=== PATIENT | female | born 1945 | race Caucasian/White ===

== ENCOUNTER 2017-07-17 14:36 | Emergency (ER) | payer OTHER ==
[~2017-07-17] VITALS: Ht 147.3 cm; Wt 61.0 kg
[2017-07-17 14:36] VITALS: BP 136/74; PULSE 96; RESP 18; TEMP 98.5; O2SAT 96
[2017-07-17] MEDS ORDERED: ASPI-146 PO (14:51)
[2017-07-17] MEDS ORDERED: ZEGE20CA4 PO (14:51)
[2017-07-17] MEDS ORDERED: VERA120T3 PO (14:51)
[2017-07-17] MEDS ORDERED: ATOR40TA16 PO (14:51)
[2017-07-17] MEDS ORDERED: GLIP1TAB49 PO (14:51)
[2017-07-17] MEDS ORDERED: LISI-515 PO (14:51)
[2017-07-17] MEDS ORDERED: CANA1TAB2 PO (14:51)
--- NOTE | 2017-07-17 15:15 | PD ---
HPI Chief Complaint: Fall Time Seen by Provider: 14:54 Travel History International Travel<30 days: No Contact w/Intl Traveler<30days: No Traveled to known affect area: No History of Present Illness HPI This is a 72-year-old female here with bilateral knee pain after she had a mechanical trip and fall from a standing position prior to arrival. She reports while walking out of a grocery store she tripped on a curb falling forward onto both knees. She denies head injury or loss of consciousness. Not anticoagulated. She has pain with weightbearing and range of motion of the knees. Symptom severity is moderate. PFSH Past Medical History Cardiovascular Problems: Yes Diabetes: Yes Patient Takes Glucophage: No Diminished Hearing: No Hypertension: Yes Immunizations Current: Yes Tetanus Vaccination: Unknown Influenza Vaccination: Yes ?: Not Past Surgical History Hysterectomy: Yes Tonsillectomy: Yes Other Surgery: Yes (RT LEG LIGAMENT BREAST BX) Social History Alcohol Use: Yes Tobacco Use: Yes Substance Use: No Allergies-Medications (Allergen,Severity, Reaction): Coded Allergies: No Known Allergies (Verified Allergy, Unknown, 07/17/17) Reported Meds & Prescriptions Reported Meds & Active Scripts Active Reported Zegerid (Omeprazole-Sodium Bicarbonate) 20-1,100 Mg Cap 1 Cap PO DAILY Ecotrin Regular Strength (Aspirin) 325 Mg Tabdr 325 Mg PO DAILY Atorvastatin (Atorvastatin Calcium) 40 Mg Tab 40 Mg PO HS Verapamil (Verapamil HCl) 120 Mg Tab 120 Mg PO DAILY Lisinopril 20 Mg Tab 20 Mg PO DAILY Glipizide ER (Glipizide) 5 Mg Ramona 5 Mg PO DAILY Take with breakfast or first main meal of the day. Invokamet (Canagliflozin-Metformin) 50-1,000 Mg Tab 1 Tab PO BID Take with meals. Avoid ethanol. Review of Systems Except as stated in HPI: all other systems reviewed are Neg General / Constitutional: No: Fever Eyes: No: Visual changes HENT: No: Headaches Cardiovascular: No: Chest Pain or Discomfort Respiratory: No: Shortness of Breath Gastrointestinal: No: Abdominal Pain Genitourinary: No: Dysuria Physical Exam Narrative GENERAL: Alert and well-appearing 9-year-old female SKIN: Warm and dry. HEAD: Normocephalic. Atraumatic EYES: No injection or drainage. NECK: Supple, no midline spine tenderness MUSCULOSKELETAL: No cyanosis. + Tenderness to bilateral knees. Superficial abrasions noted to left knee. No deformity. No joint effusion. Patient has pain with flexion. 2+ distal pulses. Normal Sensation. Brisk cap refill. BACK: Nontender without obvious deformity. No CVA tenderness. Data Data Last Documented VS Vital Signs Date Time Temp Pulse Resp B/P (MAP) Pulse Ox O2 Delivery O2 Flow Rate FiO2 07/17/17 14:36 98.5 96 18 136/74 (94) 96 Orders Orders Knee, Complete (4vws) (07/17/17 ) Knee, Complete (4vws) (07/17/17 ) MDM Medical Decision Making Medical Screen Exam Complete: Yes Emergency Medical Condition: Yes Differential Diagnosis Patellar fracture, contusion, knee sprain Narrative Course 72-year-old female here with bilateral knee pain after mechanical trip and fall. No head injury or possible consciousness. Extremities are neurovascularly intact X-ray bilateral knees: Negative for fracture Patient will be treated for bilateral knee contusion. Nick wrap supplied. She is ambulatory with steady gait Diagnosis Primary Impression: Knee contusion Qualified Codes: S80.00XA - Contusion of unspecified knee, initial encounter Referrals: Primary Care Physician Additional Instructions: Ice and elevate the extremities Nick wrap for support. Tylenol and ibuprofen as needed for pain. Follow-up the primary doctor or orthopedist if he have continued pain Disposition: 01 DISCHARGE HOME Condition: Stable Hannah Cartwright Jul 17, 2017 15:15
--- NOTE | 2017-07-17 15:33 | RADRPT ---
EXAM DATE/TIME: 07/17/2017 15:05 [facility] COMPARISON: No previous studies available for comparison. INDICATIONS : Fell on knees, has abrasions to anterior knee and pain MEDICAL HISTORY : None. SURGICAL HISTORY : None. ENCOUNTER: Initial ACUITY: 1 day PAIN SCORE: 4/10 LOCATION: Left knee FINDINGS: No definite fractures, or dislocations are identified. No definite lytic or sclerotic lesion is seen . Slight osteopenia is seen. There is mild narrowing of the medial compartment. CONCLUSION: Slight osteopenia and mild osteoarthritis medial compartment. Gagandeep Da Silva MD on July 17, 2017 at 15:30 Board Certified Radiologist. This report was verified electronically.
--- NOTE | 2017-07-17 15:35 | RADRPT ---
EXAM DATE/TIME: 07/17/2017 15:12 [facility] COMPARISON: No previous studies available for comparison. INDICATIONS : Fell on knees, has abrasions and pain anterior knee MEDICAL HISTORY : None. SURGICAL HISTORY : None. ENCOUNTER: Initial ACUITY: 1 day PAIN SCORE: 4/10 LOCATION: Right knee FINDINGS: Significant osteoarthritis is seen within the medial compartment and to lesser degree the other gabo rtments. No definite fractures, dislocations, lytic, or sclerotic lesions are seen. there is mild ost eopenia. CONCLUSION: Osteoarthritis. Gagandeep Da Silva MD on July 17, 2017 at 15:32 Board Certified Radiologist. This report was verified electronically.
== END 2017-07-17 15:59 | disposition home or self-care (01) ==
LOC: PHEFT 14:36
DX: S80.02XA Contusion of left knee, initial encounter (principal); S80.01XA Contusion of right knee, initial encounter; M17.11 Unilateral primary osteoarthritis, right knee; E11.9 Type 2 diabetes mellitus without complications; I10 Essential (primary) hypertension; W10.1XXA Fall (on)(from) sidewalk curb, initial encounter; Y92.512 Supermarket, store or market as the place of occurrence of the external cause; Z72.0 Tobacco use; Z79.899 Other long term (current) drug therapy
CPT/HCPCS: 73564; 99283

== ENCOUNTER 2017-09-20 23:44 | Inpatient (IN) | payer OTHER, MEDICARE ==
[~2017-09-20] VITALS: Ht 160 cm; Wt 62.0 kg
[~2017-09-20 23:44] MED LIST: ASPI-146 PO; ATOR40TA16 PO; CANA1TAB2 PO; GLIP1TAB49 PO; LISI-515 PO; VERA120T3 PO; ZEGE20CA4 PO
[2017-09-20 23:46] VITALS: O2SAT 100
[2017-09-20 23:47] VITALS: BP 110/61; PULSE 127; RESP 20; O2SAT 100
[2017-09-21] VITALS (30 sets, daily range): BP systolic 99–153; BP diastolic 60–103; PULSE 98–127; RESP 12–16; TEMP 97–99.2; O2SAT 94–100
[2017-09-21] MEDS ORDERED: SODIUM CHLORIDE 0.9% FLUSH 10 ML FLUSH IVF PRN
--- NOTE | 2017-09-21 00:14 | PD ---
HPI Chief Complaint: Respiratory Distress Time Seen by Provider: 00:00 Travel History International Travel<30 days: No Contact w/Intl Traveler<30days: No Traveled to known affect area: No History of Present Illness HPI 77-year-old female presents to the emergency department by EMS transport from local fire department where she went into respiratory failure and then into respiratory arrest. Patient presented to the fire department with marked shortness of breath fire department personnel attempted CPAP and then patient went into respiratory arrest and was intubated with 7.0 endotracheal tube by EMS. Patient had received Lasix 70 mg IV push 1 dose and sublingual nitroglycerin and aspirin prior to respiratory arrest by firefighters. Paramedics identified patient to have a left bundle branch block of indeterminate age. [facility] Past Medical History Medical History: Unable to Obtain Cardiovascular Problems: Yes Diabetes: Yes Patient Takes Glucophage: No Diminished Hearing: No Hypertension: Yes Respiratory: Yes (CHF) Immunizations Current: Yes Past Surgical History Surgical History: Unable to Obtain Hysterectomy: Yes Tonsillectomy: Yes Other Surgery: Yes (RT LEG LIGAMENT BREAST BX) Social History Alcohol Use: Yes Tobacco Use: Yes Substance Use: No Allergies-Medications (Allergen,Severity, Reaction): Coded Allergies: No Known Allergies (Verified Allergy, Unknown, 07/17/17) Reported Meds & Prescriptions Reported Meds & Active Scripts Active Reported Zegerid (Omeprazole-Sodium Bicarbonate) 20-1,100 Mg Cap 1 Cap PO DAILY Ecotrin Regular Strength (Aspirin) 325 Mg Tabdr 325 Mg PO DAILY Atorvastatin (Atorvastatin Calcium) 40 Mg Tab 40 Mg PO HS Verapamil (Verapamil HCl) 120 Mg Tab 120 Mg PO DAILY Lisinopril 20 Mg Tab 20 Mg PO DAILY Glipizide ER (Glipizide) 5 Mg Ramona 5 Mg PO DAILY Take with breakfast or first main meal of the day. Invokamet (Canagliflozin-Metformin) 50-1,000 Mg Tab 1 Tab PO BID Take with meals. Avoid ethanol. Review of Systems ROS Limitations: Clinical Condition, Intubated, Other: Respiratory: Positive: Cough (Per patient's ), Shortness of Breath (Per patient's ) Physical Exam Narrative GENERAL: Well-developed well-nourished female, intubated GCS 3 SKIN: Warm and dry. HEAD: Normocephalic. EYES: No scleral icterus. No injection or drainage. Pupils equal round reactive to light. NECK: Supple, trachea midline. No JVD or lymphadenopathy. CARDIOVASCULAR: Increased regular rate and rhythm without murmurs, gallops, or rubs. RESPIRATORY: Breath sounds equal bilaterally diminished with basilar rales. Auscultated with ambit assisted ventilation. GASTROINTESTINAL: Abdomen soft, non-tender, nondistended. MUSCULOSKELETAL: No cyanosis, or edema. Radial dorsalis pedis pulses 2+ to palpation per BACK: Nontender without obvious deformity. No CVA tenderness. Data Data Last Documented VS Vital Signs Date Time Temp Pulse Resp B/P (MAP) Pulse Ox O2 Delivery O2 Flow Rate FiO2 09/21/17 02:01 120 14 99/60 (73) 98 Ventilator 50 09/21/17 00:02 97.0 Orders Orders Complete Blood Count With Diff (09/21/17 00:00) Comprehensive Metabolic Panel (09/21/17 00:00) B-Type Natriuretic Peptide (09/21/17 00:00) Act Partial Throm Time (Ptt) (09/21/17 00:00) Prothrombin Time / Inr (Pt) (09/21/17 00:00) Magnesium (Mg) (09/21/17 00:00) Ckmb (Isoenzyme) Profile (09/21/17 00:00) Troponin I (09/21/17 00:00) Iv Access Insert/Monitor (09/21/17 00:00) Electrocardiogram (09/21/17 00:00) Ecg Monitoring (09/21/17 00:00) Oximetry (09/21/17 00:00) Oxygen Administration (09/21/17 00:00) Chest, Single Ap (09/21/17 00:00) Sodium Chloride 0.9% Flush (Ns Flush) (09/21/17 00:00) Blood Culture (09/21/17 00:11) Lactic Acid (09/21/17 00:11) Nitroglycerin 2% Oint (Nitroglycerin 2% (09/21/17:15) Propofol 1000 Mg/100 Ml Inj (Diprivan 10 (09/21/17 00:15) Urinary Catheter Insert/Apply (09/21/17 00:14) Matilda-Gastric Tube Insert/Mon (09/21/17 00:14) Place Ng Tube To Low Intermit (09/21/17:14) Resp Ventilation- Volume (09/21/17 ) Piperacil-Tazo 4.5 Gm Premix (Zosyn 4.5 (09/21/17 00:30) Vancomycin Inj (Vancomycin Inj) (09/21/17 00:30) Sodium Bicarbonate 8.4% Inj (Sodium Bica (09/21/17 00:45) Arterial Blood Gas (Abg) (09/21/17 00:20) Ct Brain W/O Iv Contrast(Rout) (09/21/17 ) (Hub Use Only)Inp Phy Cons/Ref (09/21/17 ) Admit Order (Ed Use Only) (09/21/17 ) Lock Installer / Telemetry [id number] (09/21/17 02:10) Activity Oob With Assistance (09/21/17 02:10) Notify Dr: Other (09/21/17 02:10) Labs Laboratory Tests Test 09/21/17 00:15 09/21/17 00:20 09/21/17 00:30 White Blood Count 20.9 TH/MM3 Red Blood Count 4.59 MIL/MM3 Hemoglobin 11.9 GM/DL Hematocrit 38.5 % Mean Corpuscular Volume 83.9 FL Mean Corpuscular Hemoglobin 26.0 PG Mean Corpuscular Hemoglobin Concent 31.0 % Red Cell Distribution Width 16.8 % Platelet Count 558 TH/MM3 Mean Platelet Volume 8.5 FL Neutrophils (%) (Auto) 46.1 % Lymphocytes (%) (Auto) 43.9 % Monocytes (%) (Auto) 4.8 % Eosinophils (%) (Auto) 3.9 % Basophils (%) (Auto) 1.3 % Neutrophils # (Auto) 9.6 TH/MM3 Lymphocytes # (Auto) 9.2 TH/MM3 Monocytes # (Auto) 1.0 TH/MM3 Eosinophils # (Auto) 0.8 TH/MM3 Basophils # (Auto) 0.3 TH/MM3 CBC Comment AUTO DIFF Differential Total Cells Counted 100 Neutrophils % (Manual) 46 % Band Neutrophils % 6 % Lymphocytes % 35 % Monocytes % 2 % Eosinophils % 8 % Basophils % 2 % Neutrophils # (Manual) 11.1 TH/MM3 Myelocytes 1 % Differential Comment FINAL DIFF MANUAL Toxic Granulation 1+ Platelet Estimate HIGH Platelet Morphology Comment NORMAL Acanthocytes OCC Prothrombin Time 10.0 SEC Prothromb Time International Ratio 1.0 RATIO Activated Partial Thromboplast Time 22.8 SEC Blood Urea Nitrogen 15 MG/DL Creatinine 1.23 MG/DL Random Glucose 304 MG/DL Total Protein 7.5 GM/DL Albumin 3.2 GM/DL Calcium Level 8.6 MG/DL Magnesium Level 1.5 MG/DL Alkaline Phosphatase 120 U/L Aspartate Amino Transf (AST/SGOT) 47 U/L Alanine Aminotransferase (ALT/SGPT) 38 U/L Total Bilirubin 0.1 MG/DL Sodium Level 141 MEQ/L Potassium Level 3.8 MEQ/L Chloride Level 105 MEQ/L Carbon Dioxide Level 16.2 MEQ/L Anion Gap 20 MEQ/L Estimat Glomerular Filtration Rate 43 ML/MIN Total Creatine Kinase 98 U/L Troponin I 0.08 NG/ML B-Type Natriuretic Peptide 165 PG/ML Blood Gas Puncture Site RT RADIAL Blood Gas Patient Temperature 98.6 Blood Gas HCO3 15 mmol/L Blood Gas Base Excess -11.9 mmol/L Blood Gas Oxygen Saturation 95 % Arterial Blood pH 7.19 Arterial Blood Partial Pressure CO2 40 mmHg Arterial Blood Partial Pressure O2 387 mmHG Arterial Blood Oxygen Content 17.1 Vol % Arterial Blood Carboxyhemoglobin 2.9 % Arterial Blood Methemoglobin 1.1 % Blood Gas Hemoglobin 12.0 G/DL Oxygen Delivery Device VENTILATOR Blood Gas Ventilator Setting Blood Gas Inspired Oxygen 100 % Lactic Acid Level 9.4 mmol/L MDM Medical Decision Making Medical Screen Exam Complete: Yes Emergency Medical Condition: Yes Medical Record Reviewed: Yes Interpretation(s) Last Impressions Chest X-Ray 09/21/17 0000 Signed Impressions: Service Date/Time: Thursday, September 21, 2017 00:05 - CONCLUSION: 1. Adequate placement of endotracheal tube. 2. Perihilar airspace disease likely edema greater on the left. Jones Hart MD CBC & BMP Diagram 09/21/17 00:15 Total Protein 7.5, Albumin 3.2 L, Calcium Level 8.6, Magnesium Level 1.5, Alkaline Phosphatase 120 H, Aspartate Amino Transf (AST/SGOT) 47 H, Alanine Aminotransferase (ALT/SGPT) 38, Total Bilirubin 0.1 L Vital Signs Date Time Temp Pulse Resp B/P (MAP) Pulse Ox O2 Delivery O2 Flow Rate FiO2 09/21/17 02:01 120 14 99/60 (73) 98 Ventilator 50 09/21/17 01:56 120 14 128/71 (90) 100 Ventilator 50 09/21/17 01:32 120 14 119/78 (92) 100 Ventilator 100 09/21/17 00:10 124 14 143/91 (108) 100 Ventilator 100 09/21/17 00:08 14 100 Ventilator 100 09/21/17 00:07 100 Ventilator 09/21/17 00:02 97.0 127 14 153/103 (120) 100 Ventilator 100 09/20/17 23:56 100 09/20/17 23:52 126 20 100 Room Air 09/20/17 23:47 127 20 110/61 (77) 100 09/20/17 23:46 100 100 09/20/17 23:46 100 100 ABG: fio2 100% 7.19/40/387/95%/15/-12 on AC 500 14 100%5 CT BRAIN W/O: CONCLUSION: No acute intracranial disease. Jones Hart MD on September 21, 2017 at 3:28 Board Certified Radiologist. This report was verified electronically. Differential Diagnosis Dyspnea, CHF, respiratory arrest, ACS, myocardial infarction, PE, pneumonia, sepsis Narrative Course Intubated 72-year-old female placed on equipment monitor phototypesetting with continuous pulse oximetry breath sounds confirmed prior to transfer from EMS stretcher to ED stretcher with good breath sounds with ambit assisted ventilations EKG performed shows right bundle branch block age-indeterminate QRS septally age- indeterminate this was repeated and EKG was sinus tach with left bundle branch block and no acute ST elevation in view of patient's presentation and unknown complaint of chest pain or bundle branch block history stat call was placed to on-call cardiology for st elevation mi coverage and EKGs were reviewed by press washer Dr. Appiah who feels this patient does not meet emergent cardiac catheterization intervention as it is unknown if she was experiencing chest pain and as patient cannot convey this information as she is presently sedated and intubated. Does recommend managing her as acute coronary syndrome. Patient administered nitroglycerin and had received prior to arrival aspirin will initiate heparin. Patient identified to have marked metabolic acidosis and administration of bicarb initiated. Family now at bedside and reports recent upper respiratory infection with antibiotic prescription unknown antibiotic at this time as well as sudden onset shortness of breath this evening just prior to arrival without complaint of chest pain. Sister and also note the patient has had a fall in the last week to 2 weeks was reportedly seen at local hospital unknown if she had imaging of her head but patient did have head injury with her fall. Therefore in view of recent head injury patient unable to relay history and history provided by family of head injury and otherwise fairly poor historians regarding patient's past medical history and medications prior to initiating heparinization will obtain CT brain noncontrast. Patient's case has been discussed with on-call senior sales operations manager for admission Patient has returned from CT without evidence of acute intracranial process will start heparinization. Procedures Procedure Narrative Aggregate critical care time was 35 minutes. Time to perform other separately billable procedures was not included in the critical care time. My time did not include minutes spent treating any other patients simultaneously or on activities that did not directly contribute to the patient's treatment. The services I provided to this patient were to treat and/or prevent clinically significant deterioration that could result in: Myocardial infarction, septic shock, I provided critical care services requiring my management, as noted below: Chart data review, documentation time, medication orders and management, vital sign assessments/reviewing monitor data, ordering and reviewing lab tests, ordering and interpreting/reviewing x-rays and diagnostic studies, care of the patient and discussion of the patient with the admitting physicians. Sepsis Criteria SIRS Criteria (2 or more): Heart rate over 90, WBC > 58852, < 4000 or > 10% bands Sepsis Criteria (SIRS+source): Infect source susp/known (pulmonary) Severe Sepsis (+one): Lactate >2 Septic Shock Criteria: Lactic acid >=4 Physician Communication Physician Communication discussed with Dr Appiah -- ACS; no stemi laborer rags ; discussed with Dr Sprague Diagnosis Primary Impression: Respiratory arrest Additional Impressions: CHF (congestive heart failure) Qualified Codes: I50.9 - Heart failure, unspecified ACS (acute coronary syndrome) Sepsis Qualified Codes: A41.9 - Sepsis, unspecified organism Lactic acidosis Admitting Information Admitting Physician Requests: Admit Janina Kennedy MD Sep 21, 2017 00:14
[2017-09-21] MEDS ORDERED: NITROGLYCERIN 2% OINT 1 GM PACKET TOPICAL ONE (00:15)
[2017-09-21] MEDS: PROPOFOL 1000 MG/100 ML INJ 100 ML IV PRN ×5 (00:20→12:08)
--- NOTE | 2017-09-21 00:26 | RADRPT ---
EXAM DATE/TIME: 09/21/2017 00:05 [facility] COMPARISON: No previous studies available for comparison. INDICATIONS : Post intubation. MEDICAL HISTORY : Hypertension. Congestive heart failure. SURGICAL HISTORY : None. ENCOUNTER: Initial ACUITY: 1 day PAIN SCORE: Non-responsive. LOCATION: Bilateral chest FINDINGS: A single view of the chest demonstrates endotracheal tube 5.5 cm above the avis. Nasogastric tube b elow the inferior margin of the image. There is some perihilar airspace disease greater on the left. Heart borderline enlarged. Osseous structures are intact. CONCLUSION: 1. Adequate placement of endotracheal tube. 2. Perihilar airspace disease likely edema greater on the left. Jones Hart MD on September 21, 2017 at 0:23 Board Certified Radiologist. This report was verified electronically.
[2017-09-21 00:29] LABS: AUTOMATED NEUTROPHIL # 9.6 TH/MM3 (1.8-7.7); BASOPHIL # 0.3 TH/MM3 (0-0.2); BASOPHIL % 1.3 % (0.0-2.0); EOSINOPHIL # 0.8 TH/MM3 (0-0.4); EOSINOPHIL % 3.9 % (0.0-4.0); HEMATOCRIT 38.5 % (35.0-46.0); HEMOGLOBIN 11.9 GM/DL (11.6-15.3); LYMPH % 43.9 % (9.0-44.0); LYMPHOCYTE # 9.2 TH/MM3 (1.0-4.8); MEAN CELL VOLUME 83.9 FL (80.0-100.0); MEAN PLATELET VOLUME 8.5 FL (7.0-11.0); MONO % 4.8 % (0.0-8.0); NEUT % 46.1 % (16.0-70.0); PLATELET COUNT 558 TH/MM3 (150-450); RED BLOOD COUNT 4.59 MIL/MM3 (4.00-5.30); RED CELL DISTRIBUTION WIDTH 16.8 % (11.6-17.2); WHITE BLOOD COUNT 20.9 TH/MM3 (4.0-11.0)
[2017-09-21] MEDS ORDERED: PIPERACIL-TAZO 4.5 GM PREMIX 100 ML IV ONE (00:30)
[2017-09-21] MEDS ORDERED: VANCOMYCIN INJ 1,000 MG in SODIUM CHLOR 0.9% 250 ML INJ 250 ML IV ONE (00:30)
[2017-09-21] MEDS ORDERED: SODIUM BICARBONATE 8.4% INJ 50 MEQ/50 ML SYR IV PUSH ONE (00:45)
[2017-09-21 00:57] LABS: ALBUMIN 3.2 GM/DL (3.4-5.0); ALT (GPT) 38 U/L (10-53); AST (GOT) 47 U/L (15-37); BICARBONATE 16.2 MEQ/L (21.0-32.0); BLOOD UREA NITROGEN 15 MG/DL (7-18); CALCIUM 8.6 MG/DL (8.5-10.1); CHLORIDE 105 MEQ/L (98-107); CREATININE 1.23 MG/DL (0.50-1.00); GLOMERULAR FILTRATION RATE 43 ML/MIN (>89); GLUCOSE,RANDOM 304 MG/DL (74-106); MAGNESIUM 1.5 MG/DL (1.5-2.5); SODIUM (NA) 141 MEQ/L (136-145); TROPONIN I 0.08 NG/ML (0.02-0.05)
[2017-09-21 01:18] LABS: ALKALINE PHOSPHATASE 120 U/L (45-117); TOTAL BILIRUBIN ADULT 0.1 MG/DL (0.2-1.0); TOTAL PROTEIN 7.5 GM/DL (6.4-8.2)
[2017-09-21 02:14] LABS: BANDS 6 % (0-6); BASOPHILS 2 % (0-2); LYMPHOCYTES 35 % (9-44); MONOCYTES 2 % (0-8); MYELOCYTES 1 % (0-0); NEUTROPHIL # MANUAL DIFF 11.1 TH/MM3 (1.8-7.7); POLYS (SEG NEUTROPHILS) 46 % (16-70)
[2017-09-21 02:15] LABS: ACANTHOCYTES OCC (NORMAL); TOXIC GRANULATION 1+ (NORMAL)
[2017-09-21] MEDS ORDERED: LACTULOSE SYRUP 20 GM/30 ML CUP PO PRN (03:00)
[2017-09-21] MEDS ORDERED: CHLORHEXIDINE GLUCONATE 2 % 1 PACK (2 CLOTHS) TOP PRN (03:00)
[2017-09-21] MEDS ORDERED: GLUCAGON 1 MG/ML VIAL OTHER PRN (03:00)
[2017-09-21] MEDS ORDERED: MISCELLANEOUS NURSING INFORMATION XX SCH (03:00)
[2017-09-21] MEDS ORDERED: SENNOSIDES 8.6 MG TAB PO PRN (03:00)
[2017-09-21] MEDS ORDERED: RESP: ALBUTEROL 2.5 MG/IPRATROPIUM 0.5 MG NEB (PRN) INH (03:00)
[2017-09-21] MEDS ORDERED: ACETAMINOPHEN 325 MG TAB PO PRN (03:00)
[2017-09-21] MEDS ORDERED: MORPHINE SULFATE 4 MG/ML INJ IV PUSH PRN (03:00)
[2017-09-21] MEDS ORDERED: MIDAZOLAM HCL 2 MG/2 ML VIAL IV PUSH PRN (03:00)
[2017-09-21] MEDS ORDERED: BISACODYL 10 MG SUPP RECTAL PRN (03:00)
[2017-09-21] MEDS ORDERED: MAGNESIUM HYDROXIDE SUSP 30 ML CUP PO PRN (03:00)
[2017-09-21] MEDS ORDERED: ONDANSETRON HCL 4 MG/2 ML VIAL IV PUSH PRN (03:00)
[2017-09-21] MEDS ORDERED: DEXTROSE 50% IN WATER 50 ML VIAL(D50) IV PUSH PRN (03:00)
--- NOTE | 2017-09-21 03:11 | HHI.HP ---
HPI Service Critical Care Medicine Primary Care Physician Joel Begum M.D. Admission Diagnosis CHF; sepsis; lactic acidosis; elevated troponin I Diagnosis: Travel History International Travel<30 Days: No Contact w/Intl Traveler <30 Da: No Traveled to Known Affected Are: No History of Present Illness 77-year-old female presents by EMS transport from local fire department where she went into respiratory failure and then into respiratory arrest. Patient presented to the fire department with marked shortness of breath fire department personnel attempted CPAP and then patient went into respiratory arrest and was intubated with 7.0 endotracheal tube by EMS. Patient had received Lasix 30 mg IV push 1 dose and sublingual nitroglycerin and aspirin prior to respiratory arrest by firefighters. Paramedics identified patient to have a left bundle branch block of indeterminate age. These EKG findings were discussed with Dr. Huffman wood engraver on-call by ED attending and recommendation was not to proceed with a cardiac catheterization emergently. Review of Systems ROS Unable to obtain patient sedated and intubated Past Family Social History Allergies: Coded Allergies: No Known Allergies (Verified Allergy, Unknown, 07/17/17) Past Medical History Cardiovascular Problems: Yes Diabetes: Yes Hypertension: Yes Congestive heart failure: Yes Past Surgical History Hysterectomy: Yes Tonsillectomy: Yes Other Surgery: Yes (RT LEG LIGAMENT BREAST BX) Reported Medications Reported Meds & Active Scripts Active Reported Zegerid (Omeprazole-Sodium Bicarbonate) 20-1,100 Mg Cap 1 Cap PO DAILY Ecotrin Regular Strength (Aspirin) 325 Mg Tabdr 325 Mg PO DAILY Atorvastatin (Atorvastatin Calcium) 40 Mg Tab 40 Mg PO HS Verapamil (Verapamil HCl) 120 Mg Tab 120 Mg PO DAILY Lisinopril 20 Mg Tab 20 Mg PO DAILY Glipizide ER (Glipizide) 5 Mg Ramona 5 Mg PO DAILY Take with breakfast or first main meal of the day. Invokamet (Canagliflozin-Metformin) 50-1,000 Mg Tab 1 Tab PO BID Take with meals. Avoid ethanol. Active Ordered Medications Current Medications Medications (Trade) Dose Ordered Sig/Jack Route PRN Reason Start Time Stop Time Status Last Admin Dose Admin Sodium Chloride (NS Flush) 2 ml UNSCH PRN IVF FLUSH AFTER USING IV ACCESS 09/21/17 00:00 Aspirin (Ecotrin Ec) 325 mg DAILY PO 09/21/17 09:00 Atorvastatin Calcium (Lipitor) 40 mg HS PO 09/21/17 21:00 Dextrose (D50w (Vial) Inj) 50 ml UNSCH PRN IV PUSH HYPOGLYCEMIA-SEE COMMENTS 09/21/17 03:00 Glucagon (Glucagon Inj) 1 mg UNSCH PRN OTHER HYPOGLYCEMIA-SEE COMMENTS 09/21/17 03:00 Insulin Aspart (NovoLOG SUPPLEMENTAL SCALE) 1 ACHS SLIDING SCALE SQ 09/21/17 08:00 Sodium Chloride (NS Flush) 2 ml UNSCH PRN IV FLUSH FLUSH AFTER USING IV ACCESS 09/21/17 03:00 Sodium Chloride (NS Flush) 2 ml BID IV FLUSH 09/21/17 09:00 Acetaminophen (Tylenol) 650 mg Q6H PRN PO PAIN 1-5 AND/OR FEVER >101F 09/21/17 03:00 Morphine Sulfate (Morphine Inj) 2 mg Q2H PRN IV PUSH PAIN SCALE 6 TO 10 09/21/17 03:00 Famotidine (Pepcid Inj) 20 mg Q12HR IV PUSH 09/21/17 09:00 Midazolam HCl (Versed Inj) 2 mg Q1H PRN IV PUSH SEDATION 09/21/17 03:00 Artificial Tears (Tears Naturale Opth Soln) 1 drop TID EACH EYE 09/21/17 09:00 Ondansetron HCl (Zofran Inj) 4 mg Q6H PRN IV PUSH NAUSEA OR VOMITING 09/21/17 03:00 Albuterol/ Ipratropium (Duoneb Neb) 1 ampule Q4HR NEB INH 09/21/17 04:00 09/21/17 03:16 Albuterol/ Ipratropium (Duoneb Neb) 1 ampule Q2HR NEB PRN INH WHEEZING 09/21/17 03:00 Miscellaneous Information 1 Q361D XX 09/21/17 03:00 Chlorhexidine Gluconate (Chlorhexidine 2% Cloth) 3 pack Taper DAILY@04 TOP 09/21/17 04:00 09/17/18 03:59 Chlorhexidine Gluconate (Chlorhexidine 2% Cloth) 3 pack UNSCH PRN TOP HYGIENIC CARE 09/21/17 03:00 Senna/Docusate Sodium (Alysa-Colace) 1 tab BID PO 09/21/17 09:00 Magnesium Hydroxide (Milk Of Magnesia Liq) 30 ml Q12H PRN PO Mild constipation 09/21/17 03:00 Sennosides (Senokot) 17.2 mg Q12H PRN PO Moderate constipation 09/21/17 03:00 Bisacodyl (Dulcolax Supp) 10 mg DAILY PRN RECTAL SEVERE CONSITIPATION 09/21/17 03:00 Lactulose (Lactulose Liq) 30 ml DAILY PRN PO SEVERE CONSITIPATION 09/21/17 03:00 Chlorhexidine Gluconate (Peridex 0.12% Liq) 15 ml BID@08,20 MT 09/21/17 08:00 Propofol 100 ml @ 2.25 mls/hr TITRATE PRN IV SEDATION 09/21/17 03:00 09/21/17 03:18 Heparin Sodium (Porcine) (Heparin Inj) 5,000 units UNSCH PRN IV PUSH APTT LESS THAN 25 09/21/17 09:15 Heparin Sodium (Porcine) (Heparin Inj) 2,500 units UNSCH PRN IV PUSH APTT 25 TO 39 09/21/17 09:15 Heparin Sodium/ Dextrose 250 ml @ 9 mls/hr TITRATE PRN IV Coagulation Management 09/21/17 03:15 09/21/17 03:35 Family History Unobtainable Social History Alcohol Use: Yes Tobacco Use: Yes Substance Use: No Physical Exam Vital Signs Vital Signs Date Time Temp Pulse Resp B/P (MAP) Pulse Ox O2 Delivery O2 Flow Rate FiO2 09/21/17 02:01 120 14 99/60 (73) 98 Ventilator 50 09/21/17 01:56 120 14 128/71 (90) 100 Ventilator 50 09/21/17 01:32 120 14 119/78 (92) 100 Ventilator 100 09/21/17 00:10 124 14 143/91 (108) 100 Ventilator 100 09/21/17 00:08 14 100 Ventilator 100 09/21/17 00:07 100 Ventilator 09/21/17 00:02 97.0 127 14 153/103 (120) 100 Ventilator 100 09/20/17 23:56 100 09/20/17 23:52 126 20 100 Room Air 09/20/17 23:47 127 20 110/61 (77) 100 09/20/17 23:46 100 100 09/20/17 23:46 100 100 Physical Exam GENERAL: Well-nourished, well-developed patient. Sedated and intubated SKIN: Warm and dry. HEAD: Normocephalic. EYES: No scleral icterus. No injection or drainage. NECK: Supple, trachea midline. No JVD or lymphadenopathy. CARDIOVASCULAR: Regular rate and rhythm without murmurs, gallops, or rubs. RESPIRATORY: Breath sounds equal bilaterally. No accessory muscle use. GASTROINTESTINAL: Abdomen soft, non-tender, nondistended. MUSCULOSKELETAL: No cyanosis, or edema. BACK: Nontender without obvious deformity. NEURO EXAM: Sedated and intubated female Laboratory Laboratory Tests Test 09/21/17 00:15 09/21/17 00:20 09/21/17 00:30 White Blood Count 20.9 Red Blood Count 4.59 Hemoglobin 11.9 Hematocrit 38.5 Mean Corpuscular Volume 83.9 Mean Corpuscular Hemoglobin 26.0 Mean Corpuscular Hemoglobin Concent 31.0 Red Cell Distribution Width 16.8 Platelet Count 558 Mean Platelet Volume 8.5 Neutrophils (%) (Auto) 46.1 Lymphocytes (%) (Auto) 43.9 Monocytes (%) (Auto) 4.8 Eosinophils (%) (Auto) 3.9 Basophils (%) (Auto) 1.3 Neutrophils # (Auto) 9.6 Lymphocytes # (Auto) 9.2 Monocytes # (Auto) 1.0 Eosinophils # (Auto) 0.8 Basophils # (Auto) 0.3 CBC Comment AUTO DIFF Differential Total Cells Counted 100 Neutrophils % (Manual) 46 Band Neutrophils % 6 Lymphocytes % 35 Monocytes % 2 Eosinophils % 8 Basophils % 2 Neutrophils # (Manual) 11.1 Myelocytes 1 Differential Comment FINAL DIFF MANUAL Toxic Granulation 1+ Platelet Estimate HIGH Platelet Morphology Comment NORMAL Acanthocytes OCC Prothrombin Time 10.0 Prothromb Time International Ratio 1.0 Activated Partial Thromboplast Time 22.8 Blood Urea Nitrogen 15 Creatinine 1.23 Random Glucose 304 Total Protein 7.5 Albumin 3.2 Calcium Level 8.6 Magnesium Level 1.5 Alkaline Phosphatase 120 Aspartate Amino Transf (AST/SGOT) 47 Alanine Aminotransferase (ALT/SGPT) 38 Total Bilirubin 0.1 Sodium Level 141 Potassium Level 3.8 Chloride Level 105 Carbon Dioxide Level 16.2 Anion Gap 20 Estimat Glomerular Filtration Rate 43 Total Creatine Kinase 98 Troponin I 0.08 B-Type Natriuretic Peptide 165 Blood Gas Puncture Site RT RADIAL Blood Gas Patient Temperature 98.6 Blood Gas HCO3 15 Blood Gas Base Excess -11.9 Blood Gas Oxygen Saturation 95 Arterial Blood pH 7.19 Arterial Blood Partial Pressure CO2 40 Arterial Blood Partial Pressure O2 387 Arterial Blood Oxygen Content 17.1 Arterial Blood Carboxyhemoglobin 2.9 Arterial Blood Methemoglobin 1.1 Blood Gas Hemoglobin 12.0 Oxygen Delivery Device VENTILATOR Blood Gas Ventilator Setting Blood Gas Inspired Oxygen 100 Lactic Acid Level 9.4 Date/Time Source Procedure Growth Status 09/21/17 00:30 Blood Peripheral Aerobic Blood Culture Pending Received 09/21/17 00:30 Blood Peripheral Anaerobic Blood Culture Pending Received Result Diagram: 09/21/17 0015 09/21/17 0015 Imaging Last [address] 09/21/17 0000 Signed Impressions: Service Date/Time: Thursday, September 21, 2017 02:59 - CONCLUSION: No acute intracranial disease. Jones Hart MD Chest X-Ray 09/21/17 0000 Signed Impressions: Service Date/Time: Thursday, September 21, 2017 00:05 - CONCLUSION: 1. Adequate placement of endotracheal tube. 2. Perihilar airspace disease likely edema greater on the left. Jones Hart MD Capemil VTE Risk Assessment Caprini VTE Risk Assessment: Mod/High Risk (score >= 2) Caprini Risk Assessment Model Point Value = 1 Point Value = 2 Point Value = 3 Point Value = 5 Age 41-60 Minor surgery BMI > 25 kg/m2 Swollen legs Varicose veins or History of unexplained or recurrent spontaneous Oral contraceptives or hormone replacement Sepsis (< 1 month) Serious lung disease, including pneumonia (< 1 month) Abnormal pulmonary function Acute myocardial infarction Congestive heart failure (< 1 month) History of inflammatory bowel disease Medical patient at bed rest Age 61-74 Arthroscopic surgery Major open surgery (> 45 min) Laparoscopic surgery (> 45 min) Malignancy Confined to bed (> 72 hours) Immobilizing plaster cast Central venous access Age >= 75 History of VTE Family history of VTE Factor V Leiden Prothrombin [id number] Lupus anticoagulant Anticardiolipin antibodies Elevated serum homocysteine Heparin-induced thrombocytopenia Other congenital or acquired thrombophilia Stroke (< 1 month) Elective arthroplasty Hip, pelvis, or leg fracture Acute spinal cord injury (< 1 month) Prophylaxis Regimen Total Risk Factor Score Risk Level Prophylaxis Regimen 0-1 Low Early ambulation 2 Moderate Order ONE of the following: *Sequential Compression Device (SCD) *Heparin 5000 units SQ BID 3-4 Higher Order ONE of the following medications: *Heparin 5000 units SQ TID *Enoxaparin/Lovenox 40 mg SQ daily (WT < 150 kg, CrCl > 30 mL/min) *Enoxaparin/Lovenox 30 mg SQ daily (WT < 150 kg, CrCl > 10-29 mL/min) *Enoxaparin/Lovenox 30 mg SQ BID (WT < 150 kg, CrCl > 30 mL/min) AND/OR *Sequential Compression Device (SCD) 5 or more Highest Order ONE of the following medications: *Heparin 5000 units SQ TID (Preferred with Epidurals) *Enoxaparin/Lovenox 40 mg SQ daily (WT < 150 kg, CrCl > 30 mL/min) *Enoxaparin/Lovenox 30 mg SQ daily (WT < 150 kg, CrCl > 10-29 mL/min) *Enoxaparin/Lovenox 30 mg SQ BID (WT < 150 kg, CrCl > 30 mL/min) AND *Sequential Compression Device (SCD) Assessment and Plan Assessment and Plan Respiratory failure -Pulmonary edema -Gentle diuresis -Continue mechanical ventilation -CXR and ABG daily -Vent bundle -DuoNeb's as needed -Recently in the emergency department with knee contusion, will check Dopplers to rule out DVTs Acute congestive heart failure -Series of troponin -Series of EKGs -No emergent cardiac cath per cardiology -Heparin drip Acute kidney injury -Unknown baseline -Strict I's and O -Monitor electrolytes and creatinine level Leukocytosis -No other signs of infection -No antibiotics indicated -Monitor trend -Likely reactive DVT GI prophylaxis -Dayo's and SCDs -Heparin drip -Pepcid Critical Care: The total critical care time was 35 minutes. Time to perform other separately billable procedures was not included in the critical care time. Misael Sprague MD Sep 21, 2017 3:11 am
[2017-09-21] MEDS ORDERED: HEPARIN SODIUM - IV 10,000 UNITS/10 ML VIAL IV PUSH ONE (03:15)
[2017-09-21] MEDS: RESP: ALBUTEROL 2.5 MG/IPRATROPIUM 0.5 MG NEB (SCH) INH ×6 (03:16→23:05)
--- NOTE | 2017-09-21 03:30 | RADRPT ---
EXAM DATE/TIME: 09/21/2017 02:59 [facility] COMPARISON: No previous studies available for comparison. INDICATIONS : Post code. RADIATION DOSE: 56.35 CTDIvol (mGy) MEDICAL HISTORY : Hypertension. Congestive heart failure. SURGICAL HISTORY : None. ENCOUNTER: Initial ACUITY: 1 day PAIN SCALE: Non-responsive LOCATION: cranial TECHNIQUE: Multiple contiguous axial images were obtained of the head. Using automated exposure control and adj ustment of the mA and/or kV according to patient size, radiation dose was kept as low as reasonably a chievable to obtain optimal diagnostic quality images. DICOM format image data is available electro nically for review and comparison. FINDINGS: CEREBRUM: The ventricles are normal for age. No evidence of midline shift, mass lesion, hemorrhage or acute in farction. No extra-axial fluid collections are seen. POSTERIOR FOSSA: The cerebellum and brainstem are intact. The 4th ventricle is midline. The cerebellopontine angle i s unremarkable. EXTRACRANIAL: The visualized portion of the orbits is intact. Minimal disease in both maxillary sinuses. SKULL: The calvaria is intact. No evidence of skull fracture. CONCLUSION: No acute intracranial disease. Jones Hart MD on September 21, 2017 at 3:28 Board Certified Radiologist. This report was verified electronically.
[2017-09-21] MEDS: HEPARIN-D5W 25,000 U/250 ML 250 ML IV PRN (03:35)
[2017-09-21] MEDS: CHLORHEXIDINE GLUCONATE 2 % 1 PACK (2 CLOTHS) TOP SCH (04:00)
[2017-09-21] MEDS ORDERED: SODIUM BICARBONATE 8.4% INJ 150 MEQ in DEXTROSE 5% IN WATE 1000ML INJ 1,000 ML IV SCH ×2 (04:15)
[2017-09-21 04:34] LABS: LACTIC ACID SEPSIS PROTOCOL 3.9 mmol/L (0.4-2.0)
--- NOTE | 2017-09-21 05:05 | RADRPT ---
EXAM DATE/TIME: 09/21/2017 04:22 [facility] COMPARISON: No previous studies available for comparison. INDICATIONS : Bilateral leg swelling. MEDICAL HISTORY : Congestive heart failure. Hypertension. Diabetes. SURGICAL HISTORY : Hysterectomy.Tonsillectomy. Right knee surgery. Breast biopsy. ENCOUNTER: Initial ACUITY: 1 day PAIN SCORE: Non-responsive LOCATION: Bilateral legs. TECHNIQUE: Venous ultrasound of the left and right leg was performed from the inguinal ligament to the proximal calf. Real-time, color Doppler and spectral tracing, compression and augmentation techniques were us ed. FINDINGS: RIGHT LEG: There is normal compressibility of the deep venous system from the inguinal region to the proximal ca lf. No echogenic clot is seen in the lumen of the common femoral, femoral, popliteal, and posterior tibial veins. There is a normal response of the venous system to proximal and distal augmentation an d respiration. LEFT LEG: There is normal compressibility of the deep venous system from the inguinal region to the proximal ca lf. No echogenic clot is seen in the lumen of the common femoral, femoral, popliteal, and posterior tibial veins. There is a normal response of the venous system to proximal and distal augmentation an d respiration. CONCLUSION: No DVT in either leg. Jones Hart MD on September 21, 2017 at 5:03 Board Certified Radiologist. This report was verified electronically.
[2017-09-21 06:41] LABS: HEMATOCRIT 32.5 % (35.0-46.0); HEMOGLOBIN 10.4 GM/DL (11.6-15.3); MEAN CELL VOLUME 80.6 FL (80.0-100.0); MEAN CORPUSCULAR HEMOGLOBIN 25.9 PG (27.0-34.0); MEAN CORPUSCULAR HGB CONC 32.1 % (32.0-36.0); MEAN PLATELET VOLUME 8.2 FL (7.0-11.0); PLATELET COUNT 418 TH/MM3 (150-450); RED BLOOD COUNT 4.03 MIL/MM3 (4.00-5.30); RED CELL DISTRIBUTION WIDTH 16.6 % (11.6-17.2); WHITE BLOOD COUNT 15.1 TH/MM3 (4.0-11.0)
[2017-09-21 06:47] LABS: PROTHROMBIN TIME - PATIENT 10.6 SEC (9.8-11.6)
[2017-09-21] MEDS ORDERED: INSULIN ASPART SUPPLEMENTAL SCALE SQ SCH (08:00)
[2017-09-21] MEDS ORDERED: POTASSIUM CHLORIDE 20 MEQ PWD PACKET PO ONE (08:45)
[2017-09-21] MEDS: ASPIRIN EC 325 MG TABEC PO SCH (08:56)
[2017-09-21] MEDS: DOCUSATE SODIUM 50 MG/SENNA 8.6 MG TAB PO SCH ×2 (08:56→20:47)
[2017-09-21] MEDS: MAGNESIUM SULFATE 1 GM PREMIX 100 ML IV SCH ×4 (08:56→13:35)
[2017-09-21] MEDS: SODIUM CHLORIDE 0.9% FLUSH 10 ML FLUSH IV FLUSH SCH ×2 (08:57→20:47)
[2017-09-21] MEDS: SODIUM CHLORIDE 0.9% FLUSH 10 ML FLUSH IV FLUSH PRN (08:57)
[2017-09-21] MEDS: FAMOTIDINE 20 MG/2 ML VIAL IV PUSH SCH ×2 (08:57→20:47)
[2017-09-21] MEDS: ARTIFICIAL TEARS OPTH SOLN 15 ML BTL EACH EYE SCH ×2 (09:00→13:00)
[2017-09-21] MEDS ORDERED: HEPARIN SODIUM - IV 10,000 UNITS/10 ML VIAL IV PUSH PRN (09:15)
[2017-09-21] MEDS: CHLORHEXIDINE 0.12% (ORAL KIT) 15 ML CUP MT SCH ×2 (09:30→20:00)
[2017-09-21] MEDS ORDERED: RESP: ALBUTEROL 2.5 MG/3 ML NEB (PRN) NEB (10:00)
[2017-09-21 10:45] LABS: MAGNESIUM 1.9 MG/DL (1.5-2.5)
[2017-09-21] MEDS ORDERED: IOHEXOL 350 MG/ML 10 ML VIAL (for RAD DIAG) IVCONTRAST ONE (11:29)
--- NOTE | 2017-09-21 11:56 | RADRPT ---
EXAM DATE/TIME: 09/21/2017 11:25 [facility] COMPARISON: No previous studies available for comparison. INDICATIONS : Respiratory failure; evaluate for embolism. IV CONTRAST: 72 cc Omnipaque 350 (iohexol) IV RADIATION DOSE: 9.70 CTDIvol (mGy) MEDICAL HISTORY : Hypertension. Congestive heart failure. SURGICAL HISTORY : None. ENCOUNTER: Initial ACUITY: 1 day PAIN SCALE: Non-responsive LOCATION: Bilateral chest TECHNIQUE: Volumetric scanning of the chest was performed using a pulmonary embolism protocol MIP images were re constructed. Using automated exposure control and adjustment of the mA and/or kV according to patien t size, radiation dose was kept as low as reasonably achievable to obtain optimal diagnostic quality images. DICOM format image data is available electronically for review and comparison. Follow-up recommendations for detected pulmonary nodules are based at a minimum on nodule size and pa tient risk factors according to Fleischner Society Guidelines. FINDINGS: PULMONARY ARTERIES: No filling defects are seen in the pulmonary arteries through the segmental level. LUNGS: Bilateral infiltrates are noted involving the lower lobes and posterior aspects of the upper lobes co nsistent with pneumonia and/or pulmonary edema. There is a right perihilar nodular density within the right middle lobe measuring 1.5 x 1.1 cm which is indeterminate. There is a 0.6 cm noncalcified nodu le within the right upper lobe which is indeterminate. Bullous emphysema is noted bilaterally predomi nantly within the upper lobes. PLEURAE: There is no pleural thickening. A tiny left pleural effusion is noted. MEDIASTINUM: There is good visualization of the great vessels of the middle mediastinum. There is possible right h ilar lymphadenopathy measuring 2.2 x 1.7 cm The heart is enlarged. Coronary artery calcifications are noted. MUSCULOSKELETAL: Within normal limits for patient age. MISCELLANEOUS: The visualized upper abdominal organs demonstrate no acute abnormality. A hiatal hernia is noted. End otracheal tube and nasogastric tube are in good positions. CONCLUSION: 1. No evidence of pulmonary embolism. 2. Bilateral infiltrates involving the lower lobes and posterior aspects of the upper lobes consisten t with pneumonia and/or pulmonary edema. 3. Perihilar right middle lobe nodule measuring 1.5 x 1.1 cm which is indeterminate. 4. Possible right hilar lymphadenopathy measuring 2.2 x 1.7 cm. 5. 0.6 cm noncalcified right upper lobe nodule. 6. Bullous emphysema bilaterally. 7. Cardiomegaly and coronary artery calcifications. 8. Tiny left pleural effusion. 9. Hiatal hernia. Chalino Aguirre MD on September 21, 2017 at 11:45 Board Certified Radiologist. This report was verified electronically.
[2017-09-21] MEDS: INSULIN ASPART SUPPLEMENTAL SCALE SQ SCH (12:00)
[2017-09-21] MEDS ORDERED: Vancomycin Consult Pharmacy 1 EA OTHER SCH (13:30)
[2017-09-21] MEDS ORDERED: AZITHROMYCIN INJ 500 MG in SODIUM CHLOR 0.9% 250 ML INJ 250 ML IV ONE (13:30)
[2017-09-21] MEDS ORDERED: VANCOMYCIN 1,000 MG/NS 250 ML IV ONE ×2 (15:00)
[2017-09-21 16:19] LABS: BACTERIA, URINE RARE /hpf; BILIRUBIN, URINE NEG (NEG); BLOOD, URINE NEG (NEG); GLUCOSE,URINE 1000 mg/dL (NEG); KETONE, URINE NEG (NEG); NITRITE,URINE NEG (NEG); SQUAMOUS EPITHELIAL CELL URINE <1 /hpf (0-5); URINE COLOR LIGHT-YELLOW (YELLW/STRAW); URINE LEUKOCYTE ESTERASE NEG (NEG)
[2017-09-21] MEDS ORDERED: ACETAMINOPHEN 650 MG/20.3 ML UDC PO PRN (16:45)
[2017-09-21] MEDS: PIPERACIL-TAZO 3.375 GM PREMIX 50 ML IV SCH ×2 (16:48→20:46)
--- NOTE | 2017-09-21 18:38 | ECHRPT ---
Indication: CAD CONCLUSIONS The left ventricular systolic function is severely reduced with an estimated ejection fraction less than 20%. severe hypokinesis to akinesis of anterior wall There is diffuse global hypokinesis with distinct regional wall motion abnormalities. Wall thickness is normal. Normal left ventricular size. Mitral annular calcification is present. Mild to moderate mitral valve regurgitation. Aortic valve sclerosis is present. Mild aortic valve regurgitation. Mild pulmonary valve regurgitation. There is a small pericardial effusion present. BP: 119 / 78 HR: 109 Rhythm: MEASUREMENTS (Male / Female) Normal Values Technical Quality:Fair 2D ECHO LV Diastolic Diameter PLAX 4.4 cm 4.2 - 5.9 / 3.9 - 5.3 cm LV Systolic Diameter PLAX 4.1 cm IVS Diastolic Thickness 0.9 cm 0.6 - 1.0 / 0.6 - 0.9 cm LVPW Diastolic Thickness 0.9 cm 0.6 - 1.0 / 0.6 - 0.9 cm LV Relative Wall Thickness 0.4 RV Internal Dim ED PLAX 2.9 cm LVOT Diameter 1.8 cm LA Systolic Diameter LX 3.4 cm 3.0 - 4.0 / 2.7 - 3.8 cm M-MODE Aortic Root Diameter MM 2.4 cm LA Systolic Diameter MM 3.4 cm LA Ao Ratio MM 1.4 AV Cusp Separation MM 1.3 cm DOPPLER AV Peak Velocity 187.0 cm/s AV Peak Gradient 14.0 mmHg LVOT Peak Velocity 87.7 cm/s LVOT Peak Gradient 3.1 mmHg AV Area Cont Eq pk 1.2 cm MV Area PHT 3.6 cm Mitral E Point Velocity 114.0 cm/s Mitral A Point Velocity 155.0 cm/s Mitral E to A Ratio 0.7 LV E' Lateral Velocity 6.5 cm/s Mitral E to LV E' Lateral Ratio 17.6 LV E' Septal Velocity 4.8 cm/s Mitral E to LV E' Septal Ratio 23.9 TV Peak Velocity 48.9 cm/s TR Peak Velocity 226.0 cm/s TR Peak Gradient 20.4 mmHg Right Atrial Pressure 10.0 mmHg Pulmonary Artery Systolic Pressu 30.4 mmHg Right Ventricular Systolic Press 30.4 mmHg FINDINGS LEFT VENTRICLE The left ventricular systolic function is severely reduced with an estimated ejection fraction less than 20%. There is diffuse global hypokinesis with distinct regional wall motion abnormalities. Wall thickness is normal. Normal left ventricular size. RIGHT VENTRICLE Normal right ventricular size and systolic function. LEFT ATRIUM The left atrial size is normal. RIGHT ATRIUM The right atrial size is normal. ATRIAL SEPTUM Normal atrial septal thickness without atrial level shunting by limited color doppler interrogation. AORTA The aortic root and proximal ascending aorta are normal in size on limited imaging. MITRAL VALVE Mitral annular calcification is present. Moderate mitral valve regurgitation. AORTIC VALVE Trileaflet aortic valve. Aortic valve sclerosis is present. Mild aortic valve regurgitation. TRICUSPID VALVE Structurally normal tricuspid valve. No tricuspid valve stenosis or regurgitation. PULMONARY VALVE Mild pulmonary valve regurgitation. VESSELS The inferior vena cava is normal in size. PERICARDIUM There is a small pericardial effusion present. Marbin Ward MD, FACC, FSCAI (Electronically Signed) Final Date:21 September 2017 18:37
[2017-09-21] MEDS: ACETYLCYSTEINE 20% 6,000 MG/30 ML ORAL SOLN VIAL PO SCH (20:47)
[2017-09-21] MEDS: ATORVASTATIN 40 MG TAB PO SCH (20:47)
--- NOTE | 2017-09-21 21:01 | EKG ---
Date Performed: 09/21/2017 Time Performed: 08:35:22 PTAGE: 72 years EKG: SINUS TACHYCARDIA WITH FREQUENT VENTRICULAR PREMATURE COMPLEXES ST DEVIATION AND MODERATE T -WAVE ABNORMALITY, CONSIDER ANTEROLATERAL ISCHEMIA ABNORMAL ECG PREVIOUS TRACING : 09/21/2017 03.51 Since the previous tracing, no significant change noted DOCTOR: Dante Wynne Interpretating Date/Time 09/21/2017 20:59:56
--- NOTE | 2017-09-21 21:16 | EKG ---
Date Performed: 09/21/2017 Time Performed: 03:51:29 PTAGE: 72 years EKG: SINUS TACHYCARDIA WITH FREQUENT VENTRICULAR PREMATURE COMPLEXES MODERATE T-WAVE ABNORMALITY , CONSIDER ANTERIOR ISCHEMIA ABNORMAL ECG INTERPRETATION BASED ON A DEFAULT AGE OF 42 YEARS NO PREVIOUS TRACING DOCTOR: Dante Wynne Interpretating Date/Time 09/21/2017 21:15:06
--- NOTE | 2017-09-21 21:19 | EKG ---
Date Performed: 09/20/2017 Time Performed: 23:54:23 PTAGE: 72 years EKG: SINUS TACHYCARDIA WITH SHORT SD INTERVAL INTRAVENTRICULAR CONDUCTION DELAY ABNORMAL ECG INT ERPRETATION BASED ON A DEFAULT AGE OF 42 YEARS NO PREVIOUS TRACING DOCTOR: Dante Wynne Interpretating Date/Time 09/21/2017 21:17:33
[2017-09-22] VITALS (14 sets, daily range): BP systolic 114–131; BP diastolic 68–77; PULSE 90–112; RESP 16–27; TEMP 98–98.5; O2SAT 97–100
[2017-09-22] MEDS: PIPERACIL-TAZO 3.375 GM PREMIX 50 ML IV SCH ×4 (02:55→20:26)
[2017-09-22] MEDS: HEPARIN-D5W 25,000 U/250 ML 250 ML IV PRN (02:57)
[2017-09-22] MEDS ORDERED: VANCOMYCIN INJ 900 MG in SODIUM CHLOR 0.9% 250 ML INJ 250 ML IV SCH (03:00)
[2017-09-22] MEDS: ACETYLCYSTEINE 20% 6,000 MG/30 ML ORAL SOLN VIAL PO SCH ×3 (03:15→20:22)
[2017-09-22] MEDS: RESP: ALBUTEROL 2.5 MG/IPRATROPIUM 0.5 MG NEB (SCH) INH ×5 (03:21→20:38)
[2017-09-22] MEDS: CHLORHEXIDINE GLUCONATE 2 % 1 PACK (2 CLOTHS) TOP SCH (03:35)
[2017-09-22 04:48] LABS: AUTOMATED NEUTROPHIL # 7.8 TH/MM3 (1.8-7.7); BASOPHIL # 0.2 TH/MM3 (0-0.2); BASOPHIL % 1.2 % (0.0-2.0); EOSINOPHIL # 0.6 TH/MM3 (0-0.4); EOSINOPHIL % 4.5 % (0.0-4.0); HEMATOCRIT 29.7 % (35.0-46.0); HEMOGLOBIN 9.5 GM/DL (11.6-15.3); LYMPH % 32.6 % (9.0-44.0); LYMPHOCYTE # 4.6 TH/MM3 (1.0-4.8); MEAN CELL VOLUME 80.1 FL (80.0-100.0); MEAN CORPUSCULAR HEMOGLOBIN 25.8 PG (27.0-34.0); MEAN CORPUSCULAR HGB CONC 32.2 % (32.0-36.0); MEAN PLATELET VOLUME 8.8 FL (7.0-11.0); MONO % 6.1 % (0.0-8.0); MONOCYTE # 0.8 TH/MM3 (0-0.9); NEUT % 55.6 % (16.0-70.0); PLATELET COUNT 401 TH/MM3 (150-450); RED CELL DISTRIBUTION WIDTH 16.7 % (11.6-17.2)
[2017-09-22 04:57] LABS: PROTHROMBIN TIME - PATIENT 10.3 SEC (9.8-11.6)
[2017-09-22 05:13] LABS: ALT (GPT) 26 U/L (10-53); AST (GOT) 21 U/L (15-37); BICARBONATE 28.2 MEQ/L (21.0-32.0); BLOOD UREA NITROGEN 11 MG/DL (7-18); CALCIUM 8.7 MG/DL (8.5-10.1); CHLORIDE 105 MEQ/L (98-107); CREATININE 0.87 MG/DL (0.50-1.00); GLOMERULAR FILTRATION RATE 64 ML/MIN (>89); GLUCOSE,RANDOM 139 MG/DL (74-106); MAGNESIUM 2.1 MG/DL (1.5-2.5); PHOSPHORUS 4.2 MG/DL (2.5-4.9); SODIUM (NA) 143 MEQ/L (136-145)
[2017-09-22 05:15] LABS: ALKALINE PHOSPHATASE 93 U/L (45-117); TOTAL BILIRUBIN ADULT 0.5 MG/DL (0.2-1.0); TOTAL PROTEIN 6.7 GM/DL (6.4-8.2)
[2017-09-22] MEDS: INSULIN ASPART SUPPLEMENTAL SCALE SQ SCH ×4 (06:00→21:00)
[2017-09-22] MEDS ORDERED: POTASSIUM CHLORIDE 10 MEQ CAP PO ONE (07:45)
[2017-09-22] MEDS: CHLORHEXIDINE 0.12% (ORAL KIT) 15 ML CUP MT SCH ×2 (08:00→20:00)
--- NOTE | 2017-09-22 08:38 | MB ---
cc: Tera Brooke DO DATE: 09/21/2017 REASON FOR CONSULTATION: Cardiac arrest, elevated troponin. HISTORY OF PRESENT ILLNESS: Amberly Desouza is a pleasant 72-year-old female who presented to [facility] emergency room as a respiratory arrest. Apparently she was short of breath over the past few days, but today became exceptionally short of breath and 911 was called. When EMS arrived, she was in respiratory failure and they attempted a CPAP and this was unsuccessful and so she was intubated. Upon arrival to the emergency room, an EKG was done and she was found to have a left bundle branch block, but it was not felt to be an acute STEMI at this point. She has since been extubated and in seeing her, she denies chest pain before the event or currently. She does state that her lungs were tight like she was having difficulty breathing. PAST MEDICAL HISTORY: 1. Diabetes. 2. Hypertension. 3. Undefined congestive heart failure. PAST SURGICAL HISTORY: 1. Hysterectomy. 2. Tonsillectomy. 3. Breast biopsy. ALLERGIES: NO KNOWN DRUG ALLERGIES. MEDICATIONS: 1. Lipitor 40 mg every night. 2. Verapamil 120 mg daily. 3. Lisinopril 20 mg daily. 4. Aspirin 325 mg daily. 5. Zegerid 1 cap daily. 6. Invokamet 1 tab b.i.d. 7. Glipizide extended release 5 mg daily. FAMILY HISTORY: Coronary artery disease runs in the family, but no episodes of premature coronary artery disease. SOCIAL HISTORY: The patient admits to alcohol and tobacco use. Denies substance abuse. REVIEW OF SYSTEMS: Fourteen systems were reviewed including osteopathic. Pertinent positives and negatives above, otherwise negative. PHYSICAL EXAMINATION: VITAL SIGNS: Temperature 99.2, heart rate 100, blood pressure 127/84, respirations 12, pulse oximetry 96% on 4 liters. GENERAL: The patient appears well, in no acute distress. Alert, awake and oriented x 3. HEENT: Extraocular muscles intact. Mucous membranes moist. NECK: Supple. No JVD at 45 degrees. No carotid bruits heard bilaterally. Carotid upstroke is brisk in nature. HEART: Mildly tachycardic. Positive first and second heart sounds, with no murmurs, gallops or rubs. LUNGS: Decreased breath sounds bilaterally, with scattered rhonchi noted, more specifically on the right side. ABDOMEN: Soft, nontender, nondistended. No organomegaly noted. EXTREMITIES: Show no clubbing, cyanosis or edema. Femoral and distal pulses intact bilaterally. NEUROLOGIC: No focal deficits. SKIN: Warm, dry and intact. OSTEOPATHICALLY: No kyphoscoliosis, lordosis or paraspinal tender points. LABORATORY DATA: Hemoglobin 10.4, hematocrit 32.5, platelets 418. Potassium 3.8, BUN 15, creatinine 1.23. Lactic acid 9.4, down to 2.2. Troponin 0.39. ELECTROCARDIOGRAM (09/21/2017 AT 08:35): Sinus tachycardia, with frequent PVCs, ST-T wave changes anterolaterally, possibly due to ischemia. IMPRESSION: 1. Respiratory failure, status post intubation and extubation. 2. Acute congestive heart failure of unknown type. 3. Acute kidney injury. 4. Lactic acidosis. 5. Elevated troponin, possibly type 1 versus type 2. 6. Pneumonia. RECOMMENDATIONS: 1. Ms. Desouza presented with respiratory distress and the need to be intubated. She has since been extubated and doing overall better. 2. She does appear to have some pulmonary edema and possibly pneumonia. 3. We will obtain a 2D echocardiogram to look at her overall left ventricular function, cardiac structure and possible valvulopathies. 4. Overall, she will most likely need an ischemic evaluation before discharge. I did discuss with her the consideration of stress test versus cardiac catheterization and the decision on this has been yet to be made and will be based more on the echocardiogram results, as well as the patient's wishes. 5. She will continue on a heparin drip due to her elevated troponin. Thank you for allowing me to see Amberly Desouza. If there are any questions, please do not hesitate to call. DO NATALIYA Jay/HARSHA , 11:55 PM , 12:31 AM
[2017-09-22] MEDS: ASPIRIN EC 325 MG TABEC PO SCH (08:52)
[2017-09-22] MEDS: FAMOTIDINE 20 MG/2 ML VIAL IV PUSH SCH (08:53)
[2017-09-22] MEDS: DOCUSATE SODIUM 50 MG/SENNA 8.6 MG TAB PO SCH ×2 (08:53→20:26)
[2017-09-22] MEDS: SODIUM CHLORIDE 0.9% FLUSH 10 ML FLUSH IV FLUSH SCH ×2 (08:54→20:26)
[2017-09-22] MEDS ORDERED: POTASSIUM CHLORIDE 20 MEQ CONTROLLED RELEASE TAB PO ONE (11:00)
--- NOTE | 2017-09-22 12:56 | HHI.CCPN ---
Subjective Remarks/Hospital Course 77-year-old female presents by EMS transport from local fire department where she went into respiratory failure and then into respiratory arrest. Patient presented to the fire department with marked shortness of breath fire department personnel attempted CPAP and then patient went into respiratory arrest and was intubated with 7.0 endotracheal tube by EMS. Patient had received Lasix 30 mg IV push 1 dose and sublingual nitroglycerin and aspirin prior to respiratory arrest by firefighters. Paramedics identified patient to have a left bundle branch block of indeterminate age. These EKG findings were discussed with Dr. Huffman parts sales manager on-call by ED attending and recommendation was not to proceed with a cardiac catheterization emergently. Subjective 09/22: Afebrile. Extubated yesterday without complication currently on nasal cannula. Denies chest pain. Positive cough/severe persistent. Passed swallow evaluation. Objective Vital Signs Date Time Temp Pulse Resp B/P (MAP) Pulse Ox O2 Delivery O2 Flow Rate FiO2 09/22/17 07:47 97 Nasal Cannula 4.00 09/22/17 06:00 90 09/22/17 04:41 18 09/22/17 04:00 98.3 131/77 (95) 09/21/17 16:35 36 Intake and Output 09/22/17 09/22/17 09/23/17 08:00 16:00 00:00 Intake Total 309 ml Output Total 1400 ml Balance -1091 ml Result Diagram: 09/22/17 0350 09/22/17 0350 Other Results Microbiology Date/Time Source Procedure Growth Status 09/21/17 00:30 Blood Peripheral Aerobic Blood Culture - Preliminary NO GROWTH IN 1 DAY Resulted 09/21/17 00:30 Blood Peripheral Anaerobic Blood Culture - Preliminary NO GROWTH IN 1 DAY Resulted 09/21/17 13:35 Nasal Aspirate Influenza Types A,B Antigen (DEIDRA) - Final NEGATIVE FOR FLU A AND B ANTIGEN.... Complete 09/21/17 13:35 Urine Catheterized Urine Urine Culture - Preliminary NO GROWTH IN 24 HOURS. Resulted Imaging Last Impressions Lower Extremity Ultrasound 09/21/17 0000 Signed Impressions: Service Date/Time: Thursday, September 21, 2017 04:22 - CONCLUSION: No DVT in either leg. Jones Hart MD Head CT 09/21/17 0000 Signed Impressions: Service Date/Time: Thursday, September 21, 2017 02:59 - CONCLUSION: No acute intracranial disease. Jones Hart MD CT Angiography 09/21/17 0000 Signed Impressions: Service Date/Time: Thursday, September 21, 2017 11:25 - CONCLUSION: 1. No evidence of pulmonary embolism. 2. Bilateral infiltrates involving the lower lobes and posterior aspects of the upper lobes consistent with pneumonia and/ or pulmonary edema. 3. Perihilar right middle lobe nodule measuring 1.5 x 1.1 cm which is indeterminate. 4. Possible right hilar lymphadenopathy measuring 2.2 x 1.7 cm. 5. 0.6 cm noncalcified right upper lobe nodule. 6. Bullous emphysema bilaterally. 7. Cardiomegaly and coronary artery calcifications. 8. Tiny left pleural effusion. 9. Hiatal hernia. Chalino Aguirre MD Chest X-Ray 09/21/17 0000 Signed Impressions: Service Date/Time: Thursday, September 21, 2017 00:05 - CONCLUSION: 1. Adequate placement of endotracheal tube. 2. Perihilar airspace disease likely edema greater on the left. Jones Hart MD Objective Remarks GENERAL: 72-year-old female currently resting in bed on 4 L nasal cannula in no acute distress SKIN: Warm and dry. HEAD: Normocephalic. EYES: No scleral icterus. No injection or drainage. NECK: Supple, trachea midline. No JVD or lymphadenopathy. CARDIOVASCULAR: Regular rate and rhythm without murmurs, gallops, or rubs. RESPIRATORY: Coarse crackles appreciated lower lobes bilaterally. No wheezing GASTROINTESTINAL: Abdomen soft, non-tender, nondistended. MUSCULOSKELETAL: No significant peripheral BACK: Nontender without obvious deformity. NEURO EXAM: Cranial nerves II through XII grossly intact. Strength is equal symmetric. Normal sensation Urinary Catheter: No Assessment to: Continue Vascular Central Line Catheter: No Assessment to: Continue A/P Assessment and Plan Neuro/Psych: Acetaminophen 650 mg p.o. every 6 hours as needed fever Hydrocodone/acetaminophen 5/325 1 tablet p.o. every 6 hours as needed pain 1 through 5 Morphine sulfate 2 mg IV every 4 hours as needed pain 6 or 10 CV: Elevated troponin Acute systolic heart failure Hypertension Hyperlipidemia Evaluated by cardiology/Dr. Brooke awaiting recommendations Currently on heparin drip at thousand units an hour Aspirin 325 mg p.o. daily. On 81 mg daily at home Continue atorvastatin 40 mg p.o. daily for dyspnea./Home medication Currently holding home medications of lisinopril 20 mg daily and holding verapamil 120 mg p.o. daily. Her low-dose metoprolol tartrate 6.25 mg p.o. twice daily and lisinopril 5 mg p.o. twice daily 2D echo The left ventricular systolic function is severely reduced with an estimated ejection fraction less than 20%. Severe hypokinesis to akinesis of anterior wall. There is diffuse global hypokinesis with distinct regional wall motion abnormalities. Wall thickness is normal. Normal left ventricular size. Mitral annular calcification is present. Mild to moderate mitral valve regurgitation. Aortic valve sclerosis is present. Mild aortic valve regurgitation. Mild pulmonary valve regurgitation. There is a small pericardial effusion present. Resp: Acute hypoxemic hypercapnic respiratory failure secondary to his acute systolic heart failure exacerbation/community acquired pneumonia Extubated 09/21 Nasal cannula to maintain saturations greater than equal to 92%. Currently on 4 L Incentives parameter while awake CT pulmonary revealed bilateral lower lobe infiltrates/effusions with posterior upper lobe infiltrate/edema. 1.5 x 1.1 cm right middle lobe nodule and 0.6 cm right upper lobe nodule. Perihilar lymphadenopathy. Hiatal hernia. Albuterol/ipratropium aerosols every 6 hours with albuterol aerosols every 2 hours. Dyspnea Guaifenesin 60 mg p.o. twice daily Acapella every [address] Noel/pulmonology GI: Gastroesophageal reflux disease Hypoalbuminemia ADA diet Pantoprazole 40 mg daily for GI prophylaxis. On omeprazole/sodium bicarbonate 1 tablet daily at home Docusate sodium/senna 1 tablet twice daily for bowel region : No indication for Wu catheter Endo: Diabetes mellitus type II controlled Holding Canagliflozin/metformin 1 tablet twice daily for diabetes and glipizide 5 mg daily. Currently on sliding scale insulin with Accu-Cheks every before meals/at bedtime to maintain euglycemia/high regimen Renal: Creatinine slowly normalizing Monitor urine output Accurate I's and O's Heme: Leukocytosis Normocytic anemia Monitor CBC daily. Follow trends. Does not meet transfusion threshold at this time Currently on a heparin drip ID: Community acquired pneumonia Piperacillin/tazobactam, vancomycin and azithromycin day #2 Blood cultures, sputum, urine all pending Influenza negative FEN: Hypokalemia 80 mEq KCl this a.m. Recheck in a.m. MSK: PT evaluate and treat Access -Utilize peripheral IV. Central line if indicated Prophylaxis -GI -pantoprazole -DVT -SCD/heparin drip Level 3 follow-up Isac Boland MD Sep 22, 2017 12:56
[2017-09-22] MEDS ORDERED: MORPHINE SULFATE 4 MG/ML INJ IV PUSH PRN (13:15)
[2017-09-22] MEDS ORDERED: ACETAMINOPHEN/HYDROcodone 325 MG/5 MG TAB PO PRN (13:15)
[2017-09-22] MEDS: AZITHROMYCIN 250 MG TAB PO SCH (16:13)
[2017-09-22] MEDS: predniSONE 20 MG TAB PO SCH (20:19)
[2017-09-22] MEDS: guaiFENesin E.R. 600 MG TAB PO SCH (20:20)
[2017-09-22] MEDS: ATORVASTATIN 40 MG TAB PO SCH (20:21)
[2017-09-22] MEDS: METOPROLOL TARTRATE 25 MG TAB PO SCH (20:21)
[2017-09-22] MEDS: FAMOTIDINE 20 MG TAB PO SCH (20:22)
[2017-09-22] MEDS: LISINOPRIL 10 MG TAB PO SCH (20:22)
--- NOTE | 2017-09-22 22:47 | PD.CARD.PN ---
Subjective Subjective Remarks Patient was seen earlier today, late entry note Doing better, breathing better No chest pain Objective Medications Current Medications Medications (Trade) Dose Ordered Sig/Jack Route Start Time Stop Time Status Last Admin (Ecotrin Ec) 325 mg DAILY PO 09/21/17 09:00 09/22/17 08:52 (Lipitor) 40 mg HS PO 09/21/17 21:00 09/22/17 20:21 (D50w (Vial) Inj) 50 ml UNSCH PRN IV PUSH 09/21/17 03:00 (Glucagon Inj) 1 mg UNSCH PRN OTHER 09/21/17 03:00 (NS Flush) 2 ml UNSCH PRN IV FLUSH 09/21/17 03:00 09/21/17 08:57 (NS Flush) 2 ml BID IV FLUSH 09/21/17 09:00 09/22/17 20:26 (Zofran Inj) 4 mg Q6H PRN IV PUSH 09/21/17 03:00 Miscellaneous Information 1 Q361D XX 09/21/17 03:00 09/21/17 05:37 (Chlorhexidine 2% Cloth) 3 pack Taper DAILY@04 TOP 09/21/17 04:00 09/17/18 03:59 09/22/17 03:35 (Chlorhexidine 2% Cloth) 3 pack UNSCH PRN TOP 09/21/17 03:00 (Alysa-Colace) 1 tab BID PO 09/21/17 09:00 09/21/17 08:56 (Milk Of Magnesia Liq) 30 ml Q12H PRN PO 09/21/17 03:00 (Senokot) 17.2 mg Q12H PRN PO 09/21/17 03:00 (Dulcolax Supp) 10 mg DAILY PRN RECTAL 09/21/17 03:00 (Lactulose Liq) 30 ml DAILY PRN PO 09/21/17 03:00 (Peridex 0.12% Liq) 15 ml BID@08,20 MT 09/21/17 08:00 09/21/17 09:30 (Heparin Inj) 5,000 units UNSCH PRN IV PUSH 09/21/17 09:15 (Heparin Inj) 2,500 units UNSCH PRN IV PUSH 09/21/17 09:15 Heparin Sodium/ Dextrose 250 ml @ 9 mls/hr TITRATE PRN IV 09/21/17 03:15 09/22/17 02:57 (Albuterol Neb) 2.5 mg Q2HR NEB PRN NEB 09/21/17 10:00 (Mucomyst 20% Liq) 600 mg BID PO 09/21/17 21:00 09/23/17 09:01 09/22/17 20:22 Pharmacy Profile Note 0 ml @ 0 mls/hr UNSCH OTHER 09/21/17 13:30 Piperacillin Sod/ Tazobactam Sod 50 ml @ 200 mls/hr Q6H IV 09/21/17 15:00 09/22/17 20:26 Miscellaneous Information SPECIFIC LAB TO BE DRAWN:VANCOMY... ONCE ONCE .XX 09/24/17 02:45 09/24/17 02:46 (Tylenol 650 Mg/ 20 ml Liq) 650 mg Q6H PRN PO 09/21/17 16:45 09/22/17 03:41 Vancomycin HCl 1250 mg/Sodium Chloride 262.5 ml @ 250 mls/hr Q24H IV 09/23/17 03:00 (Duoneb Neb) 1 ampule Q6HR NEB INH 09/22/17 16:00 09/22/17 20:38 (NovoLOG SUPPLEMENTAL SCALE) 1 ACHS SQ 09/22/17 17:00 09/22/17 18:09 (Morphine Inj) 2 mg Q4HR PRN IV PUSH 09/22/17 13:15 (Zithromax) 500 mg DAILY PO 09/22/17 13:15 09/28/17 13:14 09/22/17 16:13 (Pepcid) 20 mg HS PO 09/22/17 21:00 09/22/17 20:22 ([place] 5-325 Mg) 1 tab Q4H PRN PO 09/22/17 13:15 (Mucinex Er) 600 mg BID PO 09/22/17 21:00 09/22/17 20:20 (Protonix) 40 mg DAILY PO 09/23/17 09:00 (Prinivil) 5 mg Q12HR PO 09/22/17 21:00 09/22/17 20:22 (Lopressor) 6.25 mg Q12HR PO 09/22/17 21:00 09/22/17 20:21 (Deltasone) 20 mg BID PO 09/22/17 21:00 09/22/17 20:19 Vital Signs / I&O Vital Signs Date Time Temp Pulse Resp B/P (MAP) Pulse Ox O2 Delivery O2 Flow Rate FiO2 09/22/17 20:38 100 Nasal Cannula 3.00 09/22/17 18:00 112 09/22/17 16:00 98.0 106 27 121/77 (92) 97 09/22/17 16:00 106 09/22/17 14:00 107 09/22/17 12:00 101 21 118/68 (85) 97 09/22/17 12:00 101 09/22/17 10:00 102 09/22/17 08:00 104 09/22/17 07:47 97 Nasal Cannula 4.00 09/22/17 06:00 90 09/22/17 04:41 18 09/22/17 04:00 98.3 101 16 131/77 (95) 98 09/22/17 04:00 101 09/22/17 02:00 95 09/22/17 00:00 103 09/22/17 00:00 98.5 103 18 114/74 (87) 98 I/O 09/21/17 09/21/17 09/21/17 09/22/17 09/22/17 09/22/17 07:00 15:00 23:00 07:00 15:00 23:00 Intake Total 109 ml 50 ml 309 ml 950 ml 800 ml Output Total 300 ml 1575 ml 1400 ml 1200 ml Balance -191 ml -1525 ml -1091 ml 950 ml -400 ml Intake Oral 0 ml 750 ml IV Total 109 ml 50 ml 309 ml 950 ml 50 ml Output Urine Total 300 ml 1475 ml 1400 ml 1200 ml Gastric Drainage Total 100 ml # Bowel Movements 0 0 0 Physical Exam GENERAL: NAD, AAOx3 SKIN: Warm and dry. HEAD: Atraumatic. Normocephalic. EYES: Pupils equal and round. No scleral icterus. No injection or drainage. ENT: No nasal bleeding or discharge. Mucous membranes pink and moist. NECK: Trachea midline. No JVD. CARDIOVASCULAR: Regular rate and rhythm. RESPIRATORY: Bilateral rhonchi. GASTROINTESTINAL: Abdomen soft, non-tender, nondistended. Hepatic and splenic margins not palpable. MUSCULOSKELETAL: Extremities without clubbing, cyanosis, or edema. No obvious deformities. NEUROLOGICAL: Awake and alert. No obvious cranial nerve deficits. Motor grossly within normal limits. Five out of 5 muscle strength in the arms and legs. Normal speech. PSYCHIATRIC: Appropriate mood and affect; insight and judgment normal. Laboratory Laboratory Tests Test 09/22/17 03:50 White Blood Count 14.0 TH/MM3 Red Blood Count 3.70 MIL/MM3 Hemoglobin 9.5 GM/DL Hematocrit 29.7 % Mean Corpuscular Volume 80.1 FL Mean Corpuscular Hemoglobin 25.8 PG Mean Corpuscular Hemoglobin Concent 32.2 % Red Cell Distribution Width 16.7 % Platelet Count 401 TH/MM3 Mean Platelet Volume 8.8 FL Neutrophils (%) (Auto) 55.6 % Lymphocytes (%) (Auto) 32.6 % Monocytes (%) (Auto) 6.1 % Eosinophils (%) (Auto) 4.5 % Basophils (%) (Auto) 1.2 % Neutrophils # (Auto) 7.8 TH/MM3 Lymphocytes # (Auto) 4.6 TH/MM3 Monocytes # (Auto) 0.8 TH/MM3 Eosinophils # (Auto) 0.6 TH/MM3 Basophils # (Auto) 0.2 TH/MM3 CBC Comment DIFF FINAL Differential Comment Prothrombin Time 10.3 SEC Prothromb Time International Ratio 1.0 RATIO Activated Partial Thromboplast Time 46.0 SEC Blood Urea Nitrogen 11 MG/DL Creatinine 0.87 MG/DL Random Glucose 139 MG/DL Total Protein 6.7 GM/DL Albumin 3.0 GM/DL Calcium Level 8.7 MG/DL Phosphorus Level 4.2 MG/DL Magnesium Level 2.1 MG/DL Alkaline Phosphatase 93 U/L Aspartate Amino Transf (AST/SGOT) 21 U/L Alanine Aminotransferase (ALT/SGPT) 26 U/L Total Bilirubin 0.5 MG/DL Sodium Level 143 MEQ/L Potassium Level 3.2 MEQ/L Chloride Level 105 MEQ/L Carbon Dioxide Level 28.2 MEQ/L Anion Gap 10 MEQ/L Estimat Glomerular Filtration Rate 64 ML/MIN Assessment and Plan Problem List: (1) ACS (acute coronary syndrome) ICD Codes: I24.9 - Acute ischemic heart disease, unspecified Status: Acute (2) Sepsis ICD Codes: A41.9 - Sepsis, unspecified organism Status: Acute (3) CHF (congestive heart failure) ICD Codes: I50.9 - Heart failure, unspecified Status: Acute (4) Lactic acidosis ICD Codes: E87.2 - Acidosis Status: Acute (5) Respiratory arrest ICD Codes: R09.2 - Respiratory arrest Status: Acute Assessment and Plan 1) Respiratory arrest s/p extubation 2) Pulmonary edema EF <20% RHC/C Will consider for tomorrow or Tuesday depending on clinical course 3) Elevated trop Plan LHC as above Problem Qualifiers (1) Sepsis: Qualified Codes: A41.9 - Sepsis, unspecified organism (2) CHF (congestive heart failure): Qualified Codes: I50.9 - Heart failure, unspecified Tera Brooke DO Sep 22, 2017 22:47
[2017-09-23] VITALS (19 sets, daily range): BP systolic 103–144; BP diastolic 57–75; PULSE 88–116; RESP 16–48; TEMP 97.8–98.8; O2SAT 86–100
[2017-09-23] MEDS: PIPERACIL-TAZO 3.375 GM PREMIX 50 ML IV SCH ×2 (02:25→07:53)
[2017-09-23] MEDS ORDERED: VANCOMYCIN INJ 1,250 MG in SODIUM CHLOR 0.9% 250 ML INJ 250 ML IV SCH (03:00)
[2017-09-23] MEDS: RESP: ALBUTEROL 2.5 MG/IPRATROPIUM 0.5 MG NEB (SCH) INH ×4 (03:39→21:35)
[2017-09-23] MEDS: CHLORHEXIDINE GLUCONATE 2 % 1 PACK (2 CLOTHS) TOP SCH (04:00)
--- NOTE | 2017-09-23 06:21 | RADRPT ---
EXAM DATE/TIME: 09/23/2017 04:45 [facility] COMPARISON: CHEST SINGLE AP, September 21, 2017, 0:05. CT PULMONARY ANGIOGRAM, September 21, 2017, 11:25. INDICATIONS : Pneumonia MEDICAL HISTORY : Hypertension. Congestive heart failure. SURGICAL HISTORY : None. ENCOUNTER: Subsequent ACUITY: 3 days PAIN SCORE: Non-responsive. LOCATION: Bilateral chest FINDINGS: Aeration is improved with decrease in confluence of bilateral infiltrates. No significant effusion is present. Cardiac contours are grossly stable and satisfactory. CONCLUSION: Improving aeration Laron Schmidt MD on September 23, 2017 at 6:18 Board Certified Radiologist. This report was verified electronically.
[2017-09-23] MEDS: HEPARIN-D5W 25,000 U/250 ML 250 ML IV PRN (07:04)
[2017-09-23 07:25] LABS: HEMATOCRIT 27.3 % (35.0-46.0); HEMOGLOBIN 8.9 GM/DL (11.6-15.3); MEAN CORPUSCULAR HEMOGLOBIN 26.8 PG (27.0-34.0); MEAN CORPUSCULAR HGB CONC 32.6 % (32.0-36.0); MEAN PLATELET VOLUME 8.8 FL (7.0-11.0); PLATELET COUNT 348 TH/MM3 (150-450); RED BLOOD COUNT 3.33 MIL/MM3 (4.00-5.30); RED CELL DISTRIBUTION WIDTH 16.8 % (11.6-17.2)
[2017-09-23 07:43] LABS: BICARBONATE 24.1 MEQ/L (21.0-32.0); CALCIUM 8.7 MG/DL (8.5-10.1); CREATININE 0.8 MG/DL (0.50-1.00); MAGNESIUM 1.8 MG/DL (1.5-2.5); PHOSPHORUS 2.6 MG/DL (2.5-4.9)
[2017-09-23] MEDS: CHLORHEXIDINE 0.12% (ORAL KIT) 15 ML CUP MT SCH ×2 (07:52→19:35)
[2017-09-23] MEDS: SODIUM CHLORIDE 0.9% FLUSH 10 ML FLUSH IV FLUSH PRN (07:53)
[2017-09-23] MEDS: predniSONE 20 MG TAB PO SCH ×2 (07:53→20:02)
[2017-09-23] MEDS: SODIUM CHLORIDE 0.9% FLUSH 10 ML FLUSH IV FLUSH SCH ×2 (07:53→19:36)
[2017-09-23] MEDS: PANTOPRAZOLE SOD 40 MG DELAYED RELEASE TAB PO SCH (07:54)
[2017-09-23] MEDS: METOPROLOL TARTRATE 25 MG TAB PO SCH ×2 (07:54→20:02)
[2017-09-23] MEDS: guaiFENesin E.R. 600 MG TAB PO SCH ×2 (07:54→20:02)
[2017-09-23] MEDS: AZITHROMYCIN 250 MG TAB PO SCH (07:54)
[2017-09-23] MEDS: LISINOPRIL 10 MG TAB PO SCH ×2 (07:54→20:02)
[2017-09-23] MEDS: INSULIN ASPART SUPPLEMENTAL SCALE SQ SCH ×4 (08:00→20:30)
--- NOTE | 2017-09-23 08:07 | MB ---
cc: Jasmina Noel MD DATE: 09/22/2017 HISTORY OF PRESENT ILLNESS: Ms. Desouza is a 77-year-old white female, a regular smoker up until the age of 62, probably 40-50 pack year total history with no previous known pulmonary disease. However, she has had an illness in June that sounded like bronchitis. She seemed to recover from that, but over the last week or 10 days had increasing congestion again, saw her primary physician, was apparently treated with steroids but no inhalation therapy and yesterday became very acutely short of breath and presented actually in respiratory arrest. She was intubated in the field, extubated earlier today though and is now awake, alert and says she feels much better. There is a question of whether or not she may have had an ischemic event. She had an echocardiogram and has severe global hypokinesis with an EF of 20-25%. Troponins were also elevated. Dr. Brooke saw her for Cardiology and further interventions are being explored. She probably will need an ischemia evaluation before discharge. The patient has not previously been told she had COPD. She does have a family member with pulmonary fibrosis. Her mom actually of pulmonary fibrosis, but she was in her 90s at the time. The patient has had no significant chronic pulmonary symptoms and, as I mentioned above, she did have a recent upper respiratory infection which seemed to be recurring, but this was not something that was a recurrent issue. She is feeling much better now, sitting up very comfortable, stable at rest on nasal cannula at 4 liters with O2 saturation of 97%. PAST MEDICAL HISTORY: Hypertension and diabetes, questionable history of congestive heart failure. She has had a previous breast biopsy, but no malignancy. Hysterectomy and tonsillectomy. ALLERGIES: NONE KNOWN SOCIAL HISTORY: Smoking as noted. No excessive alcohol use. No recent unusual exposures. FAMILY HISTORY: As noted, pulmonary fibrosis in her mom who in her 90s, loss of brother to heart disease in his 70s and father in his early 60s of congestive heart failure. REVIEW OF SYSTEMS: She has had no chest pain, no hemoptysis, no purulent sputum prior to this event. No swelling in her legs. No orthopnea or PND. No nausea, vomiting or recent change in bowel habits. PHYSICAL EXAMINATION: VITAL SIGNS: Afebrile, pulse 100, blood pressure 120/70, respirations 18-20, O2 saturation on 4 liters 97%. HEENT: Sclerae anicteric. NECK: Neck veins are not distended. LUNGS: She does have rather diffuse congestion with expiratory wheezes. HEART: Regular heart rhythm. No harsh murmur. No audible S3. ABDOMEN: Soft. EXTREMITIES: No peripheral edema or calf tenderness. No cyanosis or clubbing. LABORATORY DATA: White count on presentation 20,000, dropped to 14,000 today, hemoglobin is 9.5, platelet count 400,000. Yesterday initial blood gas on ventilatory support pH 7.19, pCO2 of 40, pO2 of 387 and that was on 100%. She had a bicarb of 15. Followup on that bicarb was up to 25 and pH was corrected to 7.4. BUN is 11, creatinine 0.8. Troponin was 0.39. BNP was only 165. Lactic acid was 9 on presentation. That corrected to 2.2. MRSA was not detected on nasal swab. PT/INR was normal. IMAGING STUDIES: CT angiogram was performed with no evidence of pulmonary embolism but bilateral infiltrates, either pneumonia or pulmonary edema. A small right perihilar nodule 1.5 cm indeterminate, will need followup. Possible mild right hilar adenopathy, again will need followup. Cultures have been negative. Influenza A and B negative. Sputum culture no growth. Blood cultures no growth. Urine no growth. DISCUSSION: Ms. Desouza presented with acute respiratory failure, fairly sudden onset. A chest x-ray and CT suggest possibly pulmonary edema. She may have had an ischemic event. She does have global hypokinesis with a reduced ejection fraction. However, she also has a significant smoking history. She is quite congested with wheezing. I suspect she does have some underlying chronic obstructive pulmonary disease as well, possibly with pneumonia superimposed. I spoke to Dr. Brooke. We will do a couple of days of treatment to try to stabilize things here. She has recovered to this point rather uneventfully and then early next week he will consider proceeding with further diagnostic studies on her heart. We will continue antibiotics consolidating those as she does well. Continue aerosol therapy and I will also give her a short course of prednisone for probable exacerbation of chronic obstructive pulmonary disease. she is on heparin for the possible cardiac ischemia. Further diagnostic and/or therapeutic intervention will depend on her ongoing clinical course. R. MD HOSSEIN [place]/ , 05:29 PM , 06:53 PM
[2017-09-23] MEDS: ASPIRIN EC 325 MG TABEC PO SCH (08:39)
[2017-09-23] MEDS: ACETYLCYSTEINE 20% 6,000 MG/30 ML ORAL SOLN VIAL PO SCH (08:40)
[2017-09-23] MEDS: DOCUSATE SODIUM 50 MG/SENNA 8.6 MG TAB PO SCH ×2 (08:43→20:02)
--- NOTE | 2017-09-23 13:27 | PD.CARD.PN ---
Subjective Subjective Remarks Doing better, breathing better But coughing up phlegm No chest pain Objective Medications Current Medications Medications (Trade) Dose Ordered Sig/Jack Route Start Time Stop Time Status Last Admin (Ecotrin Ec) 325 mg DAILY PO 09/21/17 09:00 09/22/17 08:52 (Lipitor) 40 mg HS PO 09/21/17 21:00 09/22/17 20:21 (D50w (Vial) Inj) 50 ml UNSCH PRN IV PUSH 09/21/17 03:00 (Glucagon Inj) 1 mg UNSCH PRN OTHER 09/21/17 03:00 (NS Flush) 2 ml UNSCH PRN IV FLUSH 09/21/17 03:00 09/23/17 07:53 (NS Flush) 2 ml BID IV FLUSH 09/21/17 09:00 09/23/17 07:53 (Zofran Inj) 4 mg Q6H PRN IV PUSH 09/21/17 03:00 Miscellaneous Information 1 Q361D XX 09/21/17 03:00 09/21/17 05:37 (Chlorhexidine 2% Cloth) 3 pack Taper DAILY@04 TOP 09/21/17 04:00 09/17/18 03:59 09/23/17 04:00 (Chlorhexidine 2% Cloth) 3 pack UNSCH PRN TOP 09/21/17 03:00 (Alysa-Colace) 1 tab BID PO 09/21/17 09:00 09/21/17 08:56 (Milk Of Magnesia Liq) 30 ml Q12H PRN PO 09/21/17 03:00 (Senokot) 17.2 mg Q12H PRN PO 09/21/17 03:00 (Dulcolax Supp) 10 mg DAILY PRN RECTAL 09/21/17 03:00 (Lactulose Liq) 30 ml DAILY PRN PO 09/21/17 03:00 (Peridex 0.12% Liq) 15 ml BID@08,20 MT 09/21/17 08:00 09/22/17 20:00 (Heparin Inj) 5,000 units UNSCH PRN IV PUSH 09/21/17 09:15 (Heparin Inj) 2,500 units UNSCH PRN IV PUSH 09/21/17 09:15 Heparin Sodium/ Dextrose 250 ml @ 9 mls/hr TITRATE PRN IV 09/21/17 03:15 09/23/17 07:04 (Albuterol Neb) 2.5 mg Q2HR NEB PRN NEB 09/21/17 10:00 09/23/17 00:27 Pharmacy Profile Note 0 ml @ 0 mls/hr UNSCH OTHER 09/21/17 13:30 Piperacillin Sod/ Tazobactam Sod 50 ml @ 200 mls/hr Q6H IV 09/21/17 15:00 09/23/17 07:53 Miscellaneous Information SPECIFIC LAB TO BE DRAWN:VANCOMY... ONCE ONCE .XX 09/24/17 02:45 09/24/17 02:46 (Tylenol 650 Mg/ 20 ml Liq) 650 mg Q6H PRN PO 09/21/17 16:45 09/22/17 03:41 Vancomycin HCl 1250 mg/Sodium Chloride 262.5 ml @ 250 mls/hr Q24H IV 09/23/17 03:00 09/23/17 02:25 (Duoneb Neb) 1 ampule Q6HR NEB INH 09/22/17 16:00 09/23/17 09:29 (NovoLOG SUPPLEMENTAL SCALE) 1 ACHS SQ 09/22/17 17:00 09/23/17 12:33 (Morphine Inj) 2 mg Q4HR PRN IV PUSH 09/22/17 13:15 (Zithromax) 500 mg DAILY PO 09/22/17 13:15 09/28/17 13:14 09/23/17 07:54 (Pepcid) 20 mg HS PO 09/22/17 21:00 09/22/17 20:22 ([place] 5-325 Mg) 1 tab Q4H PRN PO 09/22/17 13:15 (Mucinex Er) 600 mg BID PO 09/22/17 21:00 09/23/17 07:54 (Protonix) 40 mg DAILY PO 09/23/17 09:00 09/23/17 07:54 (Prinivil) 5 mg Q12HR PO 09/22/17 21:00 09/23/17 07:54 (Lopressor) 6.25 mg Q12HR PO 09/22/17 21:00 09/23/17 07:54 (Deltasone) 20 mg BID PO 4/12/18 21:00 09/23/17 07:53 Vital Signs / I&O Vital Signs Date Time Temp Pulse Resp B/P (MAP) Pulse Ox O2 Delivery O2 Flow Rate FiO2 09/23/17 09:00 98 16 113/70 (84) 100 09/23/17 08:00 98.0 94 25 106/57 (73) 89 09/23/17 08:00 94 09/23/17 07:27 100 Nasal Cannula 3.00 09/23/17 07:00 98 23 122/72 (89) 100 09/23/17 06:00 91 09/23/17 04:00 91 09/23/17 04:00 98.3 91 22 113/59 (77) 100 09/23/17 02:00 88 09/23/17 00:00 98.0 99 26 127/60 (82) 99 09/23/17 00:00 99 09/22/17 22:00 100 09/22/17 20:38 100 Nasal Cannula 3.00 09/22/17 20:00 98.2 100 21 100 09/22/17 20:00 100 09/22/17 18:00 112 09/22/17 16:00 98.0 106 27 121/77 (92) 97 09/22/17 16:00 106 09/22/17 14:00 107 I/O 09/22/17 09/22/17 09/22/17 09/23/17 09/23/17 09/23/17 07:00 15:00 23:00 07:00 15:00 23:00 Intake Total 309 ml 950 ml 800 ml 450 ml 250 ml Output Total 1400 ml 1200 ml 850 ml Balance -1091 ml 950 ml -400 ml -400 ml 250 ml Intake Oral 0 ml 750 ml 100 ml IV Total 309 ml 950 ml 50 ml 350 ml 250 ml Output Urine Total 1400 ml 1200 ml 850 ml # Bowel Movements 0 0 Physical Exam GENERAL: NAD, AAOx3 SKIN: Warm and dry. HEAD: Atraumatic. Normocephalic. EYES: Pupils equal and round. No scleral icterus. No injection or drainage. ENT: No nasal bleeding or discharge. Mucous membranes pink and moist. NECK: Trachea midline. No JVD. CARDIOVASCULAR: Regular rate and rhythm. RESPIRATORY: Bilateral rhonchi. GASTROINTESTINAL: Abdomen soft, non-tender, nondistended. Hepatic and splenic margins not palpable. MUSCULOSKELETAL: Extremities without clubbing, cyanosis, or edema. No obvious deformities. NEUROLOGICAL: Awake and alert. No obvious cranial nerve deficits. Motor grossly within normal limits. Five out of 5 muscle strength in the arms and legs. Normal speech. PSYCHIATRIC: Appropriate mood and affect; insight and judgment normal. Laboratory Laboratory Tests Test 09/23/17 04:30 White Blood Count 10.0 TH/MM3 Red Blood Count 3.33 MIL/MM3 Hemoglobin 8.9 GM/DL Hematocrit 27.3 % Mean Corpuscular Volume 82.0 FL Mean Corpuscular Hemoglobin 26.8 PG Mean Corpuscular Hemoglobin Concent 32.6 % Red Cell Distribution Width 16.8 % Platelet Count 348 TH/MM3 Mean Platelet Volume 8.8 FL Activated Partial Thromboplast Time 40.2 SEC Blood Urea Nitrogen 12 MG/DL Creatinine 0.80 MG/DL Random Glucose 105 MG/DL Calcium Level 8.7 MG/DL Phosphorus Level 2.6 MG/DL Magnesium Level 1.8 MG/DL Sodium Level 143 MEQ/L Potassium Level 4.2 MEQ/L Chloride Level 110 MEQ/L Carbon Dioxide Level 24.1 MEQ/L Anion Gap 9 MEQ/L Estimat Glomerular Filtration Rate 71 ML/MIN Imaging Last 24 hours Impressions Chest X-Ray 09/23/17 0600 Signed Impressions: Service Date/Time: Saturday, September 23, 2017 04:45 - CONCLUSION: Improving aeration Laron Schmidt MD Assessment and Plan Problem List: (1) ACS (acute coronary syndrome) ICD Codes: I24.9 - Acute ischemic heart disease, unspecified Status: Acute (2) Sepsis ICD Codes: A41.9 - Sepsis, unspecified organism Status: Acute (3) CHF (congestive heart failure) ICD Codes: I50.9 - Heart failure, unspecified Status: Acute (4) Lactic acidosis ICD Codes: E87.2 - Acidosis Status: Acute (5) Respiratory arrest ICD Codes: R09.2 - Respiratory arrest Status: Acute Assessment and Plan 1) Respiratory arrest s/p extubation 2) Pulmonary edema EF <20% RHC/LHC Will plan for Tuesday as respiratory status not great yet 3) Elevated trop Plan LHC as above Problem Qualifiers (1) Sepsis: Qualified Codes: A41.9 - Sepsis, unspecified organism (2) CHF (congestive heart failure): Qualified Codes: I50.9 - Heart failure, unspecified Tera Brooke DO Sep 23, 2017 13:27
[2017-09-23] MEDS: cefTRIAXone INJ 1,000 MG in SODIUM CHLORIDE 0.9% INJ 100 ML IV SCH (15:46)
--- NOTE | 2017-09-23 19:08 | HHI.CCPN ---
Subjective Remarks/Hospital Course 77-year-old female presents by EMS transport from local fire department where she went into respiratory failure and then into respiratory arrest. Patient presented to the fire department with marked shortness of breath fire department personnel attempted CPAP and then patient went into respiratory arrest and was intubated with 7.0 endotracheal tube by EMS. Patient had received Lasix 30 mg IV push 1 dose and sublingual nitroglycerin and aspirin prior to respiratory arrest by firefighters. Paramedics identified patient to have a left bundle branch block of indeterminate age. These EKG findings were discussed with Dr. Huffman fingerprinter on-call by ED attending and recommendation was not to proceed with a cardiac catheterization emergently. 09/22: Afebrile. Extubated yesterday without complication currently on nasal cannula. Denies chest pain. Positive cough/severe persistent. Passed swallow evaluation. Subjective 09/23: Aggressive pulmonary toilet initiated with bronchodilators and Acapella. Remains on nasal cannula. Denies chest pain currently. Tolerating diet. Objective Vital Signs Date Time Temp Pulse Resp B/P (MAP) Pulse Ox O2 Delivery O2 Flow Rate FiO2 09/23/17 18:00 105 09/23/17 16:00 98.8 48 119/73 (88) 86 09/23/17 07:27 Nasal Cannula 3.00 09/21/17 16:35 36 Intake and Output 09/23/17 09/23/17 09/23/17 07:59 15:59 23:59 Intake Total 650 ml 100 ml 1044 ml Output Total 850 ml 1725 ml Balance -200 ml 100 ml -681 ml Result Diagram: 09/23/17 0430 09/23/17 0430 Other Results Microbiology Date/Time Source Procedure Growth Status 09/21/17 00:30 Blood Peripheral Aerobic Blood Culture - Preliminary NO GROWTH IN 2 DAYS Resulted 09/21/17 00:30 Blood Peripheral Anaerobic Blood Culture - Preliminary NO GROWTH IN 2 DAYS Resulted 09/21/17 13:35 Nasal Aspirate Influenza Types A,B Antigen (DEIDRA) - Final NEGATIVE FOR FLU A AND B ANTIGEN.... Complete 09/21/17 13:35 Urine Catheterized Urine Urine Culture - Final NO GROWTH IN 48 HOURS. Complete Imaging Last Impressions Chest X-Ray 09/23/17 0600 Signed Impressions: Service Date/Time: Saturday, September 23, 2017 04:45 - CONCLUSION: Improving aeration Laron Schmidt MD Lower Extremity Ultrasound 09/21/17 0000 Signed Impressions: Service Date/Time: Thursday, September 21, 2017 04:22 - CONCLUSION: No DVT in either leg. Jones Hart MD Head CT 09/21/17 Signed Impressions: Service Date/Time: Thursday, September 21, 2017 02:59 - CONCLUSION: No acute intracranial disease. Jones Hart MD CT Angiography 09/21/17 Signed Impressions: Service Date/Time: Thursday, September 21, 2017 11:25 - CONCLUSION: 1. No evidence of pulmonary embolism. 2. Bilateral infiltrates involving the lower lobes and posterior aspects of the upper lobes consistent with pneumonia and/ or pulmonary edema. 3. Perihilar right middle lobe nodule measuring 1.5 x 1.1 cm which is indeterminate. 4. Possible right hilar lymphadenopathy measuring 2.2 x 1.7 cm. 5. 0.6 cm noncalcified right upper lobe nodule. 6. Bullous emphysema bilaterally. 7. Cardiomegaly and coronary artery calcifications. 8. Tiny left pleural effusion. 9. Hiatal hernia. Chalino Aguirre MD Objective Remarks GENERAL: 72-year-old female currently resting in bed on 4 L nasal cannula in no acute distress SKIN: Warm and dry. HEAD: Normocephalic. EYES: No scleral icterus. No injection or drainage. NECK: Supple, trachea midline. No JVD or lymphadenopathy. CARDIOVASCULAR: Regular rate and rhythm without murmurs, gallops, or rubs. RESPIRATORY: Coarse crackles appreciated lower lobes bilaterally. No wheezing GASTROINTESTINAL: Abdomen soft, non-tender, nondistended. MUSCULOSKELETAL: No significant peripheral BACK: Nontender without obvious deformity. NEURO EXAM: Cranial nerves II through XII grossly intact. Strength is equal symmetric. Normal sensation Urinary Catheter: Yes Assessment to: Continue Wu insert reason: Prolonged Immobilization Vascular Central Line Catheter: No Assessment to: Continue A/P Assessment and Plan Neuro/Psych: Acetaminophen 650 mg p.o. every 6 hours as needed fever Hydrocodone/acetaminophen 5/325 1 tablet p.o. every 6 hours as needed pain 1 through 5 Morphine sulfate 2 mg IV every 4 hours as needed pain 6 or 10 CV: Elevated troponin Acute systolic heart failure Hypertension Hyperlipidemia Evaluated by cardiology/Dr. Brooke awaiting recommendations Currently on heparin drip at thousand units an hour Aspirin 325 mg p.o. daily. On 81 mg daily at home Continue atorvastatin 40 mg p.o. daily for dyspnea./Home medication Currently holding home medications of lisinopril 20 mg daily and holding verapamil 120 mg p.o. daily. Her low-dose metoprolol tartrate 6.25 mg p.o. twice daily and lisinopril 5 mg p.o. twice daily 2D echo The left ventricular systolic function is severely reduced with an estimated ejection fraction less than 20%. Severe hypokinesis to akinesis of anterior wall. There is diffuse global hypokinesis with distinct regional wall motion abnormalities. Wall thickness is normal. Normal left ventricular size. Mitral annular calcification is present. Mild to moderate mitral valve regurgitation. Aortic valve sclerosis is present. Mild aortic valve regurgitation. Mild pulmonary valve regurgitation. There is a small pericardial effusion present. Plan for left heart cath Tuesday per Dr. Brooke Resp: Acute hypoxemic hypercapnic respiratory failure secondary to his acute systolic heart failure exacerbation/community acquired pneumonia Extubated 09/21 Nasal cannula to maintain saturations greater than equal to 92%. Currently on 4 L Incentives parameter while awake CT pulmonary revealed bilateral lower lobe infiltrates/effusions with posterior upper lobe infiltrate/edema. 1.5 x 1.1 cm right middle lobe nodule and 0.6 cm right upper lobe nodule. Perihilar lymphadenopathy. Hiatal hernia. Albuterol/ipratropium aerosols every 6 hours with albuterol aerosols every 2 hours. Dyspnea Guaifenesin 60 mg p.o. twice daily Acapella every [address] Noel/pulmonology GI: Gastroesophageal reflux disease Hypoalbuminemia ADA diet Pantoprazole 40 mg daily for GI prophylaxis. On omeprazole/sodium bicarbonate 1 tablet daily at home Docusate sodium/senna 1 tablet twice daily for bowel region : No indication for Wu catheter Endo: Diabetes mellitus type II controlled Holding Canagliflozin/metformin 1 tablet twice daily for diabetes and glipizide 5 mg daily. Currently on sliding scale insulin with Accu-Cheks every before meals/at bedtime to maintain euglycemia/high regimen Renal: Creatinine slowly normalizing Monitor urine output Accurate I's and O's Heme: Normocytic anemia Monitor CBC daily. Follow trends. Does not meet transfusion threshold at this time Currently on a heparin drip ID: Community acquired pneumonia Piperacillin/tazobactam, vancomycin is continued after 3 days. Currently on and azithromycin day 3 7 Blood cultures, sputum, urine or/11 all no growth to date Influenza negative FEN: Replace electrolytes as clinically indicated MSK: PT evaluate and treat Access -Utilize peripheral IV. Central line if indicated Prophylaxis -GI -pantoprazole -DVT -SCD/heparin drip Level 3 follow-up Isac Boland MD Sep 23, 2017 19:08
[2017-09-23] MEDS ORDERED: FUROSEMIDE 40 MG/4 ML VIAL IV PUSH ONE (19:15)
[2017-09-23] MEDS ORDERED: POTASSIUM CHLORIDE 10 MEQ CONTROLLED RELEASE TAB PO ONE (19:15)
[2017-09-23] MEDS: MAGNESIUM SULFATE 1 GM PREMIX 100 ML IV SCH ×2 (19:34→21:24)
[2017-09-23] MEDS: FAMOTIDINE 20 MG TAB PO SCH (20:02)
[2017-09-23] MEDS: ATORVASTATIN 40 MG TAB PO SCH (20:02)
[2017-09-24] VITALS (14 sets, daily range): BP systolic 118–146; BP diastolic 56–78; PULSE 70–119; RESP 17–19; TEMP 97.5–98.8; O2SAT 95–100
[2017-09-24] MEDS ORDERED: PHARMACY ORDERED LAB ONE (02:45)
[2017-09-24] MEDS: CHLORHEXIDINE GLUCONATE 2 % 1 PACK (2 CLOTHS) TOP SCH (03:36)
[2017-09-24 04:52] LABS: HEMATOCRIT 31.3 % (35.0-46.0); HEMOGLOBIN 10.1 GM/DL (11.6-15.3); MEAN CELL VOLUME 80.4 FL (80.0-100.0); MEAN CORPUSCULAR HEMOGLOBIN 25.8 PG (27.0-34.0); MEAN CORPUSCULAR HGB CONC 32.1 % (32.0-36.0); MEAN PLATELET VOLUME 8.5 FL (7.0-11.0); PLATELET COUNT 425 TH/MM3 (150-450); RED CELL DISTRIBUTION WIDTH 16.6 % (11.6-17.2); WHITE BLOOD COUNT 9.9 TH/MM3 (4.0-11.0)
[2017-09-24 05:06] LABS: CREATININE 0.79 MG/DL (0.50-1.00)
[2017-09-24] MEDS: INSULIN ASPART SUPPLEMENTAL SCALE SQ SCH ×4 (08:00→20:12)
[2017-09-24] MEDS: CHLORHEXIDINE 0.12% (ORAL KIT) 15 ML CUP MT SCH ×2 (08:00→20:00)
[2017-09-24] MEDS: SODIUM CHLORIDE 0.9% FLUSH 10 ML FLUSH IV FLUSH SCH ×2 (08:14→20:12)
[2017-09-24] MEDS: SODIUM CHLORIDE 0.9% FLUSH 10 ML FLUSH IV FLUSH PRN (08:14)
[2017-09-24] MEDS: predniSONE 20 MG TAB PO SCH (08:15)
[2017-09-24] MEDS: PANTOPRAZOLE SOD 40 MG DELAYED RELEASE TAB PO SCH (08:16)
[2017-09-24] MEDS: guaiFENesin E.R. 600 MG TAB PO SCH ×2 (08:16→20:11)
[2017-09-24] MEDS: LISINOPRIL 10 MG TAB PO SCH ×2 (08:16→20:11)
[2017-09-24] MEDS: METOPROLOL TARTRATE 25 MG TAB PO SCH ×2 (08:16→20:12)
[2017-09-24] MEDS: AZITHROMYCIN 250 MG TAB PO SCH (08:16)
[2017-09-24] MEDS: ASPIRIN EC 325 MG TABEC PO SCH (08:16)
--- NOTE | 2017-09-24 08:23 | HHI.CCPN ---
Subjective Remarks/Hospital Course 77-year-old female presents by EMS transport from local fire department where she went into respiratory failure and then into respiratory arrest. Patient presented to the fire department with marked shortness of breath fire department personnel attempted CPAP and then patient went into respiratory arrest and was intubated with 7.0 endotracheal tube by EMS. Patient had received Lasix 30 mg IV push 1 dose and sublingual nitroglycerin and aspirin prior to respiratory arrest by firefighters. Paramedics identified patient to have a left bundle branch block of indeterminate age. These EKG findings were discussed with Dr. Huffman blow molding machine tender on-call by ED attending and recommendation was not to proceed with a cardiac catheterization emergently. 09/22: Afebrile. Extubated yesterday without complication currently on nasal cannula. Denies chest pain. Positive cough/severe persistent. Passed swallow evaluation. 09/23: Aggressive pulmonary toilet initiated with bronchodilators and Acapella. Remains on nasal cannula. Denies chest pain currently. Tolerating diet. Subjective 09/24: Afebrile. Saturation 100% on 3 L nasal cannula. Denies chest pain. Productive cough. Switch to ceftriaxone from piperacillin/tazobactam and vancomycin yesterday. Plan for left heart cath on Tuesday Objective Vital Signs Date Time Temp Pulse Resp B/P (MAP) Pulse Ox O2 Delivery O2 Flow Rate FiO2 09/24/17 06:00 93 09/24/17 04:00 98.6 17 146/78 (100) 100 09/23/17 21:35 Nasal Cannula 3.00 09/21/17 16:35 36 Intake and Output 09/24/17 09/24/17 09/25/17 08:00 16:00 00:00 Intake Total 480 ml Output Total 3750 ml Balance -3270 ml Result Diagram: 09/24/17 0416 09/24/17 0416 Other Results Microbiology Date/Time Source Procedure Growth Status 09/21/17 00:30 Blood Peripheral Aerobic Blood Culture - Preliminary NO GROWTH IN 2 DAYS Resulted 09/21/17 00:30 Blood Peripheral Anaerobic Blood Culture - Preliminary NO GROWTH IN 2 DAYS Resulted 09/21/17 13:35 Nasal Aspirate Influenza Types A,B Antigen (DEIDRA) - Final NEGATIVE FOR FLU A AND B ANTIGEN.... Complete 09/21/17 13:35 Urine Catheterized Urine Urine Culture - Final NO GROWTH IN 48 HOURS. Complete Imaging Last Impressions Chest X-Ray 09/23/17 0600 Signed Impressions: Service Date/Time: Saturday, September 23, 2017 04:45 - CONCLUSION: Improving aeration Laron Schmidt MD Lower Extremity Ultrasound 09/21/17 0000 Signed Impressions: Service Date/Time: Thursday, September 21, 2017 04:22 - CONCLUSION: No DVT in either leg. Jones Hart MD Head CT 09/21/17 0000 Signed Impressions: Service Date/Time: Thursday, September 21, 2017 02:59 - CONCLUSION: No acute intracranial disease. Jones Hart MD CT Angiography 09/21/17 0000 Signed Impressions: Service Date/Time: Thursday, September 21, 2017 11:25 - CONCLUSION: 1. No evidence of pulmonary embolism. 2. Bilateral infiltrates involving the lower lobes and posterior aspects of the upper lobes consistent with pneumonia and/ or pulmonary edema. 3. Perihilar right middle lobe nodule measuring 1.5 x 1.1 cm which is indeterminate. 4. Possible right hilar lymphadenopathy measuring 2.2 x 1.7 cm. 5. 0.6 cm noncalcified right upper lobe nodule. 6. Bullous emphysema bilaterally. 7. Cardiomegaly and coronary artery calcifications. 8. Tiny left pleural effusion. 9. Hiatal hernia. Chalino Aguirre MD Objective Remarks GENERAL: 72-year-old female currently resting in bed on 3 L nasal cannula in no acute distress SKIN: Warm and dry. HEAD: Normocephalic. EYES: No scleral icterus. No injection or drainage. NECK: Supple, trachea midline. No JVD or lymphadenopathy. CARDIOVASCULAR: Regular rate and rhythm without murmurs, gallops, or rubs. RESPIRATORY: Coarse crackles appreciated lower lobes bilaterally. No wheezing GASTROINTESTINAL: Abdomen soft, non-tender, nondistended. MUSCULOSKELETAL: No significant peripheral BACK: Nontender without obvious deformity. NEURO EXAM: Cranial nerves II through XII grossly intact. Strength is equal symmetric. Normal sensation Urinary Catheter: Yes Assessment to: Continue Wu insert reason: ICU Pt Getting Diuretics Vascular Central Line Catheter: No Assessment to: Continue A/P Assessment and Plan Neuro/Psych: Acetaminophen 650 mg p.o. every 6 hours as needed fever Hydrocodone/acetaminophen 5/325 1 tablet p.o. every 6 hours as needed pain 1 through 5 Morphine sulfate 2 mg IV every 4 hours as needed pain 6 or 10 CV: Elevated troponin Acute systolic heart failure Hypertension Hyperlipidemia Evaluated by cardiology/Dr. Brooke with planned left heart catheterization on Tuesday 09/26 Currently on heparin drip at 900 units an hour Aspirin 325 mg p.o. daily. On 81 mg daily at home Continue atorvastatin 40 mg p.o. daily for dyspnea./Home medication Currently holding home medications of lisinopril 20 mg daily and holding verapamil 120 mg p.o. daily. Continue low-dose metoprolol tartrate 6.25 mg p.o. twice daily and lisinopril 5 mg p.o. twice daily 2D echo The left ventricular systolic function is severely reduced with an estimated ejection fraction less than 20%. Severe hypokinesis to akinesis of anterior wall. There is diffuse global hypokinesis with distinct regional wall motion abnormalities. Wall thickness is normal. Normal left ventricular size. Mitral annular calcification is present. Mild to moderate mitral valve regurgitation. Aortic valve sclerosis is present. Mild aortic valve regurgitation. Mild pulmonary valve regurgitation. There is a small pericardial effusion present. Started on furosemide 20 mg by mouth daily with KCl 10 mEq daily. Resp: Acute hypoxemic hypercapnic respiratory failure secondary to his acute systolic heart failure exacerbation/community acquired pneumonia Extubated 09/21 Nasal cannula to maintain saturations greater than equal to 92%. Currently on 3 L Incentives parameter while awake CT pulmonary revealed bilateral lower lobe infiltrates/effusions with posterior upper lobe infiltrate/edema. 1.5 x 1.1 cm right middle lobe nodule and 0.6 cm right upper lobe nodule. Perihilar lymphadenopathy. Hiatal hernia. Albuterol/ipratropium aerosols every 6 hours with albuterol aerosols every 2 hours. Dyspnea Guaifenesin 600 mg p.o. twice daily Acapella every [address] Noel/pulmonology GI: Gastroesophageal reflux disease Hypoalbuminemia ADA diet Pantoprazole 40 mg daily for GI prophylaxis. On omeprazole/sodium bicarbonate 1 tablet daily at home Docusate sodium/senna 1 tablet twice daily for bowel region : ICU patient receiving antibiotics indication for Wu catheter Endo: Diabetes mellitus type II controlled Holding Canagliflozin/metformin 1 tablet twice daily for diabetes and glipizide 5 mg daily. Currently on sliding scale insulin with Accu-Cheks every before meals/at bedtime to maintain euglycemia/high regimen Renal: Creatinine slowly normalizing Monitor urine output Accurate I's and O's Heme: Normocytic anemia Monitor CBC daily. Follow trends. Does not meet transfusion threshold at this time Currently on a heparin drip ID: Community acquired pneumonia Piperacillin/tazobactam, vancomycin is continued after 3 days. Currently on ceftriaxone day #2 and azithromycin day 4 Blood cultures, sputum, urine or/11 all no growth to date Influenza negative FEN: Replace electrolytes as clinically indicated A.m. potassium magnesium pending MSK: PT evaluate and treat Access -Utilize peripheral IV. Central line if indicated Prophylaxis -GI -pantoprazole -DVT -SCD/heparin drip Level 2 follow-up Patient is stable from a critical care medicine standpoint. Assign care to hospitalist in a.m. 09/25. Okay to transfer from ICU. To CIC/step down unit Isac Boland MD Sep 24, 2017 08:23
[2017-09-24] MEDS: DOCUSATE SODIUM 50 MG/SENNA 8.6 MG TAB PO SCH ×2 (09:00→20:11)
[2017-09-24] MEDS: POTASSIUM CHLORIDE 10 MEQ CONTROLLED RELEASE TAB PO SCH (09:19)
[2017-09-24] MEDS: FUROSEMIDE 20 MG TAB PO SCH (09:19)
[2017-09-24 09:45] LABS: BICARBONATE 22.9 MEQ/L (21.0-32.0); CREATININE 0.82 MG/DL (0.50-1.00); PHOSPHORUS 4.2 MG/DL (2.5-4.9)
[2017-09-24] MEDS: RESP: ALBUTEROL 2.5 MG/IPRATROPIUM 0.5 MG NEB (SCH) INH ×3 (10:00→22:30)
[2017-09-24] MEDS ORDERED: SODIUM POLYSTYRENE SULFONATE SUSP 15 GM/60 ML CUP PO ONE (10:15)
[2017-09-24] MEDS: HEPARIN-D5W 25,000 U/250 ML 250 ML IV PRN (11:57)
[2017-09-24] MEDS: cefTRIAXone INJ 1,000 MG in SODIUM CHLORIDE 0.9% INJ 100 ML IV SCH (16:31)
[2017-09-24] MEDS: LACTOBACILLUS ACIDOPHILUS TAB PO SCH (20:11)
[2017-09-24] MEDS: FAMOTIDINE 20 MG TAB PO SCH (20:11)
[2017-09-24] MEDS: ATORVASTATIN 40 MG TAB PO SCH (20:11)
[2017-09-24] MEDS: HEPARIN SODIUM - IV 10,000 UNITS/10 ML VIAL IV PUSH PRN (22:03)
[2017-09-25] VITALS (22 sets, daily range): BP systolic 112–145; BP diastolic 60–87; PULSE 78–110; RESP 17–20; TEMP 97.4–98.6; O2SAT 93–96
[2017-09-25] MEDS: CHLORHEXIDINE GLUCONATE 2 % 1 PACK (2 CLOTHS) TOP SCH (04:00)
[2017-09-25 04:08] LABS: ALBUMIN 3.1 GM/DL (3.4-5.0); ALT (GPT) 21 U/L (10-53); AST (GOT) 13 U/L (15-37); BICARBONATE 27.1 MEQ/L (21.0-32.0); BLOOD UREA NITROGEN 21 MG/DL (7-18); CALCIUM 9.4 MG/DL (8.5-10.1); CHLORIDE 107 MEQ/L (98-107); CREATININE 0.84 MG/DL (0.50-1.00); GLOMERULAR FILTRATION RATE 67 ML/MIN (>89); GLUCOSE,RANDOM 106 MG/DL (74-106); MAGNESIUM 1.7 MG/DL (1.5-2.5); PHOSPHORUS 3.7 MG/DL (2.5-4.9); SODIUM (NA) 143 MEQ/L (136-145)
[2017-09-25 04:15] LABS: ALKALINE PHOSPHATASE 88 U/L (45-117); TOTAL BILIRUBIN ADULT 0.3 MG/DL (0.2-1.0); TOTAL PROTEIN 7.3 GM/DL (6.4-8.2)
[2017-09-25 04:17] LABS: AUTOMATED NEUTROPHIL # 5.6 TH/MM3 (1.8-7.7); BASOPHIL # 0.2 TH/MM3 (0-0.2); BASOPHIL % 1.3 % (0.0-2.0); EOSINOPHIL # 0.4 TH/MM3 (0-0.4); EOSINOPHIL % 3.7 % (0.0-4.0); HEMATOCRIT 31.1 % (35.0-46.0); LYMPH % 38.7 % (9.0-44.0); LYMPHOCYTE # 4.6 TH/MM3 (1.0-4.8); MEAN CELL VOLUME 80.1 FL (80.0-100.0); MEAN CORPUSCULAR HEMOGLOBIN 25.9 PG (27.0-34.0); MEAN CORPUSCULAR HGB CONC 32.3 % (32.0-36.0); MEAN PLATELET VOLUME 8.7 FL (7.0-11.0); MONO % 9.3 % (0.0-8.0); MONOCYTE # 1.1 TH/MM3 (0-0.9); PLATELET COUNT 417 TH/MM3 (150-450); RED BLOOD COUNT 3.88 MIL/MM3 (4.00-5.30); RED CELL DISTRIBUTION WIDTH 16.8 % (11.6-17.2); WHITE BLOOD COUNT 11.9 TH/MM3 (4.0-11.0)
--- NOTE | 2017-09-25 05:16 | RADRPT ---
EXAM DATE/TIME: 09/25/2017 04:19 [facility] COMPARISON: CHEST SINGLE AP, September 23, 2017, 4:45. INDICATIONS : Shortness of breath, possible pulmonary disease. MEDICAL HISTORY : Hypertension. Congestive heart failure. SURGICAL HISTORY : None. ENCOUNTER: Subsequent ACUITY: 4 - 6 days PAIN SCORE: 0/10 LOCATION: Bilateral chest FINDINGS: A single view of the chest demonstrates the lungs to be symmetrically aerated without evidence of mas s, infiltrate or effusion. The cardiomediastinal contours are unremarkable. Osseous structures are intact. CONCLUSION: 1. No acute cardiopulmonary disease. Rafael Lemus MD on September 25, 2017 at 5:14 Board Certified Radiologist. This report was verified electronically.
[2017-09-25] MEDS: CHLORHEXIDINE 0.12% (ORAL KIT) 15 ML CUP MT SCH ×2 (08:00→20:00)
[2017-09-25] MEDS: INSULIN ASPART SUPPLEMENTAL SCALE SQ SCH ×4 (08:00→21:38)
[2017-09-25] MEDS: HEPARIN-D5W 25,000 U/250 ML 250 ML IV PRN (08:30)
[2017-09-25] MEDS: METOPROLOL TARTRATE 25 MG TAB PO SCH ×2 (08:31→21:35)
[2017-09-25] MEDS: AZITHROMYCIN 250 MG TAB PO SCH (08:31)
[2017-09-25] MEDS: predniSONE 20 MG TAB PO SCH (08:31)
[2017-09-25] MEDS: DOCUSATE SODIUM 50 MG/SENNA 8.6 MG TAB PO SCH ×2 (08:31→21:00)
[2017-09-25] MEDS: LACTOBACILLUS ACIDOPHILUS TAB PO SCH ×2 (08:31→21:35)
[2017-09-25] MEDS: PANTOPRAZOLE SOD 40 MG DELAYED RELEASE TAB PO SCH (08:32)
[2017-09-25] MEDS: FUROSEMIDE 20 MG TAB PO SCH (08:32)
[2017-09-25] MEDS: guaiFENesin E.R. 600 MG TAB PO SCH ×2 (08:32→21:35)
[2017-09-25] MEDS: ASPIRIN EC 325 MG TABEC PO SCH (08:32)
[2017-09-25] MEDS: LISINOPRIL 10 MG TAB PO SCH ×2 (08:32→21:34)
[2017-09-25] MEDS: POTASSIUM CHLORIDE 10 MEQ CONTROLLED RELEASE TAB PO SCH (08:33)
[2017-09-25] MEDS: SODIUM CHLORIDE 0.9% FLUSH 10 ML FLUSH IV FLUSH SCH ×2 (08:33→21:35)
[2017-09-25] MEDS: RESP: ALBUTEROL 2.5 MG/IPRATROPIUM 0.5 MG NEB (SCH) INH ×3 (09:47→20:29)
[2017-09-25] MEDS: cefTRIAXone INJ 1,000 MG in SODIUM CHLORIDE 0.9% INJ 100 ML IV SCH (14:50)
--- NOTE | 2017-09-25 16:29 | HHI.PR ---
Subjective Remarks 77-year-old female presents by EMS transport from local fire department where she went into respiratory failure and then into respiratory arrest. Patient presented to the fire department with marked shortness of breath fire department personnel attempted CPAP and then patient went into respiratory arrest and was intubated with 7.0 endotracheal tube by EMS. Patient had received Lasix 30 mg IV push 1 dose and sublingual nitroglycerin and aspirin prior to respiratory arrest by firefighters. Paramedics identified patient to have a left bundle branch block of indeterminate age. These EKG findings were discussed with Dr. Huffman administrative resources associate on-call by ED attending and recommendation was not to proceed with a cardiac catheterization emergently. 09/22: Afebrile. Extubated yesterday without complication currently on nasal cannula. Denies chest pain. Positive cough/severe persistent. Passed swallow evaluation. 09/23: Aggressive pulmonary toilet initiated with bronchodilators and Acapella. Remains on nasal cannula. Denies chest pain currently. Tolerating diet. 09/24: Afebrile. Saturation 100% on 3 L nasal cannula. Denies chest pain. Productive cough. Switch to ceftriaxone from piperacillin/tazobactam and vancomycin yesterday. Plan for left heart cath on 09-25 TRANSFERRED TO [facility] CATH TOMORROW NO NEW COMPLAINTS NO SOB, NO CHEST PAIN DW RN AND PT AND FAMILY [facility] CATH TOMORROW Objective Vitals Vital Signs Date Time Temp Pulse Resp B/P (MAP) Pulse Ox O2 Delivery O2 Flow Rate FiO2 09/25/17 15:00 97.4 91 19 119/70 (86) 93 09/25/17 15:00 108 09/25/17 14:00 105 09/25/17 13:00 91 09/25/17 12:00 99 09/25/17 11:00 98.2 94 17 112/60 (77) 94 09/25/17 11:00 96 09/25/17 10:00 89 09/25/17 09:49 96 21 09/25/17 09:00 110 09/25/17 08:00 103 09/25/17 07:00 86 09/25/17 07:00 98.6 89 17 132/71 (91) 95 09/25/17 05:34 87 09/25/17 03:40 98.5 94 20 145/71 (95) 94 09/25/17 03:40 90 09/25/17 01:00 78 09/24/17 23:39 89 09/24/17 23:39 98.4 93 18 127/66 (86) 98 09/24/17 22:30 95 21 09/24/17 21:30 100 09/24/17 19:40 119 09/24/17 19:40 98.0 99 19 133/72 (92) 98 09/24/17 18:00 85 09/24/17 18:00 98.8 18 131/68 (89) 100 I/O 09/24/17 09/24/17 09/24/17 09/25/17 09/25/17 09/25/17 07:00 15:00 23:00 07:00 15:00 23:00 Intake Total 480 ml 162 ml 1008 ml 480 ml 230 ml Output Total 3750 ml 1200 ml 1200 ml Balance -3270 ml 162 ml -192 ml -720 ml 230 ml Intake Oral 480 ml 908 ml 480 ml IV Total 162 ml 100 ml 230 ml Output Urine Total 3750 ml 1200 ml 1200 ml # Bowel Movements 0 Result Diagram: 09/25/17 0335 09/25/17 0335 Other Results Laboratory Tests Test 09/23/17 04:30 09/24/17 04:16 09/24/17 08:55 09/24/17 13:22 White Blood Count 10.0 TH/MM3 9.9 TH/MM3 Red Blood Count 3.33 MIL/MM3 3.90 MIL/MM3 Hemoglobin 8.9 GM/DL 10.1 GM/DL Hematocrit 27.3 % 31.3 % Mean Corpuscular Volume 82.0 FL 80.4 FL Mean Corpuscular Hemoglobin 26.8 PG 25.8 PG Mean Corpuscular Hemoglobin Concent 32.6 % 32.1 % Red Cell Distribution Width 16.8 % 16.6 % Platelet Count 348 TH/MM3 425 TH/MM3 Mean Platelet Volume 8.8 FL 8.5 FL Activated Partial Thromboplast Time 40.2 SEC 31.3 SEC 32.7 SEC Blood Urea Nitrogen 12 MG/DL 17 MG/DL Creatinine 0.80 MG/DL 0.79 MG/DL 0.82 MG/DL Random Glucose 105 MG/DL 119 MG/DL Calcium Level 8.7 MG/DL 10.0 MG/DL Phosphorus Level 2.6 MG/DL 4.2 MG/DL Magnesium Level 1.8 MG/DL 2.0 MG/DL Sodium Level 143 MEQ/L 136 MEQ/L Potassium Level 4.2 MEQ/L 5.4 MEQ/L Chloride Level 110 MEQ/L 104 MEQ/L Carbon Dioxide Level 24.1 MEQ/L 22.9 MEQ/L Anion Gap 9 MEQ/L 9 MEQ/L Estimat Glomerular Filtration Rate 71 ML/MIN 72 ML/MIN 69 ML/MIN Test 09/24/17 16:30 09/24/17 20:34 09/25/17 03:35 09/25/17 11:31 Potassium Level 4.3 MEQ/L 3.6 MEQ/L Activated Partial Thromboplast Time 35.5 SEC 52.6 SEC 42.3 SEC White Blood Count 11.9 TH/MM3 Red Blood Count 3.88 MIL/MM3 Hemoglobin 10.0 GM/DL Hematocrit 31.1 % Mean Corpuscular Volume 80.1 FL Mean Corpuscular Hemoglobin 25.9 PG Mean Corpuscular Hemoglobin Concent 32.3 % Red Cell Distribution Width 16.8 % Platelet Count 417 TH/MM3 Mean Platelet Volume 8.7 FL Neutrophils (%) (Auto) 47.0 % Lymphocytes (%) (Auto) 38.7 % Monocytes (%) (Auto) 9.3 % Eosinophils (%) (Auto) 3.7 % Basophils (%) (Auto) 1.3 % Neutrophils # (Auto) 5.6 TH/MM3 Lymphocytes # (Auto) 4.6 TH/MM3 Monocytes # (Auto) 1.1 TH/MM3 Eosinophils # (Auto) 0.4 TH/MM3 Basophils # (Auto) 0.2 TH/MM3 CBC Comment DIFF FINAL Differential Comment Blood Urea Nitrogen 21 MG/DL Creatinine 0.84 MG/DL Random Glucose 106 MG/DL Total Protein 7.3 GM/DL Albumin 3.1 GM/DL Calcium Level 9.4 MG/DL Phosphorus Level 3.7 MG/DL Magnesium Level 1.7 MG/DL Alkaline Phosphatase 88 U/L Aspartate Amino Transf (AST/SGOT) 13 U/L Alanine Aminotransferase (ALT/SGPT) 21 U/L Total Bilirubin 0.3 MG/DL Sodium Level 143 MEQ/L Chloride Level 107 MEQ/L Carbon Dioxide Level 27.1 MEQ/L Anion Gap 9 MEQ/L Estimat Glomerular Filtration Rate 67 ML/MIN Imaging Last Impressions Chest X-Ray 09/25/17 0600 Signed Impressions: Service Date/Time: Monday, September 25, 2017 04:19 - CONCLUSION: 1. No acute cardiopulmonary disease. Rafael Lemus MD Lower Extremity Ultrasound 09/21/17 0000 Signed Impressions: Service Date/Time: Thursday, September 21, 2017 04:22 - CONCLUSION: No DVT in either leg. Jones Hart MD Head CT 09/21/17 0000 Signed Impressions: Service Date/Time: Thursday, September 21, 2017 02:59 - CONCLUSION: No acute intracranial disease. Jones Hart MD CT Angiography 09/21/17 0000 Signed Impressions: Service Date/Time: Thursday, September 21, 2017 11:25 - CONCLUSION: 1. No evidence of pulmonary embolism. 2. Bilateral infiltrates involving the lower lobes and posterior aspects of the upper lobes consistent with pneumonia and/ or pulmonary edema. 3. Perihilar right middle lobe nodule measuring 1.5 x 1.1 cm which is indeterminate. 4. Possible right hilar lymphadenopathy measuring 2.2 x 1.7 cm. 5. 0.6 cm noncalcified right upper lobe nodule. 6. Bullous emphysema bilaterally. 7. Cardiomegaly and coronary artery calcifications. 8. Tiny left pleural effusion. 9. Hiatal hernia. Chalino Aguirre MD Objective Remarks GENERAL: AWAKE AND ALERT AND ORIENTED X3 IN NO ACUTE DISTRESS SKIN: Warm and dry. HEAD: Atraumatic. Normocephalic. EYES: Pupils equal and round. No scleral icterus. No injection or drainage. EOMI ENT: No nasal bleeding or discharge. Mucous membranes pink and moist. TONGUE MIDLINE NECK: Trachea midline. No JVD. SUPPLE CARDIOVASCULAR: Regular rate and rhythm. S1, S2, NO S3 OR S4 NO HEAVE OR THRILL RESPIRATORY: No accessory muscle use. Clear to auscultation. Breath sounds equal bilaterally. GASTROINTESTINAL: Abdomen soft, non-tender, nondistended. Hepatic and splenic margins not palpable. MUSCULOSKELETAL: Extremities without clubbing, cyanosis, or edema. No obvious deformities. NEUROLOGICAL: Awake and alert. No obvious cranial nerve deficits. Motor grossly within normal limits. Five out of 5 muscle strength in the arms and legs. Normal speech. PSYCHIATRIC: Appropriate mood and affect; insight and judgment normal. Medications and IVs Current Medications Sodium Chloride (NS Flush) 2 ml UNSCH PRN IVF FLUSH AFTER USING IV ACCESS; Start 09/21/17 at 00:00; Stop 09/21/17 at 04:09; Status DC Nitroglycerin (Nitroglycerin 2% Oint) 1 inch ONCE ONCE TOPICAL Last administered on 09/21/17at 01:30; Start 09/21/17 at 00:15; Stop 09/21/17 at 00:16 ; Status DC Propofol 100 ml @ 0 mls/hr TITRATE PRN IV SEDATION Last administered on at 03:00; Start 09/21/17 at 00:15; Stop 09/21/17 at 03:18; Status DC Piperacillin Sod/ Tazobactam Sod 100 ml @ 200 mls/hr ONCE ONCE IV Last administered on 09/21/17at 01:30; Start 09/21/17 at 00:30; Stop 09/21/17 at 00:59 ; Status DC Vancomycin HCl 1000 mg/Sodium Chloride 250 ml @ 250 mls/hr ONCE ONCE IV Last administered on 09/21/17at 03:00; Start 09/21/17 at 00:30; Stop 09/21/17 at 01:29 ; Status DC Sodium Bicarbonate (Sodium Bicarbonate 8.4% Inj) 50 meq ONCE ONCE IV PUSH Last administered on 09/21/17at 01:30; Start 09/21/17 at 00:45; Stop 09/21/17 at 00:46; Status DC Aspirin (Ecotrin Ec) 325 mg DAILY PO Last administered on 09/25/17at 08:32; Start 09/21/17 at 09:00 Atorvastatin Calcium (Lipitor) 40 mg HS PO Last administered on 09/24/17at 20:11 ; Start 09/21/17 at 21:00 Dextrose (D50w (Vial) Inj) 50 ml UNSCH PRN IV PUSH HYPOGLYCEMIA-SEE COMMENTS; Start 09/21/17 at 03:00 Glucagon (Glucagon Inj) 1 mg UNSCH PRN OTHER HYPOGLYCEMIA-SEE COMMENTS; Start 09/21/17 at 03:00 Insulin Aspart (NovoLOG SUPPLEMENTAL SCALE) 1 ACHS SLIDING SCALE SQ ; Start 04/30 at 08:00; Stop 09/21/17 at 09:55; Status DC Sodium Chloride (NS Flush) 2 ml UNSCH PRN IV FLUSH FLUSH AFTER USING IV ACCESS Last administered on 09/24/17at 08:14; Start 09/21/17 at 03:00 Sodium Chloride (NS Flush) 2 ml BID IV FLUSH Last administered on 09/25/17at 08: 33; Start 09/21/17 at 09:00 Acetaminophen (Tylenol) 650 mg Q6H PRN PO PAIN 1-5 AND/OR FEVER >101F; Start at 03:00; Stop 09/21/17 at 09:55; Status DC Morphine Sulfate (Morphine Inj) 2 mg Q2H PRN IV PUSH PAIN SCALE 6 TO 10; Start 09/21/17 at 03:00; Stop 09/22/17 at 13:14; Status DC Famotidine (Pepcid Inj) 20 mg Q12HR IV PUSH Last administered on 09/22/17at 08: 53; Start 09/21/17 at 09:00; Stop 09/22/17 at 13:15; Status DC Midazolam HCl (Versed Inj) 2 mg Q1H PRN IV PUSH SEDATION; Start 09/21/17 at 03: 00; Stop 09/21/17 at 16:41; Status DC Artificial Tears (Tears Naturale Opth Soln) 1 drop TID EACH EYE ; Start at 09:00; Stop 09/22/17 at 13:15; Status DC Ondansetron HCl (Zofran Inj) 4 mg Q6H PRN IV PUSH NAUSEA OR VOMITING; Start 04/30 at 03:00 Albuterol/ Ipratropium (Duoneb Neb) 1 ampule Q4HR NEB INH Last administered on 09/22/17at 11:06; Start 09/21/17 at 04:00; Stop 09/22/17 at 13:14; Status DC Albuterol/ Ipratropium (Duoneb Neb) 1 ampule Q2HR NEB PRN INH WHEEZING; Start 09/21/17 at 03:00; Stop 09/21/17 at 09:55; Status DC Miscellaneous Information 1 [id number] Last administered on 09/21/17at 05:37; Start 09/21/17 at 03:00 Chlorhexidine Gluconate (Chlorhexidine 2% Cloth) 3 pack Taper DAILY@04 TOP Last administered on 09/24/17at 03:36; Start 09/21/17 at 04:00; Stop 09/17/18 at 03:59 Chlorhexidine Gluconate (Chlorhexidine 2% Cloth) 3 pack UNSCH PRN TOP HYGIENIC CARE; Start 09/21/17 at 03:00 Senna/Docusate Sodium (Alysa-Colace) 1 tab BID PO Last administered on at 08:31; Start 09/21/17 at 09:00 Magnesium Hydroxide (Milk Of Magnesia Liq) 30 ml Q12H PRN PO Mild constipation ; Start 09/21/17 at 03:00 Sennosides (Senokot) 17.2 mg Q12H PRN PO Moderate constipation; Start 09/21/17 at 03:00 Bisacodyl (Dulcolax Supp) 10 mg DAILY PRN RECTAL SEVERE CONSITIPATION; Start at 03:00 Lactulose (Lactulose Liq) 30 ml DAILY PRN PO SEVERE CONSITIPATION; Start at 03:00 Chlorhexidine Gluconate (Peridex 0.12% Liq) 15 ml BID@08,20 MT Last administered on 09/22/17at 20:00; Start 09/21/17 at 08:00 Propofol 100 ml @ 2.25 mls/hr TITRATE PRN IV SEDATION Last administered on 04/30at 12:08; Start 09/21/17 at 03:00; Stop 09/21/17 at 16:41; Status DC Heparin Sodium (Porcine) (Heparin Inj) 4,000 units ONCE ONCE IV PUSH Last administered on 09/21/17at 03:34; Start 09/21/17 at 03:15; Stop 09/21/17 at 03:18 ; Status DC Heparin Sodium (Porcine) (Heparin Inj) 5,000 units UNSCH PRN IV PUSH APTT LESS THAN 25; Start 09/21/17 at 09:15 Heparin Sodium (Porcine) (Heparin Inj) 2,500 units UNSCH PRN IV PUSH APTT 25 TO 39 Last administered on 09/24/17at 22:03; Start 09/21/17 at 09:15 Heparin Sodium/ Dextrose 250 ml @ 9 mls/hr TITRATE PRN IV Coagulation Management Last administered on 09/25/17at 08:30; Start 09/21/17 at 03:15 Sodium Bicarbonate 150 meq/Dextrose 1,150 ml @ 75 mls/hr [id number] IV Last administered on 09/21/17at 04:15; Start 09/21/17 at 04:15; Stop 09/21/17 at 17:44 ; Status DC Potassium Chloride (KCl Powder) 20 meq ONCE ONCE PO Last administered on at 08:56; Start 09/21/17 at 08:45; Stop 09/21/17 at 08:46; Status DC Magnesium Sulfate/ Dextrose 100 ml @ 100 mls/hr Q1H IV Last administered on 04/30at 13:35; Start 09/21/17 at 08:45; Stop 09/21/17 at 12:44; Status DC Insulin Aspart (NovoLOG SUPPLEMENTAL SCALE) 1 Q6HR SQ ; Start 09/21/17 at 12:00 ; Stop 09/22/17 at 13:15; Status DC Albuterol Sulfate (Albuterol Neb) 2.5 mg Q2HR NEB PRN NEB DYSPNEA Last administered on 09/23/17at 00:27; Start 09/21/17 at 10:00 Acetylcysteine (Mucomyst 20% Liq) 600 mg BID PO Last administered on 09/23/17at 08:40; Start 09/21/17 at 21:00; Stop 09/23/17 at 09:01; Status DC Iohexol (Omnipaque 350 Inj) 72 ml STK-MED ONCE IVCONTRAST Last administered on 09/21/17at 11:29; Start 09/21/17 at 11:29; Stop 09/21/17 at 11:31; Status DC Pharmacy Profile Note 0 ml @ 0 mls/hr UNSCH OTHER ; Start 09/21/17 at 13:30; Status Cancel Azithromycin 500 mg/Sodium Chloride 250 ml @ 250 mls/hr ONCE ONCE IV Last administered on 09/21/17at 16:47; Start 09/21/17 at 13:30; Stop 09/21/17 at 14:29 ; Status DC Piperacillin Sod/ Tazobactam Sod 50 ml @ 200 mls/hr Q6H IV Last administered on 09/23/17at 07:53; Start 09/21/17 at 15:00; Stop 09/23/17 at 14:13; Status DC Vancomycin HCl 1000 mg/Sodium Chloride 250 ml @ 250 mls/hr ONCE ONCE IV ; Start 09/21/17 at 15:00; Stop 09/21/17 at 15:00; Status DC Vancomycin HCl 900 mg/Sodium Chloride 259 ml @ 250 mls/hr Q24H IV Last administered on 09/22/17at 02:54; Start 09/22/17 at 03:00; Stop 09/22/17 at 10:20 ; Status DC Miscellaneous Information SPECIFIC LAB TO BE DRAWN:VANCOMY... ONCE ONCE .XX ; Start 09/24/17 at 02:45; Stop 09/24/17 at 02:46; Status Cancel Acetaminophen (Tylenol 650 Mg/ 20 ml Liq) 650 mg Q6H PRN PO fever Last administered on 09/22/17at 03:41; Start 09/21/17 at 16:45 Potassium Chloride (KCl) 40 meq ONCE ONCE PO Last administered on 09/22/17at 09 :03; Start 09/22/17 at 07:45; Stop 09/22/17 at 07:55; Status DC Potassium Chloride (KCl) 40 meq ONCE ONCE PO Last administered on 09/22/17at 16 :13; Start 09/22/17 at 11:00; Stop 09/22/17 at 11:01; Status DC Vancomycin HCl 1250 mg/Sodium Chloride 262.5 ml @ 250 mls/hr Q24H IV Last administered on 09/23/17at 02:25; Start 09/23/17 at 03:00; Stop 09/23/17 at 14:13 ; Status DC Albuterol/ Ipratropium (Duoneb Neb) 1 ampule Q6HR NEB INH Last administered on 09/24/17at 10:00; Start 09/22/17 at 16:00; Stop 09/24/17 at 12:17; Status DC Insulin Aspart (NovoLOG SUPPLEMENTAL SCALE) 1 ACHS SQ Last administered on 09/25at 12:10; Start 09/22/17 at 17:00 Morphine Sulfate (Morphine Inj) 2 mg Q4HR PRN IV PUSH PAIN SCALE 6 TO 10; Start 09/22/17 at 13:15 Azithromycin (Zithromax) 500 mg DAILY PO Last administered on 09/25/17at 08:31; Start 09/22/17 at 13:15; Stop 09/28/17 at 13:14 Famotidine (Pepcid) 20 mg HS PO Last administered on 09/24/17at 20:11; Start 05/30 at 21:00 Acetaminophen/ Hydrocodone Bitart (Conner 5-325 Mg) 1 tab Q4H PRN PO paiN 1-5; Start 09/22/17 at 13:15 Guaifenesin (Mucinex Er) 600 mg BID PO Last administered on 09/25/17 08:32; Start 09/22/17 at 21:00 Pantoprazole Sodium (Protonix) 40 mg DAILY PO Last administered on 09/25/17 08 :32; Start 09/23/17 at 09:00 Lisinopril (Prinivil) 5 mg Q12HR PO Last administered on 09/25/17 08:32; Start 09/22/17 at 21:00 Metoprolol Tartrate (Lopressor) 6.25 mg Q12HR PO Last administered on 08:31; Start 09/22/17 at 21:00 Prednisone (Deltasone) 20 mg BID PO Last administered on 09/24/17 08:15; Start 09/22/17 at 21:00; Stop 09/24/17 at 12:17; Status DC Ceftriaxone Sodium 1000 mg/ Sodium Chloride 100 ml @ 200 mls/hr Q24H IV Last administered on 09/25/17 14:50; Start 09/23/17 at 15:00 Magnesium Sulfate/ Dextrose 100 ml @ 100 mls/hr Q1H IV Last administered on 21:24; Start 09/23/17 at 20:00; Stop 09/23/17 at 21:59; Status DC Furosemide (Lasix Inj) 40 mg ONCE ONCE IV PUSH Last administered on 09/23/17 19:35; Start 09/23/17 at 19:15; Stop 09/23/17 at 19:23; Status DC Potassium Chloride (KCl) 30 meq ONCE ONCE PO Last administered on 09/23/17 19 :34; Start 09/23/17 at 19:15; Stop 09/23/17 at 19:23; Status DC Furosemide (Lasix) 20 mg DAILY PO Last administered on 09/25/17 08:32; Start 09/24/17 at 09:00 Potassium Chloride (KCl) 10 meq DAILY PO Last administered on 09/25/17 08:33; Start 09/24/17 at 09:00 Sodium Polystyrene Sulfonate (Kayexalate Liq) 15 gm ONCE ONCE PO Last administered on 09/24/17at 10:22; Start 09/24/17 at 10:15; Stop 09/24/17 at 10:19 ; Status DC Albuterol/ Ipratropium (Duoneb Neb) 1 ampule TID NEB INH Last administered on 09/25/17at 13:46; Start 09/24/17 at 14:00 Prednisone (Deltasone) 20 mg DAILY PO Last administered on 09/25/17at 08:31; Start 09/25/17 at 09:00 Lactobacillus Acidophilus (Lactinex) 1 tab Q12HR PO Last administered on at 08:31; Start 09/24/17 at 21:00 A/P Assessment and Plan Neuro/Psych: Acetaminophen 650 mg p.o. every 6 hours as needed fever Hydrocodone/acetaminophen 5/325 1 tablet p.o. every 6 hours as needed pain 1 through 5 Morphine sulfate 2 mg IV every 4 hours as needed pain 6 or 10 CV: Elevated troponin Acute systolic heart failure Hypertension Hyperlipidemia Evaluated by cardiology/Dr. Brooke with planned left heart catheterization on Tuesday 09/26 Currently on heparin drip at 900 units an hour Aspirin 325 mg p.o. daily. On 81 mg daily at home Continue atorvastatin 40 mg p.o. daily for dyspnea./Home medication Currently holding home medications of lisinopril 20 mg daily and holding verapamil 120 mg p.o. daily. Continue low-dose metoprolol tartrate 6.25 mg p.o. twice daily and lisinopril 5 mg p.o. twice daily 2D echo The left ventricular systolic function is severely reduced with an estimated ejection fraction less than 20%. Severe hypokinesis to akinesis of anterior wall. There is diffuse global hypokinesis with distinct regional wall motion abnormalities. Wall thickness is normal. Normal left ventricular size. Mitral annular calcification is present. Mild to moderate mitral valve regurgitation. Aortic valve sclerosis is present. Mild aortic valve regurgitation. Mild pulmonary valve regurgitation. There is a small pericardial effusion present. Started on furosemide 20 mg by mouth daily with KCl 10 mEq daily. Resp: Acute hypoxemic hypercapnic respiratory failure secondary to his acute systolic heart failure exacerbation/community acquired pneumonia Extubated 09/21 Nasal cannula to maintain saturations greater than equal to 92%. Currently on 3 L Incentives parameter while awake CT pulmonary revealed bilateral lower lobe infiltrates/effusions with posterior upper lobe infiltrate/edema. 1.5 x 1.1 cm right middle lobe nodule and 0.6 cm right upper lobe nodule. Perihilar lymphadenopathy. Hiatal hernia. Albuterol/ipratropium aerosols every 6 hours with albuterol aerosols every 2 hours. Dyspnea Guaifenesin 600 mg p.o. twice daily Acapella every [address] Noel/pulmonology GI: Gastroesophageal reflux disease Hypoalbuminemia ADA diet Pantoprazole 40 mg daily for GI prophylaxis. On omeprazole/sodium bicarbonate 1 tablet daily at home Docusate sodium/senna 1 tablet twice daily for bowel region : ICU patient receiving antibiotics indication for Bunn catheter WILL DC BUNN Endo: Diabetes mellitus type II controlled Holding Canagliflozin/metformin 1 tablet twice daily for diabetes and glipizide 5 mg daily. Currently on sliding scale insulin with Accu-Cheks every before meals/at bedtime to maintain euglycemia/high regimen Renal: Creatinine slowly normalizing Monitor urine output Accurate I's and O's Heme: Normocytic anemia Monitor CBC daily. Follow trends. Does not meet transfusion threshold at this time Currently on a heparin drip ID: Community acquired pneumonia Piperacillin/tazobactam, vancomycin is continued after 3 days. Currently on ceftriaxone day #3 and azithromycin day 5 PREDNISONE 20MG DAILY Blood cultures, sputum, urine or/11 all no growth to date Influenza negative FEN: Replace electrolytes as clinically indicated A.m. potassium magnesium pending MSK: PT evaluate and treat Access -Utilize peripheral IV. Central line if indicated Prophylaxis -GI -pantoprazole -DVT -SCD/heparin drip Discharge Planning PENDING CARDIAC CLEARANCE AM LABS Los Persaud DO Sep 25, 2017 16:29
[2017-09-25] MEDS: MAGNESIUM SULFAT 1 GM PREMIX 100 ML x2 bags IV SCH ×2 (17:45→18:48)
[2017-09-25] MEDS ORDERED: POTASSIUM CHLORIDE 25 MEQ EFFERVESCENT TAB PO ONE (17:45)
[2017-09-25] MEDS: ATORVASTATIN 40 MG TAB PO SCH (21:35)
[2017-09-25] MEDS: FAMOTIDINE 20 MG TAB PO SCH (21:36)
[2017-09-26] VITALS (23 sets, daily range): BP systolic 110–151; BP diastolic 56–74; PULSE 84–107; RESP 18–19; TEMP 97.5–98.8; O2SAT 93–96
[2017-09-26] MEDS: CHLORHEXIDINE GLUCONATE 2 % 1 PACK (2 CLOTHS) TOP SCH (04:00)
[2017-09-26 05:09] LABS: AUTOMATED NEUTROPHIL # 4.4 TH/MM3 (1.8-7.7); BASOPHIL # 0.1 TH/MM3 (0-0.2); BASOPHIL % 1.6 % (0.0-2.0); EOSINOPHIL # 0.3 TH/MM3 (0-0.4); EOSINOPHIL % 3.7 % (0.0-4.0); HEMATOCRIT 31.1 % (35.0-46.0); HEMOGLOBIN 10.2 GM/DL (11.6-15.3); LYMPHOCYTE # 3.6 TH/MM3 (1.0-4.8); MEAN CELL VOLUME 80.7 FL (80.0-100.0); MEAN CORPUSCULAR HEMOGLOBIN 26.4 PG (27.0-34.0); MEAN CORPUSCULAR HGB CONC 32.7 % (32.0-36.0); MEAN PLATELET VOLUME 8.7 FL (7.0-11.0); MONO % 8.7 % (0.0-8.0); MONOCYTE # 0.8 TH/MM3 (0-0.9); PLATELET COUNT 435 TH/MM3 (150-450); RED BLOOD COUNT 3.85 MIL/MM3 (4.00-5.30); RED CELL DISTRIBUTION WIDTH 16.4 % (11.6-17.2); WHITE BLOOD COUNT 9.3 TH/MM3 (4.0-11.0)
[2017-09-26 05:16] LABS: ALBUMIN 3.2 GM/DL (3.4-5.0); BLOOD UREA NITROGEN 17 MG/DL (7-18); CALCIUM 9.3 MG/DL (8.5-10.1); CHLORIDE 108 MEQ/L (98-107); CREATININE 0.78 MG/DL (0.50-1.00); GLOMERULAR FILTRATION RATE 73 ML/MIN (>89); GLUCOSE,RANDOM 114 MG/DL (74-106); MAGNESIUM 1.9 MG/DL (1.5-2.5); SODIUM (NA) 141 MEQ/L (136-145)
[2017-09-26 05:17] LABS: ALT (GPT) 20 U/L (10-53); AST (GOT) 9 U/L (15-37); PHOSPHORUS 3.7 MG/DL (2.5-4.9)
[2017-09-26 05:26] LABS: ALKALINE PHOSPHATASE 84 U/L (45-117); FREE T4 1.03 NG/DL (0.76-1.46); TOTAL BILIRUBIN ADULT 0.3 MG/DL (0.2-1.0); TOTAL PROTEIN 7.3 GM/DL (6.4-8.2)
[2017-09-26] MEDS: HEPARIN SODIUM - IV 10,000 UNITS/10 ML VIAL IV PUSH PRN (05:46)
[2017-09-26] MEDS: CHLORHEXIDINE 0.12% (ORAL KIT) 15 ML CUP MT SCH ×2 (08:00→20:00)
[2017-09-26] MEDS: INSULIN ASPART SUPPLEMENTAL SCALE SQ SCH ×4 (08:00→21:00)
[2017-09-26] MEDS: RESP: ALBUTEROL 2.5 MG/IPRATROPIUM 0.5 MG NEB (SCH) INH (08:13)
[2017-09-26] MEDS ORDERED: HEPARIN-NS/PF FLUSH BAG 2,000 ML IV FLUSH ONE (08:47)
[2017-09-26] MEDS ORDERED: VERAPAMIL HCL 5 MG/2 ML VIAL ONE (08:48)
[2017-09-26] MEDS ORDERED: HEPARIN SODIUM - IV 10,000 UNITS/10 ML VIAL ONE (08:48)
[2017-09-26] MEDS ORDERED: LIDOCAINE HCL 1% PF 30 ML VIAL ONE (08:55)
[2017-09-26] MEDS: FUROSEMIDE 20 MG TAB PO SCH (09:00)
[2017-09-26] MEDS ORDERED: MIDAZOLAM HCL 2 MG/2 ML VIAL ONE (09:10)
[2017-09-26] MEDS ORDERED: MISC INFORMATION XX ONE (10:00)
--- NOTE | 2017-09-26 10:00 | CATHPROC ---
HumanAPI HIS Report Study Information Study Number Admission Scheduled Start Study Start [id number] Sep 21 2017 2:13AM 09/26/2017 Sep 26 2017 8:50AM [place] [facility] Cardiac Catheterization Admit Source Facility Department Emergency department [facility] Physician and Clinical Staff Initial Tera Warner Social Services Manager David Watson RN Recorder Melisa Akins BSN Scrub Hostatilio, Theo,RT(R) Procedures Performed Procedure Location (Site) Vessel Name Coronary Angiograms LCA Left Coronary Coronary Angiograms RCA Right Coronary Equipment Time Ocean Fishing Guide Description Size Mfg Part Number Used/Scraped CATHETER, FR5 SWAN PERLA 09:07 LEE PITTS FR 5 [id number] *[id number] Used MONITOR TRANSDUCER, TRUWAVE [id number] 09:06 LEE PITTS * Used W/STOCKCOCK *[id number] *[id number] 09:06 #way[employer] INDUSTRIES PACK, CCL CUSTOM * Used *[id number] 09:13 MEDTRONIC JR 4.0 DXTERITY CATHETER FR 5 Used *[id number] BAND, RADIAL COMPRESSION TR [id number] 09:47 [employer] MEDICAL 24CM Used SHORT 24 *[id number] 09:06 [employer] MEDICAL WIRE, 3MMJ .035 180CM 180CM Used *[id number] 09:06 NAMIC MANIFOLD, 4 PORT * Used *[id number] 09:06 NYCOMED OMNIPAQUE, 350 MG, 150ML 150ML [id number] Used [id number] 09:06 [employer] MEDICAL BLANKET,WARM AIR CCL * Used *[id number] SHEATH, FR6 TRANSRADIAL [id number] 09:07 [employer] MEDICAL FR 6 Used SLENDER 10CM *[id number] SHEATH, FR6 TRANSRADIAL [id number] 09:07 [employer] MEDICAL FR 6 Used SLENDER 10CM *[id number] Equipment Model, Serial, Lot Number and Expiration Data Description Model Number Serial Number Lot Number Expiration Da te JR 4.0 DXTERITY CATHETER [id number] 03-24-2020 History: Current Medications Medication Dosage/Unit Route Frequency Last Date/Time Taken ASA 325 Beta Jenn History: Allergies Allergy Reaction No Known Allergies History: Risk Factors Family History of Hypertension Dyslipidemia Previous [place] Previous Heart Failure Premature CAD Yes Yes Yes No Yes Prior Valve Prior PCI Prior CABG Surgery No No No Cerebrovascular Peripheral Artery Chronic Lung On Dialysis Diabetes Diabetes Therapy Disease Disease Disease No No No Yes Yes Oral History: Symptoms/Diagnosis Selection Items SOB History: Stress Tests Stress or Imaging Studies Performed No History: Other Disease Selection Items CHF History: Other Current Smoker Method Quit Packs a Day Years Used Pack Years No Cigarettes 14 Years Ago 1 40 40 Labs Hgb (g/dl) Hct (%) WBC (l/cumm) Platelets (thousands) 11.60-17.00 35.00-51.00 4.00-11.00 150.00-450.00 10.2 31.1 9.3 435 Glucose (mg/dl) BUN (mg/dl) Creatinine (mg/dl) BUN:Creatinine (1:x) 74.00-106.00 7.00-18.00 0.50-1.30 10.00-20.00 114 17 0.7 24.3 Na (meq/l) K (meq/l) 136.00-145.00 3.50-5.10 141 3.7 INR (PTT:PT) 0.90-1.10 1 CPK-MB (ng/ML) 0.50-3.60 Not Drawn Medication Medication Total Dose (Bolus/Oral) Medication Total Dosage/Unit 1% XYLOCAINE 10 mL FENTANYL 50 mcg RADIAL COCKTAIL 5 mL (Bolus) Medications (Bolus/Oral) Medication Time Given Dosage/Unit Administered By Reason 1% XYLOCAINE 09/26/2017 9:16:53 AM 5 mL Trea Brooke 5 mL 1% XYLOCAINE given in lab by Tera Brooke in Right Radial via Subcutaneous. Ordered by Tera John FENTANYL 09/26/2017 9:17:13 AM 50 mcg David Watson 50 mcg FENTANYL given in lab by David Watson, RN via Peripheral IV. Ordered by Tera Brooke RADIAL COCKTAIL 09/26/2017 9:22:22 AM 5 mL (Bolus) Tera Brooke 5 mL (Bolus) RADIAL COCKTAIL given in lab by Tera Brooke via Radial. Using [Solution Name]. O rdered by Tera Brooke Reason: Ntg 200mcg Verapamil 2.5mg Heparin 2400U. 1% XYLOCAINE 09/26/2017 9:23:36 AM 5 mL Brooke, Vincent 5 mL 1% XYLOCAINE given in lab by Tera Brooke in Right Antecubital via Subcutaneous. Ordered by Tera Brooke Medication (Drip) Medication Time Given Dosage/Unit Concentration/Unit Diluent (ml) Solution IV Solutions 09/26/2017 8:53:23 AM 50 mL (IV) NaCl .9 Patient arrived on IV Solutions via Peripheral IV. Pump/Drip Flow using NaCl .9. Ordered by Tera Brooke Initial Case Assessment Cardiovascular HR Rhythm NIBP Chest Pain 97 sr 124/71 0 Edema Present Skin color Skin None Normal Warm Dry Circulatory - Right Pulses Dorsalis Pedis Femoral Radial 2 2 2 Scale (0,1,2,3,4,d) Circulatory - Left Pulses Dorsalis Pedis Femoral Radial 2 2 Scale (0,1,2,3,4,d) Circulatory - Lower Extremities Color Lower Right Color Lower Left Normal Normal Neurological State Oriented to time-place- Alert Moves all extremities person Respiration - General Respiration Rate SpO2 (%) (B/min) 24 93 Final Case Assessment Cardiovascular HR Rhythm NIBP Chest Pain 91 sr 129/66 0 Edema Present Skin color Skin None Normal Warm Dry Circulatory - Right Pulses Dorsalis Pedis Femoral Radial 2 2 2 Scale (0,1,2,3,4,d) Circulatory - Left Pulses Dorsalis Pedis Femoral Radial 2 2 Scale (0,1,2,3,4,d) Circulatory - Lower Extremities Color Lower Right Color Lower Left Normal Normal Neurological State Oriented to time-place- Alert Moves all extremities person Respiration - General Respiration Rate SpO2 (%) O2 (lpm) (B/min) 17 92 0 Chronological Log Time Study Chronological Log 8:25:32 Heparin gtt off; infusion at 1300 units/hr 8:37:30 Patient arrived via Bed. 8:37:47 Patient Name, D.O.B, / Armband Verified By R.N. 8:38:11 Consent signed by the physician and the patient and verified by the [facility] staff. 8:38:16 Pre-op and post- op instructions given; patient acknowledges understanding of instructions. 8:38:20 Verbal Stimulation=2 Physical Stimulation=2 Airway=2 Respiration=2 TOTAL=8. (0=absent, 1=li mited, 2=present) 8:39:52 Presedation assessment performed by [facility] RN. 8:40:31 Allens test performed on the right radial and ulnar artery. Vitals capture started with the following parameters, Patient=Adult, Interval=5 min, Initial Pr wercbu=163 mmHg, 8:50:01 Deflation Rate=5 mmHg, Cuff placed on Right Ankle 8:50:36 DY=047 bpm, BBPE=488/71 mmhg, SpO2=95.0 %, Resp=16 B/min, Pain=0, Kierra=10, Flower=2 8:51:38 Patient has been NPO for More than 6Hrs. 8:51:40 Skin Breakdown- none per patient 8:53:03 Feng Prominences Protected 8:53:04 A # 22 IV was noted in the Antecubital (left). Grade = 0 8:53:14 A # 20 IV was noted in the Wrist (left). Grade = 0 8:53:23 Patient arrived on IV Solutions via Peripheral IV. Pump/Drip Flow using NaCl .9. Ordered by Tera Brooke 8:53:40 History and physical on the chart or being dictated. Assessment: Initial Case, HR=97 BPM, Rhythm=sr, GWAS=834/71 mmhg, Chest Pain=0, Edema=None, [place] r=Normal, Skin = Warm, Dry Right Pulses: Markel Ped=2, Femoral=2, Radial=2 Left Pulses: Markel Ped=2, Femoral=2 8:53:46 Lower Right Extremities: Color=Normal Lower Left Extremities: Color=Normal Neurological: State=Alert, Ox3, PETERS Respiration: Resp=24 B/min, SpO2=93 % 8:54:34 Reference ECG taken 8:55:37 JD=713 bpm, XPYT=103/75 mmhg, SpO2=91.0 %, Resp=24 B/min, Pain=0, Kierra=10, Flower=2 9:00:36 HR=89 bpm, DRSH=181/73 mmhg, SpO2=92.0 %, Resp=18 B/min, Pain=0, Kierra=10, Flower=2 9:04:08 Right Radial and groin(s) prepped with 2% chlorhexidine, and draped after a 3 min. waiting t amber. 9:05:33 paged 9:05:37 ET=849 bpm, EWMT=060/79 mmhg, SpO2=95.0 %, Resp=19 B/min, Pain=0, Kierra=10, Flower=2 9:08:26 MD arrived. 9:09:03 Pressure channel 1 zeroed. 9:10:36 HR=93 bpm, KVFM=630/80 mmhg, SpO2=97.0 %, Resp=19 B/min, Pain=0, Kierra=10, Flower=2 Time Out. Correct patient, correct procedure, correct physician, power injector not loaded with contrast with surgical 9:15:25 team present. Time Out Concurred by MD and individual staff in procedure. 9:15:37 Case Start 9:15:41 HR=93 bpm, VVYZ=182/72 mmhg, SpO2=97.0 %, Resp=19 B/min, Pain=0, Kierra=10, Flower=2 5 mL 1% XYLOCAINE given in lab by Tera Brooke in Right Radial via Subcutaneous. Ordered by Edwardo 9:16:53 Tera Goode 9:17:13 50 mcg FENTANYL given in lab by David Watson RN via Peripheral IV. Ordered by Ofelia Brooke 9:20:42 YN=871 bpm, OARX=699/71 mmhg, SpO2=95.0 %, Resp=17 B/min, Pain=0, Kierra=10, Flower=2 9:21:06 Access site was Radial Artery. A SHEATH, FR6 TRANSRADIAL SLENDER 10CM FR 6 was advanced into the Radial (right) using the Percu taneous 9::43 technique. 5 mL (Bolus) RADIAL COCKTAIL given in lab by Tera Brooke via Radial. Using [Solution Nam e]. Ordered by ::22 Tera Brooke Reason: Ntg 200mcg Verapamil 2.5mg Heparin 2400U. 5 mL 1% XYLOCAINE given in lab by Tera Brooke in Right Antecubital via Subcutaneous. Ord ered by Edwardo 9::36 Tera Goode 9:23:57 Access site was Right Brachial Vein. A SHEATH, FR6 TRANSRADIAL SLENDER 10CM FR 6 was advanced into the Brach. Vein (left) using the P ercutaneous 9:24:10 technique. 9:25:41 RI=986 bpm, MZHG=203/69 mmhg, SpO2=90 %, Resp=13 B/min, Pain=0, Kierra=10, Flower=2 9:26:02 A CATHETER, FR5 SWAN PERLA MONITOR FR 5 was advanced over a wire. contrast was used for injec tions. Recorded Pressure: PCW, YC=583, Condition=Condition 1 9:28:00 (Pulmonary Capillary Wedge) PCW 19/13/13 9:30:04 Saturation: Site=PA (Pulmonary Artery) , O2=62.2 %, Hgb=10.2 gm/dl, Condition=Condition 1. U sed in calculation. 9:30:41 MA=263 bpm, JRVV=415/64 mmhg, SpO2=84.0 %, Resp=18 B/min 9:30:41 Saturation: Site=Ao (Aorta) , O2=92.8 %, Hgb=10.2 gm/dl, Condition=Condition 1. Used in calc ulation. Recorded Pressure: MPA, HR=94, Condition=Condition 1 9:31:01 (Main Pulmonary Artery) MPA 34/12/20 Recorded Pressure: RV, SZ=620, Condition=Condition 1 9:32:07 (Right Ventricle) RV 34/3/8 Recorded Pressure: RA, PW=806, Condition=Condition 1 9:32:50 (Right Atrium) RA 10/7/6 9:33:06 Isom Perla Catheter Removed A JR 4.0 DXTERITY CATHETER FR 5 was advanced over a wire. OMNIPAQUE, 350 MG, 150ML 150ML was us ed for 9:33:35 injections. Recorded Pressure: LV, LK=810, Condition=Condition 1 9:35:50 (Left Ventricle) LV 159/8/15 Recorded Pressure: LV, Ao, KY=334, Condition=Condition 1 9:36:07 (Left Ventricle) LV 150/-1/12, (Aorta) Ao 137/73/102 9:36:57 HR=94 bpm, FBIF=108/75 mmhg, SpO2=90.0 %, Resp=20 B/min, Pain=0, Kierra=10, Flower=2 9:37:58 The RCA was injected and visualized at various angles. OMNIPAQUE, 350 MG, 150ML 150ML used. After removing the current catheter a JL 3.5 INFINITI CATHETER FR 5 was advanced over a WIRE, 3 MMJ .035 180CM 9:39:01 180CM. 9:40:41 GC=334 bpm, TJRS=357/66 mmhg, SpO2=91.0 %, Resp=15 B/min, Pain=0, Kierra=10, Flower=2 9:42:14 The LCA was injected and visualized at various angles. OMNIPAQUE, 350 MG, 150ML 150ML used. 9:45:22 Activated Clotting Time Drawn 9:45:29 Case End 9:45:42 HR=99 bpm, THQW=624/66 mmhg, SpO2=94.0 %, Resp=9 B/min, Pain=0, Kierra=10, Flower=2 9:46:50 Catheter(s) removed without difficulty Radial Compression Device Used. 12 mLs of air placed in BAND, RADIAL COMPRESSION TR SHORT 24 24 CM. Affected 9:46:54 hand ~O2 SATURATION~ % O2 saturation. 9:47:14 No case complications noted. 9:47:15 Cine recording checked. 9:47:27 Bedside Report will be given. 9:47:34 A Left and Right Heart Cath was performed. Assessment: Final Case, HR=91 BPM, Rhythm=sr, OPJC=485/66 mmhg, Chest Pain=0, Edema=None, Color =Normal, Skin = Warm, Dry Right Pulses: Markel Ped=2, Femoral=2, Radial=2 Left Pulses: Markel Ped=2, Femoral=2 9:48:12 Lower Right Extremities: Color=Normal Lower Left Extremities: Color=Normal Neurological: State=Alert, Ox3, PETERS Respiration: Resp=17 B/min, SpO2=92 %, O2=0 lpm 9:48:16 ACT (Normal Range 90-180) = 162 9:49:39 Right Brachial Sheath removed; pressure applied to access site. 9:50:43 HR=93 bpm, GLXD=578/73 mmhg, SpO2=93.0 %, Resp=23 B/min, Pain=0, Kierra=10, Flower=2 9:55:42 HR=96 bpm, RQWL=572/77 mmhg, SpO2=93.0 %, Resp=14 B/min, Pain=0, Kierra=10, Flower=2 9:59:35 Vitals capture stopped. 10:00:49 Sterile dressing applied to site 10:03:22 Patient moved to stretcher End Study - Contrast Media Used In Study Contrast Total Opened (mL) Total Used (mL) Total Wasted (mL) Omnipaque 45 45 0 End Study - Maximum Contrast Load Max Contrast Load (mL) 435.7 End Study - Radiation Exposure Fluoro Time (minutes) 4.4 End Study - Sheaths Sheaths Pulled By Sheath Hold Time (min) Theo Horta 10 End Study - Patient Disposition Complications Transferred To Telemetry Bed
[2017-09-26] MEDS: predniSONE 20 MG TAB PO SCH (10:24)
[2017-09-26] MEDS: guaiFENesin E.R. 600 MG TAB PO SCH ×2 (10:25→21:50)
[2017-09-26] MEDS: PANTOPRAZOLE SOD 40 MG DELAYED RELEASE TAB PO SCH (10:25)
[2017-09-26] MEDS: DOCUSATE SODIUM 50 MG/SENNA 8.6 MG TAB PO SCH ×2 (10:25→21:50)
[2017-09-26] MEDS: AZITHROMYCIN 250 MG TAB PO SCH (10:25)
[2017-09-26] MEDS: LACTOBACILLUS ACIDOPHILUS TAB PO SCH ×2 (10:25→21:50)
[2017-09-26] MEDS: POTASSIUM CHLORIDE 10 MEQ CONTROLLED RELEASE TAB PO SCH (10:25)
[2017-09-26] MEDS: SODIUM CHLORIDE 0.9% FLUSH 10 ML FLUSH IV FLUSH SCH ×2 (10:26→21:50)
--- NOTE | 2017-09-26 10:28 | MA ---
cc: Tera Brooke DO DATE: 09/26/2017 DATE OF PROCEDURE: 09/26/2017 PROCEDURE PERFORMED: Left heart catheterization, right heart catheterization, coronary angiogram, ultrasound-guided access. PREPROCEDURE DIAGNOSES: Elevated troponin, new cardiomyopathy, acute systolic heart failure. POSTPROCEDURE DIAGNOSES: Nonischemic cardiomyopathy with an ejection fraction of less than 20%, Non-ST elevation myocardial infarction type 2, compensated heart failure. MEDICATIONS: Fentanyl 50 mcg, Verapamil 2.5 mg, nitro 200 mcg, heparin 2400 units. CONTRAST USED: 45 mL. FLUOROSCOPY: 4.4 minutes. MODERATE SEDATION: Zero minutes. FRAILTY SCORE: 4. ESTIMATED BLOOD LOSS: 10 mL. PROCEDURAL SUMMARY: Amberly Desouza is a pleasant 72-year-old female who originally presented to [facility] emergency room as respiratory failure. She had an echocardiogram done and was found to have an ejection fraction of 15-20%, which was totally new for her. Because of this, as well as her elevated troponin, she was recommended cardiac catheterization. Risks, benefits and alternatives were explained to her and she consented to such. She was brought to the lab and prepped in the usual sterile fashion. The right radial artery was accessed using a modified Seldinger technique with ultrasound guidance and placement of a 5/6 [place] slender sheath. This was easily aspirated and flushed. Right brachial vein was accessed using a modified Seldinger technique with ultrasound guidance and placement of a 5/6 [place] slender sheath. This was easily aspirated and flushed. A [place]-Wolf catheter was advanced to a wedge position and oxygen saturations as well as pressures were done on a standard pullback throughout the heart. [place]-Wolf catheter was removed. JR4 was advanced over a J-wire to the ascending aorta and across the aortic valve for measurement of left ventricular pressure. This was pulled across the aortic valve showing no significant gradient of aortic stenosis. JR4 was used to perform selective angiography of the right coronary artery system. This is exchanged for a JL3.5, which was used to perform selective angiography of the left coronary artery system. JL3.5 was removed over a J-wire. A radial band was placed over the arteriotomy site for hemostasis. The patient left the lab rn cardiovascularly stable. ANGIOGRAPHIC SUMMARY: Left main is a normal size vessel with 10-20% disease noted. It bifurcates into an LAD and circumflex. LAD has mild luminal irregularities about 10% throughout the proximal portion. The mid portion has diffuse 10-20% disease. It gives off 1 major diagonal with no significant disease. Left circumflex is a normal size vessel with a 30% lesion in the mid portion. It gives off 3 obtuse marginals with the first and third being small the second one being relatively normal size with no significant disease. RCA is a normal size vessel with mild luminal irregularities throughout. Overall, no significant disease. HEMODYNAMIC SUMMARY: RA 6. RV 34/3, RVEDP 8. PA 34/12, mean PA 20. Wedge 13. LVEDP 12. Cardiac output 4.8. Cardiac index 2.9. IMPRESSIONS: 1. New nonischemic cardiomyopathy with an ejection fraction less than 20%. 2. Non-ST elevation myocardial infarction type 2. 3. Compensated heart failure. RECOMMENDATIONS: 1. Ms. Desouza appears to have a nonischemic cardiomyopathy and she will be recommended medical therapy. 2. She will continue on JUSTIN inhibitor therapy, as well as beta winifred therapy, although I will change this to carvedilol over metoprolol tartrate. 3. Her aspirin can be changed to 81 mg daily. 4. We will discuss with her about consideration of a LifeVest. 5. She will need a repeat echo in 3 months' time to evaluate resolution of her cardiomyopathy and if no resolution, consideration of ICD therapy. Thank you for allowing me to see Amberly Desouza. If there are any questions, please do not hesitate to call. Tera Brooke DO VGP/MATTI , 10:05 AM , 10:28 AM
[2017-09-26] MEDS: CARVEDILOL 3.125 MG TAB PO SCH ×2 (11:23→21:50)
[2017-09-26] MEDS ORDERED: IOHEXOL 350 MG/ML 50 ML BTL (for Cath Lab) OTHER ONE (11:32)
[2017-09-26] MEDS ORDERED: DEFIB EXTERNAL (11:59)
[2017-09-26] MEDS ORDERED: UMECLIDINIUM 62.5 MCG/VILANTEROL 25 MCG INHALER INH SCH (12:15)
--- NOTE | 2017-09-26 12:54 | MD ---
cc: Jasmina Noel MD DATE OF DISCHARGE: HOSPITAL COURSE: Ms. Desouza is a 77-year-old white female who presented in a near full arrest, intubated and was admitted to the intensive care unit. Subsequent evaluation has revealed she has a severe cardiomyopathy with an EF of 20%. She is being followed up by cardiology post-discharge. It is not thought to be ischemic. I was asked to see her initially because she was in respiratory failure, but with diuresis and treatment of what was presumed to be respiratory failure due to underlying COPD and pulmonary edema, she was extubated within 24 hours and has actually done very well. She is currently on room air with O2 saturations of 95%. She received a 1-week course of antibiotics initially oral prednisone, which has now been discontinued and bronchodilators. She was a former smoker and there is some question of whether or not she may have had COPD, although it has never been specifically diagnosed nor has she had any specific treatment for that. She quit smoking about 15 years ago after 40-50 pack years. Last chest x-ray was performed on 09/25/2017 and it was clear, no infiltrates. Microbiology of the sputum revealed normal crys, rare. She was negative for influenza A and B and legionella and streptococcal antigens were negative. Blood cultures were also negative. White count is normal at 9300. She had a CTA, which revealed no evidence of thromboembolism, but she did have bilateral infiltrates at the time of presentation probably most consistent with pulmonary edema in light of the history and the heart condition. However, she did have a small nodule in the right mid lung with possible hilar adenopathy. That needs to be followed up. There was some underlying emphysema noted. She is doing very well today. Vitals are stable. Room air saturation 96%. Her lungs are completely clear. I reviewed these findings with she and her family and I would suggest initially we place her on Anoro at discharge as a bronchodilator, which should be safe and effective for any underlying COPD she has. Obviously, she needs a careful cardiac followup and that is being arranged. I would like to see her back in one month in the office, at which time we will repeat her CT scan to see if this nodule and adenopathy are significant again in light of the prior smoking history. I do not think it has anything to do with the current admission which was obviously precipitated by heart failure. At that point, we could also consider pulmonary functions to establish the diagnosis. I have reviewed this with she and her family. They understand and are agreeable. I have begun Anoro on her in the hospital here today. R. Los Noel MD RSSeth/LELA , 12:40 PM , 12:53 PM
[2017-09-26 15:16] LABS: HEMOGLOBIN A1C 7.1 % (4.3-6.0)
--- NOTE | 2017-09-26 15:26 | HHI.PR ---
Subjective Remarks 77-year-old female presents by EMS transport from local fire department where she went into respiratory failure and then into respiratory arrest. Patient presented to the fire department with marked shortness of breath fire department personnel attempted CPAP and then patient went into respiratory arrest and was intubated with 7.0 endotracheal tube by EMS. Patient had received Lasix 30 mg IV push 1 dose and sublingual nitroglycerin and aspirin prior to respiratory arrest by firefighters. Paramedics identified patient to have a left bundle branch block of indeterminate age. These EKG findings were discussed with Dr. Huffman crane operator cab on-call by ED attending and recommendation was not to proceed with a cardiac catheterization emergently. 09/22: Afebrile. Extubated yesterday without complication currently on nasal cannula. Denies chest pain. Positive cough/severe persistent. Passed swallow evaluation. 09/23: Aggressive pulmonary toilet initiated with bronchodilators and Acapella. Remains on nasal cannula. Denies chest pain currently. Tolerating diet. 09/24: Afebrile. Saturation 100% on 3 L nasal cannula. Denies chest pain. Productive cough. Switch to ceftriaxone from piperacillin/tazobactam and vancomycin yesterday. Plan for left heart cath on 09-25 TRANSFERRED TO [facility] TOMORROW NO NEW COMPLAINTS NO SOB, NO CHEST PAIN DW RN AND PT AND FAMILY AM LABS CATH TOMORROW 09-26 FOUND TO HAVE CMP, EF OF 20% ON CATH WILL NEED LIFE VEST AM LABS DW RN AND PT AND FAMILY Objective Vitals Vital Signs Date Time Temp Pulse Resp B/P (MAP) Pulse Ox O2 Delivery O2 Flow Rate FiO2 09/26/17 14:11 89 09/26/17 13:56 94 18 151/72 (98) 95 09/26/17 13:12 98 09/26/17 12:19 94 09/26/17 12:19 98.8 94 19 110/56 (74) 96 09/26/17 08:23 98.5 102 19 138/69 (92) 95 09/26/17 08:23 102 09/26/17 08:13 93 21 09/26/17 06:12 88 09/26/17 04:44 98.2 95 18 135/74 (94) 94 09/26/17 04:00 95 09/26/17 03:00 93 09/26/17 02:04 92 09/26/17 01:00 92 09/26/17 00:00 98.5 84 19 113/59 (77) 94 09/26/17 00:00 94 09/25/17 23:00 96 09/25/17 22:00 94 09/25/17 21:00 108 09/25/17 20:29 93 21 09/25/17 20:00 98.3 94 20 115/87 (96) 94 09/25/17 20:00 100 09/25/17 19:00 106 09/25/17 18:00 110 09/25/17 17:00 106 09/25/17 16:00 94 I/O 09/25/17 09/25/17 09/25/17 09/26/17 09/26/17 09/26/17 06:59 14:59 22:59 06:59 14:59 22:59 Intake Total 480 ml 230 ml 750 ml 240 ml Output Total 1200 ml 2050 ml 500 ml Balance -720 ml 230 ml -1300 ml -260 ml Intake Oral 480 ml 450 ml 240 ml IV Total 230 ml 300 ml Output Urine Total 1200 ml 2050 ml 500 ml # Bowel Movements 1 Result Diagram: 09/26/17 0350 09/26/17 0350 Other Results Laboratory Tests Test 09/24/17 04:16 09/24/17 08:55 09/24/17 13:22 09/24/17 16:30 White Blood Count 9.9 TH/MM3 Red Blood Count 3.90 MIL/MM3 Hemoglobin 10.1 GM/DL Hematocrit 31.3 % Mean Corpuscular Volume 80.4 FL Mean Corpuscular Hemoglobin 25.8 PG Mean Corpuscular Hemoglobin Concent 32.1 % Red Cell Distribution Width 16.6 % Platelet Count 425 TH/MM3 Mean Platelet Volume 8.5 FL Activated Partial Thromboplast Time 31.3 SEC 32.7 SEC Creatinine 0.79 MG/DL 0.82 MG/DL Estimat Glomerular Filtration Rate 72 ML/MIN 69 ML/MIN Blood Urea Nitrogen 17 MG/DL Random Glucose 119 MG/DL Calcium Level 10.0 MG/DL Phosphorus Level 4.2 MG/DL Magnesium Level 2.0 MG/DL Sodium Level 136 MEQ/L Potassium Level 5.4 MEQ/L 4.3 MEQ/L Chloride Level 104 MEQ/L Carbon Dioxide Level 22.9 MEQ/L Anion Gap 9 MEQ/L Test 09/24/17 20:34 09/25/17 03:35 09/25/17 11:31 09/26/17 03:50 Activated Partial Thromboplast Time 35.5 SEC 52.6 SEC 42.3 SEC 21.5 SEC White Blood Count 11.9 TH/MM3 9.3 TH/MM3 Red Blood Count 3.88 MIL/MM3 3.85 MIL/MM3 Hemoglobin 10.0 GM/DL 10.2 GM/DL Hematocrit 31.1 % 31.1 % Mean Corpuscular Volume 80.1 FL 80.7 FL Mean Corpuscular Hemoglobin 25.9 PG 26.4 PG Mean Corpuscular Hemoglobin Concent 32.3 % 32.7 % Red Cell Distribution Width 16.8 % 16.4 % Platelet Count 417 TH/MM3 435 TH/MM3 Mean Platelet Volume 8.7 FL 8.7 FL Neutrophils (%) (Auto) 47.0 % 47.0 % Lymphocytes (%) (Auto) 38.7 % 39.0 % Monocytes (%) (Auto) 9.3 % 8.7 % Eosinophils (%) (Auto) 3.7 % 3.7 % Basophils (%) (Auto) 1.3 % 1.6 % Neutrophils # (Auto) 5.6 TH/MM3 4.4 TH/MM3 Lymphocytes # (Auto) 4.6 TH/MM3 3.6 TH/MM3 Monocytes # (Auto) 1.1 TH/MM3 0.8 TH/MM3 Eosinophils # (Auto) 0.4 TH/MM3 0.3 TH/MM3 Basophils # (Auto) 0.2 TH/MM3 0.1 TH/MM3 CBC Comment DIFF FINAL DIFF FINAL Differential Comment Blood Urea Nitrogen 21 MG/DL 17 MG/DL Creatinine 0.84 MG/DL 0.78 MG/DL Random Glucose 106 MG/DL 114 MG/DL Total Protein 7.3 GM/DL 7.3 GM/DL Albumin 3.1 GM/DL 3.2 GM/DL Calcium Level 9.4 MG/DL 9.3 MG/DL Phosphorus Level 3.7 MG/DL 3.7 MG/DL Magnesium Level 1.7 MG/DL 1.9 MG/DL Alkaline Phosphatase 88 U/L 84 U/L Aspartate Amino Transf (AST/SGOT) 13 U/L 9 U/L Alanine Aminotransferase (ALT/SGPT) 21 U/L 20 U/L Total Bilirubin 0.3 MG/DL 0.3 MG/DL Sodium Level 143 MEQ/L 141 MEQ/L Potassium Level 3.6 MEQ/L 3.7 MEQ/L Chloride Level 107 MEQ/L 108 MEQ/L Carbon Dioxide Level 27.1 MEQ/L 25.0 MEQ/L Anion Gap 9 MEQ/L 8 MEQ/L Estimat Glomerular Filtration Rate 67 ML/MIN 73 ML/MIN Free Thyroxine 1.03 NG/DL Thyroid Stimulating Hormone 3rd Gen 1.940 uIU/ML Test 09/26/17 12:22 Activated Partial Thromboplast Time 20.4 SEC Imaging Last Impressions Chest X-Ray 09/25/17 0600 Signed Impressions: Service Date/Time: Monday, September 25, 2017 04:19 - CONCLUSION: 1. No acute cardiopulmonary disease. Rafael Lemus MD Lower Extremity Ultrasound 09/21/17 0000 Signed Impressions: Service Date/Time: Thursday, September 21, 2017 04:22 - CONCLUSION: No DVT in either leg. Jones Hart MD Head CT 09/21/17 0000 Signed Impressions: Service Date/Time: Thursday, September 21, 2017 02:59 - CONCLUSION: No acute intracranial disease. Jones Hart MD CT Angiography 09/21/17 0000 Signed Impressions: Service Date/Time: Thursday, September 21, 2017 11:25 - CONCLUSION: 1. No evidence of pulmonary embolism. 2. Bilateral infiltrates involving the lower lobes and posterior aspects of the upper lobes consistent with pneumonia and/ or pulmonary edema. 3. Perihilar right middle lobe nodule measuring 1.5 x 1.1 cm which is indeterminate. 4. Possible right hilar lymphadenopathy measuring 2.2 x 1.7 cm. 5. 0.6 cm noncalcified right upper lobe nodule. 6. Bullous emphysema bilaterally. 7. Cardiomegaly and coronary artery calcifications. 8. Tiny left pleural effusion. 9. Hiatal hernia. Chalino Aguirre MD Objective Remarks GENERAL: AWAKE AND ALERT AND ORIENTED X3 IN NO ACUTE DISTRESS SKIN: Warm and dry. HEAD: Atraumatic. Normocephalic. EYES: Pupils equal and round. No scleral icterus. No injection or drainage. EOMI ENT: No nasal bleeding or discharge. Mucous membranes pink and moist. TONGUE MIDLINE NECK: Trachea midline. No JVD. SUPPLE CARDIOVASCULAR: Regular rate and rhythm. S1, S2, NO S3 OR S4 NO HEAVE OR THRILL RESPIRATORY: No accessory muscle use. Clear to auscultation. Breath sounds equal bilaterally. GASTROINTESTINAL: Abdomen soft, non-tender, nondistended. Hepatic and splenic margins not palpable. MUSCULOSKELETAL: Extremities without clubbing, cyanosis, or edema. No obvious deformities. NEUROLOGICAL: Awake and alert. No obvious cranial nerve deficits. Motor grossly within normal limits. Five out of 5 muscle strength in the arms and legs. Normal speech. PSYCHIATRIC: Appropriate mood and affect; insight and judgment normal. Procedures VENT MANAGEMENT, INTUBATION EXTUBATION BrookeTera gabriel Monika ELISE DATE: 09/26/2017 DATE OF PROCEDURE: 09/26/2017 PROCEDURE PERFORMED: Left heart catheterization, right heart catheterization, coronary angiogram, ultrasound-guided access. PREPROCEDURE DIAGNOSES: Elevated troponin, new cardiomyopathy, acute systolic heart failure. POSTPROCEDURE DIAGNOSES: Nonischemic cardiomyopathy with an ejection fraction of less than 20%, Non-ST elevation myocardial infarction type 2, compensated heart failure. MEDICATIONS: Fentanyl 50 mcg, Verapamil 2.5 mg, nitro 200 mcg, heparin 2400 units. CONTRAST USED: 45 mL. FLUOROSCOPY: 4.4 minutes. MODERATE SEDATION: Zero minutes. FRAILTY SCORE: 4. ESTIMATED BLOOD LOSS: 10 mL. PROCEDURAL SUMMARY: Amberly Desouza is a pleasant 72-year-old female who originally presented to [facility] emergency room as respiratory failure. She had an echocardiogram done and was found to have an ejection fraction of 15-20%, which was totally new for her. Because of this, as well as her elevated troponin, she was recommended cardiac catheterization. Risks, benefits and alternatives were explained to her and she consented to such. She was brought to the lab and prepped in the usual sterile fashion. The right radial artery was accessed using a modified Seldinger technique with ultrasound guidance and placement of a 5/6 [place]uv[place] slender sheath. This was easily aspirated and flushed. Right brachial vein was accessed using a modified Seldinger technique with ultrasound guidance and placement of a 5/6 [place] slender sheath. This was easily aspirated and flushed. A Montgomery-Wolf catheter was advanced to a wedge position and oxygen saturations as well as pressures were done on a standard pullback throughout the heart. Montgomery-Wolf catheter was removed. JR4 was advanced over a J-wire to the ascending aorta and across the aortic valve for measurement of left ventricular pressure. This was pulled across the aortic valve showing no significant gradient of aortic stenosis. JR4 was used to perform selective angiography of the right coronary artery system. This is exchanged for a JL3.5, which was used to perform selective angiography of the left coronary artery system. JL3.5 was removed over a J-wire. A radial band was placed over the arteriotomy site for hemostasis. The patient left the flower shop laborer/designer cardiovascularly stable. ANGIOGRAPHIC SUMMARY: Left main is a normal size vessel with 10-20% disease noted. It bifurcates into an LAD and circumflex. LAD has mild luminal irregularities about 10% throughout the proximal portion. The mid portion has diffuse 10-20% disease. It gives off 1 major diagonal with no significant disease. Left circumflex is a normal size vessel with a 30% lesion in the mid portion. It gives off 3 obtuse marginals with the first and third being small the second one being relatively normal size with no significant disease. RCA is a normal size vessel with mild luminal irregularities throughout. Overall, no significant disease. HEMODYNAMIC SUMMARY: RA 6. RV 34/3, RVEDP 8. PA 34/12, mean PA 20. Wedge 13. LVEDP 12. Cardiac output 4.8. Cardiac index 2.9. IMPRESSIONS: 1. New nonischemic cardiomyopathy with an ejection fraction less than 20%. 2. Non-ST elevation myocardial infarction type 2. 3. Compensated heart failure. RECOMMENDATIONS: 1. Ms. Desouza appears to have a nonischemic cardiomyopathy and she will be recommended medical therapy. 2. She will continue on JUSTIN inhibitor therapy, as well as beta winifred therapy, although I will change this to carvedilol over metoprolol tartrate. 3. Her aspirin can be changed to 81 mg daily. 4. We will discuss with her about consideration of a LifeVest. 5. She will need a repeat echo in 3 months' time to evaluate resolution of her cardiomyopathy and if no resolution, consideration of ICD therapy. Thank you for allowing me to see Amberly Desouza. If there are any questions, please do not hesitate to call. Vincent G. Brooke, DO Medications and IVs Current Medications Sodium Chloride (NS Flush) 2 ml UNSCH PRN IVF FLUSH AFTER USING IV ACCESS; Start 09/21/17 at 00:00; Stop 09/21/17 at 04:09; Status DC Nitroglycerin (Nitroglycerin 2% Oint) 1 inch ONCE ONCE TOPICAL Last administered on 09/21/17at 01:30; Start 09/21/17 at 00:15; Stop 09/21/17 at 00:16 ; Status DC Propofol 100 ml @ 0 mls/hr TITRATE PRN IV SEDATION Last administered on at 03:00; Start 09/21/17 at 00:15; Stop 09/21/17 at 03:18; Status DC Piperacillin Sod/ Tazobactam Sod 100 ml @ 200 mls/hr ONCE ONCE IV Last administered on 09/21/17at 01:30; Start 09/21/17 at 00:30; Stop 09/21/17 at 00:59 ; Status DC Vancomycin HCl 1000 mg/Sodium Chloride 250 ml @ 250 mls/hr ONCE ONCE IV Last administered on 09/21/17at 03:00; Start 09/21/17 at 00:30; Stop 09/21/17 at 01:29 ; Status DC Sodium Bicarbonate (Sodium Bicarbonate 8.4% Inj) 50 meq ONCE ONCE IV PUSH Last administered on 09/21/17at 01:30; Start 09/21/17 at 00:45; Stop 09/21/17 at 00:46; Status DC Aspirin (Ecotrin Ec) 325 mg DAILY PO Last administered on 09/25/17at 08:32; Start 09/21/17 at 09:00; Stop 09/26/17 at 09:59; Status DC Atorvastatin Calcium (Lipitor) 40 mg HS PO Last administered on 09/25/17at 21:35 ; Start 09/21/17 at 21:00 Dextrose (D50w (Vial) Inj) 50 ml UNSCH PRN IV PUSH HYPOGLYCEMIA-SEE COMMENTS; Start 09/21/17 at 03:00 Glucagon (Glucagon Inj) 1 mg UNSCH PRN OTHER HYPOGLYCEMIA-SEE COMMENTS; Start 09/21/17 at 03:00 Insulin Aspart (NovoLOG SUPPLEMENTAL SCALE) 1 ACHS SLIDING SCALE SQ ; Start 04/30 at 08:00; Stop 09/21/17 at 09:55; Status DC Sodium Chloride (NS Flush) 2 ml UNSCH PRN IV FLUSH FLUSH AFTER USING IV ACCESS Last administered on 09/24/17at 08:14; Start 09/21/17 at 03:00 Sodium Chloride (NS Flush) 2 ml BID IV FLUSH Last administered on 09/26/17at 10: 26; Start 09/21/17 at 09:00 Acetaminophen (Tylenol) 650 mg Q6H PRN PO PAIN 1-5 AND/OR FEVER >101F; Start at 03:00; Stop 09/21/17 at 09:55; Status DC Morphine Sulfate (Morphine Inj) 2 mg Q2H PRN IV PUSH PAIN SCALE 6 TO 10; Start 09/21/17 at 03:00; Stop 09/22/17 at 13:14; Status DC Famotidine (Pepcid Inj) 20 mg Q12HR IV PUSH Last administered on 09/22/17at 08: 53; Start 09/21/17 at 09:00; Stop 09/22/17 at 13:15; Status DC Midazolam HCl (Versed Inj) 2 mg Q1H PRN IV PUSH SEDATION; Start 09/21/17 at 03: 00; Stop 09/21/17 at 16:41; Status DC Artificial Tears (Tears Naturale Opth Soln) 1 drop TID EACH EYE ; Start at 09:00; Stop 09/22/17 at 13:15; Status DC Ondansetron HCl (Zofran Inj) 4 mg Q6H PRN IV PUSH NAUSEA OR VOMITING; Start 04/30 at 03:00 Albuterol/ Ipratropium (Duoneb Neb) 1 ampule Q4HR NEB INH Last administered on 09/22/17at 11:06; Start 09/21/17 at 04:00; Stop 09/22/17 at 13:14; Status DC Albuterol/ Ipratropium (Duoneb Neb) 1 ampule Q2HR NEB PRN INH WHEEZING; Start 09/21/17 at 03:00; Stop 09/21/17 at 09:55; Status DC Miscellaneous Information 1 [id number] Last administered on 09/21/17at 05:37; Start 09/21/17 at 03:00 Chlorhexidine Gluconate (Chlorhexidine 2% Cloth) Taper DAILY@04 TOP Last administered on 09/24/17at 03:36; Start 09/21/17 at 04:00; Stop 09/17/18 at 03:59 Chlorhexidine Gluconate (Chlorhexidine 2% Cloth) 3 pack UNSCH PRN TOP HYGIENIC CARE; Start 09/21/17 at 03:00 Senna/Docusate Sodium (Alysa-Colace) 1 tab BID PO Last administered on at 10:25; Start 09/21/17 at 09:00 Magnesium Hydroxide (Milk Of Magnesia Liq) 30 ml Q12H PRN PO Mild constipation ; Start 09/21/17 at 03:00 Sennosides (Senokot) 17.2 mg Q12H PRN PO Moderate constipation; Start 09/21/17 at 03:00 Bisacodyl (Dulcolax Supp) 10 mg DAILY PRN RECTAL SEVERE CONSITIPATION; Start at 03:00 Lactulose (Lactulose Liq) 30 ml DAILY PRN PO SEVERE CONSITIPATION; Start at 03:00 Chlorhexidine Gluconate (Peridex 0.12% Liq) 15 ml BID@08,20 MT Last administered on 09/22/17at 20:00; Start 09/21/17 at 08:00 Propofol 100 ml @ 2.25 mls/hr TITRATE PRN IV SEDATION Last administered on 04/30at 12:08; Start 09/21/17 at 03:00; Stop 09/21/17 at 16:41; Status DC Heparin Sodium (Porcine) (Heparin Inj) 4,000 units ONCE ONCE IV PUSH Last administered on 09/21/17at 03:34; Start 09/21/17 at 03:15; Stop 09/21/17 at 03:18 ; Status DC Heparin Sodium (Porcine) (Heparin Inj) 5,000 units UNSCH PRN IV PUSH APTT LESS THAN 25; Start 09/21/17 at 09:15; Stop 09/26/17 at 09:59; Status DC Heparin Sodium (Porcine) (Heparin Inj) 2,500 units UNSCH PRN IV PUSH APTT 25 TO 39 Last administered on 09/26/17at 05:46; Start 09/21/17 at 09:15; Stop at 09:59; Status DC Heparin Sodium/ Dextrose 250 ml @ 9 mls/hr TITRATE PRN IV Coagulation Management Last administered on 09/25/17at 08:30; Start 09/21/17 at 03:15; Stop 09/26/17 at 09:59; Status DC Sodium Bicarbonate 150 meq/Dextrose 1,150 ml @ 75 mls/hr [id number] IV Last administered on 09/21/17at 04:15; Start 09/21/17 at 04:15; Stop 09/21/17 at 17:44 ; Status DC Potassium Chloride (KCl Powder) 20 meq ONCE ONCE PO Last administered on at 08:56; Start 09/21/17 at 08:45; Stop 09/21/17 at 08:46; Status DC Magnesium Sulfate/ Dextrose 100 ml @ 100 mls/hr Q1H IV Last administered on 04/30at 13:35; Start 09/21/17 at 08:45; Stop 09/21/17 at 12:44; Status DC Insulin Aspart (NovoLOG SUPPLEMENTAL SCALE) 1 Q6HR SQ ; Start 09/21/17 at 12:00 ; Stop 09/22/17 at 13:15; Status DC Albuterol Sulfate (Albuterol Neb) 2.5 mg Q2HR NEB PRN NEB [id number] Last administered on 09/23/17at 00:27; Start 09/21/17 at 10:00 Acetylcysteine (Mucomyst 20% Liq) 600 mg BID PO Last administered on 09/23/17at 08:40; Start 09/21/17 at 21:00; Stop 09/23/17 at 09:01; Status DC Iohexol (Omnipaque 350 Inj) 72 ml STK-MED ONCE IVCONTRAST Last administered on 09/21/17at 11:29; Start 09/21/17 at 11:29; Stop 09/21/17 at 11:31; Status DC Pharmacy Profile Note 0 ml @ 0 mls/hr UNSCH OTHER ; Start 09/21/17 at 13:30; Status Cancel Azithromycin 500 mg/Sodium Chloride 250 ml @ 250 mls/hr ONCE ONCE IV Last administered on 09/21/17at 16:47; Start 09/21/17 at 13:30; Stop 09/21/17 at 14:29 ; Status DC Piperacillin Sod/ Tazobactam Sod 50 ml @ 200 mls/hr Q6H IV Last administered on 09/23/17at 07:53; Start 09/21/17 at 15:00; Stop 09/23/17 at 14:13; Status DC Vancomycin HCl 1000 mg/Sodium Chloride 250 ml @ 250 mls/hr ONCE ONCE IV ; Start 09/21/17 at 15:00; Stop 09/21/17 at 15:00; Status DC Vancomycin HCl 900 mg/Sodium Chloride 259 ml @ 250 mls/hr Q24H IV Last administered on 09/22/17at 02:54; Start 09/22/17 at 03:00; Stop 09/22/17 at 10:20 ; Status DC Miscellaneous Information SPECIFIC LAB TO BE DRAWN:VANCOMY... ONCE ONCE .XX ; Start 09/24/17 at 02:45; Stop 09/24/17 at 02:46; Status Cancel Acetaminophen (Tylenol 650 Mg/ 20 ml Liq) 650 mg Q6H PRN PO fever Last administered on 09/22/17at 03:41; Start 09/21/17 at 16:45 Potassium Chloride (KCl) 40 meq ONCE ONCE PO Last administered on 09/22/17at 09 :03; Start 09/22/17 at 07:45; Stop 09/22/17 at 07:55; Status DC Potassium Chloride (KCl) 40 meq ONCE ONCE PO Last administered on 09/22/17at 16 :13; Start 09/22/17 at 11:00; Stop 09/22/17 at 11:01; Status DC Vancomycin HCl 1250 mg/Sodium Chloride 262.5 ml @ 250 mls/hr Q24H IV Last administered on 09/23/17at 02:25; Start 09/23/17 at 03:00; Stop 09/23/17 at 14:13 ; Status DC Albuterol/ Ipratropium (Duoneb Neb) 1 ampule Q6HR NEB INH Last administered on 09/24/17at 10:00; Start 09/22/17 at 16:00; Stop 09/24/17 at 12:17; Status DC Insulin Aspart (NovoLOG SUPPLEMENTAL SCALE) 1 ACHS SQ Last administered on 09/25at 21:38; Start 09/22/17 at 17:00 Morphine Sulfate (Morphine Inj) 2 mg Q4HR PRN IV PUSH PAIN SCALE 6 TO 10; Start 09/22/17 at 13:15 Azithromycin (Zithromax) 500 mg DAILY PO Last administered on 09/26/17 10:25; Start 09/22/17 at 13:15; Stop 09/28/17 at 13:14 Famotidine (Pepcid) 20 mg HS PO Last administered on 09/25/17at 21:36; Start 05/30 at 21:00 Acetaminophen/ Hydrocodone Bitart ([place] 5-325 Mg) 1 tab Q4H PRN PO paiN 1-5; Start 09/22/17 at 13:15 Guaifenesin (Mucinex Er) 600 mg BID PO Last administered on 09/26/17 10:25; Start 09/22/17 at 21:00 Pantoprazole Sodium (Protonix) 40 mg DAILY PO Last administered on 09/26/17at 10 :25; Start 09/23/17 at 09:00 Lisinopril (Prinivil) 5 mg Q12HR PO Last administered on 09/25/17at 21:34; Start 09/22/17 at 21:00; Stop 09/26/17 at 09:59; Status DC Metoprolol Tartrate (Lopressor) 6.25 mg Q12HR PO Last administered on 21:35; Start 09/22/17 at 21:00; Stop 09/26/17 at 09:59; Status DC Prednisone (Deltasone) 20 mg BID PO Last administered on 09/24/17at 08:15; Start 09/22/17 at 21:00; Stop 09/24/17 at 12:17; Status DC Ceftriaxone Sodium 1000 mg/ Sodium Chloride 100 ml @ 200 mls/hr Q24H IV Last administered on 09/25/17at 14:50; Start 09/23/17 at 15:00 Magnesium Sulfate/ Dextrose 100 ml @ 100 mls/hr Q1H IV Last administered on at 21:24; Start 09/23/17 at 20:00; Stop 09/23/17 at 21:59; Status DC Furosemide (Lasix Inj) 40 mg ONCE ONCE IV PUSH Last administered on 09/23/17at 19:35; Start 09/23/17 at 19:15; Stop 09/23/17 at 19:23; Status DC Potassium Chloride (KCl) 30 meq ONCE ONCE PO Last administered on 09/23/17at 19 :34; Start 09/23/17 at 19:15; Stop 09/23/17 at 19:23; Status DC Furosemide (Lasix) 20 mg DAILY PO Last administered on 09/26/17at 09:00; Start 09/24/17 at 09:00 Potassium Chloride (KCl) 10 meq DAILY PO Last administered on 09/26/17at 10:25; Start 09/24/17 at 09:00 Sodium Polystyrene Sulfonate (Kayexalate Liq) 15 gm ONCE ONCE PO Last administered on 09/24/17at 10:22; Start 09/24/17 at 10:15; Stop 09/24/17 at 10:19 ; Status DC Albuterol/ Ipratropium (Duoneb Neb) 1 ampule TID NEB INH Last administered on 09/26/17 08:13; Start 09/24/17 at 14:00; Stop 09/26/17 at 12:19; Status DC Prednisone (Deltasone) 20 mg DAILY PO Last administered on 09/26/17at 10:24; Start 09/25/17 at 09:00; Stop 09/26/17 at 12:19; Status DC Lactobacillus Acidophilus (Lactinex) 1 tab Q12HR PO Last administered on at 10:25; Start 09/24/17 at 21:00 Potassium Bicarb/ Potassium Chloride (K-Lyte Cl Eff) 50 meq ONCE ONCE PO Last administered on 09/25/17at 17:45; Start 09/25/17 at 17:45; Stop 09/25/17 at 17:46; Status DC Magnesium Sulfate/ Dextrose 100 ml @ 100 mls/hr Q1H IV Last administered on at 18:48; Start 09/25/17 at 18:00; Stop 09/25/17 at 19:59; Status DC Heparin Sodium/ Sodium Chloride 2,000 ml @ As Directed STK-MED ONCE IV FLUSH ; Start 09/26/17 at 08:47; Stop 09/26/17 at 08:48; Status DC Verapamil HCl (Isoptin Inj) 5 mg STK-MED ONCE .ROUTE Last administered on at 09:22; Start 09/26/17 at 08:48; Stop 09/26/17 at 08:49; Status DC Heparin Sodium (Porcine) (Heparin Inj) 10,000 units STK-MED ONCE .ROUTE Last administered on 09/26/17at 09:22; Start 09/26/17 at 08:48; Stop 09/26/17 at 08:49 ; Status DC Lidocaine HCl (Xylocaine-Mpf 1% Inj) 30 ml STK-MED ONCE .ROUTE Last administered on 09/26/17at 08:55; Start 09/26/17 at 08:55; Stop 09/26/17 at 08:56 ; Status DC Midazolam HCl (Versed Inj) 2 mg STK-MED ONCE .ROUTE ; Start 09/26/17 at 09:10; Stop 09/26/17 at 09:11; Status DC Fentanyl Citrate (fentaNYL INJ) 100 mcg STK-MED ONCE .ROUTE Last administered on 09/26/17at 09:17; Start 09/26/17 at 09:16; Stop 09/26/17 at 09:17; Status DC Lisinopril (Prinivil) 5 mg DAILY PO ; Start 09/27/17 at 09:00 Miscellaneous Information 1 ONCE ONCE XX ; Start 09/26/17 at 10:00; Stop at 10:51; Status DC Carvedilol (Coreg) 3.125 mg Q12HR PO Last administered on 09/26/17at 11:23; Start 09/26/17 at 11:00 Aspirin (Aspirin Chew) 81 mg DAILY CHEW ; Start 09/27/17 at 09:00 Iohexol (OMNIPAQUE 350 INJ (Bsw)) 50 ml STK-MED ONCE OTHER ; Start at 11:32; Stop 09/26/17 at 11:33; Status DC A/P Assessment and Plan Neuro/Psych: Acetaminophen 650 mg p.o. every 6 hours as needed fever Hydrocodone/acetaminophen 5/325 1 tablet p.o. every 6 hours as needed pain 1 through 5 Morphine sulfate 2 mg IV every 4 hours as needed pain 6 or 10 CV: Elevated troponin Acute systolic heart failure Hypertension Hyperlipidemia Evaluated by cardiology/Dr. Brooke with planned left heart catheterization on Tuesday 09/26 Currently on heparin drip at 900 units an hour Aspirin 325 mg p.o. daily. On 81 mg daily at home Continue atorvastatin 40 mg p.o. daily for dyspnea./Home medication Currently holding home medications of lisinopril 20 mg daily and holding verapamil 120 mg p.o. daily. Continue low-dose metoprolol tartrate 6.25 mg p.o. twice daily and lisinopril 5 mg p.o. twice daily 2D echo The left ventricular systolic function is severely reduced with an estimated ejection fraction less than 20%. Severe hypokinesis to akinesis of anterior wall. There is diffuse global hypokinesis with distinct regional wall motion abnormalities. Wall thickness is normal. Normal left ventricular size. Mitral annular calcification is present. Mild to moderate mitral valve regurgitation. Aortic valve sclerosis is present. Mild aortic valve regurgitation. Mild pulmonary valve regurgitation. There is a small pericardial effusion present. Started on furosemide 20 mg by mouth daily with KCl 10 mEq daily. SP CARDIAC CATH EF OF 20% WILL NEED LIFEVEST PRIOR TO DISCHARGE Resp: Acute hypoxemic hypercapnic respiratory failure secondary to his acute systolic heart failure exacerbation/community acquired pneumonia Extubated 09/21 Nasal cannula to maintain saturations greater than equal to 92%. Currently on 3 L Incentives parameter while awake CT pulmonary revealed bilateral lower lobe infiltrates/effusions with posterior upper lobe infiltrate/edema. 1.5 x 1.1 cm right middle lobe nodule and 0.6 cm right upper lobe nodule. Perihilar lymphadenopathy. Hiatal hernia. Albuterol/ipratropium aerosols every 6 hours with albuterol aerosols every 2 hours. Dyspnea Guaifenesin 600 mg p.o. twice daily Acapella every [address] Noel/pulmonology GI: Gastroesophageal reflux disease Hypoalbuminemia ADA diet Pantoprazole 40 mg daily for GI prophylaxis. On omeprazole/sodium bicarbonate 1 tablet daily at home Docusate sodium/senna 1 tablet twice daily for bowel region : ICU patient receiving antibiotics indication for Bunn catheter WILL DC BUNN Endo: Diabetes mellitus type II controlled Holding Canagliflozin/metformin 1 tablet twice daily for diabetes and glipizide 5 mg daily. Currently on sliding scale insulin with Accu-Cheks every before meals/at bedtime to maintain euglycemia/high regimen Renal: Creatinine slowly normalizing Monitor urine output Accurate I's and O's Heme: Normocytic anemia Monitor CBC daily. Follow trends. Does not meet transfusion threshold at this time Currently on a heparin drip ID: Community acquired pneumonia Piperacillin/tazobactam, vancomycin is continued after 3 days. Currently on ceftriaxone day #3 and azithromycin day 5 PREDNISONE 20MG DAILY Blood cultures, sputum, urine or/11 all no growth to date Influenza negative FEN: Replace electrolytes as clinically indicated A.m. potassium magnesium pending MSK: PT evaluate and treat Access -Utilize peripheral IV. Central line if indicated Prophylaxis -GI -pantoprazole -DVT -SCD/heparin drip Discharge Planning PENDING CARDIAC CLEARANCE AM LABS Los Persaud DO Sep 26, 2017 15:25
[2017-09-26] MEDS: cefTRIAXone INJ 1,000 MG in SODIUM CHLORIDE 0.9% INJ 100 ML IV SCH (16:17)
--- NOTE | 2017-09-26 21:46 | PD.CARD.PN ---
Subjective Subjective Remarks Patient was seen earlier today after cardiac catheterization, late entry Doing well, off oxygen No chest pain Objective Medications Current Medications Medications (Trade) Dose Ordered Sig/Jack Route Start Time Stop Time Status Last Admin (Lipitor) 40 mg HS PO 09/21/17 21:00 09/25/17 21:35 (D50w (Vial) Inj) 50 ml UNSCH PRN IV PUSH 09/21/17 03:00 (Glucagon Inj) 1 mg UNSCH PRN OTHER 09/21/17 03:00 (NS Flush) 2 ml UNSCH PRN IV FLUSH 09/21/17 03:00 09/24/17 08:14 (NS Flush) 2 ml BID IV FLUSH 09/21/17 09:00 09/26/17 10:26 (Zofran Inj) 4 mg Q6H PRN IV PUSH 09/21/17 03:00 Miscellaneous Information 1 Q361D XX 09/21/17 03:00 09/21/17 05:37 (Chlorhexidine 2% Cloth) Taper DAILY@04 TOP 09/21/17 04:00 09/17/18 03:59 09/24/17 03:36 (Chlorhexidine 2% Cloth) 3 pack UNSCH PRN TOP 09/21/17 03:00 (Alysa-Colace) 1 tab BID PO 09/21/17 09:00 09/26/17 10:25 (Milk Of Magnesia Liq) 30 ml Q12H PRN PO 09/21/17 03:00 (Senokot) 17.2 mg Q12H PRN PO 09/21/17 03:00 (Dulcolax Supp) 10 mg DAILY PRN RECTAL 09/21/17 03:00 (Lactulose Liq) 30 ml DAILY PRN PO 09/21/17 03:00 (Peridex 0.12% Liq) 15 ml BID@08,20 MT 09/21/17 08:00 09/22/17 20:00 (Albuterol Neb) 2.5 mg Q2HR NEB PRN NEB 09/21/17 10:00 09/23/17 00:27 (Tylenol 650 Mg/ 20 ml Liq) 650 mg Q6H PRN PO 09/21/17 16:45 09/22/17 03:41 (NovoLOG SUPPLEMENTAL SCALE) 1 ACHS SQ 09/22/17 17:00 09/26/17 17:10 (Morphine Inj) 2 mg Q4HR PRN IV PUSH 09/22/17 13:15 (Zithromax) 500 mg DAILY PO 09/22/17 13:15 09/28/17 13:14 09/26/17 10:25 (Pepcid) 20 mg HS PO 09/22/17 21:00 09/25/17 21:36 ([place] 5-325 Mg) 1 tab Q4H PRN PO 09/22/17 13:15 (Mucinex Er) 600 mg BID PO 09/22/17 21:00 09/26/17 10:25 (Protonix) 40 mg DAILY PO 09/23/17 09:00 09/26/17 10:25 Ceftriaxone Sodium 1000 mg/ Sodium Chloride 100 ml @ 200 mls/hr Q24H IV 09/23/17 15:00 09/26/17 16:17 (Lasix) 20 mg DAILY PO 09/24/17 09:00 09/26/17 09:00 (KCl) 10 meq DAILY PO 09/24/17 09:00 09/26/17 10:25 (Lactinex) 1 tab Q12HR PO 09/24/17 21:00 09/26/17 10:25 (Prinivil) 5 mg DAILY PO 09/27/17 09:00 (Coreg) 3.125 mg Q12HR PO 09/26/17 11:00 09/26/17 11:23 (Aspirin Chew) 81 mg DAILY CHEW 09/27/17 09:00 Vital Signs / I&O Vital Signs Date Time Temp Pulse Resp B/P (MAP) Pulse Ox O2 Delivery O2 Flow Rate FiO2 09/26/17 19:23 95 09/26/17 18:06 107 09/26/17 17:12 98 09/26/17 16:32 100 18 114/69 (84) 95 09/26/17 16:30 98.0 100 19 114/69 (84) 95 09/26/17 16:30 95 09/26/17 14:11 89 09/26/17 13:56 94 18 151/72 (98) 95 09/26/17 13:12 98 09/26/17 12:19 94 09/26/17 12:19 98.8 94 19 110/56 (74) 96 09/26/17 08:23 98.5 102 19 138/69 (92) 95 09/26/17 08:23 102 09/26/17 08:13 93 21 09/26/17 06:12 88 09/26/17 04:44 98.2 95 18 135/74 (94) 94 09/26/17 04:00 95 09/26/17 03:00 93 09/26/17 02:04 92 09/26/17 01:00 92 09/26/17 00:00 98.5 84 19 113/59 (77) 94 09/26/17 00:00 94 09/25/17 23:00 96 09/25/17 22:00 94 I/O 09/25/17 09/25/17 09/25/17 09/26/17 09/26/17 09/26/17 07:00 15:00 23:00 07:00 15:00 23:00 Intake Total 480 ml 230 ml 750 ml 240 ml 640 ml Output Total 1200 ml 2050 ml 500 ml 1200 ml Balance -720 ml 230 ml -1300 ml -260 ml -560 ml Intake Oral 480 ml 450 ml 240 ml 640 ml IV Total 230 ml 300 ml Output Urine Total 1200 ml 2050 ml 500 ml 1200 ml # Bowel Movements 1 1 Physical Exam GENERAL: NAD, AAOx3 SKIN: Warm and dry. HEAD: Atraumatic. Normocephalic. EYES: Pupils equal and round. No scleral icterus. No injection or drainage. ENT: No nasal bleeding or discharge. Mucous membranes pink and moist. NECK: Trachea midline. No JVD. CARDIOVASCULAR: Regular rate and rhythm. RESPIRATORY: Decreased breath sounds bilaterally GASTROINTESTINAL: Abdomen soft, non-tender, nondistended. Hepatic and splenic margins not palpable. MUSCULOSKELETAL: Extremities without clubbing, cyanosis, or edema. No obvious deformities. NEUROLOGICAL: Awake and alert. No obvious cranial nerve deficits. Motor grossly within normal limits. Five out of 5 muscle strength in the arms and legs. Normal speech. PSYCHIATRIC: Appropriate mood and affect; insight and judgment normal. Laboratory Laboratory Tests Test 09/26/17 03:50 09/26/17 12:22 White Blood Count 9.3 TH/MM3 Red Blood Count 3.85 MIL/MM3 Hemoglobin 10.2 GM/DL Hematocrit 31.1 % Mean Corpuscular Volume 80.7 FL Mean Corpuscular Hemoglobin 26.4 PG Mean Corpuscular Hemoglobin Concent 32.7 % Red Cell Distribution Width 16.4 % Platelet Count 435 TH/MM3 Mean Platelet Volume 8.7 FL Neutrophils (%) (Auto) 47.0 % Lymphocytes (%) (Auto) 39.0 % Monocytes (%) (Auto) 8.7 % Eosinophils (%) (Auto) 3.7 % Basophils (%) (Auto) 1.6 % Neutrophils # (Auto) 4.4 TH/MM3 Lymphocytes # (Auto) 3.6 TH/MM3 Monocytes # (Auto) 0.8 TH/MM3 Eosinophils # (Auto) 0.3 TH/MM3 Basophils # (Auto) 0.1 TH/MM3 CBC Comment DIFF FINAL Differential Comment Activated Partial Thromboplast Time 21.5 SEC 20.4 SEC Blood Urea Nitrogen 17 MG/DL Creatinine 0.78 MG/DL Random Glucose 114 MG/DL Total Protein 7.3 GM/DL Albumin 3.2 GM/DL Calcium Level 9.3 MG/DL Phosphorus Level 3.7 MG/DL Magnesium Level 1.9 MG/DL Alkaline Phosphatase 84 U/L Aspartate Amino Transf (AST/SGOT) 9 U/L Alanine Aminotransferase (ALT/SGPT) 20 U/L Total Bilirubin 0.3 MG/DL Sodium Level 141 MEQ/L Potassium Level 3.7 MEQ/L Chloride Level 108 MEQ/L Carbon Dioxide Level 25.0 MEQ/L Anion Gap 8 MEQ/L Estimat Glomerular Filtration Rate 73 ML/MIN Hemoglobin A1c 7.1 % Free Thyroxine 1.03 NG/DL Thyroid Stimulating Hormone 3rd Gen 1.940 uIU/ML Assessment and Plan Problem List: (1) ACS (acute coronary syndrome) ICD Codes: I24.9 - Acute ischemic heart disease, unspecified Status: Acute (2) Sepsis ICD Codes: A41.9 - Sepsis, unspecified organism Status: Acute (3) CHF (congestive heart failure) ICD Codes: I50.9 - Heart failure, unspecified Status: Acute (4) Lactic acidosis ICD Codes: E87.2 - Acidosis Status: Acute (5) Respiratory arrest ICD Codes: R09.2 - Respiratory arrest Status: Acute Assessment and Plan 1) Respiratory arrest s/p extubation 2) Pulmonary edema EF <20% RHC/LHC No significant CAD Wedge/LVEDP normalized, compensated CHF (NYHA 4 on admission, now 2-3) Lifevest on discharge Discussed with patient and family, rep to speak to them about it Plan for repeat echo in 3 months to evaluate EF BB/JUSTIN-I 3) Elevated trop No significant CAD Problem Qualifiers (1) Sepsis: Qualified Codes: A41.9 - Sepsis, unspecified organism (2) CHF (congestive heart failure): Qualified Codes: I50.9 - Heart failure, unspecified Tera Brooke DO Sep 26, 2017 21:46
[2017-09-26] MEDS: FAMOTIDINE 20 MG TAB PO SCH (21:50)
[2017-09-26] MEDS: ATORVASTATIN 40 MG TAB PO SCH (21:50)
[2017-09-27] VITALS (9 sets, daily range): BP systolic 123–137; BP diastolic 62–66; PULSE 61–109; RESP 18; TEMP 97.9–98.4; O2SAT 93–96
[2017-09-27 04:08] LABS: AUTOMATED NEUTROPHIL # 6.5 TH/MM3 (1.8-7.7); BASOPHIL # 0.2 TH/MM3 (0-0.2); BASOPHIL % 1.7 % (0.0-2.0); EOSINOPHIL # 0.4 TH/MM3 (0-0.4); EOSINOPHIL % 3.2 % (0.0-4.0); HEMATOCRIT 33.7 % (35.0-46.0); HEMOGLOBIN 10.8 GM/DL (11.6-15.3); LYMPH % 32.2 % (9.0-44.0); LYMPHOCYTE # 3.9 TH/MM3 (1.0-4.8); MEAN CELL VOLUME 80.2 FL (80.0-100.0); MEAN CORPUSCULAR HEMOGLOBIN 25.8 PG (27.0-34.0); MEAN CORPUSCULAR HGB CONC 32.1 % (32.0-36.0); MEAN PLATELET VOLUME 8.6 FL (7.0-11.0); MONO % 9.3 % (0.0-8.0); MONOCYTE # 1.1 TH/MM3 (0-0.9); NEUT % 53.6 % (16.0-70.0); PLATELET COUNT 438 TH/MM3 (150-450); RED CELL DISTRIBUTION WIDTH 16.7 % (11.6-17.2); WHITE BLOOD COUNT 12.1 TH/MM3 (4.0-11.0)
[2017-09-27 04:28] LABS: ALT (GPT) 20 U/L (10-53); AST (GOT) 9 U/L (15-37); BICARBONATE 24.2 MEQ/L (21.0-32.0); BLOOD UREA NITROGEN 21 MG/DL (7-18); CALCIUM 9.4 MG/DL (8.5-10.1); CHLORIDE 108 MEQ/L (98-107); CREATININE 0.71 MG/DL (0.50-1.00); GLOMERULAR FILTRATION RATE 81 ML/MIN (>89); GLUCOSE,RANDOM 137 MG/DL (74-106); MAGNESIUM 1.8 MG/DL (1.5-2.5); SODIUM (NA) 141 MEQ/L (136-145)
[2017-09-27 04:30] LABS: ALKALINE PHOSPHATASE 79 U/L (45-117); TOTAL BILIRUBIN ADULT 0.3 MG/DL (0.2-1.0)
[2017-09-27] MEDS: INSULIN ASPART SUPPLEMENTAL SCALE SQ SCH (08:00)
[2017-09-27] MEDS: CHLORHEXIDINE 0.12% (ORAL KIT) 15 ML CUP MT SCH (08:00)
[2017-09-27] MEDS: POTASSIUM CHLORIDE 10 MEQ CONTROLLED RELEASE TAB PO SCH (08:55)
[2017-09-27] MEDS: DOCUSATE SODIUM 50 MG/SENNA 8.6 MG TAB PO SCH ×2 (08:56→09:00)
[2017-09-27] MEDS: LACTOBACILLUS ACIDOPHILUS TAB PO SCH (08:56)
[2017-09-27] MEDS: PANTOPRAZOLE SOD 40 MG DELAYED RELEASE TAB PO SCH (08:56)
[2017-09-27] MEDS: guaiFENesin E.R. 600 MG TAB PO SCH (08:56)
[2017-09-27] MEDS: CARVEDILOL 3.125 MG TAB PO SCH (08:56)
[2017-09-27] MEDS: SODIUM CHLORIDE 0.9% FLUSH 10 ML FLUSH IV FLUSH SCH (08:57)
[2017-09-27] MEDS: FUROSEMIDE 20 MG TAB PO SCH (08:57)
[2017-09-27] MEDS ORDERED: ASPIRIN 81 MG CHEW TAB CHEW SCH (09:00)
[2017-09-27] MEDS ORDERED: LISINOPRIL 5 MG TAB PO SCH (09:00)
--- NOTE | 2017-09-27 09:06 | HHI.PR ---
Subjective Remarks 77-year-old female presents by EMS transport from local fire department where she went into respiratory failure and then into respiratory arrest. Patient presented to the fire department with marked shortness of breath fire department personnel attempted CPAP and then patient went into respiratory arrest and was intubated with 7.0 endotracheal tube by EMS. Patient had received Lasix 30 mg IV push 1 dose and sublingual nitroglycerin and aspirin prior to respiratory arrest by firefighters. Paramedics identified patient to have a left bundle branch block of indeterminate age. These EKG findings were discussed with Dr. Huffman machine brusher on-call by ED attending and recommendation was not to proceed with a cardiac catheterization emergently. 09/22: Afebrile. Extubated yesterday without complication currently on nasal cannula. Denies chest pain. Positive cough/severe persistent. Passed swallow evaluation. 09/23: Aggressive pulmonary toilet initiated with bronchodilators and Acapella. Remains on nasal cannula. Denies chest pain currently. Tolerating diet. 09/24: Afebrile. Saturation 100% on 3 L nasal cannula. Denies chest pain. Productive cough. Switch to ceftriaxone from piperacillin/tazobactam and vancomycin yesterday. Plan for left heart cath on 09-25 TRANSFERRED TO [facility]ATH TOMORROW NO NEW COMPLAINTS NO SOB, NO CHEST PAIN DW RN AND PT AND FAMILY AM LABS CATH TOMORROW 09-26 FOUND TO HAVE CMP, EF OF 20% ON CATH WILL NEED LIFE VEST AM LABS DW RN AND PT AND FAMILY 09-27 HAD CATH YESTERDAY NEEDS LIFE VEST BEFORE DC WANTS TO GO HOME DW RN AND PT AND CARDIOLOGY Objective Vitals Vital Signs Date Time Temp Pulse Resp B/P (MAP) Pulse Ox O2 Delivery O2 Flow Rate FiO2 09/27/17 06:06 84 09/27/17 05:00 62 09/27/17 04:00 92 09/27/17 04:00 98.2 61 18 136/62 (86) 95 09/27/17 00:00 95 09/27/17 00:00 97.9 78 18 137/64 (88) 95 09/26/17 23:00 95 09/26/17 22:00 95 09/26/17 21:00 96 09/26/17 20:00 103 09/26/17 20:00 97.5 103 18 118/62 (80) 94 09/26/17 19:23 95 09/26/17 19:00 103 09/26/17 18:06 107 09/26/17 17:12 98 09/26/17 16:32 100 18 114/69 (84) 95 09/26/17 16:30 98.0 100 19 114/69 (84) 95 09/26/17 16:30 95 09/26/17 14:11 89 09/26/17 13:56 94 18 151/72 (98) 95 09/26/17 13:12 98 09/26/17 12:19 94 09/26/17 12:19 98.8 94 19 110/56 (74) 96 I/O 09/26/17 09/26/17 09/26/17 09/27/17 09/27/17 09/27/17 07:00 15:00 23:00 07:00 15:00 23:00 Intake Total 240 ml 640 ml 240 ml Output Total 500 ml 1200 ml Balance -260 ml -560 ml 240 ml Intake Oral 240 ml 640 ml 240 ml Output Urine Total 500 ml 1200 ml # Voids 4 # Bowel Movements 1 Result Diagram: 09/27/17 0337 09/27/17 0337 Other Results Laboratory Tests Test 09/24/17 13:22 09/24/17 16:30 09/24/17 20:34 09/25/17 03:35 Activated Partial Thromboplast Time 32.7 SEC 35.5 SEC 52.6 SEC Potassium Level 4.3 MEQ/L 3.6 MEQ/L White Blood Count 11.9 TH/MM3 Red Blood Count 3.88 MIL/MM3 Hemoglobin 10.0 GM/DL Hematocrit 31.1 % Mean Corpuscular Volume 80.1 FL Mean Corpuscular Hemoglobin 25.9 PG Mean Corpuscular Hemoglobin Concent 32.3 % Red Cell Distribution Width 16.8 % Platelet Count 417 TH/MM3 Mean Platelet Volume 8.7 FL Neutrophils (%) (Auto) 47.0 % Lymphocytes (%) (Auto) 38.7 % Monocytes (%) (Auto) 9.3 % Eosinophils (%) (Auto) 3.7 % Basophils (%) (Auto) 1.3 % Neutrophils # (Auto) 5.6 TH/MM3 Lymphocytes # (Auto) 4.6 TH/MM3 Monocytes # (Auto) 1.1 TH/MM3 Eosinophils # (Auto) 0.4 TH/MM3 Basophils # (Auto) 0.2 TH/MM3 CBC Comment DIFF FINAL Differential Comment Blood Urea Nitrogen 21 MG/DL Creatinine 0.84 MG/DL Random Glucose 106 MG/DL Total Protein 7.3 GM/DL Albumin 3.1 GM/DL Calcium Level 9.4 MG/DL Phosphorus Level 3.7 MG/DL Magnesium Level 1.7 MG/DL Alkaline Phosphatase 88 U/L Aspartate Amino Transf (AST/SGOT) 13 U/L Alanine Aminotransferase (ALT/SGPT) 21 U/L Total Bilirubin 0.3 MG/DL Sodium Level 143 MEQ/L Chloride Level 107 MEQ/L Carbon Dioxide Level 27.1 MEQ/L Anion Gap 9 MEQ/L Estimat Glomerular Filtration Rate 67 ML/MIN Test 09/25/17 11:31 09/26/17 03:50 09/26/17 12:22 09/27/17 03:37 Activated Partial Thromboplast Time 42.3 SEC 21.5 SEC 20.4 SEC White Blood Count 9.3 TH/MM3 12.1 TH/MM3 Red Blood Count 3.85 MIL/MM3 4.20 MIL/MM3 Hemoglobin 10.2 GM/DL 10.8 GM/DL Hematocrit 31.1 % 33.7 % Mean Corpuscular Volume 80.7 FL 80.2 FL Mean Corpuscular Hemoglobin 26.4 PG 25.8 PG Mean Corpuscular Hemoglobin Concent 32.7 % 32.1 % Red Cell Distribution Width 16.4 % 16.7 % Platelet Count 435 TH/MM3 438 TH/MM3 Mean Platelet Volume 8.7 FL 8.6 FL Neutrophils (%) (Auto) 47.0 % 53.6 % Lymphocytes (%) (Auto) 39.0 % 32.2 % Monocytes (%) (Auto) 8.7 % 9.3 % Eosinophils (%) (Auto) 3.7 % 3.2 % Basophils (%) (Auto) 1.6 % 1.7 % Neutrophils # (Auto) 4.4 TH/MM3 6.5 TH/MM3 Lymphocytes # (Auto) 3.6 TH/MM3 3.9 TH/MM3 Monocytes # (Auto) 0.8 TH/MM3 1.1 TH/MM3 Eosinophils # (Auto) 0.3 TH/MM3 0.4 TH/MM3 Basophils # (Auto) 0.1 TH/MM3 0.2 TH/MM3 CBC Comment DIFF FINAL DIFF FINAL Differential Comment Blood Urea Nitrogen 17 MG/DL 21 MG/DL Creatinine 0.78 MG/DL 0.71 MG/DL Random Glucose 114 MG/DL 137 MG/DL Total Protein 7.3 GM/DL 7.0 GM/DL Albumin 3.2 GM/DL 3.0 GM/DL Calcium Level 9.3 MG/DL 9.4 MG/DL Phosphorus Level 3.7 MG/DL 3.0 MG/DL Magnesium Level 1.9 MG/DL 1.8 MG/DL Alkaline Phosphatase 84 U/L 79 U/L Aspartate Amino Transf (AST/SGOT) 9 U/L 9 U/L Alanine Aminotransferase (ALT/SGPT) 20 U/L 20 U/L Total Bilirubin 0.3 MG/DL 0.3 MG/DL Sodium Level 141 MEQ/L 141 MEQ/L Potassium Level 3.7 MEQ/L 4.0 MEQ/L Chloride Level 108 MEQ/L 108 MEQ/L Carbon Dioxide Level 25.0 MEQ/L 24.2 MEQ/L Anion Gap 8 MEQ/L 9 MEQ/L Estimat Glomerular Filtration Rate 73 ML/MIN 81 ML/MIN Hemoglobin A1c 7.1 % Free Thyroxine 1.03 NG/DL Thyroid Stimulating Hormone 3rd Gen 1.940 uIU/ML Imaging Last Impressions Chest X-Ray 09/25/17 0600 Signed Impressions: Service Date/Time: Monday, September 25, 2017 04:19 - CONCLUSION: 1. No acute cardiopulmonary disease. Rafael Lemus MD Lower Extremity Ultrasound 09/21/17 0000 Signed Impressions: Service Date/Time: Thursday, September 21, 2017 04:22 - CONCLUSION: No DVT in either leg. Jones Hart MD Head CT 09/21/17 0000 Signed Impressions: Service Date/Time: Thursday, September 21, 2017 02:59 - CONCLUSION: No acute intracranial disease. Jones Hart MD CT Angiography 09/21/17 0000 Signed Impressions: Service Date/Time: Thursday, September 21, 2017 11:25 - CONCLUSION: 1. No evidence of pulmonary embolism. 2. Bilateral infiltrates involving the lower lobes and posterior aspects of the upper lobes consistent with pneumonia and/ or pulmonary edema. 3. Perihilar right middle lobe nodule measuring 1.5 x 1.1 cm which is indeterminate. 4. Possible right hilar lymphadenopathy measuring 2.2 x 1.7 cm. 5. 0.6 cm noncalcified right upper lobe nodule. 6. Bullous emphysema bilaterally. 7. Cardiomegaly and coronary artery calcifications. 8. Tiny left pleural effusion. 9. Hiatal hernia. Chalino Aguirre MD Objective Remarks GENERAL: AWAKE AND ALERT AND ORIENTED X3 IN NO ACUTE DISTRESS SKIN: Warm and dry. HEAD: Atraumatic. Normocephalic. EYES: Pupils equal and round. No scleral icterus. No injection or drainage. EOMI ENT: No nasal bleeding or discharge. Mucous membranes pink and moist. TONGUE MIDLINE NECK: Trachea midline. No JVD. SUPPLE CARDIOVASCULAR: Regular rate and rhythm. S1, S2, NO S3 OR S4 NO HEAVE OR THRILL RESPIRATORY: No accessory muscle use. Clear to auscultation. Breath sounds equal bilaterally. GASTROINTESTINAL: Abdomen soft, non-tender, nondistended. Hepatic and splenic margins not palpable. MUSCULOSKELETAL: Extremities without clubbing, cyanosis, or edema. No obvious deformities. NEUROLOGICAL: Awake and alert. No obvious cranial nerve deficits. Motor grossly within normal limits. Five out of 5 muscle strength in the arms and legs. Normal speech. PSYCHIATRIC: Appropriate mood and affect; insight and judgment normal. Procedures VENT MANAGEMENT, INTUBATION EXTUBATION Tera Brooke DO DATE: 09/26/2017 DATE OF PROCEDURE: 09/26/2017 PROCEDURE PERFORMED: Left heart catheterization, right heart catheterization, coronary angiogram, ultrasound-guided access. PREPROCEDURE DIAGNOSES: Elevated troponin, new cardiomyopathy, acute systolic heart failure. POSTPROCEDURE DIAGNOSES: Nonischemic cardiomyopathy with an ejection fraction of less than 20%, Non-ST elevation myocardial infarction type 2, compensated heart failure. MEDICATIONS: Fentanyl 50 mcg, Verapamil 2.5 mg, nitro 200 mcg, heparin 2400 units. CONTRAST USED: 45 mL. FLUOROSCOPY: 4.4 minutes. MODERATE SEDATION: Zero minutes. FRAILTY SCORE: 4. ESTIMATED BLOOD LOSS: 10 mL. PROCEDURAL SUMMARY: Amberly Desouza is a pleasant 72-year-old female who originally presented to [facility] emergency room as respiratory failure. She had an echocardiogram done and was found to have an ejection fraction of 15-20%, which was totally new for her. Because of this, as well as her elevated troponin, she was recommended cardiac catheterization. Risks, benefits and alternatives were explained to her and she consented to such. She was brought to the lab and prepped in the usual sterile fashion. The right radial artery was accessed using a modified Seldinger technique with ultrasound guidance and placement of a 5/6 Upper Sorbian slender sheath. This was easily aspirated and flushed. Right brachial vein was accessed using a modified Seldinger technique with ultrasound guidance and placement of a 5/6 Upper Sorbian slender sheath. This was easily aspirated and flushed. A Nogales-Wolf catheter was advanced to a wedge position and oxygen saturations as well as pressures were done on a standard pullback throughout the heart. Nogales-Wolf catheter was removed. JR4 was advanced over a J-wire to the ascending aorta and across the aortic valve for measurement of left ventricular pressure. This was pulled across the aortic valve showing no significant gradient of aortic stenosis. JR4 was used to perform selective angiography of the right coronary artery system. This is exchanged for a JL3.5, which was used to perform selective angiography of the left coronary artery system. JL3.5 was removed over a J-wire. A radial band was placed over the arteriotomy site for hemostasis. The patient left the research laboratory technician cardiovascularly stable. ANGIOGRAPHIC SUMMARY: Left main is a normal size vessel with 10-20% disease noted. It bifurcates into an LAD and circumflex. LAD has mild luminal irregularities about 10% throughout the proximal portion. The mid portion has diffuse 10-20% disease. It gives off 1 major diagonal with no significant disease. Left circumflex is a normal size vessel with a 30% lesion in the mid portion. It gives off 3 obtuse marginals with the first and third being small the second one being relatively normal size with no significant disease. RCA is a normal size vessel with mild luminal irregularities throughout. Overall, no significant disease. HEMODYNAMIC SUMMARY: RA 6. RV 34/3, RVEDP 8. PA 34/12, mean PA 20. Wedge 13. LVEDP 12. Cardiac output 4.8. Cardiac index 2.9. IMPRESSIONS: 1. New nonischemic cardiomyopathy with an ejection fraction less than 20%. 2. Non-ST elevation myocardial infarction type 2. 3. Compensated heart failure. RECOMMENDATIONS: 1. Ms. Desouza appears to have a nonischemic cardiomyopathy and she will be recommended medical therapy. 2. She will continue on JUSTIN inhibitor therapy, as well as beta winifred therapy, although I will change this to carvedilol over metoprolol tartrate. 3. Her aspirin can be changed to 81 mg daily. 4. We will discuss with her about consideration of a LifeVest. 5. She will need a repeat echo in 3 months' time to evaluate resolution of her cardiomyopathy and if no resolution, consideration of ICD therapy. Thank you for allowing me to see Amberly Desouza. If there are any questions, please do not hesitate to call. Tera Brooke, DO Medications and IVs Current Medications Sodium Chloride (NS Flush) 2 ml UNSCH PRN IVF FLUSH AFTER USING IV ACCESS; Start 09/21/17 at 00:00; Stop 09/21/17 at 04:09; Status DC Nitroglycerin (Nitroglycerin 2% Oint) 1 inch ONCE ONCE TOPICAL Last administered on 09/21/17at 01:30; Start 09/21/17 at 00:15; Stop 09/21/17 at 00:16 ; Status DC Propofol 100 ml @ 0 mls/hr TITRATE PRN IV SEDATION Last administered on at 03:00; Start 09/21/17 at 00:15; Stop 09/21/17 at 03:18; Status DC Piperacillin Sod/ Tazobactam Sod 100 ml @ 200 mls/hr ONCE ONCE IV Last administered on 09/21/17at 01:30; Start 09/21/17 at 00:30; Stop 09/21/17 at 00:59 ; Status DC Vancomycin HCl 1000 mg/Sodium Chloride 250 ml @ 250 mls/hr ONCE ONCE IV Last administered on 09/21/17at 03:00; Start 09/21/17 at 00:30; Stop 09/21/17 at 01:29 ; Status DC Sodium Bicarbonate (Sodium Bicarbonate 8.4% Inj) 50 meq ONCE ONCE IV PUSH Last administered on 09/21/17at 01:30; Start 09/21/17 at 00:45; Stop 09/21/17 at 00:46; Status DC Aspirin (Ecotrin Ec) 325 mg DAILY PO Last administered on 09/25/17at 08:32; Start 09/21/17 at 09:00; Stop 09/26/17 at 09:59; Status DC Atorvastatin Calcium (Lipitor) 40 mg HS PO Last administered on 09/26/17at 21:50 ; Start 09/21/17 at 21:00 Dextrose (D50w (Vial) Inj) 50 ml UNSCH PRN IV PUSH HYPOGLYCEMIA-SEE COMMENTS; Start 09/21/17 at 03:00 Glucagon (Glucagon Inj) 1 mg UNSCH PRN OTHER HYPOGLYCEMIA-SEE COMMENTS; Start 09/21/17 at 03:00 Insulin Aspart (NovoLOG SUPPLEMENTAL SCALE) 1 ACHS SLIDING SCALE SQ ; Start 04/30 at 08:00; Stop 09/21/17 at 09:55; Status DC Sodium Chloride (NS Flush) 2 ml UNSCH PRN IV FLUSH FLUSH AFTER USING IV ACCESS Last administered on 09/24/17at 08:14; Start 09/21/17 at 03:00 Sodium Chloride (NS Flush) 2 ml BID IV FLUSH Last administered on 09/26/17at 21: 50; Start 09/21/17 at 09:00 Acetaminophen (Tylenol) 650 mg Q6H PRN PO PAIN 1-5 AND/OR FEVER >101F; Start at 03:00; Stop 09/21/17 at 09:55; Status DC Morphine Sulfate (Morphine Inj) 2 mg Q2H PRN IV PUSH PAIN SCALE 6 TO 10; Start 09/21/17 at 03:00; Stop 09/22/17 at 13:14; Status DC Famotidine (Pepcid Inj) 20 mg Q12HR IV PUSH Last administered on 09/22/17at 08: 53; Start 09/21/17 at 09:00; Stop 09/22/17 at 13:15; Status DC Midazolam HCl (Versed Inj) 2 mg Q1H PRN IV PUSH SEDATION; Start 09/21/17 at 03: 00; Stop 09/21/17 at 16:41; Status DC Artificial Tears (Tears Naturale Opth Soln) 1 drop TID EACH EYE ; Start at 09:00; Stop 09/22/17 at 13:15; Status DC Ondansetron HCl (Zofran Inj) 4 mg Q6H PRN IV PUSH NAUSEA OR VOMITING; Start 04/30 at 03:00 Albuterol/ Ipratropium (Duoneb Neb) 1 ampule Q4HR NEB INH Last administered on 09/22/17at 11:06; Start 09/21/17 at 04:00; Stop 09/22/17 at 13:14; Status DC Albuterol/ Ipratropium (Duoneb Neb) 1 ampule Q2HR NEB PRN INH WHEEZING; Start 09/21/17 at 03:00; Stop 09/21/17 at 09:55; Status DC Miscellaneous Information 1 [id number] Last administered on 09/21/17at 05:37; Start 09/21/17 at 03:00 Chlorhexidine Gluconate (Chlorhexidine 2% Cloth) Taper DAILY@04 TOP Last administered on 09/24/17at 03:36; Start 09/21/17 at 04:00; Stop 09/17/18 at 03:59 Chlorhexidine Gluconate (Chlorhexidine 2% Cloth) 3 pack UNSCH PRN TOP HYGIENIC CARE; Start 09/21/17 at 03:00 Senna/Docusate Sodium (Alysa-Colace) 1 tab BID PO Last administered on at 21:50; Start 09/21/17 at 09:00 Magnesium Hydroxide (Milk Of Magnesia Liq) 30 ml Q12H PRN PO Mild constipation ; Start 09/21/17 at 03:00 Sennosides (Senokot) 17.2 mg Q12H PRN PO Moderate constipation; Start 09/21/17 at 03:00 Bisacodyl (Dulcolax Supp) 10 mg DAILY PRN RECTAL SEVERE CONSITIPATION; Start at 03:00 Lactulose (Lactulose Liq) 30 ml DAILY PRN PO SEVERE CONSITIPATION; Start at 03:00 Chlorhexidine Gluconate (Peridex 0.12% Liq) 15 ml BID@08,20 MT Last administered on 09/22/17at 20:00; Start 09/21/17 at 08:00 Propofol 100 ml @ 2.25 mls/hr TITRATE PRN IV SEDATION Last administered on 04/30at 12:08; Start 09/21/17 at 03:00; Stop 09/21/17 at 16:41; Status DC Heparin Sodium (Porcine) (Heparin Inj) 4,000 units ONCE ONCE IV PUSH Last administered on 09/21/17at 03:34; Start 09/21/17 at 03:15; Stop 09/21/17 at 03:18 ; Status DC Heparin Sodium (Porcine) (Heparin Inj) 5,000 units UNSCH PRN IV PUSH APTT LESS THAN 25; Start 09/21/17 at 09:15; Stop 09/26/17 at 09:59; Status DC Heparin Sodium (Porcine) (Heparin Inj) 2,500 units UNSCH PRN IV PUSH APTT 25 TO 39 Last administered on 09/26/17at 05:46; Start 09/21/17 at 09:15; Stop at 09:59; Status DC Heparin Sodium/ Dextrose 250 ml @ 9 mls/hr TITRATE PRN IV Coagulation Management Last administered on 09/25/17at 08:30; Start 09/21/17 at 03:15; Stop 09/26/17 at 09:59; Status DC Sodium Bicarbonate 150 meq/Dextrose 1,150 ml @ 75 mls/hr [id number] IV Last administered on 09/21/17at 04:15; Start 09/21/17 at 04:15; Stop 09/21/17 at 17:44 ; Status DC Potassium Chloride (KCl Powder) 20 meq ONCE ONCE PO Last administered on at 08:56; Start 09/21/17 at 08:45; Stop 09/21/17 at 08:46; Status DC Magnesium Sulfate/ Dextrose 100 ml @ 100 mls/hr Q1H IV Last administered on 04/30at 13:35; Start 09/21/17 at 08:45; Stop 09/21/17 at 12:44; Status DC Insulin Aspart (NovoLOG SUPPLEMENTAL SCALE) 1 Q6HR SQ ; Start 09/21/17 at 12:00 ; Stop 09/22/17 at 13:15; Status DC Albuterol Sulfate (Albuterol Neb) 2.5 mg Q2HR NEB PRN NEB [id number] Last administered on 09/23/17at 00:27; Start 09/21/17 at 10:00 Acetylcysteine (Mucomyst 20% Liq) 600 mg BID PO Last administered on 09/23/17at 08:40; Start 09/21/17 at 21:00; Stop 09/23/17 at 09:01; Status DC Iohexol (Omnipaque 350 Inj) 72 ml STK-MED ONCE IVCONTRAST Last administered on 09/21/17at 11:29; Start 09/21/17 at 11:29; Stop 09/21/17 at 11:31; Status DC Pharmacy Profile Note 0 ml @ 0 mls/hr UNSCH OTHER ; Start 09/21/17 at 13:30; Status Cancel Azithromycin 500 mg/Sodium Chloride 250 ml @ 250 mls/hr ONCE ONCE IV Last administered on 09/21/17at 16:47; Start 09/21/17 at 13:30; Stop 09/21/17 at 14:29 ; Status DC Piperacillin Sod/ Tazobactam Sod 50 ml @ 200 mls/hr Q6H IV Last administered on 09/23/17at 07:53; Start 09/21/17 at 15:00; Stop 09/23/17 at 14:13; Status DC Vancomycin HCl 1000 mg/Sodium Chloride 250 ml @ 250 mls/hr ONCE ONCE IV ; Start 09/21/17 at 15:00; Stop 09/21/17 at 15:00; Status DC Vancomycin HCl 900 mg/Sodium Chloride 259 ml @ 250 mls/hr Q24H IV Last administered on 09/22/17at 02:54; Start 09/22/17 at 03:00; Stop 09/22/17 at 10:20 ; Status DC Miscellaneous Information SPECIFIC LAB TO BE DRAWN:VANCOMY... ONCE ONCE .XX ; Start 09/24/17 at 02:45; Stop 09/24/17 at 02:46; Status Cancel Acetaminophen (Tylenol 650 Mg/ 20 ml Liq) 650 mg Q6H PRN PO fever Last administered on 09/22/17at 03:41; Start 09/21/17 at 16:45 Potassium Chloride (KCl) 40 meq ONCE ONCE PO Last administered on 09/22/17at 09 :03; Start 09/22/17 at 07:45; Stop 09/22/17 at 07:55; Status DC Potassium Chloride (KCl) 40 meq ONCE ONCE PO Last administered on 09/22/17at 16 :13; Start 09/22/17 at 11:00; Stop 09/22/17 at 11:01; Status DC Vancomycin HCl 1250 mg/Sodium Chloride 262.5 ml @ 250 mls/hr Q24H IV Last administered on 09/23/17at 02:25; Start 09/23/17 at 03:00; Stop 09/23/17 at 14:13 ; Status DC Albuterol/ Ipratropium (Duoneb Neb) 1 ampule Q6HR NEB INH Last administered on 09/24/17at 10:00; Start 09/22/17 at 16:00; Stop 09/24/17 at 12:17; Status DC Insulin Aspart (NovoLOG SUPPLEMENTAL SCALE) 1 ACHS SQ Last administered on 09/26at 17:10; Start 09/22/17 at 17:00 Morphine Sulfate (Morphine Inj) 2 mg Q4HR PRN IV PUSH PAIN SCALE 6 TO 10; Start 09/22/17 at 13:15 Azithromycin (Zithromax) 500 mg DAILY PO Last administered on 09/26/17at 10:25; Start 09/22/17 at 13:15; Stop 09/28/17 at 13:14 Famotidine (Pepcid) 20 mg HS PO Last administered on 09/26/17at 21:50; Start 05/30 at 21:00 Acetaminophen/ Hydrocodone Bitart (Ryegate 5-325 Mg) 1 tab Q4H PRN PO paiN 1-5; Start 09/22/17 at 13:15 Guaifenesin (Mucinex Er) 600 mg BID PO Last administered on 09/26/17at 21:50; Start 09/22/17 at 21:00 Pantoprazole Sodium (Protonix) 40 mg DAILY PO Last administered on 09/26/17at 10 :25; Start 09/23/17 at 09:00 Lisinopril (Prinivil) 5 mg Q12HR PO Last administered on 09/25/17at 21:34; Start 09/22/17 at 21:00; Stop 09/26/17 at 09:59; Status DC Metoprolol Tartrate (Lopressor) 6.25 mg Q12HR PO Last administered on at 21:35; Start 09/22/17 at 21:00; Stop 09/26/17 at 09:59; Status DC Prednisone (Deltasone) 20 mg BID PO Last administered on 09/24/17at 08:15; Start 09/22/17 at 21:00; Stop 09/24/17 at 12:17; Status DC Ceftriaxone Sodium 1000 mg/ Sodium Chloride 100 ml @ 200 mls/hr Q24H IV Last administered on 09/26/17 16:17; Start 09/23/17 at 15:00 Magnesium Sulfate/ Dextrose 100 ml @ 100 mls/hr Q1H IV Last administered on 21:24; Start 09/23/17 at 20:00; Stop 09/23/17 at 21:59; Status DC Furosemide (Lasix Inj) 40 mg ONCE ONCE IV PUSH Last administered on 09/23/17at 19:35; Start 09/23/17 at 19:15; Stop 09/23/17 at 19:23; Status DC Potassium Chloride (KCl) 30 meq ONCE ONCE PO Last administered on 09/23/17 19 :34; Start 09/23/17 at 19:15; Stop 09/23/17 at 19:23; Status DC Furosemide (Lasix) 20 mg DAILY PO Last administered on 09/26/17at 09:00; Start 09/24/17 at 09:00 Potassium Chloride (KCl) 10 meq DAILY PO Last administered on 09/26/17at 10:25; Start 09/24/17 at 09:00 Sodium Polystyrene Sulfonate (Kayexalate Liq) 15 gm ONCE ONCE PO Last administered on 09/24/17 10:22; Start 09/24/17 at 10:15; Stop 09/24/17 at 10:19 ; Status DC Albuterol/ Ipratropium (Duoneb Neb) 1 ampule TID NEB INH Last administered on 09/26/17 08:13; Start 09/24/17 at 14:00; Stop 09/26/17 at 12:19; Status DC Prednisone (Deltasone) 20 mg DAILY PO Last administered on 09/26/17at 10:24; Start 09/25/17 at 09:00; Stop 09/26/17 at 12:19; Status DC Lactobacillus Acidophilus (Lactinex) 1 tab Q12HR PO Last administered on at 21:50; Start 09/24/17 at 21:00 Potassium Bicarb/ Potassium Chloride (K-Lyte Cl Eff) 50 meq ONCE ONCE PO Last administered on 09/25/17at 17:45; Start 09/25/17 at 17:45; Stop 09/25/17 at 17:46; Status DC Magnesium Sulfate/ Dextrose 100 ml @ 100 mls/hr Q1H IV Last administered on at 18:48; Start 09/25/17 at 18:00; Stop 09/25/17 at 19:59; Status DC Heparin Sodium/ Sodium Chloride 2,000 ml @ As Directed STK-MED ONCE IV FLUSH ; Start 09/26/17 at 08:47; Stop 09/26/17 at 08:48; Status DC Verapamil HCl (Isoptin Inj) 5 mg STK-MED ONCE .ROUTE Last administered on at 09:22; Start 09/26/17 at 08:48; Stop 09/26/17 at 08:49; Status DC Heparin Sodium (Porcine) (Heparin Inj) 10,000 units STK-MED ONCE .ROUTE Last administered on 09/26/17at 09:22; Start 09/26/17 at 08:48; Stop 09/26/17 at 08:49 ; Status DC Lidocaine HCl (Xylocaine-Mpf 1% Inj) 30 ml STK-MED ONCE .ROUTE Last administered on 09/26/17at 08:55; Start 09/26/17 at 08:55; Stop 09/26/17 at 08:56 ; Status DC Midazolam HCl (Versed Inj) 2 mg STK-MED ONCE .ROUTE ; Start 09/26/17 at 09:10; Stop 09/26/17 at 09:11; Status DC Fentanyl Citrate (fentaNYL INJ) 100 mcg STK-MED ONCE .ROUTE Last administered on 09/26/17at 09:17; Start 09/26/17 at 09:16; Stop 09/26/17 at 09:17; Status DC Lisinopril (Prinivil) 5 mg DAILY PO ; Start 09/27/17 at 09:00 Miscellaneous Information 1 ONCE ONCE XX ; Start 09/26/17 at 10:00; Stop at 10:51; Status DC Carvedilol (Coreg) 3.125 mg Q12HR PO Last administered on 09/26/17at 21:50; Start 09/26/17 at 11:00 Aspirin (Aspirin Chew) 81 mg DAILY CHEW ; Start 09/27/17 at 09:00 Iohexol (OMNIPAQUE 350 INJ (Information Systems Coordinator)) 50 ml STK-MED ONCE OTHER ; Start at 11:32; Stop 09/26/17 at 11:33; Status DC A/P Assessment and Plan Neuro/Psych: Acetaminophen 650 mg p.o. every 6 hours as needed fever Hydrocodone/acetaminophen 5/325 1 tablet p.o. every 6 hours as needed pain 1 through 5 Morphine sulfate 2 mg IV every 4 hours as needed pain 6 or 10 CV: Elevated troponin Acute systolic heart failure Hypertension Hyperlipidemia Evaluated by cardiology/Dr. Brooke with planned left heart catheterization on Tuesday 09/26 Currently on heparin drip at 900 units an hour Aspirin 325 mg p.o. daily. On 81 mg daily at home Continue atorvastatin 40 mg p.o. daily for dyspnea./Home medication Currently holding home medications of lisinopril 20 mg daily and holding verapamil 120 mg p.o. daily. Continue low-dose metoprolol tartrate 6.25 mg p.o. twice daily and lisinopril 5 mg p.o. twice daily 2D echo The left ventricular systolic function is severely reduced with an estimated ejection fraction less than 20%. Severe hypokinesis to akinesis of anterior wall. There is diffuse global hypokinesis with distinct regional wall motion abnormalities. Wall thickness is normal. Normal left ventricular size. Mitral annular calcification is present. Mild to moderate mitral valve regurgitation. Aortic valve sclerosis is present. Mild aortic valve regurgitation. Mild pulmonary valve regurgitation. There is a small pericardial effusion present. Started on furosemide 20 mg by mouth daily with KCl 10 mEq daily. SP CARDIAC CATH EF OF 20% WILL NEED LIFEVEST PRIOR TO DISCHARGE Resp: Acute hypoxemic hypercapnic respiratory failure secondary to his acute systolic heart failure exacerbation/community acquired pneumonia Extubated 09/21 Nasal cannula to maintain saturations greater than equal to 92%. Currently on 3 L Incentives parameter while awake CT pulmonary revealed bilateral lower lobe infiltrates/effusions with posterior upper lobe infiltrate/edema. 1.5 x 1.1 cm right middle lobe nodule and 0.6 cm right upper lobe nodule. Perihilar lymphadenopathy. Hiatal hernia. Albuterol/ipratropium aerosols every 6 hours with albuterol aerosols every 2 hours. Dyspnea Guaifenesin 600 mg p.o. twice daily Acapella every [address] Noel/pulmonology GI: Gastroesophageal reflux disease Hypoalbuminemia ADA diet Pantoprazole 40 mg daily for GI prophylaxis. On omeprazole/sodium bicarbonate 1 tablet daily at home Docusate sodium/senna 1 tablet twice daily for bowel region : ICU patient receiving antibiotics indication for Bunn catheter WILL DC BUNN Endo: Diabetes mellitus type II controlled Holding Canagliflozin/metformin 1 tablet twice daily for diabetes and glipizide 5 mg daily. Currently on sliding scale insulin with Accu-Cheks every before meals/at bedtime to maintain euglycemia/high regimen Renal: Creatinine slowly normalizing Monitor urine output Accurate I's and O's Heme: Normocytic anemia Monitor CBC daily. Follow trends. Does not meet transfusion threshold at this time Currently on a heparin drip ID: Community acquired pneumonia Piperacillin/tazobactam, vancomycin is continued after 3 days. Currently on ceftriaxone day #3 and azithromycin day 5 PREDNISONE 20MG DAILY Blood cultures, sputum, urine or/11 all no growth to date Influenza negative FEN: Replace electrolytes as clinically indicated A.m. potassium magnesium pending MSK: PT evaluate and treat Access -Utilize peripheral IV. Central line if indicated Prophylaxis -GI -pantoprazole -DVT -SCD/heparin drip Discharge Planning PENDING CARDIAC CLEARANCE AM LABS Los Persaud DO Sep 27, 2017 09:06
[2017-09-27] MEDS ORDERED: NEBULIZER1 MI1 (09:14)
[2017-09-27] MEDS ORDERED: Albuterol Neb NEB (09:14)
[2017-09-27] MEDS ORDERED: LACT PO (09:14)
[2017-09-27] MEDS ORDERED: ZEGE20CA4 PO (09:14)
[2017-09-27] MEDS ORDERED: KLOR10TA PO (09:14)
[2017-09-27] MEDS ORDERED: FURO20TA PO (09:14)
[2017-09-27] MEDS ORDERED: ATOR40TA16 PO (09:14)
[2017-09-27] MEDS ORDERED: CEFU1TAB18 PO (09:14)
[2017-09-27] MEDS ORDERED: guaiFENesin ER PO (09:14)
[2017-09-27] MEDS ORDERED: CARV3.125 PO (09:14)
[2017-09-27] MEDS ORDERED: UMEC1AER INH (09:14)
[2017-09-27] MEDS ORDERED: PERI PO (09:14)
[2017-09-27] MEDS ORDERED: ASPI81 CHEW (09:14)
[2017-09-27] MEDS ORDERED: AZIT250T3 PO (09:14)
[2017-09-27] MEDS ORDERED: LISI-519 PO (09:14)
--- NOTE | 2017-09-27 09:16 | HHI.DS ---
Discharge Summary Admission Date Sep 21, 2017 at 02:13 Discharge Date: Sep 27, 2017 Admitting Diagnosis CHF; sepsis; lactic acidosis; elevated troponin I (1) COPD (chronic obstructive pulmonary disease) ICD Code: J44.9 - Chronic obstructive pulmonary disease, unspecified Diagnosis: Principal (2) Hypertension ICD Code: I10 - Essential (primary) hypertension Diagnosis: Secondary (3) Hyperlipidemia ICD Code: E78.5 - Hyperlipidemia, unspecified Diagnosis: Secondary (4) Respiratory arrest ICD Code: R09.2 - Respiratory arrest Diagnosis: Principal Status: Acute (5) Lactic acidosis ICD Code: E87.2 - Acidosis Diagnosis: Secondary Status: Acute (6) CHF (congestive heart failure) ICD Code: I50.9 - Heart failure, unspecified Diagnosis: Principal Status: Acute (7) ACS (acute coronary syndrome) ICD Code: I24.9 - Acute ischemic heart disease, unspecified Diagnosis: Principal Status: Acute (8) NICM (nonischemic cardiomyopathy) ICD Code: I42.8 - Other cardiomyopathies (9) Sepsis ICD Code: A41.9 - Sepsis, unspecified organism Diagnosis: Principal Status: Acute Procedures VENT MANAGEMENT, INTUBATION EXTUBATION Tera Brooke DO DATE: 09/26/2017 DATE OF PROCEDURE: 09/26/2017 PROCEDURE PERFORMED: Left heart catheterization, right heart catheterization, coronary angiogram, ultrasound-guided access. PREPROCEDURE DIAGNOSES: Elevated troponin, new cardiomyopathy, acute systolic heart failure. POSTPROCEDURE DIAGNOSES: Nonischemic cardiomyopathy with an ejection fraction of less than 20%, Non-ST elevation myocardial infarction type 2, compensated heart failure. MEDICATIONS: Fentanyl 50 mcg, Verapamil 2.5 mg, nitro 200 mcg, heparin 2400 units. CONTRAST USED: 45 mL. FLUOROSCOPY: 4.4 minutes. MODERATE SEDATION: Zero minutes. FRAILTY SCORE: 4. ESTIMATED BLOOD LOSS: 10 mL. PROCEDURAL SUMMARY: Amberly Desouza is a pleasant 72-year-old female who originally presented to [facility] emergency room as respiratory failure. She had an echocardiogram done and was found to have an ejection fraction of 15-20%, which was totally new for her. Because of this, as well as her elevated troponin, she was recommended cardiac catheterization. Risks, benefits and alternatives were explained to her and she consented to such. She was brought to the lab and prepped in the usual sterile fashion. The right radial artery was accessed using a modified Seldinger technique with ultrasound guidance and placement of a 5/6 Jordanian slender sheath. This was easily aspirated and flushed. Right brachial vein was accessed using a modified Seldinger technique with ultrasound guidance and placement of a 5/6 Jordanian slender sheath. This was easily aspirated and flushed. A Willoughby-Wolf catheter was advanced to a wedge position and oxygen saturations as well as pressures were done on a standard pullback throughout the heart. Willoughby-Wolf catheter was removed. JR4 was advanced over a J-wire to the ascending aorta and across the aortic valve for measurement of left ventricular pressure. This was pulled across the aortic valve showing no significant gradient of aortic stenosis. JR4 was used to perform selective angiography of the right coronary artery system. This is exchanged for a JL3.5, which was used to perform selective angiography of the left coronary artery system. JL3.5 was removed over a J-wire. A radial band was placed over the arteriotomy site for hemostasis. The patient left the laborer general cardiovascularly stable. ANGIOGRAPHIC SUMMARY: Left main is a normal size vessel with 10-20% disease noted. It bifurcates into an LAD and circumflex. LAD has mild luminal irregularities about 10% throughout the proximal portion. The mid portion has diffuse 10-20% disease. It gives off 1 major diagonal with no significant disease. Left circumflex is a normal size vessel with a 30% lesion in the mid portion. It gives off 3 obtuse marginals with the first and third being small the second one being relatively normal size with no significant disease. RCA is a normal size vessel with mild luminal irregularities throughout. Overall, no significant disease. HEMODYNAMIC SUMMARY: RA 6. RV 34/3, RVEDP 8. PA 34/12, mean PA 20. Wedge 13. LVEDP 12. Cardiac output 4.8. Cardiac index 2.9. IMPRESSIONS: 1. New nonischemic cardiomyopathy with an ejection fraction less than 20%. 2. Non-ST elevation myocardial infarction type 2. 3. Compensated heart failure. RECOMMENDATIONS: 1. Ms. Desouza appears to have a nonischemic cardiomyopathy and she will be recommended medical therapy. 2. She will continue on JUSTIN inhibitor therapy, as well as beta winifred therapy, although I will change this to carvedilol over metoprolol tartrate. 3. Her aspirin can be changed to 81 mg daily. 4. We will discuss with her about consideration of a LifeVest. 5. She will need a repeat echo in 3 months' time to evaluate resolution of her cardiomyopathy and if no resolution, consideration of ICD therapy. Thank you for allowing me to see Amberly Desouza. If there are any questions, please do not hesitate to call. Tera Brooke, DO Brief History - From Admission 77-year-old female presents by EMS transport from local fire department where she went into respiratory failure and then into respiratory arrest. Patient presented to the fire department with marked shortness of breath fire department personnel attempted CPAP and then patient went into respiratory arrest and was intubated with 7.0 endotracheal tube by EMS. Patient had received Lasix 30 mg IV push 1 dose and sublingual nitroglycerin and aspirin prior to respiratory arrest by firefighters. Paramedics identified patient to have a left bundle branch block of indeterminate age. These EKG findings were discussed with Dr. Huffman mechanical service technician on-call by ED attending and recommendation was not to proceed with a cardiac catheterization emergently. CBC/BMP: 09/27/17 0337 09/27/17 0337 Significant Findings Laboratory Tests Test 09/24/17 13:22 09/24/17 16:30 09/24/17 20:34 09/25/17 03:35 Activated Partial Thromboplast Time 32.7 SEC (24.3-30.1) 35.5 SEC (24.3-30.1) 52.6 SEC (24.3-30.1) White Blood Count 11.9 TH/MM3 (4.0-11.0) Red Blood Count 3.88 MIL/MM3 (4.00-5.30) Hemoglobin 10.0 GM/DL (11.6-15.3) Hematocrit 31.1 % (35.0-46.0) Mean Corpuscular Hemoglobin 25.9 PG (27.0-34.0) Monocytes (%) (Auto) 9.3 % (0.0-8.0) Monocytes # (Auto) 1.1 TH/MM3 (0-0.9) Blood Urea Nitrogen 21 MG/DL (7-18) Albumin 3.1 GM/DL (3.4-5.0) Aspartate Amino Transf (AST/SGOT) 13 U/L (15-37) Estimat Glomerular Filtration Rate 67 ML/MIN (>89) Test 09/25/17 11:31 09/26/17 03:50 09/26/17 12:22 09/27/17 03:37 Activated Partial Thromboplast Time 42.3 SEC (24.3-30.1) 21.5 SEC (24.3-30.1) 20.4 SEC (24.3-30.1) Red Blood Count 3.85 MIL/MM3 (4.00-5.30) Hemoglobin 10.2 GM/DL (11.6-15.3) 10.8 GM/DL (11.6-15.3) Hematocrit 31.1 % (35.0-46.0) 33.7 % (35.0-46.0) Mean Corpuscular Hemoglobin 26.4 PG (27.0-34.0) 25.8 PG (27.0-34.0) Monocytes (%) (Auto) 8.7 % (0.0-8.0) 9.3 % (0.0-8.0) Random Glucose 114 MG/DL (74-106) 137 MG/DL (74-106) Albumin 3.2 GM/DL (3.4-5.0) 3.0 GM/DL (3.4-5.0) Aspartate Amino Transf (AST/SGOT) 9 U/L (15-37) 9 U/L (15-37) Chloride Level 108 MEQ/L (98-107) 108 MEQ/L (98-107) Estimat Glomerular Filtration Rate 73 ML/MIN (>89) 81 ML/MIN (>89) Hemoglobin A1c 7.1 % (4.3-6.0) White Blood Count 12.1 TH/MM3 (4.0-11.0) Monocytes # (Auto) 1.1 TH/MM3 (0-0.9) Blood Urea Nitrogen 21 MG/DL (7-18) Imaging Last Impressions Chest X-Ray 4/15/18 0600 Signed Impressions: Service Date/Time: Monday, September 25, 2017 04:19 - CONCLUSION: 1. No acute cardiopulmonary disease. Rafael Lemus MD Lower Extremity Ultrasound 09/21/17 0000 Signed Impressions: Service Date/Time: Thursday, September 21, 2017 04:22 - CONCLUSION: No DVT in either leg. Jones Hart MD Head CT 09/21/17 0000 Signed Impressions: Service Date/Time: Thursday, September 21, 2017 02:59 - CONCLUSION: No acute intracranial disease. Jones Hart MD CT Angiography 09/21/17 0000 Signed Impressions: Service Date/Time: Thursday, September 21, 2017 11:25 - CONCLUSION: 1. No evidence of pulmonary embolism. 2. Bilateral infiltrates involving the lower lobes and posterior aspects of the upper lobes consistent with pneumonia and/ or pulmonary edema. 3. Perihilar right middle lobe nodule measuring 1.5 x 1.1 cm which is indeterminate. 4. Possible right hilar lymphadenopathy measuring 2.2 x 1.7 cm. 5. 0.6 cm noncalcified right upper lobe nodule. 6. Bullous emphysema bilaterally. 7. Cardiomegaly and coronary artery calcifications. 8. Tiny left pleural effusion. 9. Hiatal hernia. Chalino Aguirre MD PE at Discharge GENERAL: AWAKE AND ALERT AND ORIENTED X3 IN NO ACUTE DISTRESS SKIN: Warm and dry. HEAD: Atraumatic. Normocephalic. EYES: Pupils equal and round. No scleral icterus. No injection or drainage. EOMI ENT: No nasal bleeding or discharge. Mucous membranes pink and moist. TONGUE MIDLINE NECK: Trachea midline. No JVD. SUPPLE CARDIOVASCULAR: Regular rate and rhythm. S1, S2, NO S3 OR S4 NO HEAVE OR THRILL RESPIRATORY: No accessory muscle use. Clear to auscultation. Breath sounds equal bilaterally. GASTROINTESTINAL: Abdomen soft, non-tender, nondistended. Hepatic and splenic margins not palpable. MUSCULOSKELETAL: Extremities without clubbing, cyanosis, or edema. No obvious deformities. NEUROLOGICAL: Awake and alert. No obvious cranial nerve deficits. Motor grossly within normal limits. Five out of 5 muscle strength in the arms and legs. Normal speech. PSYCHIATRIC: Appropriate mood and affect; insight and judgment normal. Hospital Course 77-year-old female presents by EMS transport from local fire department where she went into respiratory failure and then into respiratory arrest. Patient presented to the fire department with marked shortness of breath fire department personnel attempted CPAP and then patient went into respiratory arrest and was intubated with 7.0 endotracheal tube by EMS. Patient had received Lasix 30 mg IV push 1 dose and sublingual nitroglycerin and aspirin prior to respiratory arrest by firefighters. Paramedics identified patient to have a left bundle branch block of indeterminate age. These EKG findings were discussed with Dr. Huffman mechanical service technician on-call by ED attending and recommendation was not to proceed with a cardiac catheterization emergently. 09/22: Afebrile. Extubated yesterday without complication currently on nasal cannula. Denies chest pain. Positive cough/severe persistent. Passed swallow evaluation. 09/23: Aggressive pulmonary toilet initiated with bronchodilators and Acapella. Remains on nasal cannula. Denies chest pain currently. Tolerating diet. 09/24: Afebrile. Saturation 100% on 3 L nasal cannula. Denies chest pain. Productive cough. Switch to ceftriaxone from piperacillin/tazobactam and vancomycin yesterday. Plan for left heart cath on 09-25 TRANSFERRED TO OUR SERVICE CARDIAC CATH TOMORROW NO NEW COMPLAINTS NO SOB, NO CHEST PAIN DW RN AND PT AND FAMILY AM LABS CATH TOMORROW - FOUND TO HAVE CMP, EF OF 20% ON CATH WILL NEED LIFE VEST AM LABS DW RN AND PT AND FAMILY 09-27 HAD CATH YESTERDAY NEEDS LIFE VEST BEFORE DC WANTS TO GO HOME DW RN AND PT AND CARDIOLOGY Pt Condition on Discharge: Good Discharge Disposition: Discharge Home Discharge Time: > 30 minutes Discharge Instructions DIET: Follow Instructions for: Heart Healthy Diet, Diabetic Diet Speech Therapy-Diet Recommends: Regular Fluid Restrictions: 1.5 LITERS Activities you can perform: Regular-No Restrictions Follow up Referrals: Cardiology, Interventional - 2 Weeks with Tera Brooke DO PCP Follow-up - 2-3 Days Pulmonology - 2 Weeks with Renard Howard MD New Medications: Cefuroxime (Ceftin) 250 Mg Tab 250 MG PO BID for Infection for 7 Days, #14 TAB Defibrillator Jacket (Defibrillator Jacket) 1 Ea Device EA EXTERNAL ONCE for NICM, #1 Energy = 150 Joules; VT Threshold = 150 BPM; VF Threshold = 200 BPM Use up to 90 days only Nebulizer (Nebulizer) 1 Mis Mis EA .XX DIRECTED for Breathing Treatment, #1 0 Refills Aspirin (Tgt Aspirin) 81 Mg Chw 81 MG CHEW DAILY for Blood Clot Prevention, #30 EA Azithromycin (Azithromycin) 250 Mg Tab 500 MG PO DAILY for Infection, #3 TAB Carvedilol (Coreg) 3.125 Mg Tab 3.125 MG PO Q12HR for Blood Pressure Management, #60 TAB Furosemide (Furosemide) 20 Mg Tab 20 MG PO DAILY for Blood Pressure Management, #30 TAB Lactobacillus Acidophilus (Acidophilus/l-Sporogenes) 35 Million Cell-25 Million Cell Tab 1 TAB PO Q12HR for Nutritional Supplement, #60 TAB Lisinopril (Lisinopril) 5 Mg Tab 5 MG PO DAILY for Blood Pressure Management, #30 TAB Potassium Chloride ER (Klor-Con 10) 10 Meq Tab 10 MEQ PO DAILY for Blood Pressure Management, #30 TAB Sennosides-Docusate Sodium (Gnp Senna Plus 8.6-50 mg) 8.6 Mg-50 Mg Tab 1 TAB PO BID for Constipation, #60 TAB Umeclidinium-Vilanterol Inh (Anoro Ellipta Inh) 62.5-25 Mcg/Act Aero 1 PUFF INH DAILY for Breathing Treatment, #1 INHALER [Albuterol Neb] () 2.5 MG/3 ML NEBU 2.5 MG NEB Q2HR NEB PRN for DYSPNEA, #180 AMPULE [guaiFENesin ER] () 600 MG TABCR 600 MG PO BID for Cough, #60 TAB Continued Medications: Atorvastatin (Atorvastatin) 40 Mg Tab 40 MG PO HS for Cholesterol Management, #30 TAB 0 Refills (This prescription has been renewed) Canagliflozin-Metformin (Invokamet) 50-1,000 Mg Tab 1 TAB PO BID for Blood Sugar Management, #60 TAB 0 Refills Take with meals. Avoid ethanol. Glipizide ER (Glipizide ER) 5 Mg Ramona 5 MG PO DAILY for Blood Sugar Management, #30 TAB 0 Refills Take with breakfast or first main meal of the day. Omeprazole-Sodium Bicarbonate (Zegerid) 20-1,100 Mg Cap 1 CAP PO DAILY for Manage Heartburn, #30 CAP 0 Refills (This prescription has been renewed) Discontinued Medications: Aspirin DR (Ecotrin Regular Strength) 325 Mg Tabdr 325 MG PO DAILY, #30 TAB 0 Refills Lisinopril (Lisinopril) 20 Mg Tab 20 MG PO DAILY, #30 TAB 0 Refills Verapamil (Verapamil) 120 Mg Tab 120 MG PO DAILY, #60 TAB 0 Refills Los Persaud DO Sep 27, 2017 09:16
[2017-09-27] MEDS: AZITHROMYCIN 250 MG TAB PO SCH (09:38)
--- NOTE | 2017-09-27 11:13 | PD.CARD.PN ---
Subjective Subjective Remarks Doing well, off oxygen No chest pain Objective Medications Current Medications Medications (Trade) Dose Ordered Sig/Jack Route Start Time Stop Time Status Last Admin (Lipitor) 40 mg HS PO 09/21/17 21:00 09/26/17 21:50 (D50w (Vial) Inj) 50 ml UNSCH PRN IV PUSH 09/21/17 03:00 (Glucagon Inj) 1 mg UNSCH PRN OTHER 09/21/17 03:00 (NS Flush) 2 ml UNSCH PRN IV FLUSH 09/21/17 03:00 09/24/17 08:14 (NS Flush) 2 ml BID IV FLUSH 09/21/17 09:00 09/27/17 08:57 (Zofran Inj) 4 mg Q6H PRN IV PUSH 09/21/17 03:00 Miscellaneous Information 1 Q361D XX 09/21/17 03:00 09/21/17 05:37 (Chlorhexidine 2% Cloth) Taper DAILY@04 TOP 09/21/17 04:00 09/17/18 03:59 09/24/17 03:36 (Chlorhexidine 2% Cloth) 3 pack UNSCH PRN TOP 09/21/17 03:00 (Alysa-Colace) 1 tab BID PO 09/21/17 09:00 09/26/17 21:50 (Milk Of Magnesia Liq) 30 ml Q12H PRN PO 09/21/17 03:00 (Senokot) 17.2 mg Q12H PRN PO 09/21/17 03:00 (Dulcolax Supp) 10 mg DAILY PRN RECTAL 09/21/17 03:00 (Lactulose Liq) 30 ml DAILY PRN PO 09/21/17 03:00 (Peridex 0.12% Liq) 15 ml BID@08,20 MT 09/21/17 08:00 09/22/17 20:00 (Albuterol Neb) 2.5 mg Q2HR NEB PRN NEB 09/21/17 10:00 09/23/17 00:27 (Tylenol 650 Mg/ 20 ml Liq) 650 mg Q6H PRN PO 09/21/17 16:45 09/22/17 03:41 (NovoLOG SUPPLEMENTAL SCALE) 1 ACHS SQ 09/22/17 17:00 09/26/17 17:10 (Morphine Inj) 2 mg Q4HR PRN IV PUSH 09/22/17 13:15 (Zithromax) 500 mg DAILY PO 09/22/17 13:15 09/28/17 13:14 09/27/17 09:38 (Pepcid) 20 mg HS PO 09/22/17 21:00 09/26/17 21:50 ([place] 5-325 Mg) 1 tab Q4H PRN PO 09/22/17 13:15 (Mucinex Er) 600 mg BID PO 09/22/17 21:00 09/27/17 08:56 (Protonix) 40 mg DAILY PO 09/23/17 09:00 09/27/17 08:56 Ceftriaxone Sodium 1000 mg/ Sodium Chloride 100 ml @ 200 mls/hr Q24H IV 09/23/17 15:00 09/26/17 16:17 (Lasix) 20 mg DAILY PO 09/24/17 09:00 09/27/17 08:57 (KCl) 10 meq DAILY PO 09/24/17 09:00 09/27/17 08:55 (Lactinex) 1 tab Q12HR PO 09/24/17 21:00 09/27/17 08:56 (Prinivil) 5 mg DAILY PO 09/27/17 09:00 09/27/17 09:38 (Coreg) 3.125 mg Q12HR PO 09/26/17 11:00 09/27/17 08:56 (Aspirin Chew) 81 mg DAILY CHEW 09/27/17 09:00 09/27/17 08:56 Vital Signs / I&O Vital Signs Date Time Temp Pulse Resp B/P (MAP) Pulse Ox O2 Delivery O2 Flow Rate FiO2 09/27/17 10:31 86 09/27/17 09:11 97 09/27/17 07:21 90 09/27/17 07:21 98.4 90 18 135/65 (88) 93 09/27/17 06:06 84 09/27/17 05:00 62 09/27/17 04:00 92 09/27/17 04:00 98.2 61 18 136/62 (86) 95 09/27/17 00:00 95 09/27/17 00:00 97.9 78 18 137/64 (88) 95 09/26/17 23:00 95 09/26/17 22:00 95 09/26/17 21:00 96 09/26/17 20:00 103 09/26/17 20:00 97.5 103 18 118/62 (80) 94 09/26/17 19:23 95 09/26/17 19:00 103 09/26/17 18:06 107 09/26/17 17:12 98 09/26/17 16:32 100 18 114/69 (84) 95 09/26/17 16:30 98.0 100 19 114/69 (84) 95 09/26/17 16:30 95 09/26/17 14:11 89 09/26/17 13:56 94 18 151/72 (98) 95 09/26/17 13:12 98 09/26/17 12:19 94 09/26/17 12:19 98.8 94 19 110/56 (74) 96 I/O 09/26/17 09/26/17 09/26/17 09/27/17 09/27/17 09/27/17 07:00 15:00 23:00 07:00 15:00 23:00 Intake Total 240 ml 740 ml 240 ml Output Total 500 ml 1200 ml Balance -260 ml -460 ml 240 ml Intake Oral 240 ml 640 ml 240 ml IV Total 100 ml Output Urine Total 500 ml 1200 ml # Voids 4 # Bowel Movements 1 Physical Exam GENERAL: NAD, AAOx3 SKIN: Warm and dry. HEAD: Atraumatic. Normocephalic. EYES: Pupils equal and round. No scleral icterus. No injection or drainage. ENT: No nasal bleeding or discharge. Mucous membranes pink and moist. NECK: Trachea midline. No JVD. CARDIOVASCULAR: Regular rate and rhythm. RESPIRATORY: Clear to auscultation bilaterally GASTROINTESTINAL: Abdomen soft, non-tender, nondistended. Hepatic and splenic margins not palpable. MUSCULOSKELETAL: Extremities without clubbing, cyanosis, or edema. No obvious deformities. NEUROLOGICAL: Awake and alert. No obvious cranial nerve deficits. Motor grossly within normal limits. Five out of 5 muscle strength in the arms and legs. Normal speech. PSYCHIATRIC: Appropriate mood and affect; insight and judgment normal. Laboratory Laboratory Tests Test 09/26/17 12:22 09/27/17 03:37 Activated Partial Thromboplast Time 20.4 SEC White Blood Count 12.1 TH/MM3 Red Blood Count 4.20 MIL/MM3 Hemoglobin 10.8 GM/DL Hematocrit 33.7 % Mean Corpuscular Volume 80.2 FL Mean Corpuscular Hemoglobin 25.8 PG Mean Corpuscular Hemoglobin Concent 32.1 % Red Cell Distribution Width 16.7 % Platelet Count 438 TH/MM3 Mean Platelet Volume 8.6 FL Neutrophils (%) (Auto) 53.6 % Lymphocytes (%) (Auto) 32.2 % Monocytes (%) (Auto) 9.3 % Eosinophils (%) (Auto) 3.2 % Basophils (%) (Auto) 1.7 % Neutrophils # (Auto) 6.5 TH/MM3 Lymphocytes # (Auto) 3.9 TH/MM3 Monocytes # (Auto) 1.1 TH/MM3 Eosinophils # (Auto) 0.4 TH/MM3 Basophils # (Auto) 0.2 TH/MM3 CBC Comment DIFF FINAL Differential Comment Blood Urea Nitrogen 21 MG/DL Creatinine 0.71 MG/DL Random Glucose 137 MG/DL Total Protein 7.0 GM/DL Albumin 3.0 GM/DL Calcium Level 9.4 MG/DL Phosphorus Level 3.0 MG/DL Magnesium Level 1.8 MG/DL Alkaline Phosphatase 79 U/L Aspartate Amino Transf (AST/SGOT) 9 U/L Alanine Aminotransferase (ALT/SGPT) 20 U/L Total Bilirubin 0.3 MG/DL Sodium Level 141 MEQ/L Potassium Level 4.0 MEQ/L Chloride Level 108 MEQ/L Carbon Dioxide Level 24.2 MEQ/L Anion Gap 9 MEQ/L Estimat Glomerular Filtration Rate 81 ML/MIN Assessment and Plan Problem List: (1) ACS (acute coronary syndrome) ICD Codes: I24.9 - Acute ischemic heart disease, unspecified Status: Acute (2) Sepsis ICD Codes: A41.9 - Sepsis, unspecified organism Status: Acute (3) CHF (congestive heart failure) ICD Codes: I50.9 - Heart failure, unspecified Status: Acute (4) Lactic acidosis ICD Codes: E87.2 - Acidosis Status: Acute (5) Respiratory arrest ICD Codes: R09.2 - Respiratory arrest Status: Acute Assessment and Plan 1) Respiratory arrest s/p extubation 2) Pulmonary edema EF <20% RHC/LHC No significant CAD Wedge/LVEDP normalized, compensated CHF (NYHA 4 on admission, now 2-3) Lifevest today Discussed with patient and family, rep to speak to them about it Plan for repeat echo in 3 months to evaluate EF BB/JUSTIN-I 3) Elevated trop No significant CAD 4) Cardiovascularly stable for discharge Problem Qualifiers (1) Sepsis: Qualified Codes: A41.9 - Sepsis, unspecified organism (2) CHF (congestive heart failure): Qualified Codes: I50.9 - Heart failure, unspecified Tera Brooke DO Sep 27, 2017 11:13
== END 2017-09-27 12:30 | disposition home or self-care (01) | DRG 871 ==
LOC: NEPC 23:44 → NEDA 09-21 02:13 → HIMW 09-21 05:00 → HCPC 09-24 17:34
PROVIDERS: ADMIT Hospitalist; ATTEND Hospitalist
PROC: 5A1935Z Respiratory Ventilation, Less than 24 Consecutive Hours (ICD-10-PCS; principal; 2017-09-21)
PROC: 4A023N8 Measurement of Cardiac Sampling and Pressure, Bilateral, Percutaneous Approach (ICD-10-PCS; 2017-09-26)
PROC: B2111ZZ Fluoroscopy of Multiple Coronary Arteries using Low Osmolar Contrast (ICD-10-PCS; 2017-09-26)
DX: A41.9 Sepsis, unspecified organism (principal); J18.9 Pneumonia, unspecified organism; I21.A1 Myocardial infarction type 2; I50.23 Acute on chronic systolic (congestive) heart failure; J96.01 Acute respiratory failure with hypoxia; J96.02 Acute respiratory failure with hypercapnia; I42.8 Other cardiomyopathies; N17.9 Acute kidney failure, unspecified; I11.0 Hypertensive heart disease with heart failure; E88.09 Other disorders of plasma-protein metabolism, not elsewhere classified; E87.2 Acidosis; I24.9 Acute ischemic heart disease, unspecified; J44.0 Chronic obstructive pulmonary disease with (acute) lower respiratory infection; J44.1 Chronic obstructive pulmonary disease with (acute) exacerbation; I31.3 Pericardial effusion (noninflammatory); E11.9 Type 2 diabetes mellitus without complications; D64.9 Anemia, unspecified; I44.7 Left bundle-branch block, unspecified; R91.1 Solitary pulmonary nodule; E78.5 Hyperlipidemia, unspecified; I08.0 Rheumatic disorders of both mitral and aortic valves; E87.6 Hypokalemia; K21.9 Gastro-esophageal reflux disease without esophagitis; K44.9 Diaphragmatic hernia without obstruction or gangrene; R59.1 Generalized enlarged lymph nodes; Z79.82 Long term (current) use of aspirin; Z79.84 Long term (current) use of oral hypoglycemic drugs; Z82.49 Family history of ischemic heart disease and other diseases of the circulatory system; Z87.891 Personal history of nicotine dependence
CPT/HCPCS: 36600; 43753; 51702; 70450; 71045; 71275; 80048; 80053; 81001; 82550; 82565; 82805; 82810; 82948; 83036; 83605; 83735; 83880; 84100; 84132; 84439; 84443; 84484; 85002; 85007; 85025; 85027; 85610; 85730; 87040; 87070; 87086; 87205; 87449; 87641; 87804; 93005; 93306; 93460; 93970; 94002; 94003; 94150; 94640; 94664; 94667; 94668; 94770; 96365; 96366; 96368; 96375; C1769; C1893; J0456; J0696; J1644; J1815; J1940; J2250; J2543; J3010; J3370; J3475; J7050; J7070; J7512; J7613; Q9967

== ENCOUNTER 2018-03-31 21:31 | Inpatient (IN) ==
[2018-03-31] MEDS ORDERED: Adenosine Inj 6 MG/2 ML Syringe IV.PUSH ONE ×5 (21:54→22:11)
[2018-03-31] MEDS ORDERED: Mag Sulf 1 gm/100 ml Premix 100 ML IV.SIG ONE ×2 (22:01→22:08)
--- NOTE | 2018-03-31 22:01 | XR ---
EXAM DATE: 03/31/2018 9:34 PM EDT AGE/SEX: 73 years / Female INDICATIONS: S/P ET tube placement. CLINICAL DATA: This is the patient's initial encounter. Patient reports that signs and symptoms have been present for 1 day and indicates a pain score of Nonresponsive. MEDICAL/SURGICAL HISTORY: . Congestive heart failure. Hypertension. Diabetes. . Hysterectomy.T onsillectomy. Right knee surgery. Breast biopsy. COMPARISON: [facility] [place], 09/25/2017. . FINDINGS: Diffuse infiltrates are noted bilaterally consistent with moderate to severe pulmonary edema or pneum onia. Clinical correlation is recommended. The endotracheal tube has its tip in good position 4 cm ab ove the avis. A nasogastric tube has tip below diaphragm. The heart is stable. CONCLUSION: 1. Diffuse infiltrates bilaterally consistent with moderate to severe pulmonary edema or pneumonia. Correlation is recommended. 2. Endotracheal tube in good position 4 cm above the avis. Electronically signed by: Chalino Aguirre MD 03/31/2018 10:00 PM EDT
[2018-03-31] MEDS ORDERED: Amiodarone Inj 150 MG in Dextrose 5% in Water Inj 97 ML IV.SIG ONE ×2 (22:09)
[2018-03-31] MEDS ORDERED: DOPamine Inj 800 MG in Sodium Chlor 0.9% Inj 500 ML IV.CONT PRN (22:12)
[2018-03-31] MEDS ORDERED: DOPamine 400 MG/250 ML Premix 400 MG/250 ML BAG IV.CONT ONE (22:13)
--- NOTE | 2018-03-31 22:22 | ED ---
HPI General Stated Complaint: Shortness of breath Time Seen by Provider: 03/31/18 21:34 Source: EMS Mode of arrival: EMS Limitations: other (Intubated) History of Present Illness 73-year-old female was brought in by EMS emergently after a call went out for respiratory distress followed by unresponsiveness. When EMS arrived patient was a GCS of 3 with agonal breathing. Patient was emergently intubated by EMS with etomidate and Ativan. She was given Nitropaste and IV Lasix. As per the bystanders patient has history of congestive heart failure. Patient obviously was unable to give any history. Upon arrival her blood pressure was 153 systolic and heart rate of 145. Patient was oxygenating 99% upon being bagged through the ET tube. She had spontaneous respirations. MD Complaint: Reports shortness of breath Onset (ago): minute(s) Severity: severe Related Data Home Medications Medication Instructions Recorded Confirmed Invokamet 1 tab PO BID 04/01/18 04/01/18 aspirin 81 mg PO DAILY 04/01/18 04/01/18 atorvastatin 40 mg PO DAILY 04/01/18 04/01/18 carvedilol 6.25 mg PO DAILY 04/01/18 04/01/18 furosemide 20 mg PO DAILY 04/01/18 04/01/18 glipizide 10 mg PO DAILY 04/01/18 04/01/18 lisinopril 5 mg PO DAILY 04/01/18 04/01/18 omeprazole-sodium bicarbonate 1 cap PO BID 04/01/18 04/01/18 [Zegerid] potassium chloride 10 meq PO DAILY 04/01/18 04/01/18 Allergies Allergy/AdvReac Type Severity Reaction Status Date / Time No Known Allergies Allergy Verified 04/01/18 02:17 Review of Systems ROS Unobtainable ROS Unobtainable: unobtainable due to mental status PMFSH Social History Social History Substance History: No History of Abuse Second Hand Smoke Exposure: No Smoking Status: Never smoker How Often Do You Have a Drink Containing Alcohol: Never Recent Travel in [facility] within the Last 8 Weeks: No Recent Out of Country Travel within the Last 8 Weeks: No Exam Narrative Exam Narrative: GENERAL: Unresponsive, intubated, sedated SKIN: Focused skin assessment warm/dry. HEAD: Atraumatic. Normocephalic. EYES: Pupils equal and round. No scleral icterus. No injection or drainage. ENT: No nasal bleeding or discharge. Mucous membranes pink and moist. NECK: Trachea midline. No JVD. CARDIOVASCULAR: Regular rate and rhythm. Tachycardia. No murmur appreciated. RESPIRATORY: Patient was being bagged through the ET tube. Spontaneous respirations no accessory muscle use. Decreased air entry bilaterally. GASTROINTESTINAL: Abdomen soft, non-tender, nondistended. Hepatic and splenic margins not palpable. MUSCULOSKELETAL: No obvious deformities. No clubbing. No cyanosis. No edema. NEUROLOGICAL: GCS of 3 PSYCHIATRIC: Unable to assess Procedures Cardoveresion 1: Time out performed cardioversion: Yes Consent: Implied Anesthesia: Versed and Other (Intubated) Outcome: No Change Complications: none 2: Time out performed cardioversion: Yes Consent: Implied Anesthesia: None Description: First cardioversion was done with 50 J of synchronized energy followed by second cardioversion of 100 J synchronized energy. Outcome: No Change Complications: none 3: Time out performed cardioversion: Yes Consent: Implied Joules: 200 Outcome: No Change Complications: none Course Initial Documented Vital Signs Pulse Rate 143 H 03/31/18 21:31 Last Documented Vital Signs Temperature 98.6 F 04/04/18 00:00 Pulse Rate 98 H 04/04/18 01:00 Respiratory Rate 36 H 04/04/18 01:00 Blood Pressure 138/76 04/04/18 01:00 Pulse Oximetry 92 L 04/04/18 01:00 Critical Care Time Critical Care Time: Yes Total Critical Care Time: 60 Attestation: Aggregate critical care time was 60 minutes. Time to perform other separately billable procedures was not included in the critical care time. My time did not include minutes spent treating any other patients simultaneously or on activities that did not directly contribute to the patient's treatment. The services I provided to this patient were to treat and/or prevent clinically significant deterioration that could result in: Respiratory failure, pulmonary edema, persistent wide-complex tachycardia, cardiogenic shock I provided critical care services requiring my management, as noted below: Chart data review, documentation time, medication orders and management, vital sign assessments/reviewing monitor data, ordering and reviewing lab tests, ordering and interpreting/reviewing x-rays and diagnostic studies, care of the patient and discussion of the patient with the admitting physicians. Medical Decision Making MDM Narrative Medical decision making narrative: I looked into patient's past medical history as well as last EKG in the records. Patient had an echocardiogram done in September with an EF of 20% and global hypokinesis. She had a cardiac catheterization done at that time by Dr. Brooke. The twelve-lead EKG done today showed wide-complex tachycardia with consistent heart rate in 140s. This was sent electronically to Dr. Heart to be viewed. I discussed this with Dr. Heart who was on-call for cardiology. He was kept up-to-date on the cardioversions. He also recommended adenosine and patient received 6 mg, 6 mg followed by 12 mg of adenosine with no change. Patient was also given 2 g of IV magnesium with no change. Currently she has been given a loading dose of amiodarone 150 mg followed by drip also recommended by the business support. After the amiodarone bolus her blood pressure came down to 87/50. Chest x-ray shows pulmonary edema. I have started her on dopamine. I discussed the case with the copy holder Dr. Sprague who has accepted the patient. Patient is in a critical condition at this point. Chest x-ray has been read as severe pulmonary edema. 11:12 PM CBC shows significantly elevated WBC count. I have started her on vancomycin and Zosyn. Blood culture and lactic acid are pending. 10:43 PM I was told by the nurse that the family just arrived including her who brought the paperwork showing that patient was seen by the business support yesterday where the EKG showed left bundle branch block. Patient needs to be on a LifeVest as per them. Medical Screen Exam Complete: Yes Emergency Medical Condition: Yes Differential Diagnosis Differential Diagnosis: Pulmonary edema, V. tach, electrolyte abnormality, non- STEMI Lab Data Result diagrams: 04/03/18 10:12 04/03/18 10:12 Lab Results 03/31/18 03/31/18 03/31/18 Range/Units 21:30 21:30 21:36 WBC 20.2 H (4.0-11.0) th/mm3 RBC 4.29 (4.00-5.30) mil/mm3 Hgb 10.7 L (11.6-15.3) gm/dL Hct 36.0 (35.0-46.0) % MCV 83.9 (80.0-100.0) fL MCH 24.9 L (27.0-34.0) pg MCHC 29.6 L (32.0-36.0) % RDW 17.1 (11.6-17.2) % Plt Count 643 H (150-450) th/mm3 MPV 9.2 (7.0-11.0) fL Prelim Diff (Auto) Slide review pending Neut % (Auto) 39.4 (16.0-70.0) % Lymph % (Auto) 51.8 H (9.0-44.0) % Glades % (Auto) 3.4 (0.0-8.0) % Eos % (Auto) 4.6 H (0.0-4.0) % Baso % (Auto) 0.8 (0.0-2.0) % Neut # (Auto) 7.9 H (1.8-7.7) th/mm3 Lymph # (Auto) 10.4 H (1.0-4.8) th/mm3 [place] # (Auto) 0.7 (0.0-0.9) th/mm3 Eos # (Auto) 0.9 H (0.0-0.4) th/mm3 Baso # (Auto) 0.2 (0.0-0.2) th/mm3 WBC Differential Manual diff final Seg Neuts % (Manual) 44 (16-70) % Lymphocytes % (Manual) 43 (9-44) % Atypical Lymphs % (Man) 7 H (0-0) % Monocytes % (Manual) 1 (0-8) % Eosinophils % (Manual) 3 (0-4) % Basophils % (Manual) 2 (0-2) % Abs Neuts (Manual) 8.9 H (1.8-7.7) th/mm3 Differential Comment . Platelet Estimate High H (Normal) Platelet Morphology Normal (Normal) Tere Cells 1+ H (None) Acanthocytes (Spur) Occ H (None) Keratocytes Occ H (None) PT (9.8-11.6) sec INR Ratio APTT (24.3-30.1) sec Puncture Site Patient Temperature O2 Saturation (90-100) % ABG pH (7.380-7.420) ABG pCO2 (38-42) mmHg ABG pO2 (61-120) mmHg ABG HCO3 (22-26) mmol/L ABG O2 Content (12.0-20.0) Vol % ABG Base Excess (-2-2) mmol/L ABG Methemoglobin (0-2) % Betito Test Hemoglobin (12.0-16.0) G/DL Carboxyhemoglobin (0-4) % O2 Delivery Device Vent Setting Inspired O2 % Critical Value Sodium 140 (136-145) meq/L Potassium 4.3 (3.5-5.1) meq/L Chloride 107 (98-107) meq/L Carbon Dioxide 18.1 L (21.0-32.0) meq/L Anion Gap 15 (5-15) meq/L BUN 13 (7-18) mg/dL Creatinine 1.42 H (0.50-1.00) mg/dL Estimated GFR 36 L (>89) mL/min POC Glucose (68-110) mg/dl Random Glucose 371 H (74-106) mg/dL Lactic Acid (0.4-2.0) mmol/L Calcium 8.0 L (8.5-10.1) mg/dL Prot Corrected Calcium (8.5-10.1) mg/dL Phosphorus (2.5-4.9) mg/dL Magnesium 1.9 (1.5-2.5) mg/dL Total Bilirubin 0.1 L (0.2-1.0) mg/dL AST 69 H (15-37) U/L ALT 48 (10-53) U/L Alkaline Phosphatase 137 H (45-117) U/L Total Creatine Kinase 129 (26-192) U/L Troponin I 0.06 H (0.02-0.05) ng/mL Total Protein 7.6 (6.4-8.2) g/dL Albumin 3.0 L (3.4-5.0) g/dL TSH (0.358-3.740) uIU/mL Urine Color (Yellw/Straw) Urine Clarity (Clear) Urine pH (5.0-8.5) Ur Specific [place] (1.002-1.035) Urine Protein (Neg-Trace) mg/dL Urine Glucose (UA) (Negative) mg/dL Urine Ketones (Negative) mg/dL Urine Occult Blood (Negative) Urine Nitrate (Negative) Urine Bilirubin (Negative) Urine Urobilinogen (Less than 2) mg/dL Ur Leukocyte Esterase (Negative) Urine RBC (0-3) /hpf Urine WBC (0-5) /hpf Ur Squamous Epith Cells (0-5) /hpf Micro UA Comment Ur Microscopic Review Urine Culture Comments Nasal Screen MRSA (PCR) (Negative) Urine Opiates Screen Neg (Neg) Ur Barbiturates Screen Neg (Neg) Ur Amphetamines Screen Neg (Neg) U Benzodiazepines Scrn Neg (Neg) Urine Cocaine Screen Neg (Neg) U Cannabinoids Screen Neg (Neg) Serum Alcohol Less than 3 (0-5) mg/dL 03/31/18 03/31/18 04/01/18 Range/Units 21:36 22:05 00:20 WBC (4.0-11.0) th/mm3 RBC (4.00-5.30) mil/mm3 Hgb (11.6-15.3) gm/dL Hct (35.0-46.0) % MCV (80.0-100.0) fL MCH (27.0-34.0) pg MCHC (32.0-36.0) % RDW (11.6-17.2) % Plt Count (150-450) th/mm3 MPV (7.0-11.0) fL Prelim Diff (Auto) Neut % (Auto) (16.0-70.0) % Lymph % (Auto) (9.0-44.0) % Glades % (Auto) (0.0-8.0) % Eos % (Auto) (0.0-4.0) % Baso % (Auto) (0.0-2.0) % Neut # (Auto) (1.8-7.7) th/mm3 Lymph # (Auto) (1.0-4.8) th/mm3 Glades # (Auto) (0.0-0.9) th/mm3 Eos # (Auto) (0.0-0.4) th/mm3 Baso # (Auto) (0.0-0.2) th/mm3 WBC Differential Seg Neuts % (Manual) (16-70) % Lymphocytes % (Manual) (9-44) % Atypical Lymphs % (Man) (0-0) % Monocytes % (Manual) (0-8) % Eosinophils % (Manual) (0-4) % Basophils % (Manual) (0-2) % Abs Neuts (Manual) (1.8-7.7) th/mm3 Differential Comment Platelet Estimate (Normal) Platelet Morphology (Normal) [place] Cells (None) Acanthocytes (Spur) (None) Keratocytes (None) PT (9.8-11.6) sec INR Ratio APTT (24.3-30.1) sec Puncture Site Left radial Right brachial Patient Temperature 98.6 98.6 O2 Saturation 95 97 (90-100) % ABG pH 7.08 L* 7.21 L* (7.380-7.420) ABG pCO2 60 H* 48 H (38-42) mmHg ABG pO2 125 H 201 H (61-120) mmHg ABG HCO3 17 L 18 L (22-26) mmol/L ABG O2 Content 12.4 14.9 (12.0-20.0) Vol % ABG Base Excess -11.4 L -8.1 L (-2-2) mmol/L ABG Methemoglobin 1.0 0.8 (0-2) % Betito Test Present Hemoglobin 9.2 L 10.6 L (12.0-16.0) G/DL Carboxyhemoglobin 0.3 0.5 (0-4) % O2 Delivery Device Ventilator Ventilator Vent Setting Inspired O2 100 100 % Critical Value Yes Yes Sodium (136-145) meq/L Potassium (3.5-5.1) meq/L Chloride (98-107) meq/L Carbon Dioxide (21.0-32.0) meq/L Anion Gap (5-15) meq/L BUN (7-18) mg/dL Creatinine (0.50-1.00) mg/dL Estimated GFR (>89) mL/min POC Glucose (68-110) mg/dl Random Glucose (74-106) mg/dL Lactic Acid (0.4-2.0) mmol/L Calcium (8.5-10.1) mg/dL Prot Corrected Calcium (8.5-10.1) mg/dL Phosphorus (2.5-4.9) mg/dL Magnesium (1.5-2.5) mg/dL Total Bilirubin (0.2-1.0) mg/dL AST (15-37) U/L ALT (10-53) U/L Alkaline Phosphatase (45-117) U/L Total Creatine Kinase (26-192) U/L Troponin I (0.02-0.05) ng/mL Total Protein (6.4-8.2) g/dL Albumin (3.4-5.0) g/dL TSH (0.358-3.740) uIU/mL Urine Color Yellow (Yellw/Straw) Urine Clarity Clear (Clear) Urine pH 5.0 (5.0-8.5) Ur Specific [place] 1.028 (1.002-1.035) Urine Protein Negative (Neg-Trace) mg/dL Urine Glucose (UA) 500 or greater (Negative) mg/dL Urine Ketones Negative (Negative) mg/dL Urine Occult Blood Negative (Negative) Urine Nitrate Negative (Negative) Urine Bilirubin Negative (Negative) Urine Urobilinogen Less than 2 (Less than 2) mg/dL Ur Leukocyte Esterase Negative (Negative) Urine RBC 1 (0-3) /hpf Urine WBC Less than 1 (0-5) /hpf Ur Squamous Epith Cells 2 (0-5) /hpf Micro UA Comment Cath-culture not ind Ur Microscopic Review Not Reportable Urine Culture Comments Cath-cult not ind Nasal Screen MRSA (PCR) (Negative) Urine Opiates Screen (Neg) Ur Barbiturates Screen (Neg) Ur Amphetamines Screen (Neg) U Benzodiazepines Scrn (Neg) Urine Cocaine Screen (Neg) U Cannabinoids Screen (Neg) Serum Alcohol (0-5) mg/dL 04/01/18 04/01/18 04/01/18 Range/Units 01:00 03:20 04:27 WBC 18.5 H (4.0-11.0) th/mm3 RBC 3.90 L (4.00-5.30) mil/mm3 Hgb 9.8 L (11.6-15.3) gm/dL Hct 30.9 L (35.0-46.0) % MCV 79.4 L D (80.0-100.0) fL MCH 25.1 L (27.0-34.0) pg MCHC 31.6 L (32.0-36.0) % RDW 16.4 (11.6-17.2) % Plt Count 456 H (150-450) th/mm3 MPV 7.8 (7.0-11.0) fL Prelim Diff (Auto) Neut % (Auto) 84.4 H (16.0-70.0) % Lymph % (Auto) 9.9 (9.0-44.0) % [place]ades % (Auto) 4.5 (0.0-8.0) % Eos % (Auto) 0.3 (0.0-4.0) % Baso % (Auto) 0.9 (0.0-2.0) % Neut # (Auto) 15.6 H (1.8-7.7) th/mm3 Lymph # (Auto) 1.8 (1.0-4.8) th/mm3 [place]ades # (Auto) 0.8 (0.0-0.9) th/mm3 Eos # (Auto) 0.1 (0.0-0.4) th/mm3 Baso # (Auto) 0.2 (0.0-0.2) th/mm3 WBC Differential . Seg Neuts % (Manual) (16-70) % Lymphocytes % (Manual) (9-44) % Atypical Lymphs % (Man) (0-0) % Monocytes % (Manual) (0-8) % Eosinophils % (Manual) (0-4) % Basophils % (Manual) (0-2) % Abs Neuts (Manual) (1.8-7.7) th/mm3 Differential Comment Auto diff final Platelet Estimate (Normal) Platelet Morphology (Normal) Tere Cells (None) Acanthocytes (Spur) (None) Keratocytes (None) PT (9.8-11.6) sec INR Ratio APTT (24.3-30.1) sec Puncture Site Patient Temperature O2 Saturation (90-100) % ABG pH (7.380-7.420) ABG pCO2 (38-42) mmHg ABG pO2 (61-120) mmHg ABG HCO3 (22-26) mmol/L ABG O2 Content (12.0-20.0) Vol % ABG Base Excess (-2-2) mmol/L ABG Methemoglobin (0-2) % Betito Test Hemoglobin (12.0-16.0) G/DL Carboxyhemoglobin (0-4) % O2 Delivery Device Vent Setting Inspired O2 % Critical Value Sodium (136-145) meq/L Potassium (3.5-5.1) meq/L Chloride (98-107) meq/L Carbon Dioxide (21.0-32.0) meq/L Anion Gap (5-15) meq/L BUN (7-18) mg/dL Creatinine (0.50-1.00) mg/dL Estimated GFR (>89) mL/min POC Glucose (68-110) mg/dl Random Glucose (74-106) mg/dL Lactic Acid 3.8 H (0.4-2.0) mmol/L Calcium (8.5-10.1) mg/dL Prot Corrected Calcium (8.5-10.1) mg/dL Phosphorus (2.5-4.9) mg/dL Magnesium (1.5-2.5) mg/dL Total Bilirubin (0.2-1.0) mg/dL AST (15-37) U/L ALT (10-53) U/L Alkaline Phosphatase (45-117) U/L Total Creatine Kinase (26-192) U/L Troponin I (0.02-0.05) ng/mL Total Protein (6.4-8.2) g/dL Albumin (3.4-5.0) g/dL TSH (0.358-3.740) uIU/mL Urine Color (Yellw/Straw) Urine Clarity (Clear) Urine pH (5.0-8.5) Ur Specific [place] (1.002-1.035) Urine Protein (Neg-Trace) mg/dL Urine Glucose (UA) (Negative) mg/dL Urine Ketones (Negative) mg/dL Urine Occult Blood (Negative) Urine Nitrate (Negative) Urine Bilirubin (Negative) Urine Urobilinogen (Less than 2) mg/dL Ur Leukocyte Esterase (Negative) Urine RBC (0-3) /hpf Urine WBC (0-5) /hpf Ur Squamous Epith Cells (0-5) /hpf Micro UA Comment Ur Microscopic Review Urine Culture Comments Nasal Screen MRSA (PCR) Not detected (Negative) Urine Opiates Screen (Neg) Ur Barbiturates Screen (Neg) Ur Amphetamines Screen (Neg) U Benzodiazepines Scrn (Neg) Urine Cocaine Screen (Neg) U Cannabinoids Screen (Neg) Serum Alcohol (0-5) mg/dL 04/01/18 04/01/18 04/01/18 Range/Units 04:27 04:27 04:27 WBC (4.0-11.0) th/mm3 RBC (4.00-5.30) mil/mm3 Hgb (11.6-15.3) gm/dL Hct (35.0-46.0) % MCV (80.0-100.0) fL MCH (27.0-34.0) pg MCHC (32.0-36.0) % RDW (11.6-17.2) % Plt Count (150-450) th/mm3 MPV (7.0-11.0) fL Prelim Diff (Auto) Neut % (Auto) (16.0-70.0) % Lymph % (Auto) (9.0-44.0) % [place] % (Auto) (0.0-8.0) % Eos % (Auto) (0.0-4.0) % Baso % (Auto) (0.0-2.0) % Neut # (Auto) (1.8-7.7) th/mm3 Lymph # (Auto) (1.0-4.8) th/mm3 [place] # (Auto) (0.0-0.9) th/mm3 Eos # (Auto) (0.0-0.4) th/mm3 Baso # (Auto) (0.0-0.2) th/mm3 WBC Differential Seg Neuts % (Manual) (16-70) % Lymphocytes % (Manual) (9-44) % Atypical Lymphs % (Man) (0-0) % Monocytes % (Manual) (0-8) % Eosinophils % (Manual) (0-4) % Basophils % (Manual) (0-2) % Abs Neuts (Manual) (1.8-7.7) th/mm3 Differential Comment Platelet Estimate (Normal) Platelet Morphology (Normal) [place] Cells (None) Acanthocytes (Spur) (None) Keratocytes (None) PT 10.3 (9.8-11.6) sec INR 1.0 Ratio APTT 20.8 L (24.3-30.1) sec Puncture Site Patient Temperature O2 Saturation (90-100) % ABG pH (7.380-7.420) ABG pCO2 (38-42) mmHg ABG pO2 (61-120) mmHg ABG HCO3 (22-26) mmol/L ABG O2 Content (12.0-20.0) Vol % ABG Base Excess (-2-2) mmol/L ABG Methemoglobin (0-2) % Betito Test Hemoglobin (12.0-16.0) G/DL Carboxyhemoglobin (0-4) % O2 Delivery Device Vent Setting Inspired O2 % Critical Value Sodium 143 (136-145) meq/L Potassium 3.8 (3.5-5.1) meq/L Chloride 111 H (98-107) meq/L Carbon Dioxide 22.5 (21.0-32.0) meq/L Anion Gap 10 (5-15) meq/L BUN 18 (7-18) mg/dL Creatinine 1.13 H (0.50-1.00) mg/dL Estimated GFR 47 L (>89) mL/min POC Glucose (68-110) mg/dl Random Glucose 320 H (74-106) mg/dL Lactic Acid 2.6 H (0.4-2.0) mmol/L Calcium 7.3 L* (8.5-10.1) mg/dL Prot Corrected Calcium 7.5 L (8.5-10.1) mg/dL Phosphorus 4.1 (2.5-4.9) mg/dL Magnesium 2.1 (1.5-2.5) mg/dL Total Bilirubin 0.3 (0.2-1.0) mg/dL AST 90 H (15-37) U/L ALT 68 H (10-53) U/L Alkaline Phosphatase 126 H (45-117) U/L Total Creatine Kinase (26-192) U/L Troponin I 0.47 H D (0.02-0.05) ng/mL Total Protein 6.7 D (6.4-8.2) g/dL Albumin 2.7 L (3.4-5.0) g/dL TSH (0.358-3.740) uIU/mL Urine Color (Yellw/Straw) Urine Clarity (Clear) Urine pH (5.0-8.5) Ur Specific [place] (1.002-1.035) Urine Protein (Neg-Trace) mg/dL Urine Glucose (UA) (Negative) mg/dL Urine Ketones (Negative) mg/dL Urine Occult Blood (Negative) Urine Nitrate (Negative) Urine Bilirubin (Negative) Urine Urobilinogen (Less than 2) mg/dL Ur Leukocyte Esterase (Negative) Urine RBC (0-3) /hpf Urine WBC (0-5) /hpf Ur Squamous Epith Cells (0-5) /hpf Micro UA Comment Ur Microscopic Review Urine Culture Comments Nasal Screen MRSA (PCR) (Negative) Urine Opiates Screen (Neg) Ur Barbiturates Screen (Neg) Ur Amphetamines Screen (Neg) U Benzodiazepines Scrn (Neg) Urine Cocaine Screen (Neg) U Cannabinoids Screen (Neg) Serum Alcohol (0-5) mg/dL 04/01/18 04/01/18 04/01/18 Range/Units 10:25 11:03 13:46 WBC (4.0-11.0) th/mm3 RBC (4.00-5.30) mil/mm3 Hgb (11.6-15.3) gm/dL Hct (35.0-46.0) % MCV (80.0-100.0) fL MCH (27.0-34.0) pg MCHC (32.0-36.0) % RDW (11.6-17.2) % Plt Count (150-450) th/mm3 MPV (7.0-11.0) fL Prelim Diff (Auto) Neut % (Auto) (16.0-70.0) % Lymph % (Auto) (9.0-44.0) % [place] % (Auto) (0.0-8.0) % Eos % (Auto) (0.0-4.0) % Baso % (Auto) (0.0-2.0) % Neut # (Auto) (1.8-7.7) th/mm3 Lymph # (Auto) (1.0-4.8) th/mm3 [place] # (Auto) (0.0-0.9) th/mm3 Eos # (Auto) (0.0-0.4) th/mm3 Baso # (Auto) (0.0-0.2) th/mm3 WBC Differential Seg Neuts % (Manual) (16-70) % Lymphocytes % (Manual) (9-44) % Atypical Lymphs % (Man) (0-0) % Monocytes % (Manual) (0-8) % Eosinophils % (Manual) (0-4) % Basophils % (Manual) (0-2) % Abs Neuts (Manual) (1.8-7.7) th/mm3 Differential Comment Platelet Estimate (Normal) Platelet Morphology (Normal) [place] Cells (None) Acanthocytes (Spur) (None) Keratocytes (None) PT (9.8-11.6) sec INR Ratio APTT (24.3-30.1) sec Puncture Site Patient Temperature O2 Saturation (90-100) % ABG pH (7.380-7.420) ABG pCO2 (38-42) mmHg ABG pO2 (61-120) mmHg ABG HCO3 (22-26) mmol/L ABG O2 Content (12.0-20.0) Vol % ABG Base Excess (-2-2) mmol/L ABG Methemoglobin (0-2) % Betito Test Hemoglobin (12.0-16.0) G/DL Carboxyhemoglobin (0-4) % O2 Delivery Device Vent Setting Inspired O2 % Critical Value Sodium (136-145) meq/L Potassium (3.5-5.1) meq/L Chloride (98-107) meq/L Carbon Dioxide (21.0-32.0) meq/L Anion Gap (5-15) meq/L BUN (7-18) mg/dL Creatinine (0.50-1.00) mg/dL Estimated GFR (>89) mL/min POC Glucose 265 H (68-110) mg/dl Random Glucose (74-106) mg/dL Lactic Acid (0.4-2.0) mmol/L Calcium (8.5-10.1) mg/dL Prot Corrected Calcium (8.5-10.1) mg/dL Phosphorus (2.5-4.9) mg/dL Magnesium (1.5-2.5) mg/dL Total Bilirubin (0.2-1.0) mg/dL AST (15-37) U/L ALT (10-53) U/L Alkaline Phosphatase (45-117) U/L Total Creatine Kinase (26-192) U/L Troponin I 0.84 H* D 1.05 H* D (0.02-0.05) ng/mL Total Protein (6.4-8.2) g/dL Albumin (3.4-5.0) g/dL TSH 0.466 (0.358-3.740) uIU/mL Urine Color (Yellw/Straw) Urine Clarity (Clear) Urine pH (5.0-8.5) Ur Specific [place] (1.002-1.035) Urine Protein (Neg-Trace) mg/dL Urine Glucose (UA) (Negative) mg/dL Urine Ketones (Negative) mg/dL Urine Occult Blood (Negative) Urine Nitrate (Negative) Urine Bilirubin (Negative) Urine Urobilinogen (Less than 2) mg/dL Ur Leukocyte Esterase (Negative) Urine RBC (0-3) /hpf Urine WBC (0-5) /hpf Ur Squamous Epith Cells (0-5) /hpf Micro UA Comment Ur Microscopic Review Urine Culture Comments Nasal Screen MRSA (PCR) (Negative) Urine Opiates Screen (Neg) Ur Barbiturates Screen (Neg) Ur Amphetamines Screen (Neg) U Benzodiazepines Scrn (Neg) Urine Cocaine Screen (Neg) U Cannabinoids Screen (Neg) Serum Alcohol (0-5) mg/dL 04/01/18 04/01/18 04/01/18 Range/Units 17:25 18:13 23:16 WBC (4.0-11.0) th/mm3 RBC (4.00-5.30) mil/mm3 Hgb (11.6-15.3) gm/dL Hct (35.0-46.0) % MCV (80.0-100.0) fL MCH (27.0-34.0) pg MCHC (32.0-36.0) % RDW (11.6-17.2) % Plt Count (150-450) th/mm3 MPV (7.0-11.0) fL Prelim Diff (Auto) Neut % (Auto) (16.0-70.0) % Lymph % (Auto) (9.0-44.0) % [place] % (Auto) (0.0-8.0) % Eos % (Auto) (0.0-4.0) % Baso % (Auto) (0.0-2.0) % Neut # (Auto) (1.8-7.7) th/mm3 Lymph # (Auto) (1.0-4.8) th/mm3 [place] # (Auto) (0.0-0.9) th/mm3 Eos # (Auto) (0.0-0.4) th/mm3 Baso # (Auto) (0.0-0.2) th/mm3 WBC Differential Seg Neuts % (Manual) (16-70) % Lymphocytes % (Manual) (9-44) % Atypical Lymphs % (Man) (0-0) % Monocytes % (Manual) (0-8) % Eosinophils % (Manual) (0-4) % Basophils % (Manual) (0-2) % Abs Neuts (Manual) (1.8-7.7) th/mm3 Differential Comment Platelet Estimate (Normal) Platelet Morphology (Normal) Tere Cells (None) Acanthocytes (Spur) (None) Keratocytes (None) PT (9.8-11.6) sec INR Ratio APTT (24.3-30.1) sec Puncture Site Patient Temperature O2 Saturation (90-100) % ABG pH (7.380-7.420) ABG pCO2 (38-42) mmHg ABG pO2 (61-120) mmHg ABG HCO3 (22-26) mmol/L ABG O2 Content (12.0-20.0) Vol % ABG Base Excess (-2-2) mmol/L ABG Methemoglobin (0-2) % Betito Test Hemoglobin (12.0-16.0) G/DL Carboxyhemoglobin (0-4) % O2 Delivery Device Vent Setting Inspired O2 % Critical Value Sodium 145 (136-145) meq/L Potassium 3.7 (3.5-5.1) meq/L Chloride 111 H (98-107) meq/L Carbon Dioxide 24.8 (21.0-32.0) meq/L Anion Gap 9 (5-15) meq/L BUN 16 (7-18) mg/dL Creatinine 0.86 (0.50-1.00) mg/dL Estimated GFR 65 L (>89) mL/min POC Glucose 155 H 120 H (68-110) mg/dl Random Glucose 140 H D (74-106) mg/dL Lactic Acid (0.4-2.0) mmol/L Calcium 8.5 D (8.5-10.1) mg/dL Prot Corrected Calcium (8.5-10.1) mg/dL Phosphorus (2.5-4.9) mg/dL Magnesium 2.3 (1.5-2.5) mg/dL Total Bilirubin (0.2-1.0) mg/dL AST (15-37) U/L ALT (10-53) U/L Alkaline Phosphatase (45-117) U/L Total Creatine Kinase (26-192) U/L Troponin I 0.78 H* D (0.02-0.05) ng/mL Total Protein (6.4-8.2) g/dL Albumin (3.4-5.0) g/dL TSH (0.358-3.740) uIU/mL Urine Color (Yellw/Straw) Urine Clarity (Clear) Urine pH (5.0-8.5) Ur Specific [place] (1.002-1.035) Urine Protein (Neg-Trace) mg/dL Urine Glucose (UA) (Negative) mg/dL Urine Ketones (Negative) mg/dL Urine Occult Blood (Negative) Urine Nitrate (Negative) Urine Bilirubin (Negative) Urine Urobilinogen (Less than 2) mg/dL Ur Leukocyte Esterase (Negative) Urine RBC (0-3) /hpf Urine WBC (0-5) /hpf Ur Squamous Epith Cells (0-5) /hpf Micro UA Comment Ur Microscopic Review Urine Culture Comments Nasal Screen MRSA (PCR) (Negative) Urine Opiates Screen (Neg) Ur Barbiturates Screen (Neg) Ur Amphetamines Screen (Neg) U Benzodiazepines Scrn (Neg) Urine Cocaine Screen (Neg) U Cannabinoids Screen (Neg) Serum Alcohol (0-5) mg/dL 04/02/18 04/02/18 04/02/18 Range/Units 04:57 04:57 12:36 WBC 13.7 H (4.0-11.0) th/mm3 RBC 3.50 L (4.00-5.30) mil/mm3 Hgb 8.9 L (11.6-15.3) gm/dL Hct 27.6 L (35.0-46.0) % MCV 78.9 L (80.0-100.0) fL MCH 25.4 L (27.0-34.0) pg MCHC 32.2 (32.0-36.0) % RDW 16.2 (11.6-17.2) % Plt Count 385 (150-450) th/mm3 MPV 8.5 (7.0-11.0) fL Prelim Diff (Auto) Neut % (Auto) 71.2 H (16.0-70.0) % Lymph % (Auto) 17.2 (9.0-44.0) % Glades % (Auto) 5.8 (0.0-8.0) % Eos % (Auto) 5.0 H (0.0-4.0) % Baso % (Auto) 0.8 (0.0-2.0) % Neut # (Auto) 9.8 H (1.8-7.7) th/mm3 Lymph # (Auto) 2.4 (1.0-4.8) th/mm3 [place] # (Auto) 0.8 (0.0-0.9) th/mm3 Eos # (Auto) 0.7 H (0.0-0.4) th/mm3 Baso # (Auto) 0.1 (0.0-0.2) th/mm3 WBC Differential . Seg Neuts % (Manual) (16-70) % Lymphocytes % (Manual) (9-44) % Atypical Lymphs % (Man) (0-0) % Monocytes % (Manual) (0-8) % Eosinophils % (Manual) (0-4) % Basophils % (Manual) (0-2) % Abs Neuts (Manual) (1.8-7.7) th/mm3 Differential Comment Auto diff final Platelet Estimate (Normal) Platelet Morphology (Normal) [place] Cells (None) Acanthocytes (Spur) (None) Keratocytes (None) PT (9.8-11.6) sec INR Ratio APTT (24.3-30.1) sec Puncture Site Patient Temperature O2 Saturation (90-100) % ABG pH (7.380-7.420) ABG pCO2 (38-42) mmHg ABG pO2 (61-120) mmHg ABG HCO3 (22-26) mmol/L ABG O2 Content (12.0-20.0) Vol % ABG Base Excess (-2-2) mmol/L ABG Methemoglobin (0-2) % Betito Test Hemoglobin (12.0-16.0) G/DL Carboxyhemoglobin (0-4) % O2 Delivery Device Vent Setting Inspired O2 % Critical Value Sodium 144 (136-145) meq/L Potassium 3.8 (3.5-5.1) meq/L Chloride 112 H (98-107) meq/L Carbon Dioxide 22.9 (21.0-32.0) meq/L Anion Gap 9 (5-15) meq/L BUN 18 (7-18) mg/dL Creatinine 0.94 (0.50-1.00) mg/dL Estimated GFR 59 L (>89) mL/min POC Glucose 143 H (68-110) mg/dl Random Glucose 133 H (74-106) mg/dL Lactic Acid (0.4-2.0) mmol/L Calcium 8.5 (8.5-10.1) mg/dL Prot Corrected Calcium (8.5-10.1) mg/dL Phosphorus 2.5 D (2.5-4.9) mg/dL Magnesium 2.0 (1.5-2.5) mg/dL Total Bilirubin 0.2 (0.2-1.0) mg/dL AST 29 (15-37) U/L ALT 47 (10-53) U/L Alkaline Phosphatase 104 (45-117) U/L Total Creatine Kinase (26-192) U/L Troponin I 0.28 H D (0.02-0.05) ng/mL Total Protein 6.9 (6.4-8.2) g/dL Albumin 2.5 L (3.4-5.0) g/dL TSH (0.358-3.740) uIU/mL Urine Color (Yellw/Straw) Urine Clarity (Clear) Urine pH (5.0-8.5) Ur Specific [place] (1.002-1.035) Urine Protein (Neg-Trace) mg/dL Urine Glucose (UA) (Negative) mg/dL Urine Ketones (Negative) mg/dL Urine Occult Blood (Negative) Urine Nitrate (Negative) Urine Bilirubin (Negative) Urine Urobilinogen (Less than 2) mg/dL Ur Leukocyte Esterase (Negative) Urine RBC (0-3) /hpf Urine WBC (0-5) /hpf Ur Squamous Epith Cells (0-5) /hpf Micro UA Comment Ur Microscopic Review Urine Culture Comments Nasal Screen MRSA (PCR) (Negative) Urine Opiates Screen (Neg) Ur Barbiturates Screen (Neg) Ur Amphetamines Screen (Neg) U Benzodiazepines Scrn (Neg) Urine Cocaine Screen (Neg) U Cannabinoids Screen (Neg) Serum Alcohol (0-5) mg/dL 04/02/18 04/02/18 04/03/18 Range/Units 17:56 20:37 10:12 WBC 12.1 H (4.0-11.0) th/mm3 RBC 3.41 L (4.00-5.30) mil/mm3 Hgb 8.5 L (11.6-15.3) gm/dL Hct 26.6 L (35.0-46.0) % MCV 77.8 L (80.0-100.0) fL MCH 25.0 L (27.0-34.0) pg MCHC 32.2 (32.0-36.0) % RDW 15.9 (11.6-17.2) % Plt Count 394 (150-450) th/mm3 MPV 7.9 (7.0-11.0) fL Prelim Diff (Auto) Neut % (Auto) 70.1 H (16.0-70.0) % Lymph % (Auto) 17.3 (9.0-44.0) % Glades % (Auto) 6.7 (0.0-8.0) % Eos % (Auto) 4.8 H (0.0-4.0) % Baso % (Auto) 1.1 (0.0-2.0) % Neut # (Auto) 8.5 H (1.8-7.7) th/mm3 Lymph # (Auto) 2.1 (1.0-4.8) th/mm3 [place] # (Auto) 0.8 (0.0-0.9) th/mm3 Eos # (Auto) 0.6 H (0.0-0.4) th/mm3 Baso # (Auto) 0.1 (0.0-0.2) th/mm3 WBC Differential . Seg Neuts % (Manual) (16-70) % Lymphocytes % (Manual) (9-44) % Atypical Lymphs % (Man) (0-0) % Monocytes % (Manual) (0-8) % Eosinophils % (Manual) (0-4) % Basophils % (Manual) (0-2) % Abs Neuts (Manual) (1.8-7.7) th/mm3 Differential Comment Auto diff final Platelet Estimate (Normal) Platelet Morphology (Normal) Tere Cells (None) Acanthocytes (Spur) (None) Keratocytes (None) PT (9.8-11.6) sec INR Ratio APTT (24.3-30.1) sec Puncture Site Patient Temperature O2 Saturation (90-100) % ABG pH (7.380-7.420) ABG pCO2 (38-42) mmHg ABG pO2 (61-120) mmHg ABG HCO3 (22-26) mmol/L ABG O2 Content (12.0-20.0) Vol % ABG Base Excess (-2-2) mmol/L ABG Methemoglobin (0-2) % Betito Test Hemoglobin (12.0-16.0) G/DL Carboxyhemoglobin (0-4) % O2 Delivery Device Vent Setting Inspired O2 % Critical Value Sodium (136-145) meq/L Potassium (3.5-5.1) meq/L Chloride (98-107) meq/L Carbon Dioxide (21.0-32.0) meq/L Anion Gap (5-15) meq/L BUN (7-18) mg/dL Creatinine (0.50-1.00) mg/dL Estimated GFR (>89) mL/min POC Glucose 125 H 168 H (68-110) mg/dl Random Glucose (74-106) mg/dL Lactic Acid (0.4-2.0) mmol/L Calcium (8.5-10.1) mg/dL Prot Corrected Calcium (8.5-10.1) mg/dL Phosphorus (2.5-4.9) mg/dL Magnesium (1.5-2.5) mg/dL Total Bilirubin (0.2-1.0) mg/dL AST (15-37) U/L ALT (10-53) U/L Alkaline Phosphatase (45-117) U/L Total Creatine Kinase (26-192) U/L Troponin I (0.02-0.05) ng/mL Total Protein (6.4-8.2) g/dL Albumin (3.4-5.0) g/dL TSH (0.358-3.740) uIU/mL Urine Color (Yellw/Straw) Urine Clarity (Clear) Urine pH (5.0-8.5) Ur Specific [place] (1.002-1.035) Urine Protein (Neg-Trace) mg/dL Urine Glucose (UA) (Negative) mg/dL Urine Ketones (Negative) mg/dL Urine Occult Blood (Negative) Urine Nitrate (Negative) Urine Bilirubin (Negative) Urine Urobilinogen (Less than 2) mg/dL Ur Leukocyte Esterase (Negative) Urine RBC (0-3) /hpf Urine WBC (0-5) /hpf Ur Squamous Epith Cells (0-5) /hpf Micro UA Comment Ur Microscopic Review Urine Culture Comments Nasal Screen MRSA (PCR) (Negative) Urine Opiates Screen (Neg) Ur Barbiturates Screen (Neg) Ur Amphetamines Screen (Neg) U Benzodiazepines Scrn (Neg) Urine Cocaine Screen (Neg) U Cannabinoids Screen (Neg) Serum Alcohol (0-5) mg/dL 04/03/18 04/03/18 04/03/18 Range/Units 10:12 12:51 21:39 WBC (4.0-11.0) th/mm3 RBC (4.00-5.30) mil/mm3 Hgb (11.6-15.3) gm/dL Hct (35.0-46.0) % MCV (80.0-100.0) fL MCH (27.0-34.0) pg MCHC (32.0-36.0) % RDW (11.6-17.2) % Plt Count (150-450) th/mm3 MPV (7.0-11.0) fL Prelim Diff (Auto) Neut % (Auto) (16.0-70.0) % Lymph % (Auto) (9.0-44.0) % Glades % (Auto) (0.0-8.0) % Eos % (Auto) (0.0-4.0) % Baso % (Auto) (0.0-2.0) % Neut # (Auto) (1.8-7.7) th/mm3 Lymph # (Auto) (1.0-4.8) th/mm3 [place] # (Auto) (0.0-0.9) th/mm3 Eos # (Auto) (0.0-0.4) th/mm3 Baso # (Auto) (0.0-0.2) th/mm3 WBC Differential Seg Neuts % (Manual) (16-70) % Lymphocytes % (Manual) (9-44) % Atypical Lymphs % (Man) (0-0) % Monocytes % (Manual) (0-8) % Eosinophils % (Manual) (0-4) % Basophils % (Manual) (0-2) % Abs Neuts (Manual) (1.8-7.7) th/mm3 Differential Comment Platelet Estimate (Normal) Platelet Morphology (Normal) Tere Cells (None) Acanthocytes (Spur) (None) Keratocytes (None) PT (9.8-11.6) sec INR Ratio APTT (24.3-30.1) sec Puncture Site Patient Temperature O2 Saturation (90-100) % ABG pH (7.380-7.420) ABG pCO2 (38-42) mmHg ABG pO2 (61-120) mmHg ABG HCO3 (22-26) mmol/L ABG O2 Content (12.0-20.0) Vol % ABG Base Excess (-2-2) mmol/L ABG Methemoglobin (0-2) % Betito Test Hemoglobin (12.0-16.0) G/DL Carboxyhemoglobin (0-4) % O2 Delivery Device Vent Setting Inspired O2 % Critical Value Sodium 138 (136-145) meq/L Potassium 4.0 (3.5-5.1) meq/L Chloride 106 (98-107) meq/L Carbon Dioxide 21.5 (21.0-32.0) meq/L Anion Gap 11 (5-15) meq/L BUN 14 (7-18) mg/dL Creatinine 0.68 (0.50-1.00) mg/dL Estimated GFR 85 L (>89) mL/min POC Glucose 170 H 114 H (68-110) mg/dl Random Glucose 169 H (74-106) mg/dL Lactic Acid (0.4-2.0) mmol/L Calcium 8.7 (8.5-10.1) mg/dL Prot Corrected Calcium (8.5-10.1) mg/dL Phosphorus 2.9 (2.5-4.9) mg/dL Magnesium 1.6 (1.5-2.5) mg/dL Total Bilirubin (0.2-1.0) mg/dL AST (15-37) U/L ALT (10-53) U/L Alkaline Phosphatase (45-117) U/L Total Creatine Kinase (26-192) U/L Troponin I (0.02-0.05) ng/mL Total Protein (6.4-8.2) g/dL Albumin (3.4-5.0) g/dL TSH (0.358-3.740) uIU/mL Urine Color (Yellw/Straw) Urine Clarity (Clear) Urine pH (5.0-8.5) Ur Specific [place] (1.002-1.035) Urine Protein (Neg-Trace) mg/dL Urine Glucose (UA) (Negative) mg/dL Urine Ketones (Negative) mg/dL Urine Occult Blood (Negative) Urine Nitrate (Negative) Urine Bilirubin (Negative) Urine Urobilinogen (Less than 2) mg/dL Ur Leukocyte Esterase (Negative) Urine RBC (0-3) /hpf Urine WBC (0-5) /hpf Ur Squamous Epith Cells (0-5) /hpf Micro UA Comment Ur Microscopic Review Urine Culture Comments Nasal Screen MRSA (PCR) (Negative) Urine Opiates Screen (Neg) Ur Barbiturates Screen (Neg) Ur Amphetamines Screen (Neg) U Benzodiazepines Scrn (Neg) Urine Cocaine Screen (Neg) U Cannabinoids Screen (Neg) Serum Alcohol (0-5) mg/dL Imaging Data Radiologist's impression: Chest X-Ray 03/31/18 21:34 CONCLUSION: 1. Diffuse infiltrates bilaterally consistent with moderate to severe pulmonary edema or pneumonia. Correlation is recommended. 2. Endotracheal tube in good position 4 cm above the avis. Chest X-Ray 03/31/18 23:45 CONCLUSION: Cardiomegaly and bilateral perihilar edema, slightly more prominent. Head CT 04/01/18 00:02 CONCLUSION: 1. No acute intracranial abnormality . Chest X-Ray 04/02/18 06:00 CONCLUSION: Significant improvement with minimal residual interstitial edema. Chest X-Ray 04/03/18 06:00 CONCLUSION: Mild prominence of central vessels and the interstitium. ECG Data EKG Prior to Arrival: Yes Attestation: I personally reviewed and interpreted this ECG as follows: Prior ECG tracings: available for review Interpretation: Twelve-lead EKG was reviewed by me. Normal sinus rhythm, wide complex tachycardia, left axis deviation. Heart rate of 143 bpm. When compared to the last EKG from September 2017 patient had normal complex EKG. Discharge Plan Discharge Disposition Patient Disposition: 30 Still Patient Physicians Team ED Provider: Mary Vital Primary Care Provider: Joel Begum Attending Provider: Misael Sprague Other Providers: Álvaro Heart ; Go Marsh Status ED Status: Left Department Discharge Information Discharge Date/Time: 04/01/18 03:52
[2018-03-31 22:32] LABS: Baso # (Auto) 0.2 th/mm3 (0.0-0.2); Baso % (Auto) 0.8 % (0.0-2.0); Eos # (Auto) 0.9 th/mm3 (0.0-0.4); Eos % (Auto) 4.6 % (0.0-4.0); Hemoglobin 10.7 gm/dL (11.6-15.3); Lymph # (Auto) 10.4 th/mm3 (1.0-4.8); Lymph % (Auto) 51.8 % (9.0-44.0); Mean Corpuscular Hemoglobin 24.9 pg (27.0-34.0); Mean Corpuscular Volume 83.9 fL (80.0-100.0); Mean Platelet Volume 9.2 fL (7.0-11.0); Mono # (Auto) 0.7 th/mm3 (0.0-0.9); Mono % (Auto) 3.4 % (0.0-8.0); Neut # (Auto) 7.9 th/mm3 (1.8-7.7); Neut % (Auto) 39.4 % (16.0-70.0); Platelet Count 643 th/mm3 (150-450); Red Blood Count 4.29 mil/mm3 (4.00-5.30); Red Cell Distribution Width 17.1 % (11.6-17.2); White Blood Count 20.2 th/mm3 (4.0-11.0)
[2018-03-31 22:37] LABS: Mean Corpuscular HGB Conc 29.6 % (32.0-36.0)
[2018-03-31 22:43] LABS: Bilirubin,Urine Negative (Negative); Clarity,Urine Clear (Clear); Color,Urine Yellow (Yellw/Straw); Glucose,Urine (UA) 500 or Greater mg/dL (Negative); Leukocyte Esterase,Urine Negative (Negative); Nitrite,Urine Negative (Negative); Specific Gravity,Urine 1.028 (1.002-1.035); Squamous Epithelial Cell,Urine 2 /hpf (0-5)
[2018-03-31 22:47] LABS: Amphetamine Screen,Urine Neg (Neg); Barbiturate Screen,Urine Neg (Neg); Cannabinoid Screen,Urine Neg (Neg); Cocaine Screen,Urine Neg (Neg)
[2018-03-31 22:52] LABS: Opiate Screen,Urine Neg (Neg)
[2018-03-31 23:03] LABS: Atypical Lymphs 7 % (0-0); Eosinophils 3 % (0-4); Lymphocytes 43 % (9-44); Monocytes 1 % (0-8)
[2018-03-31 23:05] LABS: Alkaline Phosphatase 137 U/L (45-117); Creatine Kinase 129 U/L (26-192); Total Protein 7.6 g/dL (6.4-8.2); Troponin I 0.06 ng/mL (0.02-0.05)
[2018-03-31 23:06] LABS: Acanthocytes Occ; Burr Cells 1+; Platelet Morphology Normal (Normal)
[2018-03-31 23:07] LABS: ABG Base Excess -11.4 mmol/L (-2-2); ABG PCO2 60 mmHg (38-42); ABG PO2 125 mmHg (61-120)
[2018-03-31 23:10] LABS: Alanine Aminotransferase 48 U/L (10-53); Anion Gap 15 meq/L (5-15); Aspartate Aminotransferase 69 U/L (15-37); Blood Urea Nitrogen 13 mg/dL (7-18); Carbon Dioxide 18.1 meq/L (21.0-32.0); Chloride 107 meq/L (98-107); Glomerular Filtration Rate 36 mL/min (>89); Glucose,Random 371 mg/dL (74-106); Magnesium 1.9 mg/dL (1.5-2.5); Potassium 4.3 meq/L (3.5-5.1); Sodium 140 meq/L (136-145)
[2018-03-31] MEDS ORDERED: Piperacil/Tazo 4.5 GM Premix 4.5 GM/100 ML BAG IV.SIG ONE (23:11)
[2018-03-31] MEDS ORDERED: Vancomycin Inj 1 GM/200 ML PIGGYBACK IV.SIG ONE (23:11)
--- NOTE | 2018-03-31 23:36 | P.HPCC ---
History of Present Illness Primary Care Physician: Joel Begum History of Present Illness: 73-year-old female was brought in by EMS after a call went out for respiratory distress followed by unresponsiveness. When EMS arrived patient was a GCS of 3 with agonal breathing. Patient was emergently intubated by EMS with etomidate and Ativan. She was given Nitropaste and IV Lasix. As per the bystanders patient has history of congestive heart failure. Patient obviously was unable to give any history. Upon arrival her blood pressure was 153 systolic and heart rate of 145. Patient was oxygenating 99% upon being bagged through the ET tube. Per patient's sister and the and at bedside the patient was wearing a LifeVest due to low EF approximately 20% for last 90 days. She has been followed by cardiac surgeon Dr. Brooke. She had a colonoscopy today that was uneventful however postprocedure the staff noticed today that she had a left bundle branch block which the family called the patient's cardiac surgeon and he assured them that it has not been new. In the emergency department he was running a wide-complex tachycardia, that responded to amiodarone bolus and drip and IV magnesium. Inpatient Certification: I certify that the inpatient services were ordered in accordance with Medicare regulations governing the order. This includes certification that hospital inpatient services are reasonable and necessary and in the case of services not specified as inpatient-only under 42 CFR 419.22(n), that they are appropriately provided as inpatient services in accordance to with the 2-midnight benchmark under 43 CFR 412.3(e) Review of Systems unobtainable due to endotracheal tube PMFSH - Medical / Surgical Hx Neg / Unobtainable Medical Problems Denied: Unable to Obtain Surgical History: Unable to Obtain Medications and Allergies Active Medications: Active Medications Amiodarone HCl 450 mg/ (Dextrose) 250 mls @ 33.33 mls/hr IV.CONT TITRATE PRN; Protocol PRN Reason: Per Protocol Dopamine HCl 800 mg/ Sodium (Chloride) 520 mls @ 0 mls/hr IV.CONT TITRATE PRN; Protocol PRN Reason: See Protocol Vancomycin/Sodium Chloride (Vancomycin Inj) 1 gm in 200 mls @ 200 mls/hr IV.SIG ONCE ONE Stop: 04/01/18 00:10 Piperacillin/Tazobactam/Dextrose (Zosyn 4.5 Gm Premix) 4.5 gm in 100 mls @ 200 mls/hr IV.SIG ONCE ONE Stop: 03/31/18 23:40 Miscellaneous Information ([facility] [place] Nursing Information) 0 each OTHER Q15M [facility] Stop: 04/01/18 02:46 Sodium Chloride (Ns Flush) 2 ml IV.FLUSH PRN PRN PRN Reason: FLUSH AFTER USING IV ACCESS Terbutaline Sulfate (Brethine Inj) 1 mg SQ ONCE PRN PRN Reason: Extravasation Current Medications Acetaminophen (Tylenol) 650 mg PO Q6H PRN PRN Reason: PAIN 1-10 AND/OR FEVER >101F Al Hydroxide/Mg Hydroxide (Milk Of Jesse Lizari) 30 ml PO Q12H PRN PRN Reason: Mild Constipation Albuterol (Duoneb Neb (Prn)) 1 ampul NEB Q2HR NEB PRN PRN Reason: WHEEZING Bisacodyl (Dulcolax Supp) 10 mg RECTAL DAILY PRN PRN Reason: SEVERE CONSITIPATION Chlorhexidine Gluconate (Peridex 0.12% Oral Kit) 15 ml OROPHARYNG BID@0800, 2000 [facility] Chlorhexidine Gluconate (Chlorhexidine 2% Cloth) 3 pack TOPICAL DAILY@0400 [facility] Stop: 04/06/18 03:59 Chlorhexidine Gluconate (Chlorhexidine 2% Cloth) 3 pack TOPICAL DAILY@0400 PRN PRN Reason: Extra cloth needed Stop: 04/06/18 03:59 Famotidine (Pepcid Pf Inj) 20 mg IV.PUSH Q12HR [facility] Heparin Sodium (Porcine) (Heparin Inj) 5,000 units SQ Q8H [facility] Amiodarone HCl 450 mg/ (Dextrose) 250 mls @ 33.33 mls/hr IV.CONT TITRATE PRN; Protocol PRN Reason: Per Protocol Dopamine HCl 800 mg/ Sodium (Chloride) 520 mls @ 0 mls/hr IV.CONT TITRATE PRN; Protocol PRN Reason: See Protocol Vancomycin/Sodium Chloride (Vancomycin Inj) 1 gm in 200 mls @ 200 mls/hr IV.SIG ONCE ONE Stop: 04/01/18 00:10 Sodium Chloride (Ns Inj) 1,000 mls @ 84 mls/hr IV.CONT .[id number] [facility] Propofol (Diprivan 1000 Mg/100 Ml Inj) 1,000 mg in 100 mls @ 0 mls/hr IV.CONT TITRATE PRN; Protocol PRN Reason: Per Protocol Lactulose (Lactulose Liq) 30 ml PO DAILY PRN PRN Reason: SEVERE CONSITIPATION Midazolam HCl (Versed Inj) 2 mg IV.PUSH Q1H PRN PRN Reason: SEDATION Miscellaneous Information ([facility] [place] Nursing Information) 0 each OTHER Q15M MAUL[facility] Stop: 04/01/18 02:46 Miscellaneous Medication () 1 each OROPHARYNG 0000,0400,1200,1600 [facility] Morphine Sulfate (Morphine Inj) 2 mg IV.PUSH Q2H PRN PRN Reason: PAIN SCALE 6 TO 10 Senna/Docusate Sodium (Alysa-Colace) 1 tab PO BID [facility] Sennosides (Senokot) 17.2 mg PO Q12H PRN PRN Reason: Moderate Constipation Sodium Chloride (Ns Flush) 2 ml IV.FLUSH PRN PRN PRN Reason: FLUSH AFTER USING IV ACCESS Sodium Chloride (Ns Flush) 2 ml IV.FLUSH BID MAULIK Sodium Chloride (Ns Flush) 2 ml IV.FLUSH PRN PRN PRN Reason: FLUSH AFTER USING IV ACCESS Terbutaline Sulfate (Brethine Inj) 1 mg SQ ONCE PRN PRN Reason: Extravasation Allergies Allergy/AdvReac Type Severity Reaction Status Date / Time No Known Allergies Allergy Verified 04/01/18 02:17 Results - Labs CBC & Chem 7: 04/01/18 04:27 04/01/18 04:27 Labs: Short CBC 03/31/18 Range/Units 21:30 WBC 20.2 H (4.0-11.0) th/mm3 Hgb 10.7 L (11.6-15.3) gm/dL Hct 36.0 (35.0-46.0) % Plt Count 643 H (150-450) th/mm3 BMP 03/31/18 21:30 Sodium 140 Potassium 4.3 Chloride 107 Carbon Dioxide 18.1 L BUN 13 Creatinine 1.42 H Calcium 8.0 L Cardiac Enzymes 03/31/18 Range/Units 21:30 Total Creatine Kinase 129 (26-192) U/L Troponin I 0.06 H (0.02-0.05) ng/mL Liver Function 03/31/18 Range/Units 21:30 Total Bilirubin 0.1 L (0.2-1.0) mg/dL AST 69 H (15-37) U/L ALT 48 (10-53) U/L Alkaline Phosphatase 137 H (45-117) U/L Albumin 3.0 L (3.4-5.0) g/dL Urine 03/31/18 Range/Units 21:36 Urine Color Yellow (Yellw/Straw) Urine Clarity Clear (Clear) Urine pH 5.0 (5.0-8.5) Ur Specific [place] 1.028 (1.002-1.035) Urine Protein Negative (Neg-Trace) mg/dL Urine Glucose (UA) 500 or greater (Negative) mg/dL - Imaging Impressions Chest X-Ray 03/31/18 21:34 CONCLUSION: 1. Diffuse infiltrates bilaterally consistent with moderate to severe pulmonary edema or pneumonia. Correlation is recommended. 2. Endotracheal tube in good position 4 cm above the avis. Exam Vital signs: Vital Signs 03/31/18 21:34 Respiratory Rate 38 H Pulse Oximetry 100 - Constitutional moderate distress - Routine HEENT Exam Head: Present: normocephalic Eye: Present: PERRL ENT: Present: mucous membranes moist - Routine Neck Exam Absent: carotid bruit - Routine Respiratory Exam Present: patient mechanically ventilated, rhonchi, crackles. Absent: stridor, wheezes - Routine Cardiovascular Exam Present: tachycardia, irregularly irregular - Routine Abdominal Exam Present: soft, normoactive bowel sounds - Routine Extremities Exam Absent: cyanosis, clubbing, edema - Routine Skin Exam Present: intact. Absent: cyanosis, erythema - Routine Neurological Exam Present: altered mental status, moving all extremities Septic Shock Reassessment Septic shock perfusion: reassessment completed Caprini VTE Risk Assessment Caprini VTE Risk Assessment: Moderate/High Risk (score >= 2) Caprini Risk Assessment Model: Point Value = 1 Point Value = 2 Point Value = 3 Point Value = 5 Age 41-60 Minor surgery BMI > 25 kg/m2 Swollen legs Varicose veins or History of unexplained or recurrent spontaneous Oral contraceptives or hormone replacement Sepsis (< 1 month) Serious lung disease, including pneumonia (< 1 month) Abnormal pulmonary function Acute myocardial infarction Congestive heart failure (< 1 month) History of inflammatory bowel disease Medical patient at bed rest Age 61-74 Arthroscopic surgery Major open surgery (> 45 min) Laparoscopic surgery (> 45 min) Malignancy Confined to bed (> 72 hours) Immobilizing plaster cast Central venous access Age >= 75 History of VTE Family history of VTE Factor V Leiden Prothrombin [id number] Lupus anticoagulant Anticardiolipin antibodies Elevated serum homocysteine Heparin-induced thrombocytopenia Other congenital or acquired thrombophilia Stroke (< 1 month) Elective arthroplasty Hip, pelvis, or leg fracture Acute spinal cord injury (< 1 month) Prophylaxis Regimen: Total Risk Factor Score Risk Level Prophylaxis Regimen 0-1 Low Early ambulation 2 Moderate Order ONE of the following: *Sequential Compression Device (SCD) *Heparin 5000 units SQ BID 3-4 Higher Order ONE of the following medications: *Heparin 5000 units SQ TID *Enoxaparin/Lovenox 40 mg SQ daily (WT < 150 kg, CrCl > 30 mL/min) *Enoxaparin/Lovenox 30 mg SQ daily (WT < 150 kg, CrCl > 10-29 mL/min) *Enoxaparin/Lovenox 30 mg SQ BID (WT < 150 kg, CrCl > 30 mL/min) AND/OR *Sequential Compression Device (SCD) 5 or more Highest Order ONE of the following medications: *Heparin 5000 units SQ TID (Preferred with Epidurals) *Enoxaparin/Lovenox 40 mg SQ daily (WT < 150 kg, CrCl > 30 mL/min) *Enoxaparin/Lovenox 30 mg SQ daily (WT < 150 kg, CrCl > 10-29 mL/min) *Enoxaparin/Lovenox 30 mg SQ BID (WT < 150 kg, CrCl > 30 mL/min) AND *Sequential Compression Device (SCD) Assessment and Plan - Assessment and Plan Plan: Respiratory failure -severe pulmonary edema -Nonischemic cardiomyopathy -Diuretics if hemodynamically stable -Vent bundle -DuoNeb's as needed Pulmonary edema -Decompensated heart failure -Last EF 20% -Nonischemic cardiomyopathy per [employer] report -Cardiology consultation Wide-complex tachycardia -Amiodarone drip -IV magnesium -Telemetry -Series of troponins and EKGs Acute kidney injury -Strict I's and -Monitor electrolytes and creatinine -Electrolyte replacement per ICU protocol DVT GI prophylaxis -Teds SCDs -Subcu heparin -Pepcid 35 minutes of critical care
[2018-03-31] MEDS ORDERED: Morphine Sulfate Inj 2 MG/ML Vial IV.PUSH PRN (23:41)
[2018-03-31] MEDS ORDERED: Bisacodyl 10 MG Supp RECTAL PRN (23:41)
[2018-03-31] MEDS ORDERED: Sod Chloride 0.9% Inj 1,000 ML IV.CONT SCH (23:45)
--- NOTE | 2018-04-01 00:15 | XR ---
EXAM DATE: 04/01/2018 11:45 PM EDT AGE/SEX: 73 years / Female INDICATIONS: Respiratory failure. CLINICAL DATA: This is the patient's subsequent encounter. Patient reports that signs and symptoms h ave been present for 2 days and indicates a pain score of Nonresponsive. MEDICAL/SURGICAL HISTORY: . Cardiomyopathy. Congestive heart failure. Hypertension. Diabetes. . . Hysterectomy.Tonsillectomy. Right knee surgery. Breast biopsy. COMPARISON: [facility] [place], CHEST 1V SINGLE AP, 03/31/2018. . FINDINGS: A single AP view of the chest demonstrates cardiomegaly with increase in pulmonary vascularity and bi lateral perihilar pulmonary edema. Endotracheal tube and nasogastric tube unchanged. External pacer w ires seen on the right. Osseous structures are intact. CONCLUSION: Cardiomegaly and bilateral perihilar edema, slightly more prominent. Electronically signed by: Jones Hart MD 04/01/2018 12:14 AM EDT
[2018-04-01] MEDS: Propofol 1000 mg/100 ml Inj 1,000 MG/100 ML BOTTLE IV.CONT PRN ×3 (00:32→17:46)
[2018-04-01 00:39] LABS: ABG Base Excess -8.1 mmol/L (-2-2); ABG PCO2 48 mmHg (38-42); ABG PO2 201 mmHg (61-120)
[2018-04-01] MEDS ORDERED: Vancomycin Inj 1,000 MG in Sodium Chlor 0.9% Inj 250 ML IV.SIG ONE (03:00)
--- NOTE | 2018-04-01 03:11 | CT ---
EXAM DATE: 04/01/2018 12:02 AM EDT AGE/SEX: 73 years / Female INDICATIONS: Altered mental status; respiratory failure. CLINICAL DATA: This is the patient's initial encounter. Patient reports that signs and symptoms have been present for 1 day and indicates a pain score of Nonresponsive. MEDICAL/SURGICAL HISTORY: Non-responsive. Non-responsive. RADIATION DOSE: 33.70 CTDI (mGy) COMPARISON: [facility] [place], CT BRAIN W/O CONTRAST, 09/21/2017. . TECHNIQUE: CT of the head without contrast. Using automated exposure control and adjustment of the mA and/or kV according to patient size, radiation dose was kept as low as reasonably achievable to ob tain optimal diagnostic quality images. DICOM format image data is available electronically for revi ew and comparison. FINDINGS: Cerebrum: The ventricles are normal for age. No evidence of midline shift, mass lesion, hemorrhage or acute infarction. No extraaxial fluid collections are seen. Posterior Fossa: The cerebellum and brainstem are intact. The 4th ventricle is midline. The cerebe llopontine angle is unremarkable. Extracranial: The visualized portion of the orbits is intact. Skull: The calvaria is intact. No evidence of skull fracture. CONCLUSION: 1. No acute intracranial abnormality . Electronically signed by: Jones Hart MD 04/01/2018 3:10 AM EDT
[2018-04-01] MEDS: Chlorhexidine Gluconate 2% 1 Pack (2 Cloths) TOPICAL SCH (03:45)
[2018-04-01] MEDS ORDERED: Chlorhexidine Gluconate 2% 1 Pack (2 Cloths) TOPICAL PRN (04:00)
[2018-04-01 04:47] LABS: Baso # (Auto) 0.2 th/mm3 (0.0-0.2); Baso % (Auto) 0.9 % (0.0-2.0); Eos # (Auto) 0.1 th/mm3 (0.0-0.4); Eos % (Auto) 0.3 % (0.0-4.0); Hematocrit 30.9 % (35.0-46.0); Hemoglobin 9.8 gm/dL (11.6-15.3); Lymph # (Auto) 1.8 th/mm3 (1.0-4.8); Lymph % (Auto) 9.9 % (9.0-44.0); Mean Corpuscular HGB Conc 31.6 % (32.0-36.0); Mean Corpuscular Hemoglobin 25.1 pg (27.0-34.0); Mean Corpuscular Volume 79.4 fL (80.0-100.0); Mean Platelet Volume 7.8 fL (7.0-11.0); Mono # (Auto) 0.8 th/mm3 (0.0-0.9); Mono % (Auto) 4.5 % (0.0-8.0); Neut # (Auto) 15.6 th/mm3 (1.8-7.7); Neut % (Auto) 84.4 % (16.0-70.0); Platelet Count 456 th/mm3 (150-450); Red Cell Distribution Width 16.4 % (11.6-17.2); White Blood Count 18.5 th/mm3 (4.0-11.0)
[2018-04-01 04:55] LABS: Activated Partial Thrombo Time 20.8 sec (24.3-30.1); Prothrombin Time 10.3 sec (9.8-11.6)
[2018-04-01 05:19] LABS: Albumin 2.7 g/dL (3.4-5.0); Calcium 7.3 mg/dL (8.5-10.1); Carbon Dioxide 22.5 meq/L (21.0-32.0); Magnesium 2.1 mg/dL (1.5-2.5); Phosphorus 4.1 mg/dL (2.5-4.9); Potassium 3.8 meq/L (3.5-5.1); Total Protein 6.7 g/dL (6.4-8.2); Troponin I 0.47 ng/mL (0.02-0.05)
[2018-04-01] MEDS: Oral Hygiene Kit OROPHARYNG SCH ×5 (06:45→23:20)
[2018-04-01] MEDS: NEED HT & WT OTHER SCH ×3 (06:45→06:46)
[2018-04-01] MEDS ORDERED: Potassium Chlor 40 mEq Premix 40 MEQ/100 ML PIGGYBACK IV.SIG PRN ×2 (07:20)
[2018-04-01] MEDS ORDERED: Magnesium Sulfate Inj 4 GM in Sodium Chlor 0.9% Inj 92 ML IV.SIG PRN (07:20)
[2018-04-01] MEDS ORDERED: Magnesium Oxide 400 MG Tablet PO PRN (07:20)
[2018-04-01] MEDS ORDERED: Sodium Phosphate Inj 30 MMOL in Sodium Chlor 0.9% Inj 250 ML IV.SIG PRN (07:20)
[2018-04-01] MEDS ORDERED: Potassium Chlor 20 mEq Premix 20 MEQ/100 ML PIGGYBACK IV.SIG PRN ×2 (07:20)
[2018-04-01] MEDS ORDERED: Potassium Phosphate 500 MG Soluble Tablet PO PRN ×2 (07:20)
[2018-04-01] MEDS ORDERED: Potassium Phosphate Inj 30 MMOL in Sodium Chlor 0.9% Inj 250 ML IV.SIG PRN (07:20)
[2018-04-01] MEDS ORDERED: Potassium Chloride 25 MEQ Effervescent Tablet PO PRN (07:20)
[2018-04-01] MEDS ORDERED: Magnesium Sulfate Inj 2 GM in Sodium Chlor 0.9% Inj 96 ML IV.SIG PRN (07:20)
[2018-04-01] MEDS ORDERED: Dextrose 50% in Water 50 ML Vial IV.PUSH PRN (07:21)
[2018-04-01] MEDS ORDERED: Potassium Chloride 25 MEQ Effervescent Tablet PO ONE (07:30)
--- NOTE | 2018-04-01 07:44 | P.PNCC ---
Subjective Subjective Remarks/Hospital Course: 73-year-old female was brought in by EMS after a call went out for respiratory distress followed by unresponsiveness. When EMS arrived patient was a GCS of 3 with agonal breathing. Patient was emergently intubated by EMS with etomidate and Ativan. She was given Nitropaste and IV Lasix. As per the bystanders patient has history of congestive heart failure. Patient obviously was unable to give any history. Upon arrival her blood pressure was 153 systolic and heart rate of 145. Patient was oxygenating 99% upon being bagged through the ET tube. Per patient's sister and the and at bedside the patient was wearing a LifeVest due to low EF approximately 20% for last 90 days. She has been followed by hydro plant site manager Dr. Brooke. She had a colonoscopy today that was uneventful however postprocedure the staff noticed today that she had a left bundle branch block which the family called the patient's hydro plant site manager and he assured them that it has not been new. In the emergency department he was running a wide-complex tachycardia, that responded to amiodarone bolus and drip and IV magnesium. Subjective 04/01: Patient is currently awake in sinus tachycardia. Complaining of being hot. Currently resting in bed in no acute distress. Objective Vital Signs / I&O: Vital Signs 03/31/18 21:34 04/01/18 00:55 04/01/18 03:16 Pulse Rate Respiratory Rate 38 H 18 26 H Blood Pressure Pulse Oximetry 100 99 96 04/01/18 03:20 04/01/18 03:25 04/01/18 04:00 Pulse Rate 123 H 121 H 118 H Respiratory Rate 43 H 24 Blood Pressure 123/77 116/78 Pulse Oximetry 100 100 04/01/18 05:00 04/01/18 06:00 04/01/18 07:21 Pulse Rate 116 H 118 H Respiratory Rate 24 24 30 H Blood Pressure 122/77 130/85 Pulse Oximetry 100 100 100 Intake & Output 03/31/18 04/01/18 04/01/18 18:59 06:59 18:59 Intake Total 400 / 400 Output Total 400 / 400 Balance 0 / 0 Weight 67 kg Intake: IV 400 / 400 Output: Urine Amount (Catheter) 400 / 400 Indwelling Urethral Catheter 400 / 400 Other: Weight On Admission 67 kg Result Diagrams: 04/01/18 04:27 04/01/18 04:27 Imaging: Chest X-Ray 03/31/18 21:34 CONCLUSION: 1. Diffuse infiltrates bilaterally consistent with moderate to severe pulmonary edema or pneumonia. Correlation is recommended. 2. Endotracheal tube in good position 4 cm above the avis. Chest X-Ray 03/31/18 23:45 CONCLUSION: Cardiomegaly and bilateral perihilar edema, slightly more prominent. Head CT 04/01/18 00:02 CONCLUSION: 1. No acute intracranial abnormality . Objective Remarks: GENERAL: 73-year-old female currently resting in bed in no acute distress SKIN: Warm and dry. HEAD: Atraumatic. Normocephalic. EYES: Pupils equal and round. No scleral icterus. No injection or drainage. ENT: No nasal bleeding or discharge. Mucous membranes pink and moist. NECK: Trachea midline. No JVD. CARDIOVASCULAR: Tachycardic, RR. S1, S2. No S4. No murmur. RESPIRATORY: No accessory muscle use. Clear to auscultation. Breath sounds equal bilaterally. GASTROINTESTINAL: Abdomen soft, non-tender, nondistended. Hepatic and splenic margins not palpable. MUSCULOSKELETAL: Extremities without significant peripheral edema. No obvious deformities. NEUROLOGICAL: Awake and alert. No obvious cranial nerve deficits. Motor grossly within normal limits. Five out of 5 muscle strength in the arms and legs. Normal speech. Assessment and Plan - Assessment and Plan Plan: Neuro/Psych: Acetaminophen 650 mg by tube every 6 hours as needed fever Morphine sulfate 2 mg IV every 2 hours as needed pain breakthrough CV: Wide complex tachycardia currently in sinus tachycardia Chronic systolic heart failure ejection fraction 20% Nonischemic cardia myopathy Essential hypertension Hyperlipidemia Elevated troponin Left bundle branch block Previously on amiodarone drip and dopamine drip in the ED these have been weaned off. EKG this a.m. pending. Currently in sinus tachycardia Echocardiogram 09/28 revealed EF around 20% with anterior wall akinesis. Cardiac catheterization by Dr. Brooke/revealed left main 10%, LAD 10-20%. Left circumflex 20%. RCA normal. Recommended possible LifeVest as outpatient workup Cycle troponins. Serially until downward trending Cardiology consultation with Dr. Brooke Previously on metoprolol and lisinopril Recently on atorvastatin 40 mg daily for dyslipidemia. Resp: Acute respiratory failure PRVC 18/500/0.9/5/40 Ventilator bundle Albuterol/ipratropium aerosols every 6 hours with albuterol aerosols every 2 hours as needed dyspnea Spontaneous breathing trials today. Chest x-ray admission revealed cardiomegaly and pulmonary congestion. GI: Gastroesophageal reflux disease Hiatal hernia Initiate Glucerna 1.5 goal 55 cc an hour Famotidine for GI prophylaxis Docusate sodium/senna 1 tablet twice daily for bowel regimen : Straight cathed every 6 hours as needed. Wu catheter for urinary retention only Endo: Diabetes mellitus type 2 Previously on clinical canagliflozin/metformin 1 tablet twice daily and glipizide 5 mg daily Sliding scale is with aspart insulin Accu-Cheks every 6 hours maintain euglycemia/medium protocol Check TSH Renal: Creatinine currently 1.13 and downtrending. Accurate I's and O's Monitor urine output Heme: Leukocytosis Microcytic anemia Thrombocytosis Monitor CBC daily. Follow trends per No indication for transfusion of blood products at this time ID: Monitor for signs and symptomatology infection Received vancomycin and piperacillin/tazobactam in the ED. Blood cultures x2, UA pending FEN: Hypocalcemia Replace electrolytes as clinically indicated per ICU likely protocol Goal potassium greater than 4, magnesium greater than 2. MSK: PT evaluate and treat Access -Utilize peripheral IV. Central line if indicated Prophylaxis -GI -famotidine -DVT -SCD/heparin subcu 35 minutes critical care time
[2018-04-01] MEDS: Potassium Chlor 10 mEq Premix 10 MEQ/100 ML PIGGYBACK IV.SIG SCH ×3 (08:00→10:23)
[2018-04-01] MEDS: Heparin - SQ 10,000 UNITS/ML Vial SQ SCH ×4 (08:01→23:19)
[2018-04-01] MEDS: Chlorhexidine 0.12% Oral Kit 15 ML UDC OROPHARYNG SCH ×2 (08:04→21:02)
[2018-04-01] MEDS: Senna/Docusate Sodium 8.6/50 MG Tablet PO SCH ×2 (08:05→21:04)
[2018-04-01] MEDS: Famotidine PF Inj 20 MG/2 ML Vial IV.PUSH SCH ×2 (08:05→21:03)
[2018-04-01] MEDS ORDERED: Calcium Chloride Inj 1 GM in Sodium Chlor 0.9% Inj 100 ML IV.SIG ONE (08:30)
[2018-04-01] MEDS ORDERED: Magnesium Sulfate Inj 2 GM in Sodium Chlor 0.9% Inj 96 ML IV.SIG ONE (09:00)
[2018-04-01 12:54] LABS: Thyroid Stimulating Hormone 0.466 uIU/mL (0.358-3.740)
[2018-04-01 13:00] LABS: Troponin I 0.84 ng/mL (0.02-0.05)
[2018-04-01] MEDS: Insulin NovoLOG Aspart Correctional Sugar Inj SQ SCH ×3 (13:26→23:43)
--- NOTE | 2018-04-01 15:40 | ECHRPT ---
Indication: HEART FAILURE CONCLUSIONS The left ventricular systolic function is severely reduced with an estimated ejection fraction less than 20%. There is global left ventricular hypokinesis Moderately dilated left ventricle with normal wall thickness. There is mild tricuspid valve regurgitation. The estimated pulmonary arterial pressure is 41.8 mmHg. IVC is normal sized with reduced inspiratory collapse. Technically difficult study. Compared to prior study from 09/28, no significant change in LV function. BP: / HR: Rhythm: Sinus MEASUREMENTS (Male / Female) Normal Values Technical Quality:Technically difficult study 2D ECHO LV Diastolic Diameter PLAX 4.9 cm 4.2 - 5.9 / 3.9 - 5.3 cm LV Systolic Diameter PLAX 4.7 cm IVS Diastolic Thickness 1.0 cm 0.6 - 1.0 / 0.6 - 0.9 cm LVPW Diastolic Thickness 1.0 cm 0.6 - 1.0 / 0.6 - 0.9 cm LV Relative Wall Thickness 0.4 LVOT Diameter 1.5 cm M-MODE LV Diastolic Diameter MM 6.1 cm 4.2 - 5.9 / 3.9 - 5.3 cm LV Systolic Diameter MM 5.9 cm LV Ejection Fraction MM Teich 9.8 % IVS Diastolic Thickness MM 1.0 cm 0.6 - 1.0 / 0.6 - 0.9 cm LVPW Diastolic Thickness MM 1.0 cm 0.6 - 1.0 / 0.6 - 0.9 cm LV Relative Wall Thickness MM 0.3 0.24 - 0.42 / 0.22 - 0.42 Aortic Root Diameter MM 2.0 cm LA Systolic Diameter MM 2.6 cm LA Ao Ratio MM 1.3 AV Cusp Separation MM 0.9 cm DOPPLER AV Peak Velocity 159.0 cm/s AV Peak Gradient 10.1 mmHg LVOT Peak Velocity 83.9 cm/s LVOT Peak Gradient 2.8 mmHg AV Area Cont Eq pk 0.9 cm MV Area PHT 8.8 cm LV E' Lateral Velocity 2.9 cm/s LV E' Septal Velocity 3.1 cm/s TR Peak Velocity 282.0 cm/s TR Peak Gradient 31.8 mmHg Right Atrial Pressure 10.0 mmHg Pulmonary Artery Systolic Pressu 41.8 mmHg Right Ventricular Systolic Press 41.8 mmHg PV Peak Velocity 107.0 cm/s PV Peak Gradient 4.6 mmHg FINDINGS LEFT VENTRICLE The left ventricular systolic function is severely reduced with an estimated ejection fraction less than 20%. Moderately dilated left ventricle. Wall thickness is normal. There is global left ventricular dysfunction. RIGHT VENTRICLE Normal right ventricular size and systolic function. LEFT ATRIUM The left atrial size is normal. RIGHT ATRIUM The right atrial size is normal. ATRIAL SEPTUM Normal atrial septal thickness without atrial level shunting by limited color doppler interrogation. AORTA The aortic root and proximal ascending aorta are normal in size on limited imaging. MITRAL VALVE Structurally normal mitral valve. No mitral valve stenosis or regurgitation. AORTIC VALVE Trileaflet aortic valve. No aortic valve stenosis or regurgitation. TRICUSPID VALVE The tricuspid valve is not well visualized. There is mild tricuspid valve regurgitation. The estimated pulmonary arterial pressure is 41.8 mmHg. PULMONARY VALVE No pulmonary valve regurgitation or stenosis. VESSELS The inferior vena cava is normal in size. PERICARDIUM No pericardial effusion. Álvaro Heart MD (Electronically Signed) Final Date:01 April 2018 15:39 Amended: 01 April 2018 15:46
[2018-04-01 19:03] LABS: Calcium 8.5 mg/dL (8.5-10.1); Carbon Dioxide 24.8 meq/L (21.0-32.0); Magnesium 2.3 mg/dL (1.5-2.5); Potassium 3.7 meq/L (3.5-5.1)
[2018-04-01 19:14] LABS: Troponin I 0.78 ng/mL (0.02-0.05)
--- NOTE | 2018-04-01 19:34 | ECG ---
Date Performed: 04/01/2018 Time Performed: 11:59:06 PTAGE: 73 years EKG: SINUS TACHYCARDIA WITH OCCASIONAL VENTRICULAR PREMATURE COMPLEXES MARKED LEFT AXIS DEVIATIO N LEFT BUNDLE BRANCH BLOCK ABNORMAL ECG PREVIOUS TRACING : 04/01/2018 09.11 Since the previous tracing, no significant change noted DOCTOR: Broderick Guzman Interpretating Date/Time 04/01/2018 19:32:59
--- NOTE | 2018-04-01 19:43 | ECG ---
Date Performed: 04/01/2018 Time Performed: 09:11:24 PTAGE: 73 years EKG: ECTOPIC ATRIAL TACHYCARDIA LEFT ATRIAL ENLARGEMENT MARKED LEFT AXIS DEVIATION INTRAVENTRICU LAR CONDUCTION DELAY POSSIBLE ANTERIOR MYOCARDIAL INFARCTION , OF INDETERMINATE AGE ABNORMAL ECG PREVIOUS TRACING : 03/31/2018 22.53 Since the previous tracing, no significant change noted DOCTOR: Broderick Guzman Interpretating Date/Time 04/01/2018 19:42:18
--- NOTE | 2018-04-01 20:08 | ECG ---
Date Performed: 03/31/2018 Time Performed: 22:53:20 PTAGE: 73 years EKG: SINUS TACHYCARDIA WITH SHORT SC INTERVAL MARKED LEFT AXIS DEVIATION LEFT BUNDLE BRANCH BLOC K ABNORMAL ECG Compared to PREVIOUS TRACING , rate slower DOCTOR: Broderick Guzman Interpretating Date/Time 04/01/2018 20:07:15
--- NOTE | 2018-04-01 20:09 | ECG ---
Date Performed: 03/31/2018 Time Performed: 21:30:48 PTAGE: 73 years EKG: SINUS TACHYCARDIA WITH SHORT [place] INTERVAL MARKED LEFT AXIS DEVIATION LEFT BUNDLE BRANCH BLOC K ABNORMAL ECG PREVIOUS TRACING : 09/21/2017 08.35 Compared to previous tracing, rate faster, LBBB present DOCTOR: Broderick Guzman Interpretating Date/Time 04/01/2018 20:08:51
[2018-04-02] MEDS: Oral Hygiene Kit OROPHARYNG SCH ×3 (03:49→17:45)
[2018-04-02] MEDS: Chlorhexidine Gluconate 2% 1 Pack (2 Cloths) TOPICAL SCH (03:49)
[2018-04-02] MEDS: Propofol 1000 mg/100 ml Inj 1,000 MG/100 ML BOTTLE IV.CONT PRN ×2 (03:50→08:45)
--- NOTE | 2018-04-02 04:01 | XR ---
EXAM DATE: 04/02/2018 6:00 AM EDT AGE/SEX: 73 years / Female INDICATIONS: Shortness of breath, possible pulmonary disease. CLINICAL DATA: This is the patient's subsequent encounter. Patient reports that signs and symptoms h ave been present for 4 - 6 days and indicates a pain score of Nonresponsive. MEDICAL/SURGICAL HISTORY: Congestive heart failure. Hypertension. Diabetes. Hysterectomy. To nsillectomy. Right knee surgery. COMPARISON: [facility] [place], CHEST 1V SINGLE AP, 03/31/2018. . FINDINGS: A single AP view of the chest demonstrates cardiomegaly with central pulmonary vascular congestion an d slight interstitial prominence. No pulmonary edema on current study. Endotracheal tube and nasogast honey tube unchanged. The cardiomediastinal contours are unremarkable. Osseous structures are intact. CONCLUSION: Significant improvement with minimal residual interstitial edema. Electronically signed by: Jones Hart MD 04/02/2018 4:00 AM EDT
[2018-04-02 05:37] LABS: Baso # (Auto) 0.1 th/mm3 (0.0-0.2); Baso % (Auto) 0.8 % (0.0-2.0); Eos # (Auto) 0.7 th/mm3 (0.0-0.4); Hematocrit 27.6 % (35.0-46.0); Hemoglobin 8.9 gm/dL (11.6-15.3); Lymph # (Auto) 2.4 th/mm3 (1.0-4.8); Lymph % (Auto) 17.2 % (9.0-44.0); Mean Corpuscular HGB Conc 32.2 % (32.0-36.0); Mean Corpuscular Hemoglobin 25.4 pg (27.0-34.0); Mean Corpuscular Volume 78.9 fL (80.0-100.0); Mean Platelet Volume 8.5 fL (7.0-11.0); Mono # (Auto) 0.8 th/mm3 (0.0-0.9); Mono % (Auto) 5.8 % (0.0-8.0); Neut # (Auto) 9.8 th/mm3 (1.8-7.7); Neut % (Auto) 71.2 % (16.0-70.0); Platelet Count 385 th/mm3 (150-450); Red Cell Distribution Width 16.2 % (11.6-17.2); White Blood Count 13.7 th/mm3 (4.0-11.0)
[2018-04-02 06:01] LABS: Alanine Aminotransferase 47 U/L (10-53); Phosphorus 2.5 mg/dL (2.5-4.9)
[2018-04-02 06:05] LABS: Alkaline Phosphatase 104 U/L (45-117); Total Protein 6.9 g/dL (6.4-8.2); Troponin I 0.28 ng/mL (0.02-0.05)
[2018-04-02 06:12] LABS: Albumin 2.5 g/dL (3.4-5.0); Anion Gap 9 meq/L (5-15); Aspartate Aminotransferase 29 U/L (15-37); Blood Urea Nitrogen 18 mg/dL (7-18); Calcium 8.5 mg/dL (8.5-10.1); Carbon Dioxide 22.9 meq/L (21.0-32.0); Chloride 112 meq/L (98-107); Glomerular Filtration Rate 59 mL/min (>89); Glucose,Random 133 mg/dL (74-106); Potassium 3.8 meq/L (3.5-5.1); Sodium 144 meq/L (136-145)
[2018-04-02] MEDS: Insulin NovoLOG Aspart Correctional Sugar Inj SQ SCH ×4 (06:13→21:01)
[2018-04-02] MEDS: Chlorhexidine 0.12% Oral Kit 15 ML UDC OROPHARYNG SCH ×2 (08:44→21:00)
[2018-04-02] MEDS: Famotidine PF Inj 20 MG/2 ML Vial IV.PUSH SCH ×2 (08:44→21:01)
[2018-04-02] MEDS: Senna/Docusate Sodium 8.6/50 MG Tablet PO SCH ×2 (08:44→21:01)
[2018-04-02] MEDS: Heparin - SQ 10,000 UNITS/ML Vial SQ SCH ×2 (08:44→18:14)
--- NOTE | 2018-04-02 08:44 | P.DIET ---
Nutritional Evaluation Type of nutrition evaluation: initial Nutrition consult regarding: Tube Feeding Objective - Objective [place] body weight: 46 kg % IBW: 147 Body Weight Used for Calculations: Upper end of IBW (50kg) Energy Needs - Lower Range (kCal/kg): 28 Energy Needs - Upper Range (kCal/kg): 33 Lower Limit kCal/kg (kCals): 1,400 Upper Limit kCal/kg (kCals): 1,650 Lower Limit Protein Factor (Grams per Kg): 1.2 Upper Limit Protein Factor (Grams per Kg): 1.5 Lower Protein Needs (Protein): 60 Upper Protein Needs (Protein): 75 Dietitian Reviewed in Medical Record: Curent medications, Intake & Output, Labs , Medical history, Tube feeding Assessment Assessment: Pt at nutritional risk r/t need for a TF for nutrition support. Pt admitted with respiratory failure, is intubated and sedated on propofol which adds kcals when running. Nutritional needs as assessed above. Current TF Jevity 1.5 with goal rate 55ml/hr per MD. To best meet pt's nutritional needs, recommend a goal rate of 45ml/hr to provide 1620kcals, 69gms protein and 821mls free water. Will monitor TF tolerance, clinical course. Recommendations: TF Jevity 1.5 with goal rate 55ml/hr Dietitian to Monitor: Lab values, Intake & Output, Tube feeding tolerance, Weight change, Medical course
[2018-04-02] MEDS ORDERED: Carvedilol 6.25 MG Tablet PO SCH (09:00)
--- NOTE | 2018-04-02 10:43 | P.PNCC ---
Subjective Subjective Remarks/Hospital Course: 73-year-old female was brought in by EMS after a call went out for respiratory distress followed by unresponsiveness. When EMS arrived patient was a GCS of 3 with agonal breathing. Patient was emergently intubated by EMS with etomidate and Ativan. She was given Nitropaste and IV Lasix. As per the bystanders patient has history of congestive heart failure. Patient obviously was unable to give any history. Upon arrival her blood pressure was 153 systolic and heart rate of 145. Patient was oxygenating 99% upon being bagged through the ET tube. Per patient's sister and the and at bedside the patient was wearing a LifeVest due to low EF approximately 20% for last 90 days. She has been followed by chief guard Dr. Brooke. She had a colonoscopy today that was uneventful however postprocedure the staff noticed today that she had a left bundle branch block which the family called the patient's chief guard and he assured them that it has not been new. In the emergency department he was running a wide-complex tachycardia, that responded to amiodarone bolus and drip and IV magnesium. 04/01: Patient is currently awake in sinus tachycardia. Complaining of being hot. Currently resting in bed in no acute distress. Subjective 04/02: Afebrile. Diuresed 1600 cc overnight. Extubated the same without complication. Currently on 2 L nasal cannula. Troponin peaked at 1.05 currently at 0.28. Denies chest pain or shortness of breath currently. Objective Vital Signs / I&O: Vital Signs 04/01/18 11:00 04/01/18 11:30 04/01/18 12:00 Temperature 97.7 F Pulse Rate 111 H 108 H 106 H Respiratory Rate 18 18 20 Blood Pressure 120/69 115/67 113/70 Pulse Oximetry 98 100 100 04/01/18 12:30 04/01/18 13:00 04/01/18 13:30 Temperature Pulse Rate 107 H 102 H 101 H Respiratory Rate 18 18 18 Blood Pressure 110/68 99/60 L 98/62 L Pulse Oximetry 100 100 100 04/01/18 14:00 04/01/18 14:30 04/01/18 15:00 Temperature Pulse Rate 101 H 110 H 109 H Respiratory Rate 18 19 18 Blood Pressure 100/61 106/66 104/62 Pulse Oximetry 99 100 98 10/20/18 15:30 04/01/18 15:47 04/01/18 16:00 Temperature 97.9 F Pulse Rate 115 H 113 H 111 H Respiratory Rate 37 H 18 2 L Blood Pressure 111/61 102/64 Pulse Oximetry 96 96 04/01/18 16:30 04/01/18 17:00 04/01/18 17:30 Temperature Pulse Rate 108 H 106 H 103 H Respiratory Rate 8 L 18 18 Blood Pressure 102/57 L 96/53 L 94/59 L Pulse Oximetry 96 97 98 04/01/18 18:00 04/01/18 19:35 04/01/18 19:57 Temperature Pulse Rate 101 H 101 H Respiratory Rate 18 18 18 Blood Pressure 110/62 Pulse Oximetry 99 100 04/01/18 20:00 04/01/18 22:00 04/01/18 22:30 Temperature Pulse Rate 103 H 94 H 92 H Respiratory Rate 19 18 18 Blood Pressure 111/58 L 108/56 L 103/58 L Pulse Oximetry 100 100 100 04/01/18 23:00 04/01/18 23:30 04/01/18 23:56 Temperature Pulse Rate 94 H 90 Respiratory Rate 18 18 18 Blood Pressure 102/56 L 111/56 L Pulse Oximetry 100 100 100 04/02/18 00:00 04/02/18 00:30 04/02/18 01:00 Temperature 98.8 F Pulse Rate 88 90 95 H Respiratory Rate 18 18 18 Blood Pressure 105/56 L 100/57 L 104/58 L Pulse Oximetry 99 99 100 04/02/18 01:12 04/02/18 01:30 04/02/18 02:00 Temperature Pulse Rate 86 86 Respiratory Rate 18 18 18 Blood Pressure 99/54 L 97/52 L Pulse Oximetry 100 99 100 04/02/18 02:30 04/02/18 03:00 04/02/18 03:31 Temperature Pulse Rate 83 90 101 H Respiratory Rate 18 18 18 Blood Pressure 102/52 L 115/57 L 132/63 Pulse Oximetry 100 100 100 04/02/18 03:39 04/02/18 04:00 04/02/18 04:28 Temperature 97.9 F Pulse Rate 104 H 109 H 109 H Respiratory Rate 18 21 21 Blood Pressure 123/60 126/58 L Pulse Oximetry 100 100 04/02/18 04:30 04/02/18 04:35 04/02/18 04:47 Temperature Pulse Rate 110 H 109 H Respiratory Rate 19 18 27 H Blood Pressure 121/62 117/57 L Pulse Oximetry 100 100 97 04/02/18 05:00 04/02/18 05:30 04/02/18 06:00 Temperature Pulse Rate 104 H 94 H 90 Respiratory Rate 18 18 18 Blood Pressure 111/58 L 99/55 L 106/56 L Pulse Oximetry 96 96 98 04/02/18 06:30 04/02/18 07:00 04/02/18 07:30 Temperature Pulse Rate 88 83 87 Respiratory Rate 18 18 18 Blood Pressure 103/52 L 98/55 L 106/56 L Pulse Oximetry 98 99 100 04/02/18 08:00 04/02/18 08:10 04/02/18 08:12 Temperature Pulse Rate 100 H 100 H Respiratory Rate 18 18 18 Blood Pressure 135/66 Pulse Oximetry 100 100 04/02/18 08:30 04/02/18 09:00 04/02/18 10:00 Temperature 98.3 F Pulse Rate 105 H 96 H 97 H Respiratory Rate 13 12 Blood Pressure 127/64 120/56 L Pulse Oximetry 99 97 Intake & Output 04/01/18 04/02/18 04/02/18 18:59 06:59 18:59 Intake Total 782 / 782 372 / 372 100 / 100 Output Total 2475 / 2475 350 / 350 Balance -1693 / -1693 / 22 100 / 100 Weight 64 kg Intake: IV 640 / 640 100 / 100 100 / 100 Diprivan 1000 mg/100 ml Inj 1, 190 / 190 100 / 100 100 / 100 000 mg In 100 ml @ 5 MCG/KG/MIN 1.973 mls/hr IV.CONT TITRATE PRN Rx#:[id number] KCl 10 mEq Premix Inj 10 meq In 200 / 200 100 ml @ 100 mls/hr IV.SIG Q1H MAULIK Rx#:[id number] Vancomycin Inj 1,000 MG In NS 250 / 250 Inj 250 ML @ 250 mls/hr IV.SIG ONCE ONE Rx#:[id number] Tube Feeding 82 / 82 272 / 272 Water Bolus Amount 60 / 60 Output: Urine Amount (Catheter) 6135 / 2475 350 / 350 Indwelling Urethral Catheter 2475 / 2475 350 / 350 Other: # Bowel Movements 0 0 Result Diagrams: 04/02/18 04:57 04/02/18 04:57 Imaging: Chest X-Ray 03/31/18 21:34 CONCLUSION: 1. Diffuse infiltrates bilaterally consistent with moderate to severe pulmonary edema or pneumonia. Correlation is recommended. 2. Endotracheal tube in good position 4 cm above the avis. Chest X-Ray 03/31/18 23:45 CONCLUSION: Cardiomegaly and bilateral perihilar edema, slightly more prominent. Head CT 04/01/18 00:02 CONCLUSION: 1. No acute intracranial abnormality . Chest X-Ray 04/02/18 06:00 CONCLUSION: Significant improvement with minimal residual interstitial edema. Objective Remarks: GENERAL: 73-year-old female currently resting in bed in no acute distress SKIN: Warm and dry. HEAD: Atraumatic. Normocephalic. EYES: Pupils equal and round. No scleral icterus. No injection or drainage. ENT: No nasal bleeding or discharge. Mucous membranes pink and moist. NECK: Trachea midline. No JVD. CARDIOVASCULAR: RRR. S1, S2. No S4. No murmur. RESPIRATORY: No accessory muscle use. Clear to auscultation. Breath sounds equal bilaterally. GASTROINTESTINAL: Abdomen soft, non-tender, nondistended. Hepatic and splenic margins not palpable. MUSCULOSKELETAL: Extremities without significant peripheral edema. No obvious deformities. NEUROLOGICAL: Awake and alert. No obvious cranial nerve deficits. Motor grossly within normal limits. Five out of 5 muscle strength in the arms and legs. Normal speech. Assessment and Plan - Assessment and Plan Plan: Neuro/Psych: Acetaminophen 650 mg by tube every 6 hours as needed fever Morphine sulfate 2 mg IV every 2 hours as needed pain breakthrough CV: Wide complex tachycardiaSVT currently in sinus tachycardia Chronic systolic heart failure ejection fraction 20% Nonischemic cardia myopathy Essential hypertension Hyperlipidemia Elevated troponin Left bundle branch block Previously on amiodarone drip and dopamine drip in the ED these have been weaned off. EKG this a.m. pending. Currently in sinus tachycardia Echocardiogram 09/28 revealed EF around 20% with anterior wall akinesis. Echocardiogram 03/22 revealed EF less than 20%. PA P 41.8 mmHg. LV hypokinesis. LV daily. Cardiac catheterization by Dr. Brooke/revealed left main 10%, LAD 10-20%. Left circumflex 20%. RCA normal. Recommended possible LifeVest as outpatient workup Cycle troponins. Peaked at 1.05. Serially until downward trending Cardiology consultation with Dr. Brooke. Seen by Dr. Heart. Previously on metoprolol and lisinopril. Currently on carvedilol 6.25 twice daily. This is been resumed. Previously on lisinopril 5 mg daily. And this is been held Recently on atorvastatin 40 mg daily for dyslipidemia. This is been resumed Previously on furosemide 20 mg p.o. daily. Switch to IV daily while hospitalized. Resp: Acute respiratory failure Extubated today 04/02. Nasal cannula to maintain saturations greater than equal to 90% Incentive spirometry while awake Albuterol/ipratropium aerosols every 6 hours with albuterol aerosols every 2 hours as needed dyspnea Chest x-ray revealed improvement of pulmonary congestion from pulmonary edema. GI: Gastroesophageal reflux disease Hiatal hernia Hypoalbuminemia CardiacADA diet as tolerated. Famotidine for GI prophylaxis Docusate sodium/senna 1 tablet twice daily for bowel regimen : Straight cathed every 6 hours as needed. Wu catheter for urinary retention only Endo: Diabetes mellitus type 2 Previously on clinical canagliflozin/metformin 1 tablet twice daily and glipizide 10 mg daily Sliding scale is with aspart insulin Accu-Cheks every 6 hours maintain euglycemia/medium protocol Check TSH -0.466 Renal: Creatinine currently stabilized Accurate I's and O's Monitor urine output Heme: Leukocytosis Microcytic anemia Monitor CBC daily. Follow trends per No indication for transfusion of blood products at this time ID: Monitor for signs and symptomatology infection Received vancomycin and piperacillin/tazobactam in the ED. Blood cultures x2, UA pending FEN: Replace electrolytes as clinically indicated per ICU Dr. Gaston protocol Goal potassium greater than 4, magnesium greater than 2. MSK: PT evaluate and treat Access -Utilize peripheral IV. Central line if indicated Prophylaxis -GI -famotidine -DVT -SCD/heparin subcu Level 3 follow-up
[2018-04-02] MEDS: Acetaminophen 325 MG Tablet PO PRN (10:45)
[2018-04-03] MEDS: Oral Hygiene Kit OROPHARYNG SCH ×4 (00:57→16:40)
[2018-04-03] MEDS: Heparin - SQ 10,000 UNITS/ML Vial SQ SCH ×3 (00:57→16:39)
--- NOTE | 2018-04-03 03:56 | XR ---
EXAM DATE: 04/03/2018 6:00 AM EDT AGE/SEX: 73 years / Female INDICATIONS: Shortness of breath, possible pulmonary disease. CLINICAL DATA: This is the patient's subsequent encounter. Patient reports that signs and symptoms h ave been present for 1 week and indicates a pain score of Nonresponsive. MEDICAL/SURGICAL HISTORY: Congestive heart failure. Hypertension. Diabetes. Hysterectomy. To nsillectomy. COMPARISON: [facility] [place], CHEST 1V SINGLE AP, 04/02/2018. [facility] [place], CHEST 1V SINGLE AP, 03/31/2018. . FINDINGS: The heart size is within normal limits. The ET tube and NG tube have been removed. There is some prom inence of the hilar regions and mild prominence of interstitium which may represent pulmonary venous hypertension. CONCLUSION: Mild prominence of central vessels and the interstitium. Electronically signed by: Laron Medrano MD 04/03/2018 3:54 AM EDT
--- NOTE | 2018-04-03 06:34 | P.PNCA ---
Medications and Allergies Active Medications: Active Medications Acetaminophen (Tylenol) 650 mg PO Q6H PRN PRN Reason: PAIN 1-5 AND/OR FEVER >101F Last Admin: 04/02/18 10:45 Dose: 650 mg Al Hydroxide/Mg Hydroxide (Milk Of Magnaileen Liq) 30 ml PO Q12H PRN PRN Reason: Mild Constipation Albuterol (Albuterol Neb (Prn)) 2.5 mg NEB Q2HR NEB PRN PRN Reason: DYSPNEA Albuterol (Duoneb Neb (Jack)) 1 ampul NEB Q6HR NEB [facility] Last Admin: 04/03/18 03:55 Dose: 1 ampul Aspirin (Ecotrin) 81 mg PO DAILY [facility] Last Admin: 04/02/18 08:44 Dose: 81 mg Atorvastatin Calcium (Lipitor) 40 mg PO DAILY [facility] Last Admin: 04/02/18 08:44 Dose: 40 mg Bisacodyl (Dulcolax Supp) 10 mg RECTAL DAILY PRN PRN Reason: SEVERE CONSITIPATION Carvedilol (Coreg) 12.5 mg PO BID [facility] Chlorhexidine Gluconate (Peridex 0.12% Oral Kit) 15 ml OROPHARYNG BID@0800, 2000 [facility] Last Admin: 04/02/18 21:00 Dose: Not Given Chlorhexidine Gluconate (Chlorhexidine 2% Cloth) 3 pack TOPICAL DAILY@0400 [facility] Stop: 04/06/18 03:59 Last Admin: 04/02/18 03:49 Dose: 3 pack Chlorhexidine Gluconate (Chlorhexidine 2% Cloth) 3 pack TOPICAL DAILY@0400 PRN PRN Reason: Extra cloth needed Stop: 04/06/18 03:59 Dextrose (D50w Vial) 50 ml IV.PUSH UNSCH PRN PRN Reason: PER HYPOGLYCEMIA PROTOCOL Famotidine (Pepcid Pf Inj) 10 mg IV.PUSH Q12HR [facility] Last Admin: 04/02/18 21:01 Dose: 10 mg Furosemide (Lasix Inj) 20 mg IV.PUSH DAILY [facility] Last Admin: 04/02/18 10:53 Dose: 20 mg Glucagon (Glucagon Inj) 1 mg OTHER PRN PRN PRN Reason: for Hypoglycemia Protocol Heparin Sodium (Porcine) (Heparin Inj) 5,000 units SQ Q8H [facility] Last Admin: 04/03/18 00:57 Dose: 5,000 units Magnesium Sulfate 4 gm/ Sodium (Chloride) 100 mls @ 50 mls/hr IV.SIG UNSCH PRN PRN Reason: For Magnesium 0.9 - 1.1 mg/dL Magnesium Sulfate 2 gm/ Sodium (Chloride) 100 mls @ 50 mls/hr IV.SIG UNSCH PRN PRN Reason: For Magnesium 1.2 - 1.6 mg/dL Potassium Chloride (Kcl 40 Meq Premix Inj) 40 meq in 100 mls @ 25 mls/hr IV.SIG Q2H PRN PRN Reason: For Potassium 2.8 - 3.2 mEq/L Potassium Chloride (Kcl 20 Meq Premix Inj) 20 meq in 100 mls @ 50 mls/hr IV.SIG Q2H PRN PRN Reason: For Potassium 3.3 - 3.5 mEq/L Potassium Chloride (Kcl 40 Meq Premix Inj) 40 meq in 100 mls @ 25 mls/hr IV.SIG UNSCH PRN PRN Reason: For Potassium 3.3 - 3.5 mEq/L Potassium Chloride (Kcl 20 Meq Premix Inj) 20 meq in 100 mls @ 50 mls/hr IV.SIG Q2H PRN PRN Reason: For Potassium 2.8 - 3.2 mEq/L Potassium Phosphate 30 mmol/ (Sodium Chloride) 260 mls @ 42 mls/hr IV.SIG UNSCH PRN PRN Reason: SEE LABEL COMMENTS Sodium Phosphate 30 mmol/ (Sodium Chloride) 260 mls @ 42 mls/hr IV.SIG UNSCH PRN PRN Reason: For Phosphorus < 2.5 mg/dL Insulin Aspart (Novolog Insulin Correctional Sugar Inj) 0 unit SQ ACHS [facility]; Protocol Last Admin: 04/02/18 21:01 Dose: 2 unit Lactulose (Lactulose Liq) 30 ml PO DAILY PRN PRN Reason: SEVERE CONSITIPATION Lisinopril (Prinivil) 5 mg PO DAILY [facility] Magnesium Oxide (Mag-Ox) 800 mg PO UNSCH PRN PRN Reason: For Magnesium 1.2 - 1.6 mg/dL Miscellaneous Medication () 1 each OROPHARYNG 0000,0400,1200,1600 [facility] Last Admin: 04/03/18 00:57 Dose: Not Given Morphine Sulfate (Morphine Inj) 2 mg IV.PUSH Q2H PRN PRN Reason: PAIN SCALE 6 TO 10 Last Admin: 04/01/18 00:33 Dose: 2 mg Ondansetron HCl (Zofran Inj) 4 mg IV.PUSH Q6H PRN PRN Reason: NAUSEA Potassium Bicarb/Potassium Chloride (K-Lyte Cl Eff) 50 meq PO UNSCH PRN PRN Reason: For Potassium 3.3 - 3.5 mEq/L Potassium Chloride (K-Dur) 20 meq PO BID [facility] Last Admin: 04/02/18 21:01 Dose: 20 meq Potassium Phosphate (K-Phos Original) 2,000 mg PO UNSCH PRN PRN Reason: SEE LABEL COMMENTS Potassium Phosphate (K-Phos Original) 2,000 mg PO Q4H PRN PRN Reason: Phosphorus Less Than 2.5 mg/dL Senna/Docusate Sodium (Alysa-Colace) 1 tab PO BID [facility] Last Admin: 04/02/18 21:01 Dose: 1 tab Sennosides (Senokot) 17.2 mg PO Q12H PRN PRN Reason: Moderate Constipation Sodium Chloride (Ns Flush) 2 ml IV.FLUSH BID [facility] Last Admin: 04/02/18 21:02 Dose: 2 ml Sodium Chloride (Ns Flush) 2 ml IV.FLUSH PRN PRN PRN Reason: FLUSH AFTER USING IV ACCESS Allergies Allergy/AdvReac Type Severity Reaction Status Date / Time No Known Allergies Allergy Verified 04/01/18 02:17 Home Medications Medication Instructions Recorded Confirmed Type Invokamet 1 tab PO BID 04/01/18 04/01/18 History aspirin 81 mg PO DAILY 04/01/18 04/01/18 History atorvastatin 40 mg PO DAILY 04/01/18 04/01/18 History carvedilol 6.25 mg PO DAILY 04/01/18 04/01/18 History furosemide 20 mg PO DAILY 04/01/18 04/01/18 History glipizide 10 mg PO DAILY 04/01/18 04/01/18 History lisinopril 5 mg PO DAILY 04/01/18 04/01/18 History omeprazole-sodium bicarbonate 1 cap PO BID 04/01/18 04/01/18 History [Zegerid] potassium chloride 10 meq PO DAILY 04/01/18 04/01/18 History Physical Exam Vital signs: Vital Signs 04/02/18 07:00 04/02/18 07:30 04/02/18 08:00 Temperature Pulse Rate 83 87 100 H Respiratory Rate 18 18 18 Blood Pressure 98/55 L 106/56 L 135/66 Pulse Oximetry 99 100 100 04/02/18 08:10 04/02/18 08:12 04/02/18 08:30 Temperature 98.3 F Pulse Rate 100 H 105 H Respiratory Rate 18 18 13 Blood Pressure 127/64 Pulse Oximetry 100 99 04/02/18 09:00 04/02/18 10:00 04/02/18 12:00 Temperature 97.8 F Pulse Rate 96 H 97 H 96 H Respiratory Rate 12 21 Blood Pressure 120/56 L 127/62 Pulse Oximetry 97 98 04/02/18 13:00 04/02/18 13:31 04/02/18 14:00 Temperature Pulse Rate 104 H 100 H Respiratory Rate 23 24 Blood Pressure 138/63 122/61 144/71 H Pulse Oximetry 97 95 04/02/18 14:30 04/02/18 15:00 04/02/18 15:30 Temperature Pulse Rate 99 H 105 H 98 H Respiratory Rate 22 28 H 21 Blood Pressure 140/67 141/81 H 134/64 Pulse Oximetry 97 97 98 04/02/18 16:00 04/02/18 16:30 04/02/18 17:00 Temperature 98.2 F Pulse Rate 104 H 101 H 100 H Respiratory Rate 21 23 24 Blood Pressure 140/74 153/70 H 138/67 Pulse Oximetry 97 04/02/18 17:08 04/02/18 17:30 04/02/18 18:00 Temperature Pulse Rate 105 H 102 H 125 H Respiratory Rate 15 25 H 32 H Blood Pressure 140/72 152/92 H Pulse Oximetry 04/02/18 18:30 04/02/18 19:00 04/02/18 19:10 Temperature Pulse Rate 109 H 107 H 113 H Respiratory Rate 24 29 H 26 H Blood Pressure 144/70 H 169/70 H 142/63 H Pulse Oximetry 96 96 95 04/02/18 19:21 04/02/18 19:25 04/02/18 19:30 Temperature Pulse Rate 110 H 114 H Respiratory Rate 20 25 H Blood Pressure 165/76 H Pulse Oximetry 94 L 97 04/02/18 20:00 04/02/18 20:31 04/02/18 21:00 Temperature 99.0 F Pulse Rate 111 H 114 H 111 H Respiratory Rate 25 H 27 H 22 Blood Pressure 141/68 H 132/82 167/78 H Pulse Oximetry 93 L 94 L 96 04/02/18 21:30 04/02/18 22:00 04/02/18 22:30 Temperature Pulse Rate 113 H 117 H 110 H Respiratory Rate 28 H 37 H 27 H Blood Pressure 163/85 H 143/81 H 159/88 H Pulse Oximetry 93 L 94 L 04/02/18 23:00 04/02/18 23:12 04/02/18 23:30 Temperature Pulse Rate 134 H 124 H 110 H Respiratory Rate 26 H 30 H 29 H Blood Pressure 171/84 H 140/69 Pulse Oximetry 96 93 L 92 L 04/03/18 00:00 04/03/18 00:30 04/03/18 02:00 Temperature Pulse Rate 112 H 106 H 111 H Respiratory Rate 26 H 27 H Blood Pressure 152/84 H 154/75 H Pulse Oximetry 94 L 94 L 04/03/18 03:55 Temperature Pulse Rate 110 H Respiratory Rate 20 Blood Pressure Pulse Oximetry Intake & Output 04/02/18 04/02/18 04/03/18 06:59 18:59 06:59 Intake Total 372 / 372 200 / 200 Output Total 350 / 350 Balance 200 / 200 Weight 64 kg Intake: IV 100 / 100 200 / 200 Diprivan 1000 mg/100 ml Inj 1, 100 / 100 200 / 200 000 mg In 100 ml @ 5 MCG/KG/MIN 1.973 mls/hr IV.CONT TITRATE PRN Rx#:[id number] Tube Feeding 272 / 272 Output: Urine Amount (Catheter) 350 / 350 Indwelling Urethral Catheter 350 / 350 Other: # Bowel Movements 0 - Urinary Catheter Management Indwelling Urethral Catheter Cath placed during this visit: yes Reason for continuing: Acute urinary retention Insertion date: 03/31/18 Insertion time: 21:36 Results 04/02/18 04:57 04/02/18 04:57 Cardiac Enzymes 04/01/18 04/01/18 04/01/18 Range/Units 11:03 13:46 18:13 AST (15-37) U/L Troponin I 0.84 H* D 1.05 H* D 0.78 H* D (0.02-0.05) ng/mL 04/02/18 Range/Units 04:57 AST 29 (15-37) U/L Troponin I 0.28 H D (0.02-0.05) ng/mL CBC 04/02/18 Range/Units 04:57 WBC 13.7 H (4.0-11.0) th/mm3 RBC 3.50 L (4.00-5.30) mil/mm3 Hgb 8.9 L (11.6-15.3) gm/dL Hct 27.6 L (35.0-46.0) % Plt Count 385 (150-450) th/mm3 Neut # (Auto) 9.8 H (1.8-7.7) th/mm3 Lymph # (Auto) 2.4 (1.0-4.8) th/mm3 [place] # (Auto) 0.8 (0.0-0.9) th/mm3 Eos # (Auto) 0.7 H (0.0-0.4) th/mm3 Baso # (Auto) 0.1 (0.0-0.2) th/mm3 Comprehensive Metabolic Panel 04/01/18 04/02/18 Range/Units 18:13 04:57 Sodium 145 144 (136-145) meq/L Potassium 3.7 3.8 (3.5-5.1) meq/L Chloride 111 H 112 H (98-107) meq/L Carbon Dioxide 24.8 22.9 (21.0-32.0) meq/L BUN 16 18 (7-18) mg/dL Creatinine 0.86 0.94 (0.50-1.00) mg/dL Calcium 8.5 D 8.5 (8.5-10.1) mg/dL AST 29 (15-37) U/L ALT 47 (10-53) U/L Alkaline Phosphatase 104 (45-117) U/L Total Protein 6.9 (6.4-8.2) g/dL Albumin 2.5 L (3.4-5.0) g/dL Intake and Output 04/02/18 04/02/18 04/03/18 14:59 22:59 06:59 Intake Total 200 / 200 Balance 200 / 200 Intake: IV 200 / 200 Diprivan 1000 mg/100 ml Inj 1, 200 / 200 000 mg In 100 ml @ 5 MCG/KG/MIN 1.973 mls/hr IV.CONT TITRATE PRN Rx#:[id number] - Imaging and Cardiology Imaging: Impressions Chest X-Ray 04/02/18 06:00 CONCLUSION: Significant improvement with minimal residual interstitial edema. Chest X-Ray 04/03/18 06:00 CONCLUSION: Mild prominence of central vessels and the interstitium. Assessment and Plan - Plan Acute on Chronic Systolic HF EF 20% Wide complex SVT on presentation, currently sinus tachycardia LBBB Type 2 NSTEMI DM2 HLD the patient's EF has dropped again. Query if there is a tachycardia induced phenomenon. Recent angiogram showed nonobstructive disease. -Increase Coreg to 12.5mg po BID -re-start lisinopril -continue Diuresis with IV lasix -will d/w Dr. Brooke. Given LBBB, may benefit from BIV ICD.
[2018-04-03] MEDS: Carvedilol 12.5 MG Tablet PO SCH ×2 (08:55→21:40)
[2018-04-03] MEDS: Lisinopril 5 MG Tablet PO SCH (08:55)
[2018-04-03] MEDS: Acetaminophen 325 MG Tablet PO PRN (08:55)
[2018-04-03] MEDS: Famotidine PF Inj 20 MG/2 ML Vial IV.PUSH SCH ×2 (08:56→21:41)
[2018-04-03] MEDS: Chlorhexidine Gluconate 2% 1 Pack (2 Cloths) TOPICAL SCH (08:58)
[2018-04-03] MEDS: Chlorhexidine 0.12% Oral Kit 15 ML UDC OROPHARYNG SCH ×2 (08:58→20:36)
[2018-04-03] MEDS: Senna/Docusate Sodium 8.6/50 MG Tablet PO SCH ×2 (08:58→21:19)
[2018-04-03] MEDS: Insulin NovoLOG Aspart Correctional Sugar Inj SQ SCH ×4 (10:29→21:41)
[2018-04-03 10:37] LABS: Baso # (Auto) 0.1 th/mm3 (0.0-0.2); Baso % (Auto) 1.1 % (0.0-2.0); Eos # (Auto) 0.6 th/mm3 (0.0-0.4); Eos % (Auto) 4.8 % (0.0-4.0); Hematocrit 26.6 % (35.0-46.0); Hemoglobin 8.5 gm/dL (11.6-15.3); Lymph # (Auto) 2.1 th/mm3 (1.0-4.8); Lymph % (Auto) 17.3 % (9.0-44.0); Mean Corpuscular HGB Conc 32.2 % (32.0-36.0); Mean Corpuscular Volume 77.8 fL (80.0-100.0); Mean Platelet Volume 7.9 fL (7.0-11.0); Mono # (Auto) 0.8 th/mm3 (0.0-0.9); Mono % (Auto) 6.7 % (0.0-8.0); Neut # (Auto) 8.5 th/mm3 (1.8-7.7); Neut % (Auto) 70.1 % (16.0-70.0); Platelet Count 394 th/mm3 (150-450); Red Blood Count 3.41 mil/mm3 (4.00-5.30); Red Cell Distribution Width 15.9 % (11.6-17.2); White Blood Count 12.1 th/mm3 (4.0-11.0)
[2018-04-03 11:07] LABS: Calcium 8.7 mg/dL (8.5-10.1); Carbon Dioxide 21.5 meq/L (21.0-32.0); Magnesium 1.6 mg/dL (1.5-2.5)
[2018-04-03 11:10] LABS: Phosphorus 2.9 mg/dL (2.5-4.9)
--- NOTE | 2018-04-03 13:25 | P.PNCC ---
Subjective Subjective Remarks/Hospital Course: 73-year-old female was brought in by EMS after a call went out for respiratory distress followed by unresponsiveness. When EMS arrived patient was a GCS of 3 with agonal breathing. Patient was emergently intubated by EMS with etomidate and Ativan. She was given Nitropaste and IV Lasix. As per the bystanders patient has history of congestive heart failure. Patient obviously was unable to give any history. Upon arrival her blood pressure was 153 systolic and heart rate of 145. Patient was oxygenating 99% upon being bagged through the ET tube. Per patient's sister and the and at bedside the patient was wearing a LifeVest due to low EF approximately 20% for last 90 days. She has been followed by roof fitter Dr. Brooke. She had a colonoscopy today that was uneventful however postprocedure the staff noticed today that she had a left bundle branch block which the family called the patient's roof fitter and he assured them that it has not been new. In the emergency department he was running a wide-complex tachycardia, that responded to amiodarone bolus and drip and IV magnesium. 04/01: Patient is currently awake in sinus tachycardia. Complaining of being hot. Currently resting in bed in no acute distress. 04/02: Afebrile. Diuresed 1600 cc overnight. Extubated the same without complication. Currently on 2 L nasal cannula. Troponin peaked at 1.05 currently at 0.28. Denies chest pain or shortness of breath currently. Subjective 04/03: Continues to be diuresed. Noted cardiology workup. Increasing carvedilol and restarting lisinopril and continuing furosemide diuresis. Discussion with cardiology for AICD pending. Discussed with daughter and patient at bedside. Currently on 2 L nasal cannula. Objective Vital Signs / I&O: Vital Signs 04/02/18 13:31 04/02/18 14:00 04/02/18 14:30 Temperature Pulse Rate 104 H 100 H 99 H Respiratory Rate 23 24 22 Blood Pressure 122/61 144/71 H 140/67 Pulse Oximetry 97 95 97 04/02/18 15:00 04/02/18 15:30 04/02/18 16:00 Temperature 98.2 F Pulse Rate 105 H 98 H 104 H Respiratory Rate 28 H 21 Blood Pressure 141/81 H 134/64 140/74 Pulse Oximetry 97 98 97 04/02/18 16:30 04/02/18 17:00 04/02/18 17:08 Temperature Pulse Rate 101 H 100 H 105 H Respiratory Rate 23 24 15 Blood Pressure 153/70 H 138/67 Pulse Oximetry 04/02/18 17:30 04/02/18 18:00 04/02/18 18:30 Temperature Pulse Rate 102 H 125 H 109 H Respiratory Rate 25 H 32 H 24 Blood Pressure 140/72 152/92 H 144/70 H Pulse Oximetry 96 04/02/18 19:00 04/02/18 19:10 04/02/18 19:21 Temperature Pulse Rate 107 H 113 H 110 H Respiratory Rate 29 H 26 H 20 Blood Pressure 169/70 H 142/63 H Pulse Oximetry 96 95 04/02/18 19:25 04/02/18 19:30 04/02/18 20:00 Temperature 99.0 F Pulse Rate 114 H 111 H Respiratory Rate 25 H 25 H Blood Pressure 165/76 H 141/68 H Pulse Oximetry 94 L 97 93 L 04/02/18 20:31 04/02/18 21:00 04/02/18 21:30 Temperature Pulse Rate 114 H 111 H 113 H Respiratory Rate 27 H 22 28 H Blood Pressure 132/82 167/78 H 163/85 H Pulse Oximetry 94 L 96 93 L 04/02/18 22:00 04/02/18 22:30 04/02/18 23:00 Temperature Pulse Rate 117 H 110 H 134 H Respiratory Rate 37 H 27 H 26 H Blood Pressure 143/81 H 159/88 H Pulse Oximetry 94 L 96 04/02/18 23:12 04/02/18 23:30 04/03/18 00:00 Temperature Pulse Rate 124 H 110 H 112 H Respiratory Rate 30 H 29 H 26 H Blood Pressure 171/84 H 140/69 152/84 H Pulse Oximetry 93 L 92 L 94 L 04/03/18 00:30 04/03/18 01:00 04/03/18 01:30 Temperature Pulse Rate 106 H 116 H 107 H Respiratory Rate 27 H 32 H 28 H Blood Pressure 154/75 H 173/86 H 147/72 H Pulse Oximetry 94 L 95 95 04/03/18 02:00 04/03/18 02:01 04/03/18 02:34 Temperature Pulse Rate 109 H 111 H 122 H Respiratory Rate 26 H 27 H 25 H Blood Pressure 172/86 H 156/79 H Pulse Oximetry 94 L 95 95 04/03/18 03:00 04/03/18 03:30 04/03/18 03:55 Temperature Pulse Rate 110 H 116 H 110 H Respiratory Rate 32 H 25 H 20 Blood Pressure 163/80 H 166/79 H Pulse Oximetry 95 96 04/03/18 04:00 04/03/18 04:30 04/03/18 05:00 Temperature 98.0 F Pulse Rate 110 H 117 H 116 H Respiratory Rate 21 21 26 H Blood Pressure 164/84 H 156/82 H 176/81 H Pulse Oximetry 96 95 96 04/03/18 05:30 04/03/18 06:00 04/03/18 06:16 Temperature Pulse Rate 117 H 119 H 118 H Respiratory Rate 30 H 23 22 Blood Pressure 155/78 H 139/85 Pulse Oximetry 94 L 91 L 04/03/18 06:30 04/03/18 07:43 04/03/18 08:00 Temperature Pulse Rate 111 H 108 H 106 H Respiratory Rate 26 H 18 Blood Pressure 142/82 H Pulse Oximetry 96 04/03/18 10:00 Temperature Pulse Rate 107 H Respiratory Rate Blood Pressure Pulse Oximetry Intake & Output 04/02/18 04/03/18 04/03/18 18:59 06:59 18:59 Intake Total 200 / 200 0 / 0 Output Total 0 / 0 Balance 200 / 200 0 / 0 Weight 63.7 kg Intake: IV 200 / 200 Diprivan 1000 mg/100 ml Inj 1, 200 / 200 000 mg In 100 ml @ 5 MCG/KG/MIN 1.973 mls/hr IV.CONT TITRATE PRN Rx#:[id number] Tube Feeding 0 / 0 Water Bolus Amount 0 / 0 Output: Urine Amount (Catheter) 0 / 0 Indwelling Urethral Catheter 0 / 0 Other: # Bowel Movements 1 Result Diagrams: 04/03/18 10:12 04/03/18 10:12 Other Results: Microbiology 03/31/18 21:30 Blood - Peripheral Aerobic Blood Culture - Preliminary No growth in 2 days 03/31/18 21:30 Blood - Peripheral Anaerobic Blood Culture - Preliminary No growth in 2 days 03/31/18 21:25 Blood - Peripheral Aerobic Blood Culture - Preliminary No growth in 2 days 03/31/18 21:25 Blood - Peripheral Anaerobic Blood Culture - Preliminary No growth in 2 days Imaging: Chest X-Ray 03/31/18 21:34 CONCLUSION: 1. Diffuse infiltrates bilaterally consistent with moderate to severe pulmonary edema or pneumonia. Correlation is recommended. 2. Endotracheal tube in good position 4 cm above the avis. Chest X-Ray 03/31/18 23:45 CONCLUSION: Cardiomegaly and bilateral perihilar edema, slightly more prominent. Head CT 04/01/18 00:02 CONCLUSION: 1. No acute intracranial abnormality . Chest X-Ray 04/02/18 06:00 CONCLUSION: Significant improvement with minimal residual interstitial edema. Chest X-Ray 04/03/18 06:00 CONCLUSION: Mild prominence of central vessels and the interstitium. Objective Remarks: GENERAL: 73-year-old female currently resting in bed in no acute distress on nasal cannula SKIN: Warm and dry. HEAD: Atraumatic. Normocephalic. EYES: Pupils equal and round. No scleral icterus. No injection or drainage. ENT: No nasal bleeding or discharge. Mucous membranes pink and moist. NECK: Trachea midline. No JVD. CARDIOVASCULAR: RRR. S1, S2. No S4. No murmur. RESPIRATORY: No accessory muscle use. Clear to auscultation. Breath sounds equal bilaterally. GASTROINTESTINAL: Abdomen soft, non-tender, nondistended. Hepatic and splenic margins not palpable. MUSCULOSKELETAL: Extremities without significant peripheral edema. No obvious deformities. NEUROLOGICAL: Awake and alert. No obvious cranial nerve deficits. Motor grossly within normal limits. Five out of 5 muscle strength in the arms and legs. Normal speech. Assessment and Plan - Assessment and Plan Plan: Neuro/Psych: Acetaminophen 650 mg by tube every 6 hours as needed fever Morphine sulfate 2 mg IV every 2 hours as needed pain breakthrough CV: Wide complex tachycardiaSVT currently in sinus tachycardia Chronic systolic heart failure ejection fraction 20% Nonischemic cardia myopathy Essential hypertension Hyperlipidemia Elevated troponin Left bundle branch block Previously on amiodarone drip and dopamine drip in the ED these have been weaned off. Echocardiogram 09/28 revealed EF around 20% with anterior wall akinesis. Echocardiogram 04/02 revealed EF less than 20%. PAP 41.8 mmHg. LV hypokinesis. LV daily. Cardiac catheterization by Dr. Brooke/revealed left main 10%, LAD 10-20%. Left circumflex 20%. RCA normal. Recommended possible LifeVest as outpatient workup. This is been completed. Cycle troponins. Peaked at 1.05. Serially until downward trending Cardiology consultation with Dr. Brooke. Seen by Dr. Heart. Previously on metoprolol and lisinopril. Currently on carvedilol 12.5 mg twice daily. This is been resumed. Previously on lisinopril 5 mg daily. And this is been resumed on 04/03 Recently on atorvastatin 40 mg daily for dyslipidemia. This has been resumed Noted discussion with Dr. Brooke will possibly need AICD. Previously on furosemide 20 mg p.o. daily. Switch to IV daily while hospitalized. Resp: Acute respiratory failure Extubated 04/02. Nasal cannula to maintain saturations greater than equal to 92% Incentive spirometry while awake Albuterol/ipratropium aerosols every 6 hours with albuterol aerosols every 2 hours as needed dyspnea Chest x-ray revealed improvement of pulmonary congestion from pulmonary edema. GI: Gastroesophageal reflux disease Hiatal hernia Hypoalbuminemia CardiacADA diet as tolerated. Famotidine for GI prophylaxis Docusate sodium/senna 1 tablet twice daily for bowel regimen : Straight cathed every 6 hours as needed. Wu catheter for urinary retention only Endo: Diabetes mellitus type 2 Previously on clinical canagliflozin/metformin 1 tablet twice daily and glipizide 10 mg daily Sliding scale is with aspart insulin Accu-Cheks every 6 hours maintain euglycemia/medium protocol Check TSH -0.466 Renal: Creatinine currently stabilized Accurate I's and O's Monitor urine output Heme: Leukocytosis Microcytic anemia Monitor CBC daily. Follow trends per No indication for transfusion of blood products at this time ID: Monitor for signs and symptomatology infection Received vancomycin and piperacillin/tazobactam in the ED. Blood cultures x2, UA no growth FEN: Replace electrolytes as clinically indicated per ICU Dr. Gaston protocol Goal potassium greater than 4, magnesium greater than 2. MSK: PT evaluate and treat Access -Utilize peripheral IV. Central line if indicated Prophylaxis -GI -famotidine -DVT -SCD/heparin subcu Level 2 follow-up. Stable from critical care medicine standpoint. Okay to transfer to [facility] or [facility]. Consult hospitalist in a.m. 04/04 to assume care
[2018-04-03] MEDS ORDERED: Magnesium Sulfate Inj 4 GM in Dextrose 5% in Water Inj 100 ML IV.SIG ONE ×2 (16:00)
[2018-04-04] MEDS: Oral Hygiene Kit OROPHARYNG SCH ×5 (00:35→23:09)
[2018-04-04] MEDS: Heparin - SQ 10,000 UNITS/ML Vial SQ SCH ×4 (00:50→23:08)
[2018-04-04] MEDS: Chlorhexidine Gluconate 2% 1 Pack (2 Cloths) TOPICAL SCH (04:00)
[2018-04-04 07:03] LABS: Baso # (Auto) 0.1 th/mm3 (0.0-0.2); Baso % (Auto) 0.6 % (0.0-2.0); Eos % (Auto) 9.3 % (0.0-4.0); Hematocrit 28.5 % (35.0-46.0); Hemoglobin 9.3 gm/dL (11.6-15.3); Lymph # (Auto) 2.7 th/mm3 (1.0-4.8); Lymph % (Auto) 25.2 % (9.0-44.0); Mean Corpuscular HGB Conc 32.5 % (32.0-36.0); Mean Corpuscular Hemoglobin 25.2 pg (27.0-34.0); Mean Corpuscular Volume 77.5 fL (80.0-100.0); Mean Platelet Volume 8.7 fL (7.0-11.0); Mono # (Auto) 0.9 th/mm3 (0.0-0.9); Mono % (Auto) 8.3 % (0.0-8.0); Neut # (Auto) 6.1 th/mm3 (1.8-7.7); Neut % (Auto) 56.6 % (16.0-70.0); Platelet Count 428 th/mm3 (150-450); Red Blood Count 3.67 mil/mm3 (4.00-5.30); White Blood Count 10.8 th/mm3 (4.0-11.0)
[2018-04-04 07:29] LABS: Albumin 2.7 g/dL (3.4-5.0); Anion Gap 9 meq/L (5-15); Aspartate Aminotransferase 15 U/L (15-37); Blood Urea Nitrogen 12 mg/dL (7-18); Calcium 8.9 mg/dL (8.5-10.1); Carbon Dioxide 25.2 meq/L (21.0-32.0); Chloride 108 meq/L (98-107); Glomerular Filtration Rate 87 mL/min (>89); Glucose,Random 128 mg/dL (74-106); Magnesium 2.2 mg/dL (1.5-2.5); Potassium 4.2 meq/L (3.5-5.1); Sodium 142 meq/L (136-145)
[2018-04-04 07:37] LABS: Alanine Aminotransferase 26 U/L (10-53); Alkaline Phosphatase 93 U/L (45-117); Phosphorus 3.2 mg/dL (2.5-4.9); Total Protein 7.4 g/dL (6.4-8.2)
[2018-04-04] MEDS: Insulin NovoLOG Aspart Correctional Sugar Inj SQ SCH ×4 (09:35→21:39)
[2018-04-04] MEDS: Chlorhexidine 0.12% Oral Kit 15 ML UDC OROPHARYNG SCH ×2 (09:35→19:56)
[2018-04-04] MEDS: Carvedilol 12.5 MG Tablet PO SCH ×2 (09:35→21:39)
[2018-04-04] MEDS: Senna/Docusate Sodium 8.6/50 MG Tablet PO SCH ×2 (09:36→21:39)
[2018-04-04] MEDS: Famotidine PF Inj 20 MG/2 ML Vial IV.PUSH SCH ×2 (09:36→21:39)
[2018-04-04] MEDS: Lisinopril 5 MG Tablet PO SCH (09:36)
--- NOTE | 2018-04-04 22:18 | P.PNIM ---
Subjective Interval history: 73-year-old female was brought in by EMS after a call went out for respiratory distress followed by unresponsiveness. When EMS arrived patient was a GCS of 3 with agonal breathing. Patient was emergently intubated by EMS with etomidate and Ativan. She was given Nitropaste and IV Lasix. As per the bystanders patient has history of congestive heart failure. Patient obviously was unable to give any history. Upon arrival her blood pressure was 153 systolic and heart rate of 145. Patient was oxygenating 99% upon being bagged through the ET tube. Per patient's sister and the and at bedside the patient was wearing a LifeVest due to low EF approximately 20% for last 90 days. She has been followed by steam shovelman Dr. Brooke. She had a colonoscopy today that was uneventful however postprocedure the staff noticed today that she had a left bundle branch block which the family called the patient's steam shovelman and he assured them that it has not been new. In the emergency department he was running a wide-complex tachycardia, that responded to amiodarone bolus and drip and IV magnesium. 04/01: Patient is currently awake in sinus tachycardia. Complaining of being hot. Currently resting in bed in no acute distress. 04/02: Afebrile. Diuresed 1600 cc overnight. Extubated the same without complication. Currently on 2 L nasal cannula. Troponin peaked at 1.05 currently at 0.28. Denies chest pain or shortness of breath currently. Subjective 04/03: Continues to be diuresed. Noted cardiology workup. Increasing carvedilol and restarting lisinopril and continuing furosemide diuresis. Discussion with cardiology for AICD pending. Discussed with daughter and patient at bedside. Currently on 2 L nasal cannula. 04/04. Patient says she is feeling better today. Reports shortness of breath is improving. Denies any chest pain. Physical Exam Vital signs: Vital Signs 04/03/18 23:00 04/03/18 23:01 04/04/18 00:00 Temperature 98.6 F Pulse Rate 86 93 H 81 Respiratory Rate 26 H 26 H 26 H Blood Pressure 123/59 L Pulse Oximetry 89 L 91 L 93 L 04/04/18 00:05 04/04/18 01:00 04/04/18 02:00 Temperature Pulse Rate 86 98 H 86 Respiratory Rate 26 H 36 H 23 Blood Pressure 117/64 138/76 130/66 Pulse Oximetry 92 L 92 L 92 L 04/04/18 03:00 04/04/18 03:57 04/04/18 04:00 Temperature 98.8 F Pulse Rate 93 H 96 H 90 Respiratory Rate 22 22 16 Blood Pressure 140/70 142/75 H Pulse Oximetry 95 96 04/04/18 05:00 04/04/18 08:00 04/04/18 10:46 Temperature Pulse Rate 93 H 87 Respiratory Rate 22 Blood Pressure 131/70 Pulse Oximetry 89 L 93 L 04/04/18 10:47 04/04/18 12:00 04/04/18 16:00 Temperature 98.6 F 98.6 F Pulse Rate 89 80 80 Respiratory Rate 18 24 22 Blood Pressure 105/61 138/90 Pulse Oximetry 94 L 98 04/04/18 16:20 04/04/18 19:59 Temperature Pulse Rate 86 91 H Respiratory Rate 18 16 Blood Pressure Pulse Oximetry 92 L Intake & Output 04/04/18 04/04/18 04/05/18 06:59 18:59 06:59 Intake Total 2138 / 2138 720 / 720 Output Total 900 / 900 1000 / 1000 Balance 1238 / 1238 -280 / -280 Weight 63.7 kg Intake: IV 1418 / 1418 Magnesium Sulfate Inj 4 GM In 108 / 108 D5W Inj 100 ML @ 25 mls/hr IV. SIG ONCE ONE Rx#:[id number] Oral 720 / 720 720 / 720 Tube Feeding 0 / 0 Water Bolus Amount 0 / 0 Output: Urine 900 / 900 1000 / 1000 Urine Amount (Catheter) 0 / 0 Indwelling Urethral Catheter 0 / 0 Other: Date of Last Bowel Movement 04/03/18 04/04/18 # Bowel Movements 1 1 Narrative: GENERAL: patient sitting in bed. Appears comfortable. SKIN: Warm and dry. HEAD: Normocephalic. EYES: No scleral icterus. No injection or drainage. NECK: Supple, trachea midline. No JVD. CARDIOVASCULAR: Regular rate and rhythm without murmurs, gallops, or rubs. RESPIRATORY: Breath sounds equal bilaterally. No accessory muscle use. GASTROINTESTINAL: Abdomen soft, non-tender, nondistended. MUSCULOSKELETAL: No cyanosis, or edema. BACK: Nontender without obvious deformity. No CVA tenderness. - Urinary Catheter Management Indwelling Urethral Catheter Cath placed during this visit: yes Reason for continuing: Acute urinary retention Insertion date: 03/31/18 Insertion time: 21:36 Results - Labs CBC & Chem 7: 04/04/18 06:01 04/04/18 06:01 Laboratory Results - last 24 hr 04/04/18 04/04/18 04/04/18 06:01 06:01 07:39 WBC 10.8 RBC 3.67 L Hgb 9.3 L Hct 28.5 L MCV 77.5 L MCH 25.2 L MCHC 32.5 RDW 16.0 Plt Count 428 MPV 8.7 Neut % (Auto) 56.6 Lymph % (Auto) 25.2 [place] % (Auto) 8.3 H Eos % (Auto) 9.3 H Baso % (Auto) 0.6 Neut # (Auto) 6.1 Lymph # (Auto) 2.7 [place] # (Auto) 0.9 Eos # (Auto) 1.0 H Baso # (Auto) 0.1 WBC Differential . Differential Comment Auto diff final Sodium 142 Potassium 4.2 Chloride 108 H Carbon Dioxide 25.2 Anion Gap 9 BUN 12 Creatinine 0.67 Estimated GFR 87 L POC Glucose 134 H Random Glucose 128 H Calcium 8.9 Phosphorus 3.2 Magnesium 2.2 D Total Bilirubin 0.4 AST 15 ALT 26 Alkaline Phosphatase 93 Total Protein 7.4 Albumin 2.7 L 04/04/18 04/04/18 17:01 19:35 WBC RBC Hgb Hct MCV MCH MCHC RDW Plt Count MPV Neut % (Auto) Lymph % (Auto) [place] % (Auto) Eos % (Auto) Baso % (Auto) Neut # (Auto) Lymph # (Auto) [place] # (Auto) Eos # (Auto) Baso # (Auto) WBC Differential Differential Comment Sodium Potassium Chloride Carbon Dioxide Anion Gap BUN Creatinine Estimated GFR POC Glucose 235 H 180 H Random Glucose Calcium Phosphorus Magnesium Total Bilirubin AST ALT Alkaline Phosphatase Total Protein Albumin Microbiology 03/31/18 21:30 Blood - Peripheral Aerobic Blood Culture - Preliminary No growth in 3 days 03/31/18 21:30 Blood - Peripheral Anaerobic Blood Culture - Preliminary No growth in 3 days 03/31/18 21:25 Blood - Peripheral Aerobic Blood Culture - Preliminary No growth in 3 days 03/31/18 21:25 Blood - Peripheral Anaerobic Blood Culture - Preliminary No growth in 3 days Assessment and Plan - Plan Neuro/Psych: Acetaminophen 650 mg by tube every 6 hours as needed fever Morphine sulfate 2 mg IV every 2 hours as needed pain breakthrough CV: Wide complex tachycardiaSVT currently in sinus tachycardia Chronic systolic heart failure ejection fraction 20% Nonischemic cardia myopathy Essential hypertension Hyperlipidemia Elevated troponin Left bundle branch block Previously on amiodarone drip and dopamine drip in the ED these have been weaned off. Echocardiogram 09/28 revealed EF around 20% with anterior wall akinesis. Echocardiogram 04/02 revealed EF less than 20%. PAP 41.8 mmHg. LV hypokinesis. LV daily. Cardiac catheterization by Dr. Brooke/revealed left main 10%, LAD 10-20%. Left circumflex 20%. RCA normal. Recommended possible LifeVest as outpatient workup. This is been completed. Cycle troponins. Peaked at 1.05. Serially until downward trending Cardiology consultation with Dr. Brooke. Seen by Dr. Heart. Previously on metoprolol and lisinopril. Currently on carvedilol 12.5 mg twice daily. This is been resumed. Previously on lisinopril 5 mg daily. And this is been resumed on 04/03 Recently on atorvastatin 40 mg daily for dyslipidemia. This has been resumed Noted discussion with Dr. Brooke will possibly need AICD. Previously on furosemide 20 mg p.o. daily. Switch to IV daily while hospitalized. =continue IV Lasix for diuresis. Cardiology following. Appreciate assistance. Due to left bundle branch block, EF of 20%, may need ICD, possibly pacer. Resp: Acute respiratory failure Extubated 04/02. Nasal cannula to maintain saturations greater than equal to 92% Incentive spirometry while awake Albuterol/ipratropium aerosols every 6 hours with albuterol aerosols every 2 hours as needed dyspnea Chest x-ray revealed improvement of pulmonary congestion from pulmonary edema. =continue diuresis for CHF exacerbation GI: Gastroesophageal reflux disease Hiatal hernia Hypoalbuminemia CardiacADA diet as tolerated. Famotidine for GI prophylaxis Docusate sodium/senna 1 tablet twice daily for bowel regimen : Straight cathed every 6 hours as needed. Wu catheter for urinary retention only Endo: Diabetes mellitus type 2 Previously on clinical canagliflozin/metformin 1 tablet twice daily and glipizide 10 mg daily Sliding scale is with aspart insulin Accu-Cheks every 6 hours maintain euglycemia/medium protocol Check TSH -0.466. Will need to be rechecked in the nonemergent setting. Renal: Creatinine currently stabilized Accurate I's and O's Monitor urine output Heme: Leukocytosis Microcytic anemia Monitor CBC daily. Follow trends per No indication for transfusion of blood products at this time ID: Monitor for signs and symptomatology infection Received vancomycin and piperacillin/tazobactam in the ED. Blood cultures x2, UA continue with no growth FEN: Replace electrolytes as clinically indicated per ICU Dr. Gaston protocol Goal potassium greater than 4, magnesium greater than 2. MSK: PT evaluate and treat Access -Utilize peripheral IV. Central line if indicated Prophylaxis -GI -famotidine -DVT -SCD/heparin subcu Discharge Planning: pending cardiology clearance. PT following, recommends rehabilitation
[2018-04-05] MEDS: Oral Hygiene Kit OROPHARYNG SCH ×3 (04:12→20:01)
[2018-04-05] MEDS: Chlorhexidine Gluconate 2% 1 Pack (2 Cloths) TOPICAL SCH (04:12)
[2018-04-05 07:20] LABS: Baso % (Auto) 0.3 % (0.0-2.0); Eos % (Auto) 10.1 % (0.0-4.0); Hematocrit 29.7 % (35.0-46.0); Hemoglobin 9.6 gm/dL (11.6-15.3); Lymph # (Auto) 2.9 th/mm3 (1.0-4.8); Lymph % (Auto) 28.2 % (9.0-44.0); Mean Corpuscular HGB Conc 32.2 % (32.0-36.0); Mean Corpuscular Hemoglobin 25.1 pg (27.0-34.0); Mean Corpuscular Volume 77.9 fL (80.0-100.0); Mono # (Auto) 0.9 th/mm3 (0.0-0.9); Mono % (Auto) 9.2 % (0.0-8.0); Neut # (Auto) 5.4 th/mm3 (1.8-7.7); Neut % (Auto) 52.2 % (16.0-70.0); Platelet Count 420 th/mm3 (150-450); Red Blood Count 3.81 mil/mm3 (4.00-5.30); Red Cell Distribution Width 15.8 % (11.6-17.2); White Blood Count 10.3 th/mm3 (4.0-11.0)
[2018-04-05 07:35] LABS: Albumin 2.7 g/dL (3.4-5.0); Calcium 9.5 mg/dL (8.5-10.1); Carbon Dioxide 24.7 meq/L (21.0-32.0); Magnesium 1.8 mg/dL (1.5-2.5); Potassium 4.3 meq/L (3.5-5.1)
[2018-04-05] MEDS: Chlorhexidine 0.12% Oral Kit 15 ML UDC OROPHARYNG SCH ×2 (08:39→20:10)
[2018-04-05] MEDS: Insulin NovoLOG Aspart Correctional Sugar Inj SQ SCH ×4 (08:39→21:25)
[2018-04-05] MEDS: Carvedilol 12.5 MG Tablet PO SCH ×2 (08:40→20:03)
[2018-04-05] MEDS: Lisinopril 5 MG Tablet PO SCH (08:40)
[2018-04-05] MEDS: Senna/Docusate Sodium 8.6/50 MG Tablet PO SCH ×2 (08:41→20:10)
[2018-04-05] MEDS: Heparin - SQ 10,000 UNITS/ML Vial SQ SCH ×2 (08:41→20:00)
[2018-04-05] MEDS: Famotidine PF Inj 20 MG/2 ML Vial IV.PUSH SCH ×2 (08:41→20:03)
--- NOTE | 2018-04-05 19:39 | P.PNCA ---
Subjective Interval history: Follow up for Dr. Heart Feels well No chest pain SOB getting better Medications and Allergies Active Medications: Active Medications Acetaminophen (Tylenol) 650 mg PO Q6H PRN PRN Reason: PAIN 1-5 AND/OR FEVER >101F Last Admin: 04/03/18 08:55 Dose: 650 mg Al Hydroxide/Mg Hydroxide (Milk Of Magnaileen Liq) 30 ml PO Q12H PRN PRN Reason: Mild Constipation Albuterol (Albuterol Neb (Prn)) 2.5 mg NEB Q2HR NEB PRN PRN Reason: DYSPNEA Aspirin (Ecotrin) 81 mg PO DAILY [facility] [place] Last Admin: 04/05/18 08:40 Dose: 81 mg Atorvastatin Calcium (Lipitor) 40 mg PO DAILY [facility] [place] Last Admin: 04/05/18 08:40 Dose: 40 mg Bisacodyl (Dulcolax Supp) 10 mg RECTAL DAILY PRN PRN Reason: SEVERE CONSITIPATION Carvedilol (Coreg) 12.5 mg PO BID [facility] [place] Last Admin: 04/05/18 08:40 Dose: 12.5 mg Chlorhexidine Gluconate (Peridex 0.12% Oral Kit) 15 ml OROPHARYNG BID@0800, 2000 [facility] [place] Last Admin: 04/05/18 08:39 Dose: Not Given Chlorhexidine Gluconate (Chlorhexidine 2% Cloth) 3 pack TOPICAL DAILY@0400 [facility] [place] Stop: 04/06/18 03:59 Last Admin: 04/05/18 04:12 Dose: 3 pack Chlorhexidine Gluconate (Chlorhexidine 2% Cloth) 3 pack TOPICAL DAILY@0400 PRN PRN Reason: Extra cloth needed Stop: 04/06/18 03:59 Dextrose (D50w Vial) 50 ml IV.PUSH UNSCH PRN PRN Reason: PER HYPOGLYCEMIA PROTOCOL Famotidine (Pepcid Pf Inj) 10 mg IV.PUSH Q12HR [facility] [place] Last Admin: 04/05/18 08:41 Dose: 10 mg Furosemide (Lasix Inj) 20 mg IV.PUSH DAILY [facility] [place] Last Admin: 04/05/18 08:42 Dose: 20 mg Glucagon (Glucagon Inj) 1 mg OTHER PRN PRN PRN Reason: for Hypoglycemia Protocol Heparin Sodium (Porcine) (Heparin Inj) 5,000 units SQ Q8H [facility] [place] Last Admin: 04/05/18 08:41 Dose: 5,000 units Magnesium Sulfate 4 gm/ Sodium (Chloride) 100 mls @ 50 mls/hr IV.SIG UNSCH PRN PRN Reason: For Magnesium 0.9 - 1.1 mg/dL Magnesium Sulfate 2 gm/ Sodium (Chloride) 100 mls @ 50 mls/hr IV.SIG UNSCH PRN PRN Reason: For Magnesium 1.2 - 1.6 mg/dL Potassium Chloride (Kcl 40 Meq Premix Inj) 40 meq in 100 mls @ 25 mls/hr IV.SIG Q2H PRN PRN Reason: For Potassium 2.8 - 3.2 mEq/L Potassium Chloride (Kcl 20 Meq Premix Inj) 20 meq in 100 mls @ 50 mls/hr IV.SIG Q2H PRN PRN Reason: For Potassium 3.3 - 3.5 mEq/L Potassium Chloride (Kcl 40 Meq Premix Inj) 40 meq in 100 mls @ 25 mls/hr IV.SIG UNSCH PRN PRN Reason: For Potassium 3.3 - 3.5 mEq/L Potassium Chloride (Kcl 20 Meq Premix Inj) 20 meq in 100 mls @ 50 mls/hr IV.SIG Q2H PRN PRN Reason: For Potassium 2.8 - 3.2 mEq/L Potassium Phosphate 30 mmol/ (Sodium Chloride) 260 mls @ 42 mls/hr IV.SIG UNSCH PRN PRN Reason: SEE LABEL COMMENTS Sodium Phosphate 30 mmol/ (Sodium Chloride) 260 mls @ 42 mls/hr IV.SIG UNSCH PRN PRN Reason: For Phosphorus < 2.5 mg/dL Insulin Aspart (Novolog Insulin Correctional Sugar Inj) 0 unit SQ ACHS [facility] [place]; Protocol Last Admin: 04/05/18 12:00 Dose: 2 unit Lactulose (Lactulose Liq) 30 ml PO DAILY PRN PRN Reason: SEVERE CONSITIPATION Magnesium Oxide (Mag-Ox) 800 mg PO UNSCH PRN PRN Reason: For Magnesium 1.2 - 1.6 mg/dL Miscellaneous Medication () 1 each OROPHARYNG 0000,0400,1200,1600 [facility] [place] Last Admin: 04/05/18 11:14 Dose: Not Given Morphine Sulfate (Morphine Inj) 2 mg IV.PUSH Q2H PRN PRN Reason: PAIN SCALE 6 TO 10 Last Admin: 04/01/18 00:33 Dose: 2 mg Ondansetron HCl (Zofran Inj) 4 mg IV.PUSH Q6H PRN PRN Reason: NAUSEA Last Admin: 04/04/18 14:15 Dose: 4 mg Potassium Bicarb/Potassium Chloride (K-Lyte Cl Eff) 50 meq PO UNSCH PRN PRN Reason: For Potassium 3.3 - 3.5 mEq/L Potassium Phosphate (K-Phos Original) 2,000 mg PO UNSCH PRN PRN Reason: SEE LABEL COMMENTS Potassium Phosphate (K-Phos Original) 2,000 mg PO Q4H PRN PRN Reason: Phosphorus Less Than 2.5 mg/dL Sacubitril/Valsartan (Entresto 24 Mg/26 Mg Tablet) 1 tab PO BID [facility] [place] Senna/Docusate Sodium (Alysa-Colace) 1 tab PO BID [facility] Last Admin: 04/05/18 08:41 Dose: 1 tab Sennosides (Senokot) 17.2 mg PO Q12H PRN PRN Reason: Moderate Constipation Sodium Chloride (Ns Flush) 2 ml IV.FLUSH BID [facility] [place] Last Admin: 04/05/18 11:14 Dose: 2 ml Sodium Chloride (Ns Flush) 2 ml IV.FLUSH PRN PRN PRN Reason: FLUSH AFTER USING IV ACCESS Spironolactone (Aldactone) 12.5 mg PO DAILY [facility] [place] Allergies Allergy/AdvReac Type Severity Reaction Status Date / Time No Known Allergies Allergy Verified 04/01/18 02:17 Home Medications Medication Instructions Recorded Confirmed Type Invokamet 1 tab PO BID 04/01/18 04/01/18 History aspirin 81 mg PO DAILY 04/01/18 04/01/18 History atorvastatin 40 mg PO DAILY 04/01/18 04/01/18 History carvedilol 6.25 mg PO DAILY 04/01/18 04/01/18 History furosemide 20 mg PO DAILY 04/01/18 04/01/18 History glipizide 10 mg PO DAILY 04/01/18 04/01/18 History lisinopril 5 mg PO DAILY 04/01/18 04/01/18 History omeprazole-sodium bicarbonate 1 cap PO BID 04/01/18 04/01/18 History [Zegerid] potassium chloride 10 meq PO DAILY 04/01/18 04/01/18 History Physical Exam Vital signs: Vital Signs 04/04/18 19:59 04/04/18 20:00 04/05/18 00:00 Temperature 98.4 F 98.2 F Pulse Rate 91 H 90 96 H Respiratory Rate 16 17 25 H Blood Pressure 139/64 114/65 Pulse Oximetry 92 L 96 91 L 04/05/18 03:32 04/05/18 04:00 04/05/18 07:39 Temperature 98.2 F Pulse Rate 94 H 92 H 81 Respiratory Rate 18 24 18 Blood Pressure 114/73 Pulse Oximetry 91 L 95 04/05/18 08:00 04/05/18 12:00 04/05/18 15:20 Temperature 98.6 F 98.4 F 98.7 F Pulse Rate 81 92 H 96 H Respiratory Rate 22 20 18 Blood Pressure 122/57 L 130/74 103/48 L Pulse Oximetry 92 L 98 98 04/05/18 16:00 Temperature 98 F Pulse Rate 96 H Respiratory Rate 18 Blood Pressure 109/68 Pulse Oximetry 98 Intake & Output 04/05/18 04/05/18 04/06/18 06:59 18:59 06:59 Intake Total 100 / 100 1360 / 1360 Output Total 450 / 450 920 / 920 Balance -350 / -350 440 / 440 Weight 63.7 kg Intake: Oral 100 / 100 1360 / 1360 Output: Urine 450 / 450 920 / 920 Other: # Voids 1 Date of Last Bowel Movement 04/04/18 Narrative: GENERAL: patient sitting in bed. Appears comfortable. SKIN: Warm and dry. HEAD: Normocephalic. EYES: No scleral icterus. No injection or drainage. NECK: Supple, trachea midline. No JVD. CARDIOVASCULAR: Regular rate and rhythm without murmurs, gallops, or rubs. RESPIRATORY: Breath sounds equal bilaterally. No accessory muscle use. GASTROINTESTINAL: Abdomen soft, non-tender, nondistended. MUSCULOSKELETAL: No cyanosis, or edema. BACK: Nontender without obvious deformity. No CVA tenderness. - Urinary Catheter Management Indwelling Urethral Catheter Cath placed during this visit: yes Reason for continuing: Acute urinary retention Insertion date: 03/31/18 Insertion time: 21:36 Results 04/05/18 06:25 04/05/18 06:25 Cardiac Enzymes 04/04/18 Range/Units 06:01 AST 15 (15-37) U/L CBC 10/23/18 10/24/18 Range/Units 06:01 06:25 WBC 10.8 10.3 (4.0-11.0) th/mm3 RBC 3.67 L 3.81 L (4.00-5.30) mil/mm3 Hgb 9.3 L 9.6 L (11.6-15.3) gm/dL Hct 28.5 L 29.7 L (35.0-46.0) % Plt Count 428 420 (150-450) th/mm3 Neut # (Auto) 6.1 5.4 (1.8-7.7) th/mm3 Lymph # (Auto) 2.7 2.9 (1.0-4.8) th/mm3 [place] # (Auto) 0.9 0.9 (0.0-0.9) th/mm3 Eos # (Auto) 1.0 H 1.0 H (0.0-0.4) th/mm3 Baso # (Auto) 0.1 0.0 (0.0-0.2) th/mm3 Comprehensive Metabolic Panel 04/04/18 04/05/18 Range/Units 06:01 06:25 Sodium 142 141 (136-145) meq/L Potassium 4.2 4.3 (3.5-5.1) meq/L Chloride 108 H 107 (98-107) meq/L Carbon Dioxide 25.2 24.7 (21.0-32.0) meq/L BUN 12 16 (7-18) mg/dL Creatinine 0.67 0.74 (0.50-1.00) mg/dL Calcium 8.9 9.5 (8.5-10.1) mg/dL AST 15 (15-37) U/L ALT 26 (10-53) U/L Alkaline Phosphatase 93 (45-117) U/L Total Protein 7.4 (6.4-8.2) g/dL Albumin 2.7 L 2.7 L (3.4-5.0) g/dL Intake and Output 04/05/18 04/05/18 04/05/18 06:59 14:59 22:59 Intake Total 100 / 100 500 / 500 860 / 860 Output Total 450 / 450 420 / 420 500 / 500 Balance -350 / -350 80 / 80 360 / 360 Intake: Oral 100 / 100 500 / 500 860 / 860 Output: Urine 450 / 450 420 / 420 500 / 500 Other: # Voids 1 Date of Last Bowel Movement 04/04/18 Weight 63.7 kg Assessment and Plan - Assessment (1) NSTEMI (non-ST elevated myocardial infarction) Code(s): I21.4 - Non-ST elevation (NSTEMI) myocardial infarction Status: Acute (2) Acute systolic heart failure Code(s): I50.21 - Acute systolic (congestive) heart failure Status: Acute (3) LBBB (left bundle branch block) Code(s): I44.7 - Left bundle-branch block, unspecified Status: Acute (4) Acute respiratory failure Code(s): J96.00 - Acute respiratory failure, unspecified whether with hypoxia or hypercapnia Status: Acute - Plan 1) Acute respiratory failure Unsure of underlying cause Possible arrhythmia 2) LBBB 3) NICM EF 20% 4) Previous EF 20% with arrest Ultimately I think she would benefit from BiV-ICD Will ask Dr. Alvarado to evaluate for consideration Otherwise will need Lifevest
--- NOTE | 2018-04-05 22:41 | P.PNIM ---
Subjective Interval history: patient says she's feeling better than yesterday. Denies any chest pain. Shortness of breath much improved. Physical Exam Vital signs: Vital Signs 04/05/18 00:00 04/05/18 03:32 04/05/18 04:00 Temperature 98.2 F 98.2 F Pulse Rate 96 H 94 H 92 H Respiratory Rate 25 H 18 24 Blood Pressure 114/65 114/73 Pulse Oximetry 91 L 91 L 04/05/18 07:39 04/05/18 08:00 04/05/18 12:00 Temperature 98.6 F 98.4 F Pulse Rate 81 81 92 H Respiratory Rate 18 22 20 Blood Pressure 122/57 L 130/74 Pulse Oximetry 95 92 L 98 04/05/18 15:00 04/05/18 15:20 04/05/18 16:00 Temperature 98.7 F 98 F Pulse Rate 102 H 96 H 98 H Respiratory Rate 18 18 Blood Pressure 103/48 L 109/68 Pulse Oximetry 98 98 04/05/18 17:00 04/05/18 18:00 04/05/18 19:56 Temperature 98.7 F Pulse Rate 96 H 94 H 95 H Respiratory Rate 20 Blood Pressure 123/68 Pulse Oximetry 96 Intake & Output 04/05/18 04/05/18 04/06/18 06:59 18:59 06:59 Intake Total 100 / 100 1360 / 1360 Output Total 450 / 450 920 / 920 Balance -350 / -350 440 / 440 Weight 63.7 kg Intake: Oral 100 / 100 1360 / 1360 Output: Urine 450 / 450 920 / 920 Other: # Voids 1 Date of Last Bowel Movement 04/04/18 - Urinary Catheter Management Indwelling Urethral Catheter Cath placed during this visit: yes Reason for continuing: Acute urinary retention Insertion date: 03/31/18 Insertion time: 21:36 Results - Labs CBC & Chem 7: 04/05/18 06:25 04/05/18 06:25 Laboratory Results - last 24 hr 04/05/18 04/05/18 04/05/18 06:25 06:25 08:34 WBC 10.3 RBC 3.81 L Hgb 9.6 L Hct 29.7 L MCV 77.9 L MCH 25.1 L MCHC 32.2 RDW 15.8 Plt Count 420 MPV 9.0 Neut % (Auto) 52.2 Lymph % (Auto) 28.2 [place] % (Auto) 9.2 H Eos % (Auto) 10.1 H Baso % (Auto) 0.3 Neut # (Auto) 5.4 Lymph # (Auto) 2.9 [place] # (Auto) 0.9 Eos # (Auto) 1.0 H Baso # (Auto) 0.0 WBC Differential . Differential Comment Auto diff final Sodium 141 Potassium 4.3 Chloride 107 Carbon Dioxide 24.7 Anion Gap 9 BUN 16 Creatinine 0.74 Estimated GFR 77 L POC Glucose 148 H Random Glucose 142 H Calcium 9.5 Phosphorus 4.0 Magnesium 1.8 Albumin 2.7 L 04/05/18 04/05/18 04/05/18 11:49 16:48 21:22 WBC RBC Hgb Hct MCV MCH MCHC RDW Plt Count MPV Neut % (Auto) Lymph % (Auto) [place] % (Auto) Eos % (Auto) Baso % (Auto) Neut # (Auto) Lymph # (Auto) [place] # (Auto) Eos # (Auto) Baso # (Auto) WBC Differential Differential Comment Sodium Potassium Chloride Carbon Dioxide Anion Gap BUN Creatinine Estimated GFR POC Glucose 192 H 300 H 177 H Random Glucose Calcium Phosphorus Magnesium Albumin Microbiology 03/31/18 21:30 Blood - Peripheral Aerobic Blood Culture - Preliminary No growth in 4 days 03/31/18 21:30 Blood - Peripheral Anaerobic Blood Culture - Preliminary No growth in 4 days 03/31/18 21:25 Blood - Peripheral Aerobic Blood Culture - Preliminary No growth in 4 days 03/31/18 21:25 Blood - Peripheral Anaerobic Blood Culture - Preliminary No growth in 4 days Assessment and Plan - Plan =04/05. patient with SVT, EF 20%secondary to nonischemic cardiopathy, only mild CAD on catheter. Presented with CHF exacerbation improving with diuresis Manager Inventory Management has been consulted by cardiology. Follow-up electrophysiology recommendations. Per patient's report, career development counselor may want to do procedure tomorrow. Patient will be made nothing by mouth at midnight in case there is an opening Neuro/Psych: Acetaminophen 650 mg by tube every 6 hours as needed fever Morphine sulfate 2 mg IV every 2 hours as needed pain breakthrough CV: Wide complex tachycardiaSVT currently in sinus tachycardia Chronic systolic heart failure ejection fraction 20% Nonischemic cardia myopathy Essential hypertension Hyperlipidemia Elevated troponin Left bundle branch block Previously on amiodarone drip and dopamine drip in the ED these have been weaned off. Echocardiogram 09/28 revealed EF around 20% with anterior wall akinesis. Echocardiogram 04/02 revealed EF less than 20%. PAP 41.8 mmHg. LV hypokinesis. LV daily. Cardiac catheterization by Dr. Brooke/revealed left main 10%, LAD 10-20%. Left circumflex 20%. RCA normal. Recommended possible LifeVest as outpatient workup. This is been completed. Cycle troponins. Peaked at 1.05. Serially until downward trending Cardiology consultation with Dr. Brooke. Seen by Dr. Heart. Previously on metoprolol and lisinopril. Currently on carvedilol 12.5 mg twice daily. This is been resumed. Previously on lisinopril 5 mg daily. And this is been resumed on 04/03 Recently on atorvastatin 40 mg daily for dyslipidemia. This has been resumed Noted discussion with Dr. Brooke will possibly need AICD. Previously on furosemide 20 mg p.o. daily. Switch to IV daily while hospitalized. =continue IV Lasix for diuresis. Cardiology following. Appreciate assistance. Due to left bundle branch block, EF of 20%, may need ICD, possibly pacer. =04/05. Manager Inventory Management has been consulted by cardiology. Follow-up electrophysiology recommendations. Per patient's report, career development counselor may want to do procedure tomorrow. Patient will be made nothing by mouth at midnight in case there is an opening Resp: Acute respiratory failure Extubated 04/02. Nasal cannula to maintain saturations greater than equal to 92% Incentive spirometry while awake Albuterol/ipratropium aerosols every 6 hours with albuterol aerosols every 2 hours as needed dyspnea Chest x-ray revealed improvement of pulmonary congestion from pulmonary edema. =improving.continue diuresis for CHF exacerbation GI: Gastroesophageal reflux disease Hiatal hernia Hypoalbuminemia CardiacADA diet as tolerated. Famotidine for GI prophylaxis Docusate sodium/senna 1 tablet twice daily for bowel regimen : Straight cathed every 6 hours as needed. Wu catheter for urinary retention only Endo: Diabetes mellitus type 2 Previously on clinical canagliflozin/metformin 1 tablet twice daily and glipizide 10 mg daily Sliding scale is with aspart insulin Accu-Cheks every 6 hours maintain euglycemia/medium protocol Check TSH -0.466. Will need to be rechecked in the nonemergent setting. Renal: Creatinine currently stabilized Accurate I's and O's Monitor urine output Heme: Leukocytosis Microcytic anemia Monitor CBC daily. Follow trends per No indication for transfusion of blood products at this time ID: Monitor for signs and symptomatology infection Received vancomycin and piperacillin/tazobactam in the ED. Blood cultures x2, UA continue with no growth FEN: Replace electrolytes as clinically indicated per ICU Dr. Gaston protocol Goal potassium greater than 4, magnesium greater than 2. MSK: PT evaluate and treat Access -Utilize peripheral IV. Central line if indicated Prophylaxis -GI -famotidine -DVT -SCD/heparin subcu Discharge Planning: pending cardiology clearance. PT following, recommends rehabilitation follow-up electrophysiology recommendations
[2018-04-06] MEDS: Oral Hygiene Kit OROPHARYNG SCH ×5 (00:32→23:19)
[2018-04-06] MEDS: Heparin - SQ 10,000 UNITS/ML Vial SQ SCH ×4 (00:38→23:31)
[2018-04-06] MEDS: Acetaminophen 325 MG Tablet PO PRN ×2 (03:57→15:40)
[2018-04-06] MEDS: Chlorhexidine 0.12% Oral Kit 15 ML UDC OROPHARYNG SCH ×2 (07:02→21:17)
--- NOTE | 2018-04-06 07:21 | MB ---
cc: Zeeshan Alvarado MD DATE: 04/05/2018 REASON FOR CONSULTATION: Shortness of breath, question of heart failure, for possible revascularization. HISTORY OF PRESENT ILLNESS: Mrs. Desouza is a 73-year-old female, question of heart failure, cardiomyopathy. Ejection fraction in September was 20%, was put on optimal medical treatment. The patient got readmitted for heart failure. Ejection fraction again is 20%. She is a heart failure class III. I was consulted for evaluation and management. The chart was reviewed. The patient was evaluated. ALLERGIES: None. SOCIAL HISTORY: The patient stopped smoking years ago. FAMILY HISTORY: Noncontributory to her current medical condition. MEDICATIONS: She is on Entresto. She is on Coreg 12.5 mg twice a day. She is on magnesium, potassium. REVIEW OF SYSTEMS: Currently, she referred no chest pain, no chest discomfort. No fever. PHYSICAL EXAMINATION: GENERAL: Alert, fully oriented. VITAL SIGNS: Blood pressure 103/48, pulse 96, respiratory rate 18. LUNGS: Ventilated. CARDIOVASCULAR: S1, S2. No gallop. No murmur. ABDOMEN: Soft. No masses. No bruits. EXTREMITIES: No edema. ELECTROCARDIOGRAM: Sinus rhythm, interventricular conduction delay, diffuse ST changes. QRS around 140-150 milliseconds. LABORATORY DATA: Hemoglobin 10.8, white blood cell 12.1, INR 1.00, potassium 4.0, creatinine 0.71. Troponin 0.39. ASSESSMENT AND RECOMMENDATIONS: Mrs. Desouza has a somewhat complex tachyarrhythmia. She has congestive heart failure, cardiomyopathy. Ejection fraction is 20% since September, on optimal medical treatment. I had a long conversation with her and her family. Electrophysiology study and biventricular pacer defibrillator insertion for sudden prevention and revascularization therapy discussed. The nature and the benefits of the procedure were clearly stated to her. Risks include pneumothorax, cardiac perforation, stroke, and even . They understand and agreed to proceed. I am going to discontinue the potassium. Angio-Seal already initiated. Aldactone 12.5 mg once a day will be added. Zeeshan Alvarado MD HS/rm , 04:43 PM , 04:51 PM
--- NOTE | 2018-04-06 08:50 | P.PN ---
Subjective Interval history: This is a pleasant 73 y/o Female who has Systolic heart failure with EF 20%, secondary to Non ischemic Cardiomyopathy Mild CAD after Cardiac cath, CHF exacerbation improving, she will probably go for Defibrillator placement today, if not possible will go home and comes back for elective procedure. 04/06: Patient was seen by commercial sales specialist doctor Tera Brooke he already discussed with Doctor Chhaya Alvarado and he will place Biventricular ICD tomorrow. no nausea, vomit or diarrhea. Physical Exam Vital signs: Vital Signs 04/05/18 12:00 04/05/18 15:00 04/05/18 15:20 Temperature 98.4 F 98.7 F Pulse Rate 92 H 102 H 96 H Respiratory Rate 20 18 Blood Pressure 130/74 103/48 L Pulse Oximetry 98 98 04/05/18 16:00 04/05/18 17:00 04/05/18 18:00 Temperature 98 F Pulse Rate 98 H 96 H 94 H Respiratory Rate 18 Blood Pressure 109/68 Pulse Oximetry 98 04/05/18 19:56 04/05/18 20:02 04/06/18 00:04 Temperature 98.7 F Pulse Rate 95 H 93 H 65 Respiratory Rate 20 Blood Pressure 123/68 Pulse Oximetry 96 04/06/18 00:34 04/06/18 04:00 04/06/18 04:05 Temperature 98.1 F 98 F Pulse Rate 100 H 89 95 H Respiratory Rate 18 18 Blood Pressure 102/54 L 114/71 Pulse Oximetry 97 96 04/06/18 04:25 Temperature Pulse Rate Respiratory Rate 18 Blood Pressure Pulse Oximetry Intake & Output 04/05/18 04/06/18 04/06/18 18:59 06:59 18:59 Intake Total 1360 / 1360 Output Total 920 / 920 Balance 440 / 440 Weight 63.6 kg Intake: Oral 1360 / 1360 Output: Urine 920 / 920 Narrative: GENERAL: No acute distress. SKIN: Warm and dry. HEAD: Normocephalic. EYES: No scleral icterus. No injection or drainage. NECK: Supple, trachea midline. No JVD. CARDIOVASCULAR: Regular rate and rhythm without murmurs, gallops, or rubs. RESPIRATORY: Breath sounds equal bilaterally. No accessory muscle use. GASTROINTESTINAL: Abdomen soft, non-tender, nondistended. MUSCULOSKELETAL: No cyanosis, or edema. BACK: Nontender without obvious deformity. No CVA tenderness. - Urinary Catheter Management Indwelling Urethral Catheter Cath placed during this visit: yes Reason for continuing: Acute urinary retention Insertion date: 03/31/18 Insertion time: 21:36 Results - Labs CBC & Chem 7: 04/05/18 06:25 04/05/18 06:25 Laboratory Results - last 24 hr 04/05/18 04/05/18 04/05/18 08:34 11:49 16:48 POC Glucose 148 H 192 H 300 H 04/05/18 21:22 POC Glucose 177 H Microbiology 03/31/18 21:30 Blood - Peripheral Aerobic Blood Culture - Preliminary No growth in 4 days 03/31/18 21:30 Blood - Peripheral Anaerobic Blood Culture - Preliminary No growth in 4 days 03/31/18 21:25 Blood - Peripheral Aerobic Blood Culture - Preliminary No growth in 4 days 03/31/18 21:25 Blood - Peripheral Anaerobic Blood Culture - Preliminary No growth in 4 days - Imaging Head CT 04/01/18 00:02 CONCLUSION: 1. No acute intracranial abnormality Chest X-Ray 04/03/18 06:00 CONCLUSION: Mild prominence of central vessels and the interstitium. Assessment and Plan - Plan This is a pleasant 73 y/o Female who has Systolic heart failure with EF 20%, secondary to Non ischemic Cardiomyopathy Mild CAD after Cardiac cath, CHF exacerbation improving, she will probably go for Defibrillator placement today, if not possible will go home and comes back for elective procedure. 1. Wide complex tachycardiaSVT currently in sinus tachycardia Chronic systolic heart failure ejection fraction 20% Nonischemic cardia myopathy Essential hypertension Hyperlipidemia Elevated troponin Left bundle branch block Previously on amiodarone drip and dopamine drip in the ED these have been weaned off. Echocardiogram 09/28 revealed EF around 20% with anterior wall akinesis. Echocardiogram 04/02 revealed EF less than 20%. PAP 41.8 mmHg. LV hypokinesis. LV daily. Cardiac catheterization by Dr. Brooke/revealed left main 10%, LAD 10-20%. Left circumflex 20%. RCA normal. Recommended possible LifeVest as outpatient workup. This is been completed. Cycle troponins. Peaked at 1.05. Serially until downward trending Cardiology consultation with Dr. Brooke. Seen by Dr. Heart. Previously on metoprolol and lisinopril. Currently on carvedilol 12.5 mg twice daily. This is been resumed. Previously on lisinopril 5 mg daily. And this is been resumed on 04/03 Recently on atorvastatin 40 mg daily for dyslipidemia. This has been resumed 04/06: Patient was seen by commercial sales specialist doctor Tera Brooke he already discussed with Doctor Chhaya Alvarado and he will place Biventricular ICD tomorrow. no nausea, vomit or diarrhea. 2. Acute respiratory failure Extubated 04/02. Nasal cannula to maintain saturations greater than equal to 92% Incentive spirometry while awake Albuterol/ipratropium aerosols every 6 hours with albuterol aerosols every 2 hours as needed dyspnea Chest x-ray revealed improvement of pulmonary congestion from pulmonary edema. =improving.continue diuresis for CHF exacerbation 3. Gastroesophageal reflux disease Hiatal hernia Hypoalbuminemia CardiacADA diet as tolerated. Famotidine for GI prophylaxis Docusate sodium/senna 1 tablet twice daily for bowel regimen 4. Diabetes mellitus type 2 Previously on clinical canagliflozin/metformin 1 tablet twice daily and glipizide 10 mg daily Sliding scale is with aspart insulin Accu-Cheks every 6 hours maintain euglycemia/medium protocol Check TSH -0.466. 5. Leukocytosis Microcytic anemia PT evaluate and treat Prophylaxis -GI -famotidine -DVT -SCD/heparin subcu Code Status: Full code. Discussed Condition With: patient, Nurse and commercial sales specialist doctor Tera Brooke Discharge Planning: pending cardiology clearance. PT following, recommends rehabilitation follow-up electrophysiology recommendations
[2018-04-06] MEDS: Carvedilol 12.5 MG Tablet PO SCH ×2 (08:55→21:18)
[2018-04-06] MEDS: Spironolactone 25 MG Tablet PO SCH (08:55)
[2018-04-06] MEDS: Famotidine PF Inj 20 MG/2 ML Vial IV.PUSH SCH ×2 (08:56→21:18)
[2018-04-06] MEDS: Senna/Docusate Sodium 8.6/50 MG Tablet PO SCH ×2 (09:06→21:18)
[2018-04-06] MEDS: Insulin NovoLOG Aspart Correctional Sugar Inj SQ SCH ×4 (09:06→21:33)
--- NOTE | 2018-04-06 17:18 | P.PNCA ---
Subjective Interval history: No events overnight Off oxygen Medications and Allergies Active Medications: Active Medications Acetaminophen (Tylenol) 650 mg PO Q6H PRN PRN Reason: PAIN 1-5 AND/OR FEVER >101F Last Admin: 04/06/18 15:40 Dose: 650 mg Al Hydroxide/Mg Hydroxide (Milk Of Jesse Liq) 30 ml PO Q12H PRN PRN Reason: Mild Constipation Albuterol (Albuterol Neb (Prn)) 2.5 mg NEB Q2HR NEB PRN PRN Reason: DYSPNEA Aspirin (Ecotrin) 81 mg PO DAILY [facility] Last Admin: 04/06/18 08:55 Dose: 81 mg Atorvastatin Calcium (Lipitor) 40 mg PO DAILY [facility] Last Admin: 04/06/18 08:55 Dose: 40 mg Bisacodyl (Dulcolax Supp) 10 mg RECTAL DAILY PRN PRN Reason: SEVERE CONSITIPATION Carvedilol (Coreg) 12.5 mg PO BID [facility] Last Admin: 04/06/18 08:55 Dose: 12.5 mg Chlorhexidine Gluconate (Peridex 0.12% Oral Kit) 15 ml OROPHARYNG BID@0800, 2000 [facility] Last Admin: 04/06/18 07:02 Dose: Not Given Dextrose (D50w Vial) 50 ml IV.PUSH UNSCH PRN PRN Reason: PER HYPOGLYCEMIA PROTOCOL Famotidine (Pepcid Pf Inj) 10 mg IV.PUSH Q12HR [facility] Last Admin: 04/06/18 08:56 Dose: 10 mg Furosemide (Lasix Inj) 20 mg IV.PUSH DAILY [facility] Last Admin: 04/06/18 08:56 Dose: 20 mg Glucagon (Glucagon Inj) 1 mg OTHER PRN PRN PRN Reason: for Hypoglycemia Protocol Heparin Sodium (Porcine) (Heparin Inj) 5,000 units SQ Q8H [facility] Last Admin: 04/06/18 15:40 Dose: 5,000 units Magnesium Sulfate 4 gm/ Sodium (Chloride) 100 mls @ 50 mls/hr IV.SIG UNSCH PRN PRN Reason: For Magnesium 0.9 - 1.1 mg/dL Magnesium Sulfate 2 gm/ Sodium (Chloride) 100 mls @ 50 mls/hr IV.SIG UNSCH PRN PRN Reason: For Magnesium 1.2 - 1.6 mg/dL Potassium Chloride (Kcl 40 Meq Premix Inj) 40 meq in 100 mls @ 25 mls/hr IV.SIG Q2H PRN PRN Reason: For Potassium 2.8 - 3.2 mEq/L Potassium Chloride (Kcl 20 Meq Premix Inj) 20 meq in 100 mls @ 50 mls/hr IV.SIG Q2H PRN PRN Reason: For Potassium 3.3 - 3.5 mEq/L Potassium Chloride (Kcl 40 Meq Premix Inj) 40 meq in 100 mls @ 25 mls/hr IV.SIG UNSCH PRN PRN Reason: For Potassium 3.3 - 3.5 mEq/L Potassium Chloride (Kcl 20 Meq Premix Inj) 20 meq in 100 mls @ 50 mls/hr IV.SIG Q2H PRN PRN Reason: For Potassium 2.8 - 3.2 mEq/L Potassium Phosphate 30 mmol/ (Sodium Chloride) 260 mls @ 42 mls/hr IV.SIG UNSCH PRN PRN Reason: SEE LABEL COMMENTS Sodium Phosphate 30 mmol/ (Sodium Chloride) 260 mls @ 42 mls/hr IV.SIG UNSCH PRN PRN Reason: For Phosphorus < 2.5 mg/dL Insulin Aspart (Novolog Insulin Correctional Sugar Inj) 0 unit SQ ACHS MAULIK; Protocol Last Admin: 04/06/18 16:37 Dose: 10 unit Lactulose (Lactulose Liq) 30 ml PO DAILY PRN PRN Reason: SEVERE CONSITIPATION Magnesium Oxide (Mag-Ox) 800 mg PO UNSCH PRN PRN Reason: For Magnesium 1.2 - 1.6 mg/dL Miscellaneous Medication () 1 each OROPHARYNG 0000,0400,1200,1600 MAULIK Last Admin: 04/06/18 15:30 Dose: Not Given Morphine Sulfate (Morphine Inj) 2 mg IV.PUSH Q2H PRN PRN Reason: PAIN SCALE 6 TO 10 Last Admin: 04/01/18 00:33 Dose: 2 mg Ondansetron HCl (Zofran Inj) 4 mg IV.PUSH Q6H PRN PRN Reason: NAUSEA Last Admin: 04/04/18 14:15 Dose: 4 mg Potassium Bicarb/Potassium Chloride (K-Lyte Cl Eff) 50 meq PO UNSCH PRN PRN Reason: For Potassium 3.3 - 3.5 mEq/L Potassium Phosphate (K-Phos Original) 2,000 mg PO UNSCH PRN PRN Reason: SEE LABEL COMMENTS Potassium Phosphate (K-Phos Original) 2,000 mg PO Q4H PRN PRN Reason: Phosphorus Less Than 2.5 mg/dL Sacubitril/Valsartan (Entresto 24 Mg/26 Mg Tablet) 1 tab PO BID [facility] Last Admin: 04/06/18 08:55 Dose: 1 tab Senna/Docusate Sodium (Alysa-Colace) 1 tab PO BID [facility] Last Admin: 04/06/18 09:06 Dose: Not Given Sennosides (Senokot) 17.2 mg PO Q12H PRN PRN Reason: Moderate Constipation Sodium Chloride (Ns Flush) 2 ml IV.FLUSH BID [facility] Last Admin: 04/06/18 08:56 Dose: 2 ml Sodium Chloride (Ns Flush) 2 ml IV.FLUSH PRN PRN PRN Reason: FLUSH AFTER USING IV ACCESS Spironolactone (Aldactone) 12.5 mg PO DAILY [facility] Last Admin: 04/06/18 08:55 Dose: 12.5 mg Allergies Allergy/AdvReac Type Severity Reaction Status Date / Time No Known Allergies Allergy Verified 04/01/18 02:17 Home Medications Medication Instructions Recorded Confirmed Type Invokamet 1 tab PO BID 04/01/18 04/01/18 History aspirin 81 mg PO DAILY 04/01/18 04/01/18 History atorvastatin 40 mg PO DAILY 04/01/18 04/01/18 History carvedilol 6.25 mg PO DAILY 04/01/18 04/01/18 History furosemide 20 mg PO DAILY 04/01/18 04/01/18 History glipizide 10 mg PO DAILY 04/01/18 04/01/18 History lisinopril 5 mg PO DAILY 04/01/18 04/01/18 History omeprazole-sodium bicarbonate 1 cap PO BID 04/01/18 04/01/18 History [Zegerid] potassium chloride 10 meq PO DAILY 04/01/18 04/01/18 History Physical Exam Vital signs: Vital Signs 04/05/18 18:00 04/05/18 19:56 04/05/18 20:02 Temperature 98.7 F Pulse Rate 94 H 95 H 93 H Respiratory Rate 20 Blood Pressure 123/68 Pulse Oximetry 96 04/06/18 00:04 04/06/18 00:34 04/06/18 04:00 Temperature 98.1 F 98 F Pulse Rate 65 100 H 89 Respiratory Rate 18 18 Blood Pressure 102/54 L 114/71 Pulse Oximetry 97 96 04/06/18 04:05 04/06/18 04:25 04/06/18 08:00 Temperature 98.0 F Pulse Rate 95 H 90 Respiratory Rate 18 18 Blood Pressure 152/70 H Pulse Oximetry 96 04/06/18 09:00 04/06/18 10:00 04/06/18 11:00 Temperature Pulse Rate 90 94 H 86 Respiratory Rate Blood Pressure Pulse Oximetry 04/06/18 11:14 04/06/18 12:00 04/06/18 13:00 Temperature 97.6 F Pulse Rate 86 108 H Respiratory Rate 18 Blood Pressure 114/55 L Pulse Oximetry 95 97 04/06/18 14:00 04/06/18 15:00 04/06/18 16:00 Temperature 98.4 F Pulse Rate 107 H 99 H 94 H Respiratory Rate 18 Blood Pressure 113/57 L Pulse Oximetry 95 04/06/18 16:34 04/06/18 16:59 04/06/18 17:03 Temperature Pulse Rate 95 H 100 H Respiratory Rate 16 Blood Pressure Pulse Oximetry Intake & Output 04/05/18 04/06/18 04/06/18 18:59 06:59 18:59 Intake Total 1360 / 1360 Output Total 920 / 920 Balance 440 / 440 Weight 63.6 kg Intake: Oral 1360 / 1360 Output: Urine 920 / 920 Narrative: GENERAL: patient sitting in bed. Appears comfortable. SKIN: Warm and dry. HEAD: Normocephalic. EYES: No scleral icterus. No injection or drainage. NECK: Supple, trachea midline. No JVD. CARDIOVASCULAR: Regular rate and rhythm without murmurs, gallops, or rubs. RESPIRATORY: Breath sounds equal bilaterally. No accessory muscle use. GASTROINTESTINAL: Abdomen soft, non-tender, nondistended. MUSCULOSKELETAL: No cyanosis, or edema. BACK: Nontender without obvious deformity. No CVA tenderness. - Urinary Catheter Management Indwelling Urethral Catheter Cath placed during this visit: yes Reason for continuing: Acute urinary retention Insertion date: 03/31/18 Insertion time: 21:36 Results 04/05/18 06:25 04/05/18 06:25 CBC 04/05/18 Range/Units 06:25 WBC 10.3 (4.0-11.0) th/mm3 RBC 3.81 L (4.00-5.30) mil/mm3 Hgb 9.6 L (11.6-15.3) gm/dL Hct 29.7 L (35.0-46.0) % Plt Count 420 (150-450) th/mm3 Neut # (Auto) 5.4 (1.8-7.7) th/mm3 Lymph # (Auto) 2.9 (1.0-4.8) th/mm3 [place] # (Auto) 0.9 (0.0-0.9) th/mm3 Eos # (Auto) 1.0 H (0.0-0.4) th/mm3 Baso # (Auto) 0.0 (0.0-0.2) th/mm3 Comprehensive Metabolic Panel 04/05/18 Range/Units 06:25 Sodium 141 (136-145) meq/L Potassium 4.3 (3.5-5.1) meq/L Chloride 107 (98-107) meq/L Carbon Dioxide 24.7 (21.0-32.0) meq/L BUN 16 (7-18) mg/dL Creatinine 0.74 (0.50-1.00) mg/dL Calcium 9.5 (8.5-10.1) mg/dL Albumin 2.7 L (3.4-5.0) g/dL Intake and Output 04/06/18 04/06/18 04/06/18 06:59 14:59 22:59 Other: Weight 63.6 kg Assessment and Plan - Assessment (1) NSTEMI (non-ST elevated myocardial infarction) Code(s): I21.4 - Non-ST elevation (NSTEMI) myocardial infarction Status: Acute (2) Acute systolic heart failure Code(s): I50.21 - Acute systolic (congestive) heart failure Status: Acute (3) LBBB (left bundle branch block) Code(s): I44.7 - Left bundle-branch block, unspecified Status: Acute (4) Acute respiratory failure Code(s): J96.00 - Acute respiratory failure, unspecified whether with hypoxia or hypercapnia Status: Acute - Plan 1) Acute respiratory failure Unsure of underlying cause Possible arrhythmia 2) LBBB 3) NICM EF 20% 4) Previous EF 20% with arrest Discussed with Dr. Alvarado, overall agree with BiV-ICD Planned for tomorrow
[2018-04-07] MEDS: Oral Hygiene Kit OROPHARYNG SCH ×3 (04:07→18:36)
[2018-04-07] MEDS: Heparin - SQ 10,000 UNITS/ML Vial SQ SCH ×3 (09:34→23:48)
[2018-04-07] MEDS: Insulin NovoLOG Aspart Correctional Sugar Inj SQ SCH ×4 (09:34→23:22)
[2018-04-07] MEDS: Chlorhexidine 0.12% Oral Kit 15 ML UDC OROPHARYNG SCH ×2 (09:35→21:57)
[2018-04-07] MEDS: Senna/Docusate Sodium 8.6/50 MG Tablet PO SCH ×2 (09:36→21:59)
[2018-04-07] MEDS: Spironolactone 25 MG Tablet PO SCH (09:37)
[2018-04-07] MEDS: Carvedilol 12.5 MG Tablet PO SCH ×2 (09:38→21:23)
[2018-04-07] MEDS: Famotidine PF Inj 20 MG/2 ML Vial IV.PUSH SCH ×2 (09:40→21:24)
[2018-04-07] MEDS ORDERED: Iohexol 350 MG/ML 50 ML Vial (for Cath Lab) IVCONTRAST ONE (11:24)
[2018-04-07] MEDS: Acetaminophen 325 MG Tablet PO PRN ×2 (14:11→20:27)
--- NOTE | 2018-04-07 14:39 | P.PN ---
Subjective Interval history: This is a pleasant 73 y/o Female who has Systolic heart failure with EF 20%, secondary to Non ischemic Cardiomyopathy Mild CAD after Cardiac cath, CHF exacerbation improving, she will probably go for Defibrillator placement today, if not possible will go home and comes back for elective procedure. 04/06: Patient was seen by landscaping specialist doctor Tera Brooke he already discussed with Doctor Chhaya Alvarado and he will place Biventricular ICD tomorrow. 04/07: Seen in her bedroom discussed with patient and nurse Miss Jacobs, no nausea, vomit or diarrhea awaiting for the placement of Biventricular AICD. Physical Exam Vital signs: Vital Signs 04/06/18 15:00 04/06/18 16:00 04/06/18 16:34 Temperature 98.4 F Pulse Rate 99 H 94 H Respiratory Rate 18 16 Blood Pressure 113/57 L Pulse Oximetry 95 04/06/18 16:59 04/06/18 17:03 04/06/18 19:00 Temperature Pulse Rate 95 H 100 H 96 H Respiratory Rate Blood Pressure Pulse Oximetry 04/06/18 19:56 04/06/18 20:00 04/06/18 21:00 Temperature 97.8 F Pulse Rate 99 H 98 H 97 H Respiratory Rate 16 Blood Pressure 111/70 Pulse Oximetry 96 96 04/06/18 22:00 04/06/18 23:00 04/07/18 00:00 Temperature 97.5 F L Pulse Rate 84 82 89 Respiratory Rate 18 Blood Pressure 101/58 L Pulse Oximetry 95 04/07/18 01:00 04/07/18 02:00 04/07/18 03:00 Temperature Pulse Rate 81 92 H 98 H Respiratory Rate Blood Pressure Pulse Oximetry 04/07/18 04:00 04/07/18 05:00 04/07/18 06:00 Temperature 98.0 F Pulse Rate 90 85 95 H Respiratory Rate 17 Blood Pressure 115/64 Pulse Oximetry 94 L 04/07/18 08:00 04/07/18 12:00 Temperature 97.9 F 98.3 F Pulse Rate 98 H 93 H Respiratory Rate 18 18 Blood Pressure 106/67 111/71 Pulse Oximetry 92 L 100 Intake & Output 04/06/18 04/07/18 04/07/18 18:59 06:59 18:59 Intake Total 1200 / 1200 120 / 120 Output Total 1050 / 1050 Balance 150 / 150 120 / 120 Weight 63.5 kg Intake: Oral 1200 / 1200 120 / 120 Output: Urine 1050 / 1050 Other: # Voids 3 Date of Last Bowel Movement 04/06/18 04/06/18 Narrative: GENERAL: No acute distress. SKIN: Warm and dry. HEAD: Normocephalic. EYES: No scleral icterus. No injection or drainage. NECK: Supple, trachea midline. No JVD. CARDIOVASCULAR: Regular rate and rhythm without murmurs, gallops, or rubs. RESPIRATORY: Breath sounds equal bilaterally. No accessory muscle use. GASTROINTESTINAL: Abdomen soft, non-tender, nondistended. MUSCULOSKELETAL: No cyanosis, or edema. BACK: Nontender without obvious deformity. No CVA tenderness. - Urinary Catheter Management Indwelling Urethral Catheter Cath placed during this visit: yes Reason for continuing: Acute urinary retention Insertion date: 03/31/18 Insertion time: 21:36 Results - Labs CBC & Chem 7: 04/05/18 06:25 04/05/18 06:25 Laboratory Results - last 24 hr 04/06/18 04/06/18 04/07/18 15:37 21:23 07:48 POC Glucose 314 H 177 H 212 H 04/07/18 11:11 POC Glucose 186 H Microbiology 03/31/18 21:30 Blood - Peripheral Aerobic Blood Culture - Final No growth in 5 days 03/31/18 21:30 Blood - Peripheral Anaerobic Blood Culture - Final No growth in 5 days 03/31/18 21:25 Blood - Peripheral Aerobic Blood Culture - Final No growth in 5 days 03/31/18 21:25 Blood - Peripheral Anaerobic Blood Culture - Final No growth in 5 days - Imaging Head CT 04/01/18 00:02 CONCLUSION: 1. No acute intracranial abnormality Chest X-Ray 04/03/18 06:00 CONCLUSION: Mild prominence of central vessels and the interstitium. Assessment and Plan - Plan This is a pleasant 73 y/o Female who has Systolic heart failure with EF 20%, secondary to Non ischemic Cardiomyopathy Mild CAD after Cardiac cath, CHF exacerbation improving, she will probably go for Defibrillator placement today, if not possible will go home and comes back for elective procedure. 1. Wide complex tachycardiaSVT currently in sinus tachycardia Chronic systolic heart failure ejection fraction 20% Nonischemic cardia myopathy Essential hypertension Hyperlipidemia Elevated troponin Left bundle branch block Previously on amiodarone drip and dopamine drip in the ED these have been weaned off. Echocardiogram 09/28 revealed EF around 20% with anterior wall akinesis. Echocardiogram 04/02 revealed EF less than 20%. PAP 41.8 mmHg. LV hypokinesis. LV daily. Cardiac catheterization by Dr. Brooke/revealed left main 10%, LAD 10-20%. Left circumflex 20%. RCA normal. Recommended possible LifeVest as outpatient workup. This is been completed. Cycle troponins. Peaked at 1.05. Serially until downward trending Cardiology consultation with Dr. Brooke. Seen by Dr. Heart. Previously on metoprolol and lisinopril. Currently on carvedilol 12.5 mg twice daily. This is been resumed. Previously on lisinopril 5 mg daily. And this is been resumed on 04/03 Recently on atorvastatin 40 mg daily for dyslipidemia. This has been resumed 04/06: Patient was seen by landscaping specialist doctor Tera Brooke he already discussed with Doctor Chhaya Alvarado and he will place Biventricular AICD for tomorrow. 04/07: Will have Biventricular AICD later today. 2. Acute respiratory failure Extubated 04/02. Nasal cannula to maintain saturations greater than equal to 92% Incentive spirometry while awake Albuterol/ipratropium aerosols every 6 hours with albuterol aerosols every 2 hours as needed dyspnea Chest x-ray revealed improvement of pulmonary congestion from pulmonary edema. =improving.continue diuresis for CHF exacerbation 3. Gastroesophageal reflux disease Hiatal hernia Hypoalbuminemia CardiacADA diet as tolerated. Famotidine for GI prophylaxis Docusate sodium/senna 1 tablet twice daily for bowel regimen 4. Diabetes mellitus type 2 Previously on clinical canagliflozin/metformin 1 tablet twice daily and glipizide 10 mg daily Sliding scale is with aspart insulin Accu-Cheks every 6 hours maintain euglycemia/medium protocol Check TSH -0.466. 5. Leukocytosis Microcytic anemia PT evaluate and treat Prophylaxis -GI -famotidine -DVT -SCD/heparin subcu Code Status: Full code. Discussed Condition With: Patient and Nurse Miss Jacobs. Discharge Planning: pending cardiology clearance. PT following, recommends rehabilitation follow-up electrophysiology recommendations
[2018-04-07] MEDS ORDERED: Lidocaine PF 1% Inj 5 ML Syringe OTHER ONE (15:35)
[2018-04-07] MEDS ORDERED: Phenylephrine/NS 1000 MCG/10ML Syringe IV.PUSH ONE (15:35)
[2018-04-07] MEDS ORDERED: Sodium Chlor 0.9% Inj 250 ML ONE (15:44)
--- NOTE | 2018-04-07 17:27 | CATHPROC ---
Patient Name: Amberly Desouza Study #: [id number] Initial MD: Zeeshan Alvarado Date of : 1945 Study Date: 04/07/2018 Cardiac Catheterization Report 04/07/2018 5:26:59 PM Financial #: [id number] 1 of 8 Patient Name: Amberly Desouza Study #: [id number] Initial MD: Zeeshan Alvarado Date of : 1945 Study Date: 04/07/2018 Entire Case Report Patient Information Patient Name Amberly Desouza Date of 1945 Age 73 years Financial # [id number] Gender F AlternateID Lab Number 2 Room Number 244 Height (in) 60.0 Height (cm) 152.4 BSA 1.60 Weight (lbs) 139.7 Weight (kg) 63.5 Patient Address/Phone Number Home Address [facility] Home Phone Number [phone] [facility] [phone] Study Information Study Number Admission Scheduled Start Study Start [id number] Mar 31 2018 10:27PM 04/07/2018 Apr 07 2018 4:02PM [place] [facility] Cardiac Catheterization Admit Source Facility Department Other [facility] Physician and Clinical Staff Initial Zeeshan Gann Almond Sorter Clarissa Cornejo,[employer] BOSS TECH2 Other Anesthesia, HISTOPATH TECH Recorder Jalyn Gao,HILARY Scrub Sierra Malhotra,RT(R) TECH2 Procedures Performed Procedure Location (Site) Vessel Name Lead Insertion Venogram Subclav. Vein (Lft Subclavian Vein 04/07/2018 5:26:59 PM Financial #: [id number] 2 of 8 Patient Name: Amberly Desouza Study #: [id number] Initial MD: Zeeshan Alvarado Date of : 1945 Study Date: 04/07/2018 Equipment Time Vault Maker Description Size Mfg Part Number Used/Scraped [id number] 16:52 [employer], ASAHI PROWATER 180CM 180CM Used *[id number] [id number] 16:52 [employer], ASAHI PROWATER 180CM 180CM Used *[id number] BALLOON, ADVANCE 35 LP .035 [id number] 16:41 COOK/FERMIN 10 X 4 Used 10 X 4 *[id number] DERMABOND, ADHESIVE SKIN [id number] 16:12 CORDIS/PACER * Used GLUE MINI *[id number] 16:12 [employer]ar BLANKET,WARM AIR CCL * Used *[id number] TP-1103 16:12 [employer] SUTURE, STRIP PLUS 1/2" * Used *[id number] 16:12 MEDLINE PACER RAMOS, LIMB * 2530 *[id number] Used [id number] 16:12 MEDLINE PACER PACK, PACER CUSTOM * Used *[id number] 16:38 QuicklyChat PACER SAFE SHEATH, FR7, 13CM FR 7 CLS-1007 Used 16:38 QuicklyChat PACER SAFE SHEATH, FR7, 13CM FR 7 CLS-1007 Used 16:38 [employer]Chat PACER SAFE SHEATH, FR9, 13CM FR 9 CLS-1009 Used 16:31 Needle Sponge Count 2 22 Used 16:31 Needle Sponge Count 20 200 Used 16:31 Needle Sponge Count 4 4 Used 17:27 NYCOMED OMNIPAQUE, 350 MG, 50ML 50ML [id number] Used SUTURE, 0 ETHIBOND [CT1] (CX21D), 8pk SUTURE, 2-0 VICRYL [CT1] (LMO951L) SUTURE, 2-0 VICRYL [CT1] (LEY121Q) DEFIBRILLATOR, QUADRA 17:00 [employer] VVEDDDDRV [id number] Used ASSURA MP LEAD, DURATA ACTIVE FIXATION 16:54 [employer] 65CM 7122Q-65 Used 7122Q/65 LEAD, DURATA ACTIVE FIXATION 16:29 [employer] 65CM 7122Q-65 Used 7122Q/65 LEAD, TENDRIL STS 2088TC 16:42 [employer] 52CM 2088TC/52CM Used 52CM [place] PAD, ELECTROSURGICAL 16:12 * E7507 *[id number] Used SURGICAL GROUNDING ORANGE LEAD, ATTAIN PERFORMA 16:41 VITATRON MEDTRONIC 88CM 4398-88CM Used STRAIGHT, 88CM 2218-7302 16:12 [employer] JOE. / * Used *[id number] 04/07/2018 5:26:59 PM Financial #: [id number] 3 of 8 Patient Name: Amberly Desouza Study #: [id number] Initial MD: Zeeshan Alvarado Date of : 1945 Study Date: 04/07/2018 Equipment Model, Serial, Lot Number and Expiration Data Description Model Number Serial Number Lot Number Expiration Date LEAD, ATTAIN PERFORMA 4398-88CM [id number] 01-03-2020 STRAIGHT, 88CM LEAD, DURATA ACTIVE FIXATION 7122Q-65 [id number] 02-10-2019 7122Q/65 LEAD, TENDRIL STS 2088TC 52CM 2088TC-52 [id number] 01-10-2021 Insurance Information Insurance Payor Private Health Insurance Third Green Party Third Green Party Number [employer] CHOICE PPO HUMCRPPO Labs Hgb (g/dl) Hct (%) WBC (l/cumm) Platelets (thousands) 11.60-17.00 35.00-51.00 4.00-11.00 150.00-450.00 9.6 29.7 10.3 420 Glucose (mg/dl) BUN (mg/dl) Creatinine (mg/dl) BUN:Creatinine (1:x) 74.00-106.00 7.00-18.00 0.50-1.30 10.00-20.00 212 16 0.7 22.9 Na (meq/l) K (meq/l) 136.00-145.00 3.50-5.10 141 4.3 CPK-MB (ng/ML) 0.50-3.60 Not Drawn Medication Medication Total Dose (Bolus/Oral) Medication Total Dosage/Unit 2% XYLOCAINE 50 mL Medications (Bolus/Oral) Medication Time Given Dosage/Unit Administered By Reason 2% XYLOCAINE 04/07/2018 4:14:02 PM 50 mL Zeeshan Alvarado 50 mL 2% XYLOCAINE given in lab by Zeeshan Alvarado in Left shoulder via Subcutaneous. LEFT UPPER CHEST 04/07/2018 5:26:59 PM Financial #: [id number] 4 of 8 Patient Name: Amberly Desouza Study #: [id number] Initial MD: Zeeshan Alvarado Date of : 1945 Study Date: 04/07/2018 Initial Case Assessment Final Case Assessment Cardiovascular HR Rhythm NIBP Chest Pain 90 SR 101/55 0 Edema Present Skin color Skin None Normal Warm Dry Circulatory - Right Pulses Dorsalis Pedis 1 Scale (0,1,2,3,4,d) Circulatory - Left Pulses Dorsalis Pedis 1 Scale (0,1,2,3,4,d) Neurological State Oriented to time-place- Alert Moves all extremities person Respiration - General Respiration Rate SpO2 (%) O2 (lpm) (B/min) 18 99 4 Chronological Log Time Study Chronological Log 15:35:00 Patient arrived via Bed. 15:35:00 Patient Name, D.O.B, / Armband Verified By R.N. 15:35:50 Anesthesia at bedside. Assumes care of patient. SEE RECORDS FOR MEDS AND VITALS FOR PROCEDU RE 15:40:00 Patient has been NPO for More than 6Hrs. 15:41:10 Skin Breakdown- NONE PER PATIENT 16:00:00 Patient Warmer Placed on the Table. 16:00:00 Disposable Defibrillator Pads Placed On Patient. 16:00:00 Feng Prominences Protected 16:00:00 Left Upper Chest Prepped Times Two. 16:00:00 History and physical on the chart or being dictated. 16:00:00 Assessment: Initial Case 04/07/2018 5:26:59 PM Financial #: [id number] 5 of 8 Patient Name: Amberly Desouza Study #: [id number] Initial MD: Zeeshan Alvarado Date of : 1945 Study Date: 04/07/2018 16:01:00 IV Warmer Connected To Patient. 16:02:00 Table restraints applied according to hospital policy 16:02:09 A # 20 IV was noted in the Hand (right). Grade = 0 16:02:49 A # 20 IV was noted in the Forearm (left). Grade = 0 16:05:00 Bovie ground pad applied to: RIGHT THIGH 16:05:00 2% CHLORHEXIDINE GLUCONATE WASH AND NASAL SWIPE DONE PRIOR TO PROCEDURE. Time Out. Correct patient, procedure, procedure equipment, site and side verified with physicia n present. Time 16:13:01 concurred by MD, individual staff and HISTOPATH TECH. Time Out #2 - Consents verified, patient in correct position, all results are labled and displa yed, safety precautions 16:13:05 taken, antibiotics administered. Time out concurred by MD, individual staff and HISTOPATH TECH in procedu re 16:13:50 Case Start 16:14:02 50 mL 2% XYLOCAINE given in lab by Zeeshan Alvarado in Left shoulder via Subcutaneous. LEFT UP PER CHEST 16:15:00 Vascular access was obtained in the Subclav. Vein (Lft. 16:15:55 Vascular access was obtained in the Subclav. Vein (Lft. 16:17:05 Vascular access was obtained in the Subclav. Vein (Lft. 16:18:00 A pocket was created at the L Upper Chest. 16:18:10 Surgical Incision Made. 16:19:10 A SAFE SHEATH, FR7, 13CM FR 7 was advanced into the Subclav. Vein (Lft using the Modified S eldinger technique. 16:19:50 A SAFE SHEATH, FR7, 13CM FR 7 was advanced into the Subclav. Vein (Lft using the Modified S eldinger technique. 16:20:16 A SAFE SHEATH, FR7, 13CM FR 7 was advanced into the Subclav. Vein (Lft using the Modified S eldinger technique. 16:20:55 Reference ECG taken 16:21:16 A LEAD, DURATA ACTIVE FIXATION 7122Q/65 65CM was inserted and positioned in the RV. 16:22:21 Lead placement verified under fluoroscopy 16:22:50 The RV lead impedance and threshold being tested. 16:24:50 The RV lead was sutured to the fascia. 16:25:10 A LEAD, TENDRIL STS 2088TC 52CM 52CM was inserted and positioned in the RA. 16:26:15 Lead placement verified under fluoroscopy 16:28:19 The Atrial lead impedance and threshold is being tested. 16:28:55 The Atrial lead was sutured to the fascia. 17:02:15 A LEAD, ATTAIN PERFORMA STRAIGHT, 88CM 88CM was inserted and positioned in the CS/LV. 17:02:21 Lead placement verified under fluoroscopy 17:10:00 The Subclav. Vein (Lft was manually injected with 10 cc's of contrast. OMNIPAQUE, 350 MG, 5 0ML 50ML used. 17:16:15 The CS/LV lead impedance and threshold is being tested. 17:16:15 The CS/LV lead was sutured to the fascia. 17:16:18 Pocket flushed with antibiotic solution 17:16:19 A DEFIBRILLATOR, QUADRA ASSURA MP VVEDDDDRV was connected and placed in the pocket. 04/07/2018 5:26:59 PM Financial #: [id number] 6 of 8 Patient Name: Amberly Desouza Study #: [id number] Initial MD: Zeeshan Alvarado Date of : 1945 Study Date: 04/07/2018 First Sponge And Instrument Count Done by Sierra Malhotra, RT(R) TECH2. 17:16:20 Hypo's: 4, Sponges: 20, Bovie/scratch: 2 Sutures: 10, Blades: 1, Instruments: 26, Syveck Patches: ~SYVECK PATCH~ VERIFIED BY JOSE CARLOS F SECOND Sponge And Instrument Count Done by Sierra Malhotra, RT(R) TECH2. 17:16:20 Hypo's: 4, Sponges: 20, Bovie/scratch: 2 Sutures: 10, Blades: 1, Instruments: ~INSTRU~, Syveck Patches: ~SYVECK PATCH~ VERIFIED BY GOLRIA 17:16:32 The pocket was closed. 17:16:34 Implant Procedure was performed. 17:16:41 A Bivent ICD Implant . (Dual) 17:16:51 Bedside Report will be given. 17:16:55 Case End (Physician broke scrub) 17:16:56 PACU called. Spoke to FINAL Sponge And Instrument Count Done by Sierra Malhotra, RT(R) TECH2. 17:23:50 Hypo's: 4, Sponges: 20, Bovie/scratch: 2 Sutures: 10, Blades: 1, Instruments: 26, Syveck Patches: ~SYVECK PATCH~ VERIFIED BY JOSE CARLOS F 17:24:20 Steri-strips and a sterile dressing applied to site. 17:24:21 A sling was placed on the affected arm. Assessment: Final Case, HR=90 BPM, Rhythm=SR, EFGK=531/55 mmhg, Chest Pain=0, Edema=None, Color =Normal, Skin = Warm, Dry Right Pulses: Markel Ped=1 17:24:28 Left Pulses: Markel Ped=1 Neurological: State=Alert, Ox3, PETERS Respiration: Resp=18 B/min, SpO2=99 %, O2=4 lpm 17:25:32 Sterile dressing applied to site 17:25:33 No case complications noted. 17:25:35 Bedside Report will be given. 17:25:36 Implantable Device card placed in patient's chart. 17:25:36 PACU called. Spoke to SIERRA 17:25:43 Defibrillator and ground pads removed. Skin intact. 17:35:45 Patient moved to stretcher End Study - Contrast Media Used In Study Contrast Total Opened (mL) Total Used (mL) Total Wasted (mL) Omnipaque 10 10 0 End Study - Maximum Contrast Load Max Contrast Load (mL) 453.6 04/07/2018 5:26:59 PM Financial #: [id number] 7 of 8 Patient Name: Amberly Desouza Study #: [id number] Initial MD: Zeeshan Alvarado Date of : 1945 Study Date: 04/07/2018 End Study - Radiation Exposure Fluoro Time (minutes) 14.5 End Study - Patient Disposition Complications Transferred To Interventional Outcome No Telemetry Bed successful 04/07/2018 5:26:59 PM Financial #: [id number] 8 8
[2018-04-07] MEDS ORDERED: fentaNYL Citrate Inj 100 MCG/2 ML Ampul ONE (17:52)
--- NOTE | 2018-04-07 18:52 | XR ---
EXAM DATE: 04/07/2018 6:42 PM EDT AGE/SEX: 73 years / Female INDICATIONS: Post ICD placement. CLINICAL DATA: This is the patient's subsequent encounter. Patient reports that signs and symptoms h ave been present for 3 days and indicates a pain score of 0/10. MEDICAL/SURGICAL HISTORY: Hypertension. Congestive heart failure. Diabetes mellitus type II. Hysterectomy. Tonsillectomy. COMPARISON: [facility] [place], CHEST 1V SINGLE AP, 04/03/2018. . FINDINGS: A single AP view of the chest demonstrates the lungs to be symmetrically aerated with persistent inte rstitial prominence suggesting some degree of vascular congestion or volume overload. Heart size is p rominent. There is interval placement of a left subclavian bipolar pacer/defibrillator which is radio graphically intact. No pneumothorax. Osseous structures are intact. CONCLUSION: 1. Interval placement of a left subclavian bipolar pacer/defibrillator. No pneumothorax. 2. Cardiomegaly with some interstitial prominence suggesting some degree of vascular congestion or v olume overload. Electronically signed by: Colt Sullivan MD 04/07/2018 6:50 PM EDT
--- NOTE | 2018-04-07 18:56 | P.PNCA ---
Subjective Interval history: No events overnight Off oxygen, feels well Medications and Allergies Active Medications: Active Medications Acetaminophen (Tylenol) 650 mg PO Q6H PRN PRN Reason: FEVER >101F Last Admin: 04/07/18 14:11 Dose: 650 mg Acetaminophen (Tylenol Liq) 650 mg PO Q4H PRN PRN Reason: PAIN SCALE 1 TO 5 Al Hydroxide/Mg Hydroxide (Milk Of Magnesia Liq) 30 ml PO Q12H PRN PRN Reason: Mild Constipation Albuterol (Albuterol Neb (Prn)) 2.5 mg NEB Q2HR NEB PRN PRN Reason: DYSPNEA Aspirin (Ecotrin) 81 mg PO DAILY [facility] Last Admin: 04/07/18 09:36 Dose: 81 mg Atorvastatin Calcium (Lipitor) 40 mg PO DAILY [facility] Last Admin: 04/07/18 09:35 Dose: 40 mg Bisacodyl (Dulcolax Supp) 10 mg RECTAL DAILY PRN PRN Reason: SEVERE CONSITIPATION Carvedilol (Coreg) 12.5 mg PO BID [facility] Last Admin: 04/07/18 09:38 Dose: 12.5 mg Chlorhexidine Gluconate (Peridex 0.12% Oral Kit) 15 ml OROPHARYNG BID@0800, 2000 [facility] Last Admin: 04/07/18 09:35 Dose: Not Given Dextrose (D50w Vial) 50 ml IV.PUSH UNSCH PRN PRN Reason: PER HYPOGLYCEMIA PROTOCOL Famotidine (Pepcid Pf Inj) 10 mg IV.PUSH Q12HR [facility] Last Admin: 04/07/18 09:40 Dose: 10 mg Furosemide (Lasix Inj) 20 mg IV.PUSH DAILY [facility] Last Admin: 04/07/18 09:39 Dose: Not Given Glucagon (Glucagon Inj) 1 mg OTHER PRN PRN PRN Reason: for Hypoglycemia Protocol Heparin Sodium (Porcine) (Heparin Inj) 5,000 units SQ Q8H [facility] Last Admin: 04/07/18 09:34 Dose: Not Given Magnesium Sulfate 4 gm/ Sodium (Chloride) 100 mls @ 50 mls/hr IV.SIG UNSCH PRN PRN Reason: For Magnesium 0.9 - 1.1 mg/dL Magnesium Sulfate 2 gm/ Sodium (Chloride) 100 mls @ 50 mls/hr IV.SIG UNSCH PRN PRN Reason: For Magnesium 1.2 - 1.6 mg/dL Potassium Chloride (Kcl 40 Meq Premix Inj) 40 meq in 100 mls @ 25 mls/hr IV.SIG Q2H PRN PRN Reason: For Potassium 2.8 - 3.2 mEq/L Potassium Chloride (Kcl 20 Meq Premix Inj) 20 meq in 100 mls @ 50 mls/hr IV.SIG Q2H PRN PRN Reason: For Potassium 3.3 - 3.5 mEq/L Potassium Chloride (Kcl 40 Meq Premix Inj) 40 meq in 100 mls @ 25 mls/hr IV.SIG UNSCH PRN PRN Reason: For Potassium 3.3 - 3.5 mEq/L Potassium Chloride (Kcl 20 Meq Premix Inj) 20 meq in 100 mls @ 50 mls/hr IV.SIG Q2H PRN PRN Reason: For Potassium 2.8 - 3.2 mEq/L Potassium Phosphate 30 mmol/ (Sodium Chloride) 260 mls @ 42 mls/hr IV.SIG UNSCH PRN PRN Reason: SEE LABEL COMMENTS Sodium Phosphate 30 mmol/ (Sodium Chloride) 260 mls @ 42 mls/hr IV.SIG UNSCH PRN PRN Reason: For Phosphorus < 2.5 mg/dL Cefazolin Sodium 2,000 mg/ (Sodium Chloride) 120 mls @ 120 mls/hr IV.SIG Q8H MAULIK Stop: 04/08/18 16:59 Insulin Aspart (Novolog Insulin Correctional Sugar Inj) 0 unit SQ ACHS [facility]; Protocol Last Admin: 04/07/18 18:26 Dose: 4 unit Lactulose (Lactulose Liq) 30 ml PO DAILY PRN PRN Reason: SEVERE CONSITIPATION Magnesium Oxide (Mag-Ox) 800 mg PO UNSCH PRN PRN Reason: For Magnesium 1.2 - 1.6 mg/dL Miscellaneous Information ([facility] [place]) 0 each OTHER UNSCH PRN PRN Reason: SEE LABEL COMMENTS Stop: 04/08/18 17:47 Miscellaneous Medication () 1 each OROPHARYNG 0000,0400,1200,1600 [facility] Last Admin: 04/07/18 18:36 Dose: Not Given Morphine Sulfate (Morphine Inj) 2 mg IV.PUSH Q2H PRN PRN Reason: PAIN SCALE 6 TO 10 Last Admin: 04/01/18 00:33 Dose: 2 mg Ondansetron HCl (Zofran Inj) 4 mg IV.PUSH Q6H PRN PRN Reason: NAUSEA Last Admin: 04/04/18 14:15 Dose: 4 mg Potassium Bicarb/Potassium Chloride (K-Lyte Cl Eff) 50 meq PO UNSCH PRN PRN Reason: For Potassium 3.3 - 3.5 mEq/L Potassium Phosphate (K-Phos Original) 2,000 mg PO UNSCH PRN PRN Reason: SEE LABEL COMMENTS Potassium Phosphate (K-Phos Original) 2,000 mg PO Q4H PRN PRN Reason: Phosphorus Less Than 2.5 mg/dL Sacubitril/Valsartan (Entresto 24 Mg/26 Mg Tablet) 1 tab PO BID [facility] Last Admin: 04/07/18 09:36 Dose: 1 tab Senna/Docusate Sodium (Alysa-Colace) 1 tab PO BID [facility] Last Admin: 04/07/18 09:36 Dose: Not Given Sennosides (Senokot) 17.2 mg PO Q12H PRN PRN Reason: Moderate Constipation Sodium Chloride (Ns Flush) 2 ml IV.FLUSH BID [facility] Last Admin: 04/07/18 10:53 Dose: 2 ml Sodium Chloride (Ns Flush) 2 ml IV.FLUSH PRN PRN PRN Reason: FLUSH AFTER USING IV ACCESS Spironolactone (Aldactone) 12.5 mg PO DAILY [facility] Last Admin: 04/07/18 09:37 Dose: 12.5 mg Allergies Allergy/AdvReac Type Severity Reaction Status Date / Time No Known Allergies Allergy Verified 04/01/18 02:17 Home Medications Medication Instructions Recorded Confirmed Type Invokamet 1 tab PO BID 04/01/18 04/01/18 History aspirin 81 mg PO DAILY 04/01/18 04/01/18 History atorvastatin 40 mg PO DAILY 04/01/18 04/01/18 History carvedilol 6.25 mg PO DAILY 04/01/18 04/01/18 History furosemide 20 mg PO DAILY 04/01/18 04/01/18 History glipizide 10 mg PO DAILY 04/01/18 04/01/18 History lisinopril 5 mg PO DAILY 04/01/18 04/01/18 History omeprazole-sodium bicarbonate 1 cap PO BID 04/01/18 04/01/18 History [Zegerid] potassium chloride 10 meq PO DAILY 04/01/18 04/01/18 History Physical Exam Vital signs: Vital Signs 04/06/18 19:00 04/06/18 19:56 04/06/18 20:00 Temperature 97.8 F Pulse Rate 96 H 99 H 98 H Respiratory Rate 16 Blood Pressure 111/70 Pulse Oximetry 96 96 04/06/18 21:00 04/06/18 22:00 04/06/18 23:00 Temperature Pulse Rate 97 H 84 82 Respiratory Rate Blood Pressure Pulse Oximetry 04/07/18 00:00 04/07/18 01:00 04/07/18 02:00 Temperature 97.5 F L Pulse Rate 89 81 92 H Respiratory Rate 18 Blood Pressure 101/58 L Pulse Oximetry 95 04/07/18 03:00 04/07/18 04:00 04/07/18 05:00 Temperature 98.0 F Pulse Rate 98 H 90 85 Respiratory Rate 17 Blood Pressure 115/64 Pulse Oximetry 94 L 04/07/18 06:00 04/07/18 07:00 04/07/18 08:00 Temperature 97.9 F Pulse Rate 95 H 92 H 90 Respiratory Rate 18 Blood Pressure 106/67 Pulse Oximetry 92 L 04/07/18 09:00 04/07/18 10:00 04/07/18 11:00 Temperature Pulse Rate 86 90 98 H Respiratory Rate Blood Pressure Pulse Oximetry 04/07/18 12:00 04/07/18 13:00 04/07/18 14:00 Temperature 98.3 F Pulse Rate 86 70 80 Respiratory Rate 18 Blood Pressure 111/71 Pulse Oximetry 100 04/07/18 14:45 04/07/18 14:53 04/07/18 15:00 Temperature Pulse Rate 72 Respiratory Rate 18 Blood Pressure Pulse Oximetry 99 04/07/18 17:48 04/07/18 18:15 04/07/18 18:30 Temperature 98 F 98 F Pulse Rate 94 H 94 H 91 H Respiratory Rate 18 18 18 Blood Pressure 112/54 L 113/54 L 120/57 L Pulse Oximetry 94 L 94 L Intake & Output 04/06/18 04/07/18 04/07/18 18:59 06:59 18:59 Intake Total 1200 / 1200 120 / 120 Output Total 1050 / 1050 Balance 150 / 150 120 / 120 Weight 63.5 kg Intake: Oral 1200 / 1200 120 / 120 Output: Urine 1050 / 1050 Other: # Voids 3 Date of Last Bowel Movement 04/06/18 04/06/18 Narrative: GENERAL: No acute distress. SKIN: Warm and dry. HEAD: Normocephalic. EYES: No scleral icterus. No injection or drainage. NECK: Supple, trachea midline. No JVD. CARDIOVASCULAR: Regular rate and rhythm without murmurs, gallops, or rubs. RESPIRATORY: Breath sounds equal bilaterally. No accessory muscle use. GASTROINTESTINAL: Abdomen soft, non-tender, nondistended. MUSCULOSKELETAL: No cyanosis, or edema. BACK: Nontender without obvious deformity. No CVA tenderness. - Urinary Catheter Management Indwelling Urethral Catheter Cath placed during this visit: yes Reason for continuing: Acute urinary retention Insertion date: 03/31/18 Insertion time: 21:36 Results 04/05/18 06:25 04/05/18 06:25 Intake and Output 04/07/18 04/07/18 04/07/18 06:59 14:59 22:59 Intake Total 120 / 120 Balance 120 / 120 Intake: Oral 120 / 120 Other: # Voids 3 Date of Last Bowel Movement 04/06/18 04/06/18 Weight 63.5 kg - Imaging and Cardiology Imaging: Impressions Chest X-Ray 04/07/18 00:00 CONCLUSION: 1. Interval placement of a left subclavian bipolar pacer/defibrillator. No pneumothorax. 2. Cardiomegaly with some interstitial prominence suggesting some degree of vascular congestion or volume overload. Assessment and Plan - Assessment (1) NSTEMI (non-ST elevated myocardial infarction) Code(s): I21.4 - Non-ST elevation (NSTEMI) myocardial infarction Status: Acute (2) Acute systolic heart failure Code(s): I50.21 - Acute systolic (congestive) heart failure Status: Acute (3) LBBB (left bundle branch block) Code(s): I44.7 - Left bundle-branch block, unspecified Status: Acute (4) Acute respiratory failure Code(s): J96.00 - Acute respiratory failure, unspecified whether with hypoxia or hypercapnia Status: Acute - Plan 1) Acute respiratory failure Unsure of underlying cause Possible arrhythmia 2) LBBB 3) NICM EF 20% 4) Previous EF 20% with arrest Discussed with Dr. Alvarado, overall agree with BiV-ICD Planned for later today 5) No further work up from my standpoint Defer to Dr. Alvarado She will follow up with me in the office in a few weeks
[2018-04-07] MEDS: ceFAZolin Inj 2,000 MG in Sodium Chlor 0.9% Inj 100 ML IV.SIG SCH (23:44)
[2018-04-08] MEDS: Oral Hygiene Kit OROPHARYNG SCH ×5 (01:02→23:31)
[2018-04-08] MEDS: Acetaminophen 325 MG Tablet PO PRN ×4 (03:29→21:05)
[2018-04-08] MEDS: Senna/Docusate Sodium 8.6/50 MG Tablet PO SCH ×2 (08:27→21:07)
[2018-04-08] MEDS: Heparin - SQ 10,000 UNITS/ML Vial SQ SCH ×3 (08:28→23:38)
[2018-04-08] MEDS: Carvedilol 12.5 MG Tablet PO SCH ×2 (08:28→21:07)
[2018-04-08] MEDS: Spironolactone 25 MG Tablet PO SCH (08:28)
[2018-04-08] MEDS: ceFAZolin Inj 2,000 MG in Sodium Chlor 0.9% Inj 100 ML IV.SIG SCH ×2 (08:29→15:02)
[2018-04-08] MEDS: Famotidine PF Inj 20 MG/2 ML Vial IV.PUSH SCH ×2 (08:29→21:08)
[2018-04-08] MEDS: Insulin NovoLOG Aspart Correctional Sugar Inj SQ SCH ×4 (08:30→21:07)
[2018-04-08] MEDS: Chlorhexidine 0.12% Oral Kit 15 ML UDC OROPHARYNG SCH ×2 (08:30→21:02)
--- NOTE | 2018-04-08 09:05 | P.PN ---
Subjective Interval history: This is a pleasant 73 y/o Female who has Systolic heart failure with EF 20%, secondary to Non ischemic Cardiomyopathy Mild CAD after Cardiac cath, CHF exacerbation improving, she will probably go for Defibrillator placement today, if not possible will go home and comes back for elective procedure. 04/06: Patient was seen by medical record specialist doctor Tera Brooke he already discussed with Doctor Chhaya Alvarado and he will place Biventricular ICD tomorrow. 04/07: Seen in her bedroom discussed with patient and nurse Miss Jacobs, no nausea, vomit or diarrhea awaiting for the placement of Biventricular AICD. 04/08: seen in her bedroom, discussed with nurse Miss Jacobs, seen PT evaluation to go home with [facility] for PT and will add skilled nurse, no nausea, vomit or diarrhea, recommended for discharge by medical record specialist. Physical Exam Vital signs: Vital Signs 04/07/18 10:00 04/07/18 11:00 04/07/18 12:00 Temperature 98.3 F Pulse Rate 90 98 H 86 Respiratory Rate 18 Blood Pressure 111/71 Pulse Oximetry 100 04/07/18 13:00 04/07/18 14:00 04/07/18 14:45 Temperature Pulse Rate 70 80 Respiratory Rate 18 Blood Pressure Pulse Oximetry 04/07/18 14:53 04/07/18 15:00 04/07/18 17:48 Temperature 98 F Pulse Rate 72 94 H Respiratory Rate 18 Blood Pressure 112/54 L Pulse Oximetry 99 04/07/18 18:00 04/07/18 18:15 04/07/18 18:30 Temperature 98 F Pulse Rate 97 H 94 H 91 H Respiratory Rate 18 18 Blood Pressure 113/54 L 120/57 L Pulse Oximetry 94 L 94 L 04/07/18 18:45 04/07/18 19:00 04/07/18 19:06 Temperature 98.9 F Pulse Rate 87 93 H 101 H Respiratory Rate 16 Blood Pressure 115/66 144/68 H Pulse Oximetry 97 04/07/18 20:00 04/07/18 21:00 04/07/18 22:00 Temperature Pulse Rate 100 H 98 H 86 Respiratory Rate Blood Pressure Pulse Oximetry 97 04/07/18 23:00 04/08/18 00:00 04/08/18 01:00 Temperature Pulse Rate 91 H 88 86 Respiratory Rate 16 Blood Pressure 101/63 Pulse Oximetry 98 04/08/18 02:00 04/08/18 03:00 04/08/18 04:00 Temperature Pulse Rate 86 85 80 Respiratory Rate 16 Blood Pressure 113/76 Pulse Oximetry 98 04/08/18 05:00 04/08/18 06:00 04/08/18 07:00 Temperature 97.4 F L Pulse Rate 84 76 84 Respiratory Rate 18 Blood Pressure 129/78 Pulse Oximetry 96 Intake & Output 04/07/18 04/08/18 04/08/18 18:59 06:59 18:59 Intake Total 240 / 240 360 / 360 Output Total 600 / 600 800 / 800 Balance -360 / -360 -440 / -440 Weight 63.4 kg Intake: IV 120 / 120 Ancef Inj 2,000 MG In NS Inj 120 / 120 100 ML @ 120 mls/hr IV.SIG Q8H MAULIK Rx#:[id number] Oral 240 / 240 240 / 240 Output: Urine 600 / 600 800 / 800 Other: Date of Last Bowel Movement 04/06/18 04/06/18 # Bowel Movements 0 Narrative: GENERAL: No acute distress. SKIN: Warm and dry. HEAD: Normocephalic. EYES: No scleral icterus. No injection or drainage. NECK: Supple, trachea midline. No JVD. CARDIOVASCULAR: Regular rate and rhythm without murmurs, gallops, or rubs. has left Upper dressed area, status post Defibrillator placed. left arm with sling. RESPIRATORY: Breath sounds equal bilaterally. No accessory muscle use. GASTROINTESTINAL: Abdomen soft, non-tender, nondistended. MUSCULOSKELETAL: No cyanosis, or edema. BACK: Nontender without obvious deformity. No CVA tenderness. - Urinary Catheter Management Indwelling Urethral Catheter Cath placed during this visit: yes Reason for continuing: Acute urinary retention Insertion date: 03/31/18 Insertion time: 21:36 Results - Labs CBC & Chem 7: 04/05/18 06:25 04/05/18 06:25 Laboratory Results - last 24 hr 04/07/18 04/07/18 04/07/18 11:11 18:18 21:20 POC Glucose 186 H 201 H 456 H* 04/07/18 04/08/18 23:12 07:12 POC Glucose 383 H 249 H - Imaging Impressions Chest X-Ray 04/07/18 00:00 CONCLUSION: 1. Interval placement of a left subclavian bipolar pacer/defibrillator. No pneumothorax. 2. Cardiomegaly with some interstitial prominence suggesting some degree of vascular congestion or volume overload. - Procedures Biventricular AICD placed 04/07/18 Assessment and Plan - Plan This is a pleasant 73 y/o Female who has Systolic heart failure with EF 20%, secondary to Non ischemic Cardiomyopathy Mild CAD after Cardiac cath, CHF exacerbation improving, she will probably go for Defibrillator placement today, if not possible will go home and comes back for elective procedure. 1. Wide complex tachycardiaSVT currently in sinus tachycardia Chronic systolic heart failure ejection fraction 20% Nonischemic cardia myopathy Essential hypertension Hyperlipidemia Elevated troponin Left bundle branch block Previously on amiodarone drip and dopamine drip in the ED these have been weaned off. Echocardiogram 09/28 revealed EF around 20% with anterior wall akinesis. Echocardiogram 04/02 revealed EF less than 20%. PAP 41.8 mmHg. LV hypokinesis. LV daily. Cardiac catheterization by Dr. Brooke/revealed left main 10%, LAD 10-20%. Left circumflex 20%. RCA normal. Recommended possible LifeVest as outpatient workup. This is been completed. Cycle troponins. Peaked at 1.05. Serially until downward trending Cardiology consultation with Dr. Brooke. Seen by Dr. Heart. Previously on metoprolol and lisinopril. Currently on carvedilol 12.5 mg twice daily. This is been resumed. Previously on lisinopril 5 mg daily. And this is been resumed on 04/03 Recently on atorvastatin 40 mg daily for dyslipidemia. This has been resumed 04/06: Patient was seen by medical record specialist doctor Tera Brooke he already discussed with Doctor Chhaya Alvarado and he will place Biventricular AICD for tomorrow. 04/07: Biventricular AICD placed okay to discharge by medical record specialist. 2. Acute respiratory failure IMPROVED Extubated 04/02. Nasal cannula to maintain saturations greater than equal to 92% Incentive spirometry while awake Albuterol/ipratropium aerosols every 6 hours with albuterol aerosols every 2 hours as needed dyspnea Chest x-ray revealed improvement of pulmonary congestion from pulmonary edema. =improving.continue diuresis for CHF exacerbation 3. Gastroesophageal reflux disease Hiatal hernia Hypoalbuminemia CardiacADA diet as tolerated. Famotidine for GI prophylaxis Docusate sodium/senna 1 tablet twice daily for bowel regimen 4. Diabetes mellitus type 2 Previously on clinical canagliflozin/metformin 1 tablet twice daily and glipizide 10 mg daily Sliding scale is with aspart insulin Accu-Cheks every 6 hours maintain euglycemia/medium protocol Check TSH -0.466. today uncontrolled will control blood sugar before discharging her. 5. Leukocytosis Microcytic anemia PT evaluate and treat Prophylaxis -GI -famotidine -DVT -SCD/heparin subcu Code Status: Full Code. Discussed Condition With: Patient and Nurse Miss Jacobs. Discharge Planning: as per PT specialist recommended to go home with [facility] Discharge Home once blood sugar controlled.
[2018-04-08] MEDS ORDERED: Insulin Detemir Inj 1,000 UNIT/10 ML Vial SQ ONE ×2 (09:07→15:30)
--- NOTE | 2018-04-08 10:25 | P.DCO ---
- Diagnosis (1) Acute respiratory failure Status: Acute (2) Acute systolic heart failure Status: Acute (3) LBBB (left bundle branch block) Status: Acute (4) NSTEMI (non-ST elevated myocardial infarction) Status: Acute - Physical Therapy Order: Evaluate and treat, Improve ambulation, Strength and gait training - Home Health Nursing Order: Medical education, Signs/symptoms of disease process, Medication education-adverse effect, Wound care and dressing changes, Nursing assessment with vital signs - Case Management Consult No - Certification I have seen patient Amberly Desouza on 04/08/18. My clinical findings support the need for the requested home health care services because: Deconditioned with increased weakness I certify that my clinical findings support that this patient is homebound because: Unsafe to leave home unassisted (1) Acute respiratory failure Qualifiers: Respiratory failure complication: hypercapnia Qualified Code(s): J96.02 - Acute respiratory failure with hypercapnia
[2018-04-08] MEDS: Insulin Detemir Inj 1,000 UNIT/10 ML Vial SQ SCH (21:07)
--- NOTE | 2018-04-08 23:11 | ECG ---
Date Performed: 04/08/2018 Time Performed: 18:02:46 PTAGE: 73 years EKG: Demand Ventricular Paced Rhythm Occasional premature ventricular complexes PREVIOUS TRACING : 04/07/2018 18.23 DOCTOR: Fran Hyatt Interpretating Date/Time 04/08/2018 23:09:34
--- NOTE | 2018-04-09 00:33 | ECG ---
Date Performed: 04/07/2018 Time Performed: 18:23:10 PTAGE: 73 years EKG: ELECTRONIC VENTRICULAR PACEMAKER PREVIOUS TRACING : 04/01/2018 11.59 Compared to previous tracing, VENTRICULAR PACED RHYTH M HAS REPLACED NSR DOCTOR: Fran Hyatt Interpretating Date/Time 04/09/2018 00:32:28
[2018-04-09] MEDS: Oral Hygiene Kit OROPHARYNG SCH (03:31)
[2018-04-09 07:29] VITALS: BP 101/75; RESP 18; TEMP 97.6; O2SAT 98
[2018-04-09] MEDS: Carvedilol 12.5 MG Tablet PO SCH (08:21)
[2018-04-09] MEDS: Heparin - SQ 10,000 UNITS/ML Vial SQ SCH (08:21)
[2018-04-09] MEDS: Insulin Detemir Inj 1,000 UNIT/10 ML Vial SQ SCH (08:22)
[2018-04-09] MEDS: Insulin NovoLOG Aspart Correctional Sugar Inj SQ SCH (08:22)
[2018-04-09] MEDS: Chlorhexidine 0.12% Oral Kit 15 ML UDC OROPHARYNG SCH (08:22)
[2018-04-09] MEDS: Famotidine PF Inj 20 MG/2 ML Vial IV.PUSH SCH ×2 (08:24→09:21)
[2018-04-09] MEDS: Senna/Docusate Sodium 8.6/50 MG Tablet PO SCH (08:25)
--- NOTE | 2018-04-09 08:33 | P.PN ---
Subjective Interval history: This is a pleasant 73 y/o Female who has Systolic heart failure with EF 20%, secondary to Non ischemic Cardiomyopathy Mild CAD after Cardiac cath, CHF exacerbation improving, she will probably go for Defibrillator placement today, if not possible will go home and comes back for elective procedure. 04/06: Patient was seen by foreign broadcast specialist doctor Tera Brooke he already discussed with Doctor Chhaya Alvarado and he will place Biventricular ICD tomorrow. 04/07: Seen in her bedroom discussed with patient and nurse Miss Jacobs, no nausea, vomit or diarrhea awaiting for the placement of Biventricular AICD. 04/08: seen in her bedroom, discussed with nurse Miss Jacobs, seen PT evaluation to go home with [facility] for PT and will add skilled nurse, no nausea, vomit or diarrhea, recommended for discharge by foreign broadcast specialist. 04/09: Seen in her bedroom, improving her blood sugar to below 180 mg/dl, will go home today on [facility] she states her Primary offender employment specialist is Doctor Sevilla and does not want to receive anything else without her Endocrinology evaluation she will go for PCP follow up in three days, stable for discharge now. no nausea , vomit or diarrhea. Physical Exam Vital signs: Vital Signs 04/08/18 09:00 04/08/18 09:32 04/08/18 10:00 Temperature Pulse Rate 96 H 96 H Respiratory Rate Blood Pressure Pulse Oximetry 97 04/08/18 10:30 04/08/18 11:00 04/08/18 12:00 Temperature 97.4 F L Pulse Rate 100 H 94 H Respiratory Rate 18 18 Blood Pressure 94/72 L Pulse Oximetry 98 04/08/18 13:00 04/08/18 14:00 04/08/18 15:00 Temperature 97.4 F L Pulse Rate 96 H 94 H 96 H Respiratory Rate 18 Blood Pressure 111/75 Pulse Oximetry 98 04/08/18 16:00 04/08/18 16:52 04/08/18 17:00 Temperature Pulse Rate 104 H 101 H Respiratory Rate 18 Blood Pressure Pulse Oximetry 04/08/18 17:44 04/08/18 18:00 04/08/18 19:00 Temperature 97.7 F Pulse Rate 101 H 110 H Respiratory Rate 16 Blood Pressure 130/66 Pulse Oximetry 97 100 04/08/18 20:00 04/08/18 21:00 04/08/18 22:00 Temperature Pulse Rate 97 H 100 H 103 H Respiratory Rate Blood Pressure Pulse Oximetry 100 04/08/18 23:00 04/09/18 00:00 04/09/18 00:59 Temperature 98.4 F Pulse Rate 106 H 96 H 98 H Respiratory Rate 16 Blood Pressure 130/75 Pulse Oximetry 97 04/09/18 02:00 04/09/18 03:00 04/09/18 04:00 Temperature 98.7 F Pulse Rate 92 H 92 H 92 H Respiratory Rate 16 Blood Pressure 133/82 Pulse Oximetry 97 04/09/18 05:00 04/09/18 06:00 04/09/18 07:00 Temperature 97.6 F Pulse Rate 96 H 93 H 97 H Respiratory Rate 18 Blood Pressure 101/75 Pulse Oximetry 98 Intake & Output 04/08/18 04/09/18 04/09/18 18:59 06:59 18:59 Intake Total 1080 / 1080 240 / 240 Output Total 0 / 0 Balance 1080 / 1080 240 / 240 Weight 61.5 kg Intake: IV 240 / 240 Ancef Inj 2,000 MG In NS Inj 240 / 240 100 ML @ 120 mls/hr IV.SIG Q8H MAULIK Rx#:[id number] Oral 840 / 840 240 / 240 Output: Urine 0 / 0 Other: # Voids 4 Date of Last Bowel Movement 04/08/18 04/06/18 # Bowel Movements 1 Narrative: GENERAL: No acute distress. SKIN: Warm and dry. HEAD: Normocephalic. EYES: No scleral icterus. No injection or drainage. NECK: Supple, trachea midline. No JVD. CARDIOVASCULAR: Regular rate and rhythm without murmurs, gallops, or rubs. has left Upper dressed area, status post Defibrillator placed. left arm with sling. RESPIRATORY: Breath sounds equal bilaterally. No accessory muscle use. GASTROINTESTINAL: Abdomen soft, non-tender, nondistended. MUSCULOSKELETAL: No cyanosis, or edema. BACK: Nontender without obvious deformity. No CVA tenderness. - Urinary Catheter Management Indwelling Urethral Catheter Cath placed during this visit: yes Reason for continuing: Acute urinary retention Insertion date: 03/31/18 Insertion time: 21:36 Results - Labs CBC & Chem 7: 04/05/18 06:25 04/05/18 06:25 Laboratory Results - last 24 hr 04/08/18 04/08/18 04/08/18 11:39 15:00 16:31 POC Glucose 239 H 261 H 264 H 04/08/18 04/09/18 19:43 07:10 POC Glucose 197 H 145 H - Imaging Head CT 04/01/18 00:02 CONCLUSION: 1. No acute intracranial abnormality . Chest X-Ray 04/07/18 00:00 CONCLUSION: 1. Interval placement of a left subclavian bipolar pacer/defibrillator. No pneumothorax. 2. Cardiomegaly with some interstitial prominence suggesting some degree of vascular congestion or volume overload. - Procedures Biventricular AICD placed 04/07/18 Assessment and Plan - Assessment (1) Acute respiratory failure Code(s): J96.00 - Acute respiratory failure, unspecified whether with hypoxia or hypercapnia Status: Acute (2) Acute systolic heart failure Code(s): I50.21 - Acute systolic (congestive) heart failure Status: Acute (3) LBBB (left bundle branch block) Code(s): I44.7 - Left bundle-branch block, unspecified Status: Acute (4) NSTEMI (non-ST elevated myocardial infarction) Code(s): I21.4 - Non-ST elevation (NSTEMI) myocardial infarction Status: Acute - Plan This is a pleasant 73 y/o Female who has Systolic heart failure with EF 20%, secondary to Non ischemic Cardiomyopathy Mild CAD after Cardiac cath, CHF exacerbation improving, she will probably go for Defibrillator placement today, if not possible will go home and comes back for elective procedure. 1. Wide complex tachycardiaSVT currently in sinus tachycardia Chronic systolic heart failure ejection fraction 20% Nonischemic cardia myopathy Essential hypertension Hyperlipidemia Elevated troponin Left bundle branch block Previously on amiodarone drip and dopamine drip in the ED these have been weaned off. Echocardiogram 09/28 revealed EF around 20% with anterior wall akinesis. Echocardiogram 04/02 revealed EF less than 20%. PAP 41.8 mmHg. LV hypokinesis. LV daily. Cardiac catheterization by Dr. Brooke/revealed left main 10%, LAD 10-20%. Left circumflex 20%. RCA normal. Recommended possible LifeVest as outpatient workup. This is been completed. Cycle troponins. Peaked at 1.05. Serially until downward trending Cardiology consultation with Dr. Brooke. Seen by Dr. Heart. Previously on metoprolol and lisinopril. Currently on carvedilol 12.5 mg twice daily. This is been resumed. Previously on lisinopril 5 mg daily. And this is been resumed on 04/03 Recently on atorvastatin 40 mg daily for dyslipidemia. This has been resumed 04/06: Patient was seen by foreign broadcast specialist doctor Tera Brooke he already discussed with Doctor Chhaya Alvarado and he will place Biventricular AICD for tomorrow. 04/07: Biventricular AICD placed okay to discharge by foreign broadcast specialist. 2. Acute respiratory failure IMPROVED Extubated 04/02. Nasal cannula to maintain saturations greater than equal to 92% Incentive spirometry while awake Albuterol/ipratropium aerosols every 6 hours with albuterol aerosols every 2 hours as needed dyspnea Chest x-ray revealed improvement of pulmonary congestion from pulmonary edema. =improving.continue diuresis for CHF exacerbation by mouth at home. 3. Gastroesophageal reflux disease Hiatal hernia Hypoalbuminemia CardiacADA diet as tolerated. Famotidine for GI prophylaxis Docusate sodium/senna 1 tablet twice daily for bowel regimen 4. Diabetes mellitus type 2 Previously on clinical canagliflozin/metformin 1 tablet twice daily and glipizide 10 mg daily Sliding scale is with aspart insulin Accu-Cheks every 6 hours maintain euglycemia/medium protocol Check TSH -0.466. better control today will continue Home medicines on discharge, she states her primary offender employment specialist Doctor Roel is following. 5. Leukocytosis Microcytic anemia PT evaluate and treat Prophylaxis -GI -famotidine -DVT -SCD/heparin subcu Code Status: Full code. Discussed Condition With: Patient and Nurse Miss Jacobs Discharge Planning: as per PT specialist recommended to go home with [facility] Discharge Home now. (1) Acute respiratory failure Qualifiers: Respiratory failure complication: hypercapnia Qualified Code(s): J96.02 - Acute respiratory failure with hypercapnia
[2018-04-09] MEDS: Spironolactone 25 MG Tablet PO SCH (09:16)
--- NOTE | 2018-04-09 09:49 | P.DS ---
Date of admission: 03/31/18 22:27 Primary care physician: Joel Begum Attending physician on discharge: Josep Arce Anticipated date of discharge: 04/09/18 Brief History from admission: 73-year-old female was brought in by EMS after a call went out for respiratory distress followed by unresponsiveness. When EMS arrived patient was a GCS of 3 with agonal breathing. Patient was emergently intubated by EMS with etomidate and Ativan. She was given Nitropaste and IV Lasix. As per the bystanders patient has history of congestive heart failure. Patient obviously was unable to give any history. Upon arrival her blood pressure was 153 systolic and heart rate of 145. Patient was oxygenating 99% upon being bagged through the ET tube. Per patient's sister and the and at bedside the patient was wearing a LifeVest due to low EF approximately 20% for last 90 days. She has been followed by printed circuit board reworker Dr. Brooke. She had a colonoscopy today that was uneventful however postprocedure the staff noticed today that she had a left bundle branch block which the family called the patient's printed circuit board reworker and he assured them that it has not been new. In the emergency department he was running a wide-complex tachycardia, that responded to amiodarone bolus and drip and IV magnesium. DS: Diagnosis - Discharge Diagnosis (1) Acute respiratory failure Status: Acute (2) Acute systolic heart failure Status: Acute (3) LBBB (left bundle branch block) Status: Acute (4) NSTEMI (non-ST elevated myocardial infarction) Status: Acute DS: Summary Hospital Course: This is a pleasant 73 y/o Female who has Systolic heart failure with EF 20%, secondary to Non ischemic Cardiomyopathy Mild CAD after Cardiac cath, CHF exacerbation improving, she will probably go for Defibrillator placement today, if not possible will go home and comes back for elective procedure. 04/06: Patient was seen by medical insurance coding specialist doctor Tera Brooke he already discussed with Doctor Chhaya Alvarado and he will place Biventricular ICD tomorrow. 04/07: Seen in her bedroom discussed with patient and nurse Miss Jacobs, no nausea, vomit or diarrhea awaiting for the placement of Biventricular AICD. 04/08: seen in her bedroom, discussed with nurse Miss Jacobs, seen PT evaluation to go home with [facility] for PT and will add skilled nurse, no nausea, vomit or diarrhea, recommended for discharge by medical insurance coding specialist. 04/09: Seen in her bedroom, improving her blood sugar to below 180 mg/dl, will go home today on [facility] she states her Primary epic beacon specialists is Doctor Sevilla and does not want to receive anything else without her Endocrinology evaluation she will go for PCP follow up in three days, stable for discharge now. no nausea , vomit or diarrhea. Assessment and Plan - Assessment (1) Acute respiratory failure Code(s): J96.00 - Acute respiratory failure, unspecified whether with hypoxia or hypercapnia Status: Acute (2) Acute systolic heart failure Code(s): I50.21 - Acute systolic (congestive) heart failure Status: Acute (3) LBBB (left bundle branch block) Code(s): I44.7 - Left bundle-branch block, unspecified Status: Acute (4) NSTEMI (non-ST elevated myocardial infarction) Code(s): I21.4 - Non-ST elevation (NSTEMI) myocardial infarction Status: Acute - Plan This is a pleasant 73 y/o Female who has Systolic heart failure with EF 20%, secondary to Non ischemic Cardiomyopathy Mild CAD after Cardiac cath, CHF exacerbation improving, she will probably go for Defibrillator placement today, if not possible will go home and comes back for elective procedure. 1. Wide complex tachycardiaSVT currently in sinus tachycardia Chronic systolic heart failure ejection fraction 20% Nonischemic cardia myopathy Essential hypertension Hyperlipidemia Elevated troponin Left bundle branch block Previously on amiodarone drip and dopamine drip in the ED these have been weaned off. Echocardiogram 09/28 revealed EF around 20% with anterior wall akinesis. Echocardiogram 04/02 revealed EF less than 20%. PAP 41.8 mmHg. LV hypokinesis. LV daily. Cardiac catheterization by Dr. Brooke/revealed left main 10%, LAD 10-20%. Left circumflex 20%. RCA normal. Recommended possible LifeVest as outpatient workup. This is been completed. Cycle troponins. Peaked at 1.05. Serially until downward trending Cardiology consultation with Dr. Brooke. Seen by Dr. Heart. Previously on metoprolol and lisinopril. Currently on carvedilol 12.5 mg twice daily. This is been resumed. Previously on lisinopril 5 mg daily. And this is been resumed on 04/03 Recently on atorvastatin 40 mg daily for dyslipidemia. This has been resumed 04/06: Patient was seen by medical insurance coding specialist doctor Tera Brooke he already discussed with Doctor Chhaya Alvarado and he will place Biventricular AICD for tomorrow. 04/07: Biventricular AICD placed okay to discharge by medical insurance coding specialist. 2. Acute respiratory failure IMPROVED Extubated 04/02. Nasal cannula to maintain saturations greater than equal to 92% Incentive spirometry while awake Albuterol/ipratropium aerosols every 6 hours with albuterol aerosols every 2 hours as needed dyspnea Chest x-ray revealed improvement of pulmonary congestion from pulmonary edema. =improving.continue diuresis for CHF exacerbation by mouth at home. 3. Gastroesophageal reflux disease Hiatal hernia Hypoalbuminemia CardiacADA diet as tolerated. Famotidine for GI prophylaxis Docusate sodium/senna 1 tablet twice daily for bowel regimen 4. Diabetes mellitus type 2 Previously on clinical canagliflozin/metformin 1 tablet twice daily and glipizide 10 mg daily Sliding scale is with aspart insulin Accu-Cheks every 6 hours maintain euglycemia/medium protocol Check TSH -0.466. better control today will continue Home medicines on discharge, she states her primary epic beacon specialists Doctor Roel is following. 5. Leukocytosis Microcytic anemia PT evaluate and treat Prophylaxis -GI -famotidine -DVT -SCD/heparin subcu Code Status: Full code. Discussed Condition With: Patient and Nurse Arlene Discharge Planning: as per PT specialist recommended to go home with [facility] Discharge Home now. (1) Acute respiratory failure Qualifiers: Respiratory failure complication: hypercapnia Qualified Code(s): J96.02 - Acute respiratory failure with hypercapnia - Time Spent with Patient Total time spent providing and/or coordinating discharge services: Greater than 30 minutes - Quality: VTE Deep Vein Thrombosis/Pulmonary Embolism Present on Admission: Yes Exam Vital signs: Vital Signs 04/08/18 10:00 04/08/18 10:30 04/08/18 11:00 Temperature 97.4 F L Pulse Rate 96 H 100 H Respiratory Rate 18 18 Blood Pressure 94/72 L Pulse Oximetry 98 04/08/18 12:00 04/08/18 13:00 04/08/18 14:00 Temperature Pulse Rate 94 H 96 H 94 H Respiratory Rate Blood Pressure Pulse Oximetry 04/08/18 15:00 04/08/18 16:00 04/08/18 16:52 Temperature 97.4 F L Pulse Rate 96 H 104 H Respiratory Rate 18 18 Blood Pressure 111/75 Pulse Oximetry 98 04/08/18 17:00 04/08/18 17:44 04/08/18 18:00 Temperature Pulse Rate 101 H 101 H Respiratory Rate Blood Pressure Pulse Oximetry 97 04/08/18 19:00 04/08/18 20:00 04/08/18 21:00 Temperature 97.7 F Pulse Rate 110 H 97 H 100 H Respiratory Rate 16 Blood Pressure 130/66 Pulse Oximetry 100 100 04/08/18 22:00 04/08/18 23:00 04/09/18 00:00 Temperature 98.4 F Pulse Rate 103 H 106 H 96 H Respiratory Rate 16 Blood Pressure 130/75 Pulse Oximetry 97 04/09/18 00:59 04/09/18 02:00 04/09/18 03:00 Temperature 98.7 F Pulse Rate 98 H 92 H 92 H Respiratory Rate 16 Blood Pressure 133/82 Pulse Oximetry 97 04/09/18 04:00 04/09/18 05:00 04/09/18 06:00 Temperature Pulse Rate 92 H 96 H 93 H Respiratory Rate Blood Pressure Pulse Oximetry 04/09/18 07:00 04/09/18 08:00 04/09/18 09:46 Temperature 97.6 F Pulse Rate 97 H Respiratory Rate 18 Blood Pressure 101/75 Pulse Oximetry 98 98 98 Intake & Output 04/08/18 04/09/18 04/09/18 18:59 06:59 18:59 Intake Total 1080 / 1080 240 / 240 Output Total 0 / 0 Balance 1080 / 1080 240 / 240 Weight 61.5 kg Intake: IV 240 / 240 Ancef Inj 2,000 MG In NS Inj 240 / 240 100 ML @ 120 mls/hr IV.SIG Q8H MAULIK Rx#:[id number] Oral 840 / 840 240 / 240 Output: Urine 0 / 0 Other: # Voids 4 Date of Last Bowel Movement 04/08/18 04/06/18 04/06/18 # Bowel Movements 1 Narrative: GENERAL: No acute distress. SKIN: Warm and dry. HEAD: Normocephalic. EYES: No scleral icterus. No injection or drainage. NECK: Supple, trachea midline. No JVD. CARDIOVASCULAR: Regular rate and rhythm without murmurs, gallops, or rubs. has left Upper dressed area, status post Defibrillator placed. left arm with sling. RESPIRATORY: Breath sounds equal bilaterally. No accessory muscle use. GASTROINTESTINAL: Abdomen soft, non-tender, nondistended. MUSCULOSKELETAL: No cyanosis, or edema. BACK: Nontender without obvious deformity. No CVA tenderness. Results Procedures completed during hospitalization: Biventricular AICD placed 04/07/18 Labs on day of discharge: Labs from last 24 hours 04/09/18 04/08/18 04/08/18 07:10 19:43 16:31 POC Glucose 145 H 197 H 264 H 04/08/18 04/08/18 15:00 11:39 POC Glucose 261 H 239 H - Impressions Head CT 04/01/18 00:02 CONCLUSION: 1. No acute intracranial abnormality . Chest X-Ray 04/07/18 00:00 CONCLUSION: 1. Interval placement of a left subclavian bipolar pacer/defibrillator. No pneumothorax. 2. Cardiomegaly with some interstitial prominence suggesting some degree of vascular congestion or volume overload. Discharge Plan - Discharge Disposition Patient Disposition: /Home Health Service - Discharge Condition Condition: Good - Discharge Order Discharge Orders: Discharge Order (Routine); Ordered 04/08/18 Ordered By: Josep Arce - Discharge Details Anticipated Discharge Date: 04/09/18 Discharge Comment: Follow up with PCP in three days Doctor Joel Begum - Physicians Team Primary Care Provider: Joel Begum Attending Provider: Josep Arce Other Providers: Álvaro Heart MD ; Raysa Tabares ; Zeeshan Alvarado MD ; [facility],[place]
[2018-04-09 13:05] VITALS: PULSE 96
== END 2018-04-09 11:25 | disposition home health service (06) ==
LOC: NEPC 21:31 → NEDA 22:27 → HIMC 04-01 03:10 → HCIS 04-05 12:51
PROVIDERS: ADMIT Internal Medicine; ATTEND Internal Medicine
PROC: [UNRECOGNIZED PROCEDURE] (2018-04-07 14:00)